=== PATIENT | male | born 1965 | race Caucasian/White ===

== ENCOUNTER → 2019-03-05 11:22 | Day surgery (SDC) | payer MEDICARE, MEDICAID, SELFPAY ==
--- NOTE | 2019-03-05 11:36 | US_ITS ---
WS: [id number] ULTRASOUND-GUIDED THERAPEUTIC PARACENTESIS Procedure, risks, and complications have been explained to the patient. Consent is obtained. Utilizing aseptic technique and 1% buffered lidocaine, a small dermatome was made through which a 5 F rench Yueh catheter was inserted. Approximately 4000 ml of clear peritoneal fluid was obtained witho ut difficulty. No complications encountered. US/US paracentesis abd w [id number] IMPRESSION: Uncomplicated paracentesis yielding 4000 ml of peritoneal fluid.
[2019-03-05 11:40] VITALS: BP 147/87; PULSE 79; RESP 20; TEMP 36.8; O2SAT 97; BMI 22.8
== END ==
PROVIDERS: Family Provider Internal Medicine; PCP Internal Medicine; Visit Provider Internal Medicine
DX: R18.8 Other ascites (principal)
CPT/HCPCS: 49083

== ENCOUNTER 2019-03-18 14:25 | Outpatient (CLI) | payer MEDICARE, MEDICAID, SELFPAY ==
--- NOTE | 2019-03-18 | US_ITS ---
WS: [id number] RIGHT UPPER QUADRANT ULTRASOUND HISTORY: CIRRHOSIS COMPARISON: 09/23/2018 Liver: 17.3 cm in length. Normal size liver. Markedly lobulated contours of the liver. No mass identi fied. Bile ducts are normal. Gallbladder: Mildly contracted gallbladder with thickened peña. No stones identified. CBD: 2.9 mm Pancreas: Not visualized. Right kidney: 10.1 cm in length. Normal echogenicity with no mass or hydronephrosis. Aorta and IVC: Unremarkable. Large amount of ascites scattered throughout all 4 quadrants. US/US liver [id number] IMPRESSION: 1. Severe cirrhosis with no mass identified. 2. Gallbladder wall thickening is probably on the basis of hepatocellular dise ase. No gallstones identified. 3. Large amount of ascites.
== END 2019-03-18 14:26 | disposition home or self-care (01) ==
LOC: RADOUTREAD 03-19 14:25
PROVIDERS: Family Provider Internal Medicine; Visit Provider Internal Medicine
DX: K74.60 Unspecified cirrhosis of liver (principal); R18.8 Other ascites
CPT/HCPCS: 76705

== ENCOUNTER → 2019-03-20 10:26 | Day surgery (SDC) | payer MEDICARE, MEDICAID, SELFPAY ==
--- NOTE | 2019-03-20 10:38 | US_ITS ---
WS: [id number] ULTRASOUND-GUIDED THERAPEUTIC PARACENTESIS Procedure, risks, and complications have been explained to the patient. Consent is obtained. Utilizing aseptic technique and 1% buffered lidocaine, a small dermatome was made through which a 5 F rench Yueh catheter was inserted. Approximately 3600 ml of clear peritoneal fluid was obtained witho ut difficulty. No complications encountered. US/US paracentesis abd w [id number] IMPRESSION: Uncomplicated paracentesis yielding 3600 ml of peritoneal fluid.
[2019-03-20 10:47] VITALS: BP 161/87; PULSE 76; RESP 20; TEMP 37.1; O2SAT 97
[2019-03-20 10:48] VITALS: BMI 21.2
== END ==
PROVIDERS: Family Provider Internal Medicine; PCP Internal Medicine; Visit Provider Internal Medicine
DX: G89.29 Other chronic pain (principal); M54.5 Low back pain; M54.2 Cervicalgia; M99.09 Segmental and somatic dysfunction of abdomen and other regions; E11.40 Type 2 diabetes mellitus with diabetic neuropathy, unspecified; F17.210 Nicotine dependence, cigarettes, uncomplicated; Z79.891 Long term (current) use of opiate analgesic
CPT/HCPCS: 49083; 99214; J2001

== ENCOUNTER → 2019-04-04 09:59 | Day surgery (SDC) | payer MEDICARE, MEDICAID, SELFPAY ==
--- NOTE | 2019-04-04 10:26 | US_ITS ---
WS: [id number] ULTRASOUND-GUIDED PARACENTESIS CLINICAL INFORMATION: ascites COMPARISON: None. Procedure Informed consent: The risks, benefits, and alternatives of the procedure were discussed with the juanita ent. Verbal and written consent was obtained. Timeout: A timeout was performed to confirm the correct patient, procedure, and site. Preparation: A suitable skin site was identified. The patient was prepped and draped in usual sterile fashion. Lidocaine 1% was used for local anesthesia. Catheter: 4 Nigerien One-step Yueh catheter. Side: Right Lower quadrant. Fluid Volume: 4300 ml Color: Clear yellow DISPOSITION: Discarded safely. Complications: None. Patient disposition: Discharged from the department in stable condition. US/US paracentesis abd w [id number] IMPRESSION: Uncomplicated ultrasound-guided paracentesis. Removal of 4300 cc clear yellow fluid
[2019-04-04 10:39] VITALS: BP 147/71; PULSE 57; RESP 18; TEMP 36.6
[2019-04-04 10:40] VITALS: BMI 24.5
== END ==
PROVIDERS: Family Provider Internal Medicine; PCP Internal Medicine; Visit Provider Internal Medicine
DX: R18.8 Other ascites (principal)
CPT/HCPCS: 49083

== ENCOUNTER → 2019-04-21 10:36 | Day surgery (SDC) | payer MEDICARE, MEDICAID, SELFPAY ==
[2019-04-21 10:47] VITALS: BP 143/82; PULSE 66; RESP 16; TEMP 36.8; O2SAT 98
--- NOTE | 2019-04-21 11:30 | US_ITS ---
WS: [id number] ULTRASOUND-GUIDED THERAPEUTIC PARACENTESIS Procedure, risks, and complications have been explained to the patient. Consent is obtained. Utilizing aseptic technique and 1% buffered lidocaine, a small dermatome was made through which a 5 F rench Yueh catheter was inserted. Approximately 2600 ml of clear peritoneal fluid was obtained witho ut difficulty. No complications encountered. US/US paracentesis abd w [id number] IMPRESSION: Uncomplicated paracentesis yielding 2600 ml of peritoneal fluid.
[2019-04-21 12:45] VITALS: BMI 24.1
== END ==
PROVIDERS: Family Provider Internal Medicine; PCP Internal Medicine; Visit Provider Internal Medicine
DX: R18.8 Other ascites (principal)
CPT/HCPCS: 49083; J2001

== ENCOUNTER 2019-05-07 10:54 | Outpatient (CLI) | payer MEDICARE, MEDICAID, SELFPAY ==
--- NOTE | 2019-05-07 11:29 | US_ITS ---
WS: [id number] Ultrasound-guided paracentesis, 05/07/2019 Clinical Data: ascites Comparison: Ultrasound-guided paracentesis, 04/21/2019. Findings: The patient was prepared in the usual manner with cleansing the skin of the right lower quadrant. The n approximately 5 mL 1% lidocaine were injected into the skin and subcutaneous tissue. A small wound was made and a 5 Tongan Yueh catheter was inserted. 4500 mL of clear yellow peritoneal fluid were rem brett without complication. US/US paracentesis abd w [id number] Impression: Paracentesis with removal of 4500 mL of peritoneal fluid.
[2019-05-07 11:30] VITALS: BMI 26.1
[2019-05-07 11:34] VITALS: BP 166/82; PULSE 67; RESP 18; TEMP 37.7; O2SAT 98
== END 2019-05-07 10:55 | disposition home or self-care (01) ==
PROVIDERS: Family Provider Internal Medicine; PCP Internal Medicine; Visit Provider Internal Medicine
DX: R18.8 Other ascites (principal)
CPT/HCPCS: 49083

== ENCOUNTER 2019-05-23 07:40 | Outpatient (CLI) | payer MEDICARE, MEDICAID, SELFPAY ==
[2019-05-23 07:59] VITALS: BMI 25.8
--- NOTE | 2019-05-23 08:09 | US_ITS ---
WS: [id number] ULTRASOUND-GUIDED PARACENTESIS CLINICAL INFORMATION: ASCITES COMPARISON: None. Procedure Informed consent: The risks, benefits, and alternatives of the procedure were discussed with the juanita ent. Verbal and written consent was obtained. Timeout: A timeout was performed to confirm the correct patient, procedure, and site. Preparation: A suitable skin site was identified. The patient was prepped and draped in usual sterile fashion. Lidocaine 1% was used for local anesthesia. Catheter: 4 Somali One-step Yueh catheter. Side: Right Lower quadrant. Fluid Volume: 4500 cc Color: Clear yellow DISPOSITION: Discarded safely. Complications: None. US/US paracentesis abd w [id number] IMPRESSION: Uncomplicated ultrasound-guided paracentesis. Removal of 4500 cc
[2019-05-23 08:11] VITALS: BP 165/95; PULSE 71; RESP 18; TEMP 37.3; O2SAT 99
== END 2019-05-23 07:41 | disposition home or self-care (01) ==
LOC: RAD 07:45
PROVIDERS: Family Provider Internal Medicine; PCP Internal Medicine; Visit Provider Internal Medicine
DX: R18.8 Other ascites (principal)
CPT/HCPCS: 49083

== ENCOUNTER 2019-06-06 08:00 | Outpatient (CLI) | payer MEDICARE, MEDICAID, SELFPAY | END 2019-06-06 09:00 | disposition home or self-care (01) | LOC: GILAB 09-30 15:24 | PROVIDERS: PCP Internal Medicine; Visit Provider Internal Medicine | DX: K72.90 Hepatic failure, unspecified without coma (principal); R18.8 Other ascites | CPT/HCPCS: 49083 ==

== ENCOUNTER 2019-06-06 10:54 | Outpatient (CLI) | payer MEDICARE, MEDICAID, SELFPAY ==
--- NOTE | 2019-06-06 | US_ITS ---
WS: [id number] ULTRASOUND-GUIDED PARACENTESIS CLINICAL INFORMATION: PARA COMPARISON: None. Procedure Informed consent: The risks, benefits, and alternatives of the procedure were discussed with the juanita ent. Verbal and written consent was obtained. Timeout: A timeout was performed to confirm the correct patient, procedure, and site. Preparation: A suitable skin site was identified. The patient was prepped and draped in usual sterile fashion. Lidocaine 1% was used for local anesthesia. Catheter: 4 Albanian One-step Yueh catheter. Side: Right Lower quadrant. Fluid Volume: 4200 ml Color: Clear matti DISPOSITION: Discarded safely. Complications: None. Patient disposition: Discharged from the department in stable condition. US/US paracentesis abd w [id number] IMPRESSION: Uncomplicated ultrasound-guided paracentesis. Removal of 4200 cc
[2019-06-06 11:16] VITALS: BP 163/78; PULSE 64; RESP 18; TEMP 37.1; O2SAT 99
[2019-06-06 11:28] VITALS: BMI 26.6
[2019-06-06 13:09] VITALS: BP 168/87; PULSE 60; RESP 18; TEMP 36.8; O2SAT 100
== END 2019-06-06 10:55 | disposition home or self-care (01) ==
LOC: RAD 10:59
PROVIDERS: Family Provider Internal Medicine; PCP Internal Medicine; Visit Provider Internal Medicine
DX: R18.8 Other ascites (principal)
CPT/HCPCS: 49083

== ENCOUNTER 2019-06-19 10:42 | Outpatient (CLI) | payer MEDICARE, MEDICAID, SELFPAY ==
[2019-06-19 10:55] VITALS: BP 170/113; PULSE 79; RESP 18; TEMP 37.1; O2SAT 97; BMI 25.8
--- NOTE | 2019-06-19 11:52 | US_ITS ---
WS: [id number] US abdomen lmt fluid [id number] REASON FOR EXAM: ascites FINDINGS: Prominent ascites again seen involving the 4 quadrants of the abdomen. As compared to the p revious exam exposed June 06, 2019. IMPRESSION: Prominent ascites again noted.
[2019-06-19 13:20] VITALS: BP 163/94; PULSE 74; RESP 20; O2SAT 99
[2019-06-19 14:05] VITALS: BP 158/70; PULSE 66; RESP 18; O2SAT 100
== END 2019-06-19 10:43 | disposition home or self-care (01) ==
LOC: OPS 10:47
PROVIDERS: Family Provider Internal Medicine; PCP Internal Medicine; Visit Provider Internal Medicine
DX: R18.8 Other ascites (principal)
CPT/HCPCS: 49082; 76705

== ENCOUNTER 2019-06-30 09:12 | Day surgery (SDC) | payer MEDICARE, MEDICAID, SELFPAY ==
[2019-06-27 14:59] VITALS: BMI 23.1
--- NOTE | 2019-06-30 09:32 | W.PM.OPSUD ---
Surgery/Procedure H&P Update DATE OF PROCEDURE: June 30, 2019 DATE H&P PERFORMED: 06/27/19 H&P UPDATE INFORMATION: I have reviewed H&P completed within last 30 days, I have examined patient prior to procedure and No changes to prior documentation PREOP DIAGNOSIS: Ascites PLANNED PROCEDURE: Operation Date: 06/30/19 11:00 Proposed Procedures p Peritoneal Catheter Insertion [id number] K76.9(Not Applicable) - Tyrone Dill MD
[2019-06-30 09:37] VITALS: BP 177/101; PULSE 84; RESP 18; TEMP 36.9; O2SAT 98; BMI 24.9
[2019-06-30] MEDS: sodium chloride 0.9% 1,000 ML 30 ML IV (09:48)
[2019-06-30 09:53] LABS: Glucose Point of Care 176 mg/dL (70-110)
--- NOTE | 2019-06-30 10:16 | P.ANESASSM_ITS ---
Pre-Anesthetic Assessment Pre-Anesthetic Assessment: Height/Weight: Height 1.73 m Weight 74.389 kg Temp Pulse Resp BP Pulse Ox 98.5 F 84 18 177/101 98 06/30/19 09:37 06/30/19 09:37 06/30/19 09:37 06/30/19 09:37 06/30/19 09:37 Preop Diagnosis: Ascites Proposed Procedure: Operation Date: 06/30/19 11:00 Proposed Procedures p Peritoneal Catheter Insertion [id number] K76.9(Not Applicable) - Tyrone Dill MD Familial anesthetic complications: None Was Beta Elmer taken within 24 hours: N/A Last intake: Intake Last Liquid Date 06/30/19 Last Liquid Time 02:00 Last Solid Date 06/29/19 Last Solid Time 23:59 Social: Social History: Tobacco and No alcohol Exam: Pre-Anes Outpt Exam: alert, oriented x 3, clear to auscultation bilaterally and regular rate & rhythm Airway: Cervical ROM: WNL MP: 1 Additional comments: edentulous Pulmonary: Pulmonary: COPD CV/HEM: CV/HEM: HTN and AL : : None reported Hepatic: Comments: Liver failure - alcohol and IVDA (REMOTE HX) GI: GI: GERD Metabolic: Metabolic: DM Musc/skel: Musc/skel: None reported Neuropsych: Neuropsych: CVA (NO REsidual sxs - last one 6 yrs ago) Anesthetic Plan: ASA status: 4 Anesthesia: General Other: RSI for a scites Risk of > 500 ml blood loss (7ml/kg in children): No Meds/Allergies Current Medications: Current Medications Generic Name Dose Route Start Last Admin Trade Name Freq PRN Reason Stop Dose Admin Sodium Chloride 1,000 mls @ 30 ml s/hr 06/30/19 09:30 06/30/19 09:48 Sodium Chloride 0.9% IV 07/01/19 09:29 30 mls/hr .Q24H GIGI Administration PFSH Anesthesia PFSH: Medical History (Updated 06/27/19 @ 15:06 by Tyrone Dill MD) Ascites Chronic cervical pain Chronic low back pain Diabetes Diabetic neuropathy, painful Liver failure Somatic dysfunction of back THORACIC AND LUMBAR Surgical History History of colonoscopy History of esophagogastroduodenoscopy (EGD) Hx of circumcision Hx of inguinal hernia repair (~05/22/18) LAP REPAIR OF RIGHT INGUINAL HERNIA WITH ULTRAPRO 15X10 CM MESH. Hx of oral surgery Family History Father Cancer LUNG CANCER Other Diabetes Heart disease Lung disease Myocardial infarct Stroke Denies family history of Anesthesia complication Bleeding disorder Social History Smoking and tobacco status: current every day smoker cigarettes Packs smoked per day: 0.5 Alcohol intake: former Year of sobriety/quit date alcohol: 2009 Caregiver/support person: Yes Lives independently: Yes Household members: friend(s) Current occupational status: disabled History of recent travel: No Data Anesthesia Other Labs: Laboratory Results - last 48 hr 06/30/19 09:49 POC Glucose 176 Cardiac Studies: No Data to Display
[2019-06-30] MEDS: vancomycin 1,000 MG in sodium chloride 0.9% 250 ML 250 MG IV (10:19)
[2019-06-30 10:39] VITALS: RESP 16; O2SAT 98
[2019-06-30] MEDS: fentaNYL 50 mcg/mL INJ 2mL 25 MCG IVP (10:39)
[2019-06-30 11:39] VITALS: BP 154/76; PULSE 79; RESP 16; TEMP 36.2; O2SAT 97
--- NOTE | 2019-06-30 11:39 | PM.OP ---
Operative Report Date of procedure: June 30, 2019 Pre-op Diagnosis: Ascites secondary to liver failure Post-op diagnosis: same Procedure Done: Placement of peritoneal catheter Ultrasound guidance and interpretation for placement of catheter Pathology: none sent Surgeon: Tyrone Dill Anesthesia: MAC Estimated blood loss (mL): 5 Condition: stable Disposition: same day Procedure: The patient was taken to the operating room and placed under MAC after IV antibiotic had been administered. Ultrasound of the right lower quadrant revealed ascites with small bowel loops. Under ultrasound guidance introducer needle was introduced into the peritoneal cavity with drainage of ascites. A guidewire was passed through the introducer needle and the needle was removed. A dilator sheath was then passed over the guidewire after the skin incision had been extended using 11 blade. The guidewire and the inner dilator was removed and a peritoneal cath was introduced into the peritoneal cavity and the first cuff on the catheter was placed in the subcutaneous space. The external end of the catheter was attached to the tunneler and passed through subcutaneous tunnel laterally and exited through was stab incision made using 11 blade. The second cuff was placed within the subcutaneous tunnel. The skin incision was closed using 4-0 Monocryl and surgical glue. The ascites was drained. Patient was transferred to same-day surgery in stable condition.
[2019-06-30 12:13] VITALS: RESP 18; O2SAT 96
[2019-06-30] MEDS: oxyCODONE 5 mg IR Tab/Cap 20 MG PO (12:13)
[2019-06-30 12:16] VITALS: BP 163/89; PULSE 74; RESP 16; O2SAT 96
== END 2019-06-30 12:43 | disposition home or self-care (01) ==
PROVIDERS: PCP Internal Medicine; Visit Provider Surgery
PROC: (CPT 49324; principal; 2019-06-30 11:00)
DX: R18.8 Other ascites (principal); K72.90 Hepatic failure, unspecified without coma; E11.40 Type 2 diabetes mellitus with diabetic neuropathy, unspecified; Z79.4 Long term (current) use of insulin; F17.210 Nicotine dependence, cigarettes, uncomplicated; J44.9 Chronic obstructive pulmonary disease, unspecified; I10 Essential (primary) hypertension; I25.2 Old myocardial infarction; K21.9 Gastro-esophageal reflux disease without esophagitis; Z86.73 Personal history of transient ischemic attack (TIA), and cerebral infarction without residual deficits
CPT/HCPCS: 49324; 12345; 36416; 82962; 96374; C1750; J2001; J2250; J2270; J2704; J3010; J3370; J3490; J7030; J7050

== ENCOUNTER 2019-08-01 17:29 | Emergency (ER) | payer MEDICARE, MEDICAID, SELFPAY | END 2019-08-01 17:52 | disposition left against medical advice (07) | LOC: ER 08-24 05:38 | PROVIDERS: Emergency Provider Physician Assistant | DX: Z53.21 Procedure and treatment not carried out due to patient leaving prior to being seen by health care provider (principal) | CPT/HCPCS: 99281 ==

== ENCOUNTER 2019-08-01 17:33 | Emergency (ER) | payer MEDICARE, MEDICAID, SELFPAY ==
[2019-08-01] VITALS (9 sets, daily range): BP systolic 129–171; BP diastolic 78–99; PULSE 68–79; RESP 14–17; TEMP 36.9; O2SAT 97–99; BMI 22.8
--- NOTE | 2019-08-01 18:09 | CTR_ITS ---
PROCEDURE INFORMATION: Exam: CT Abdomen And Pelvis With Contrast Exam date and time: 08/01/2019 6:31 PM Age: 53 years old Clinical indication: Abdominal pain; Generalized; Prior surgery; Surgery date: <1 month; Surgery type: R sided drain, hernia; Patient HX: C/O abd pain w nausea; Additional info: Abdominal pain, ascites TECHNIQUE: Imaging protocol: Computed tomography of the abdomen and pelvis with intravenous contrast. Radiation optimization: All CT scans at this facility use at least one of these dose optimization techniques: automated exposure control; mA and/or kV adjustment per patient size (includes targeted exams where dose is matched to clinical indication); or iterative reconstruction. Contrast material: OMNI 300; Contrast volume: 95 ml; Contrast route: INTRAVENOUS (IV); COMPARISON: No relevant prior studies available. RADIATION DOSE METRICS: Total DLP (mGy-cm): 656.49 FINDINGS: Tubes, catheters and devices: There is catheter tubing coiled in the midline pelvis. Lungs: There is an unchanged 7 mm nodular density left lung base image 6. There is also an unchanged 3 mm ground-glass nodule right lung image 6. There is no new or enlarging pulmonary nodule. The lung bases are otherwise clear. Liver: The liver has a grossly nodular contour and there is relative hypertrophy of the caudate lobe, consistent with end-stage cirrhosis. Few tiny hepatic hypodensities are too small to characterize. Gallbladder and bile ducts: Normal. No calcified stones. No ductal dilation. Pancreas: Normal. No ductal dilation. Spleen: The spleen measures 14.8 x 14.5 by 7.0 cm. The spleen is homogeneous in density. Adrenals: Normal. No mass. Kidneys and ureters: There is no evidence of hydronephrosis. There are small bilateral renal calcifications. Stomach and bowel: There is diffuse small bowel wall thickening, consistent with infectious, ischemic, or inflammatory enteritis. Extensive diverticulosis is present in the distal colon. There is no evidence of colitis/diverticulitis. The gastric wall appears thickened but the stomach is also nearly completely collapsed in the appearance is compatible probable lack of distension. Appendix: The appendix is not definitively identified. However, there is no CT evidence of a right lower quadrant inflammatory process. Intraperitoneal space: There is a moderate to large quantity of ascites. Vasculature: Unremarkable.No abdominal aortic aneurysm. Lymph nodes: Unremarkable.No enlarged lymph nodes. Bladder: Unremarkable as visualized. Reproductive: Unremarkable as visualized. Bones/joints: Osteopenia and moderate degenerative changes in the spine are noted. Soft tissues: Unremarkable. Other findings: Varicosities are noted in the upper abdomen. CT/CT abdomen pelvis w con* [id number] IMPRESSION: 1. There is diffuse small bowel wall thickening, consistent with infectious, ischemic, or inflammatory enteritis. 2. There is abundant ascites. No abscess or free air. 3. Heterogeneous nodular liver compatible with cirrhosis. There is splenomegaly and varicosities. 4. Unchanged basilar pulmonary nodules. The lungs are otherwise clear. 5. Bilateral nephrolithiasis. No hydronephrosis. Radiation Dose CTDIVOL = (mGy): DLP = 656.49 (mGy-cm)
[2019-08-01 18:31] LABS: Basophils # 0.1 10^3/uL (0.0-0.1); Basophils % 1.1 %; Eosinophils # 0.1 10^3/uL (0.0-0.8); Eosinophils % 2.5 %; Hemoglobin 10.6 g/dL (11.7-16.6); Lymphocytes # 0.6 10^3/uL (0.8-4.8); Lymphocytes % 11.8 %; Mean Corpuscular HGB Conc 31.2 g/dL (30.0-36.0); Mean Corpuscular Hemoglobin 30.8 pg (28.0-34.0); Mean Corpuscular Volume 98.8 fL (80-94); Mean Platelet Volume 10.2 fL (7.4-10.4); Monocytes # 0.6 10^3/uL (0.2-0.9); Neutrophils # 3.4 10^3/uL (1.8-7.7); Neutrophils % 72.2 %; Nucleated Red Blood Cells % 0 %; Platelet Count 71 10^3/cmm (130-400); Red Blood Count 3.44 10^6/uL (4.1-5.3); Red Cell Distribution Width 13.2 % (12.1-15.1); White Blood Count 4.7 10^3/uL (4.0-10.0)
[2019-08-01] MEDS: iohexol 300 mg/mL 100 mL Btl 95 ML IV (18:34)
[2019-08-01 18:46] LABS: Lactate (Lactic Acid level) 1.7 mmol/L (0.5-2.2)
[2019-08-01 18:55] LABS: Alanine Aminotransferase 8 U/L (0-41); Albumin Level 2.6 g/dL (3.5-5.2); Alkaline Phosphatase 109 IU/L (40-130); Anion Gap 16.7 (5-19); Aspartate Amino Transferase 14 U/L (0-40); Blood Urea Nitrogen 16 mg/dL (6-20); C Reactive Protein 71.2 mg/L (0.0-4.9); Calcium 7.5 mg/dL (8.5-10.5); Carbon Dioxide 16 mmol/L (22-29); Chloride 101 mmol/L (98-107); Globulin 2.6 g/dL (1.3-4.6); Glomerular Filtration Rate 63.3 mL/min (90-130); Glucose 313 mg/dL (65-115); Osmolality Calculated 278 mOsm/kg (285-295); Potassium 3.7 mmol/L (3.5-5.1); Sodium 130 mmol/L (136-145); Total Bilirubin 0.6 mg/dL (0.15-1.2); Total Protein 5.2 g/dL (6.6-8.7)
[2019-08-01 19:29] LABS: INR 1.23 (0.8-1.2)
[2019-08-01 19:30] LABS: RBC, Body Fluid 2 10^3/uL (0-0)
[2019-08-01 19:32] LABS: Body Fluid Polynuclear #Cells 1.269 10^3/uL; Body Fluid WBC 1752 /uL; Monocytes # Body Fluid 0.483 10^3/uL
[2019-08-01] MEDS: morphine 4 mg/mL SDV 1 mL IVP ×2 (19:35→22:35)
[2019-08-01 19:36] LABS: Albumin Body Fluid 0.6 g/dL; Amylase Body Fluid 7 U/L; Apprearance, Body Fluid CLOUDY (CLEAR); Color, Body Fluid YELLOW (PALE YELLOW); LDH Body Fluid 124 U/L; Total Protein Body Fluid 1 g/dL
[2019-08-01 19:51] LABS: PATH Referral YES
[2019-08-01 21:46] LABS: Glucose Urine UA 4+ (Normal); Protein Urine Neg (Negative); Urine Appearance Hazy (CLEAR); Urine Color Yellow (Yellow); pH Urine 5 (5-7)
[2019-08-01 21:48] LABS: Add Urine Microscopic? YES; Bilirubin Urine Neg (NEGATIVE); Blood Urine 2+ (Negative); Ketones Urine Negative (Negative); Leukocyte Esterase Urine Negative (Negative); Nitrate Urine Negative (Negative); Urobilinogen Urine 1 mg/dL (Negative)
[2019-08-01 21:56] LABS: Add Urine Culture? No; Bacteria Urine TRACE; Squamous Epithelial Cell Urine 0-4 (0-5)
--- NOTE | 2019-08-01 22:08 | W.ED.ABDPA2 ---
HPI - Abdominal Pain General: Chief Complaint: Abdominal Pain Stated Complaint: ABD Pain Time Seen by Provider: 08/01/19 17:52 Source: patient Mode of arrival: ambulatory Limitations: no limitations History of Present Illness: HPI narrative: 53-year-old gentleman with a history of alcoholic liver cirrhosis and ascites. He has a peritoneal drain placed and he drains the ascitic fluid about every 2 to 3 days. About 2 days ago he noticed the ascitic fluid was bloody and he has associated abdominal pain. He also has some nausea and vomiting. He has a subjective fever. No sick contacts. He is here to be evaluated MD elicited complaint: abdominal pain Onset (ago): day(s) (3) Pain Consistency: constant Location: Diffuse Severity: moderate Quality: sharp Radiation: none Migration to: no migration Exacerbating factors: nothing Relieving factors: nothing Associated Symptoms: Reports fever(s); Denies chills, dysuria, nausea and vomiting Review of Systems General: Reports: 10 or more systems reviewed and unremarkable except in HPI and below Const: Reports: fever(s); Denies: chills or body aches Card: Denies: palpitations, irregular heart rhythm, edema or swelling of feet/ankles Resp: Denies: dyspnea, productive cough or non-productive cough GI: Denies: abdominal pain, nausea or vomiting : Denies: flank pain, dysuria, urinary frequency, urinary urgency or urinary hesitancy Musc: Denies: neck pain, back pain or extremity swelling Skin/Breast: Denies: rash, pruritus or erythema Neuro: Denies: headache(s), numbness in extremities or weakness in extremities Endo: Denies: polyuria, polydipsia or tired all the time PFS ED PFSH: Medical History (Updated 08/01/19 @ 22:13 by Amy Michael MD, [facility] [place] Ascites Chronic cervical pain Chronic low back pain Diabetes Diabetic neuropathy, painful Liver failure Somatic dysfunction of back THORACIC AND LUMBAR Surgical History History of colonoscopy History of esophagogastroduodenoscopy (EGD) Hx of circumcision Hx of inguinal hernia repair (~05/22/18) LAP REPAIR OF RIGHT INGUINAL HERNIA WITH ULTRAPRO 15X10 CM MESH. Hx of oral surgery Family History Father Cancer LUNG CANCER Other Diabetes Heart disease Lung disease Myocardial infarct Stroke Denies family history of Anesthesia complication Bleeding disorder Social History Smoking and tobacco status: current every day smoker cigarettes Packs smoked per day: 0.5 Alcohol intake: former Year of sobriety/quit date alcohol: 2009 Caregiver/support person: Yes Lives independently: Yes Household members: friend(s) Current occupational status: disabled History of recent travel: No Physical Exam Const: COMMON NORMALS: no acute distress, average body habitus, patient oriented x3, no limitations, healthy appearing, alert and well nourished HENMT: COMMON NORMALS: normocephalic, atraumatic and moist oral mucous membranes HEAD & SCALP: normocephalic and atraumatic Eye: COMMON NORMALS: Equal, round and reactive pupils present, EOMs intact bilaterally, conjunctivae normal and no scleral icterus CONJUNCTIVA: Yes conjunctivae normal PUPIL: Yes Equal, round and reactive pupils present Neck/C-Spine: COMMON NORMALS: no meningeal signs and no JVD Resp: COMMON NORMALS: normal respiratory effort, No retractions, No use of accessory muscles, clear to auscultation bilaterally and percussion normal AUSCULTATION: clear to auscultation bilaterally PERCUSSION: percussion normal Cardio: COMMON NORMALS: no JVD, regular rate, regular rhythm, S1 normal heart sound present, S2 normal heart sound present, No gallops present (Cardio), No clicks present (Cardio), No murmurs present (Cardio), No rub (Cardio) and Peripheral pulses 2+ throughout RATE: regular rate RHYTHM: regular rhythm HEART SOUNDS: S1 normal heart sound present and S2 normal heart sound present PERIPHERAL PULSES: Peripheral pulses 2+ throughout GI: COMMON NORMALS: Soft to palpation, non-tender, No hepatosplenomegaly present, no masses and no bruits INSPECTION: Yes abdominal distension and Yes Fluid wave present AUSCULTATION: Yes normoactive bowel sounds PALPATION: Yes Soft to palpation, Yes Tenderness to palpation present (GI) (Generalized), No Guarding due to palpation present (GI), Yes No hepatosplenomegaly present and No Rebound tenderness present PERCUSSION: Fluid wave present : COMMON NORMALS: Yes no CVA tenderness BLADDER/KIDNEY EXAM: Yes no CVA tenderness Back/Pelvis: COMMON NORMALS: no CVA tenderness Extremity: COMMON NORMALS: normal to inspection, full ROM, capillary refill normal, no calf tenderness and no pedal edema Neuro: COMMON NORMALS: patient oriented x3 SENSORIUM/ORIENTATION: Yes alert MENINGEAL SIGNS: Yes no meningeal signs Skin: COMMON NORMALS: no rashes or lesions noted, no wounds, turgor normal, no jaundice, no petechiae and no mottling GENERAL SKIN EXAM: no rashes or lesions noted and turgor normal Course Reevaluation(s): Reevaluation #1: Discussed his lab and imaging findings with him. Negative for acute findings. Explained that he is ascitic fluid analysis is not suggestive of SBP. We will discharge him home with no new medications or orders. He will follow-up with his primary care provider. He voiced understanding and he is in agreement with the plan. Time: 22:08 Vital Signs: Vital signs: Vital Signs Temperature 98.4 F 08/01/19 17:42 Pulse Rate 78 08/01/19 22:36 Respiratory Rate 14 08/01/19 22:36 Blood Pressure 158/99 08/01/19 22:36 Pulse Oximetry 97 08/01/19 22:36 MDM - Abdominal Pain MDM Narrative: Medical decision making narrative: 53-year-old gentleman with alcoholic cirrhosis and ascites. He presents with abdominal pain and an episode of bloody ascitic fluid 2 days ago. Today and drainage of his ascitic fluid yielded yellowish fluid. Nonbloody. Evaluation of the ascitic fluid was not consistent with spontaneous bacterial peritonitis as he had very few polymorphonuclear cells, high glucose, low protein. CT scan of his abdomen and pelvis were negative for acute findings. Other evaluation was unremarkable. He is therefore discharged home with no new orders Medical Records: Attestation: I reviewed the patient's medical records. Lab Data: Attestation: I reviewed the patient's lab results. Labs: Lab Results 08/01/19 08/01/19 08/01/19 Range/Units 17:12 18:11 18:15 WBC 4.7 (4.0-10.0) 10^3/ uL RBC 3.44 L (4.1-5.3) 10^6/u L Hgb 10.6 L (11.7-16.6) g/dL Hct 34.0 L (42.0-52.0) % MCV 98.8 H (80-94) fL MCH 30.8 (28.0-34.0) pg MCHC 31.2 (30.0-36.0) g/dL RDW 13.2 (12.1-15.1) % Plt Count 71 L (130-400) 10^3/c mm MPV 10.2 (7.4-10.4) fL Neut % (Auto) 72.2 % Lymph % (Auto) 11.8 % [place] % (Auto) 12.0 % Eos % (Auto) 2.5 % Baso % (Auto) 1.1 % Neut # (Auto) 3.4 (1.8-7.7) 10^3/u L Lymph # (Auto) 0.6 L (0.8-4.8) 10^3/u L [place] # (Auto) 0.6 (0.2-0.9) 10^3/u L Eos # (Auto) 0.1 (0.0-0.8) 10^3/u L Baso # (Auto) 0.1 (0.0-0.1) 10^3/u L Nucleated RBC % (a uto) 0 % Nucleated RBCs # 0.0 /100WBC Differential Comme nt Yes PT 15.90 H (10.5-13.3) SECO NDS INR 1.23 H (0.8-1.2) Sodium (136-145) mmol/L Potassium (3.5-5.1) mmol/L Chloride (98-107) mmol/L Carbon Dioxide (22-29) mmol/L Anion Gap (5-19) BUN (6-20) mg/dL Creatinine (0.7-1.2) mg/dL GFR Calculation (90-130) mL/min Glucose (65-115) mg/dL Calculated Osmolal ity (285-295) mOsm/k g Lactate (0.5-2.2) mmol/L Calcium (8.5-10.5) mg/dL Total Bilirubin (0.15-1.2) mg/dL AST (0-40) U/L ALT (0-41) U/L Alkaline Phosphata se (40-130) IU/L C-Reactive Protein (0.0-4.9) mg/L Total Protein (6.6-8.7) g/dL Albumin (3.5-5.2) g/dL Globulin (1.3-4.6) g/dL Urine Color (Yellow) Urine Appearance (CLEAR) Urine pH (5-7) Ur Specific Gravit y (1.005-1.030) Urine Protein (Negative) Urine Glucose (UA) (Normal) Urine Ketones (Negative) Urine Blood (Negative) Urine Nitrate (Negative) Urine Bilirubin (NEGATIVE) Urine Urobilinogen (Negative) mg/dL Ur Leukocyte Amanda ase (Negative) Urine RBC (0-2) /hpf Urine WBC (0-5) /hpf Ur Squamous Epith Cells (0-5) Urine Bacteria (NONE) Fluid Color Yellow (PALE YELLOW) Fluid Appearance Cloudy (CLEAR) Fluid Specific Gra v 1.010 Fluid WBC 1752 /uL Fluid RBC 2 H (0-0) 10^3/uL Fld Polynuclear WB Cs # 1.269 10^3/uL Fld Polynuclear WB Cs % 72.500 % Fl Mononucl WBCs # (Auto) 0.483 10^3/uL Fl Mononuclear % A uto 27.500 % Fluid Glucose 272.0 mg/dL Fluid Total Protei n 1 g/dL Fluid Albumin 0.6 g/dL Fluid LDH 124 U/L Fluid Amylase 7 U/L 08/01/19 08/01/19 08/01/19 Range/Units 18:15 18:15 19:30 WBC (4.0-10.0) 10^3/ uL RBC (4.1-5.3) 10^6/u L Hgb (11.7-16.6) g/dL Hct (42.0-52.0) % MCV (80-94) fL MCH (28.0-34.0) pg MCHC (30.0-36.0) g/dL RDW (12.1-15.1) % Plt Count (130-400) 10^3/c mm MPV (7.4-10.4) fL Neut % (Auto) % Lymph % (Auto) % [place] % (Auto) % Eos % (Auto) % Baso % (Auto) % Neut # (Auto) (1.8-7.7) 10^3/u L Lymph # (Auto) (0.8-4.8) 10^3/u L [place] # (Auto) (0.2-0.9) 10^3/u L Eos # (Auto) (0.0-0.8) 10^3/u L Baso # (Auto) (0.0-0.1) 10^3/u L Nucleated RBC % (a uto) % Nucleated RBCs # /100WBC Differential Comme nt PT (10.5-13.3) SECO NDS INR (0.8-1.2) Sodium 130 L (136-145) mmol/L Potassium 3.7 (3.5-5.1) mmol/L Chloride 101 (98-107) mmol/L Carbon Dioxide 16 L (22-29) mmol/L Anion Gap 16.7 (5-19) BUN 16 (6-20) mg/dL Creatinine 1.2 (0.7-1.2) mg/dL GFR Calculation 63.3 L (90-130) mL/min Glucose 313 H (65-115) mg/dL Calculated Osmolal ity 278 L (285-295) mOsm/k g Lactate 1.7 (0.5-2.2) mmol/L Calcium 7.5 L (8.5-10.5) mg/dL Total Bilirubin 0.6 (0.15-1.2) mg/dL AST 14 (0-40) U/L ALT 8 (0-41) U/L Alkaline Phosphata se 109 (40-130) IU/L C-Reactive Protein 71.2 H (0.0-4.9) mg/L Total Protein 5.2 L (6.6-8.7) g/dL Albumin 2.6 L (3.5-5.2) g/dL Globulin 2.6 (1.3-4.6) g/dL Urine Color Yellow (Yellow) Urine Appearance Hazy A (CLEAR) Urine pH 5 (5-7) Ur Specific Gravit y 1.010 (1.005-1.030) Urine Protein Neg (Negative) Urine Glucose (UA) 4+ H (Normal) Urine Ketones Negative (Negative) Urine Blood 2+ H (Negative) Urine Nitrate Negative (Negative) Urine Bilirubin Neg (NEGATIVE) Urine Urobilinogen 1 H (Negative) mg/dL Ur Leukocyte Amanda ase Negative (Negative) Urine RBC 5-10 H (0-2) /hpf Urine WBC None (0-5) /hpf Ur Squamous Epith Cells 0-4 H (0-5) Urine Bacteria Trace (NONE) Fluid Color (PALE YELLOW) Fluid Appearance (CLEAR) Fluid Specific Gra v Fluid WBC /uL Fluid RBC (0-0) 10^3/uL Fld Polynuclear WB Cs # 10^3/uL Fld Polynuclear WB Cs % % Fl Mononucl WBCs # (Auto) 10^3/uL Fl Mononuclear % A uto % Fluid Glucose mg/dL Fluid Total Protei n g/dL Fluid Albumin g/dL Fluid LDH U/L Fluid Amylase U/L Imaging Data ^: CT Abd/Pel: Radiologist's impression: [address] [address] [address] Scan Report Signed Patient: Hugo Oquendo #: [id number] : 1965Acct#:[id number] Age/Sex: 53 / MADM Date: 08/01/19 Loc: ERRoom/Bed: Attending Dr: Ordering Provider/Ordering MD: Amy Michael MD, [facility] [place] Date of Service: 08/01/19 Procedure(s): CT abdomen pelvis w con* [id number] Accession Number(s): [id number] Report Number: [id number] PROCEDURE INFORMATION: Exam: CT Abdomen And Pelvis With Contrast Exam date and time: 08/01/2019 6:31 PM Age: 53 years old Clinical indication: Abdominal pain; Generalized; Prior surgery; Surgery date: <1 month; Surgery type: R sided drain, hernia; Patient HX: C/O abd pain w nausea; Additional info: Abdominal pain, ascites TECHNIQUE: Imaging protocol: Computed tomography of the abdomen and pelvis with intravenous contrast. Radiation optimization: All CT scans at this facility use at least one of these dose optimization techniques: automated exposure control; mA and/or kV adjustment per patient size (includes targeted exams where dose is matched to clinical indication); or iterative reconstruction. Contrast material: OMNI 300; Contrast volume: 95 ml; Contrast route: INTRAVENOUS (IV); COMPARISON: No relevant prior studies available. RADIATION DOSE METRICS: Total DLP (mGy-cm): 656.49 FINDINGS: Tubes, catheters and devices: There is catheter tubing coiled in the midline pelvis. Lungs: There is an unchanged 7 mm nodular density left lung base image 6. There is also an unchanged 3 mm ground-glass nodule right lung image 6. There is no new or enlarging pulmonary nodule. The lung bases are otherwise clear. Liver: The liver has a grossly nodular contour and there is relative hypertrophy of the caudate lobe, consistent with end-stage cirrhosis. Few tiny hepatic hypodensities are too small to characterize. Gallbladder and bile ducts: Normal. No calcified stones. No ductal dilation. Pancreas: Normal. No ductal dilation. Spleen: The spleen measures 14.8 x 14.5 by 7.0 cm. The spleen is homogeneous in density. Adrenals: Normal. No mass. Kidneys and ureters: There is no evidence of hydronephrosis. There are small bilateral renal calcifications. Stomach and bowel: There is diffuse small bowel wall thickening, consistent with infectious, ischemic, or inflammatory enteritis. Extensive diverticulosis is present in the distal colon. There is no evidence of colitis/diverticulitis. The gastric wall appears thickened but the stomach is also nearly completely collapsed in the appearance is compatible probable lack of distension. Appendix: The appendix is not definitively identified. However, there is no CT evidence of a right lower quadrant inflammatory process. Intraperitoneal space: There is a moderate to large quantity of ascites. Vasculature: Unremarkable.No abdominal aortic aneurysm. Lymph nodes: Unremarkable.No enlarged lymph nodes. Bladder: Unremarkable as visualized. Reproductive: Unremarkable as visualized. Bones/joints: Osteopenia and moderate degenerative changes in the spine are noted. Soft tissues: Unremarkable. Other findings: Varicosities are noted in the upper abdomen. CT/CT abdomen pelvis w con* [id number] IMPRESSION: 1. There is diffuse small bowel wall thickening, consistent with infectious, ischemic, or inflammatory enteritis. 2. There is abundant ascites. No abscess or free air. 3. Heterogeneous nodular liver compatible with cirrhosis. There is splenomegaly and varicosities. 4. Unchanged basilar pulmonary nodules. The lungs are otherwise clear. 5. Bilateral nephrolithiasis. No hydronephrosis. Radiation Dose CTDIVOL = (mGy): DLP = 656.49 (mGy-cm) Dictated By:Elizabeth Bruner Signed By:Sapna Brunerigned Date/Time:08/01/191855 DD/ 53 Discharge Plan Discharge Patient Disposition: Home, Self-Care Clinical Impression: Abdominal pain Qualifiers: Abdominal location: generalized Qualified Code(s): R10.84 - Generalized abdominal pain Ascites Qualifiers: Ascites type: due to alcoholic cirrhosis Qualified Code(s): K70.31 - Alcoholic cirrhosis of liver with ascites Condition: Stable Prescriptions: Continued nitroglycerin [Nitrostat] 0.4 mg tablet, sublingual 0.4 mg SUBLINGUAL Q5M PRN (Reason: Chest Pain) RF: 0 spironolactone 100 mg tablet 100 mg PO QAM RF: 0 oxycodone 30 mg tablet 30 mg PO .FIVE TIMES DAILY PRN (Reason: Pain) 30 Days Qty: 140 RF: 0 oxycodone 30 mg tablet 30 mg PO .FIVE TIMES DAILY PRN (Reason: Pain) 30 Days Qty: 140 RF: 0 trazodone 150 mg tablet 150 mg PO DAILY 90 Days Qty: 90 RF: 3 Farxiga 10 mg Tablet 10 mg PO QAM RF: 0 fluticasone propion-salmeterol [Advair Diskus] 250-50 mcg/dose Blister With Device 1 inh INHALATION BID RF: 0 Tresiba FlexTouch U-100 100 unit/mL (3 mL) Insulin Pen 10 - 25 unit SUBCUT DAILY PRN (Reason: Hyperglycemia) RF: 0 albuterol sulfate 90 mcg/actuation Aero Powdr Breath Act W/Sensor 90 mcg INHALATION QID PRN (Reason: Shortness Of Breath) RF: 0 furosemide 20 mg tablet 40 mg PO BID RF: 0 Discharge Orders: Discharge Order (Routine); Ordered 08/01/19 Ordered By: Amy Michael Referrals: Gary Duke DO [Primary Care Provider] - 1-3 days Patient Instructions: Ascites (ED), Abdominal Pain (ED) Activity Restrictions/Additional Instructions: Return for any new or worsening symptoms. Follow-up with your primary care provider within 3 days. You may want to drain some fluid off of your abdomen either tonight or tomorrow to relieve some pressure. Discharge Date/Time: 08/01/19 22:45 Coding Level of Care Code ED Director Of Software Engineering for Eduin Savage
== END 2019-08-01 22:45 | disposition home or self-care (01) ==
PROVIDERS: Emergency Provider Family Medicine; PCP Internal Medicine
DX: R10.84 Generalized abdominal pain (principal); K70.31 Alcoholic cirrhosis of liver with ascites; E11.9 Type 2 diabetes mellitus without complications; Z79.4 Long term (current) use of insulin; F17.210 Nicotine dependence, cigarettes, uncomplicated
CPT/HCPCS: 12345; 74177; 80053; 80500; 81001; 82042; 82150; 82945; 83605; 83615; 84157; 84315; 85025; 85610; 86140; 87070; 87075; 87077; 87186; 87205; 89050; 96374; 96376; 99284; J2270; Q9967

== ENCOUNTER 2019-08-02 18:19 | Inpatient (IN) | payer MEDICARE, MEDICAID, SELFPAY ==
[2019-08-02] VITALS (7 sets, daily range): BP systolic 125–164; BP diastolic 78–97; PULSE 82–89; RESP 18–20; TEMP 36.8–37.2; O2SAT 97–99; BMI 21.2
--- NOTE | 2019-08-02 19:48 | W.ED.RECABL ---
HPI - Recheck/Abnormal Lab/Rx General: Chief Complaint: Recheck/Abnormal Lab/Rx Stated Complaint: sent by doc Time Seen by Provider: 08/02/19 19:23 History of Present Illness: HPI narrative: 53-year-old with a history of cirrhosis, and chronic ascites with a port. He came in yesterday to the ER for bloody output from his port, following an episode of vomiting. His output had cleared here, but was sent for culture. Today, he was called back as his Gram stain was positive for many gram-negative rods. He reports fevers and chills at night. Initial visit (ago): day(s) (1) Initial visit for: other Returns today for: called because of abnormal lab/test Symptoms since prior visit: fever Context: called for abnormal lab result Associated symptoms: fever Review of Systems Const: Reports: fever(s) and chills Eyes: Denies: change in vision ENMT: Denies: bleeding gums, change in hearing, post nasal drip or sinus pain Card: Reports: edema; Denies: chest pain, palpitations or irregular heart rhythm Resp: Reports: dyspnea; Denies: productive cough, non-productive cough or wheezing GI: Reports: abdominal pain and nausea; Denies: vomiting or rectal pain : Denies: difficulty urinating or hematuria Musc: Reports: back pain; Denies: neck pain, joint redness or joint warmth Skin/Breast: Denies: rash, pruritus or erythema Neuro: Denies: headache(s), dizziness or vertigo Psych: Reports: anxiety PFS ED PFSH: Medical History (Updated 08/03/19 @ 01:20 by Paul Machado DO) Ascites Chronic cervical pain Chronic low back pain Diabetes Diabetic neuropathy, painful Liver cirrhosis Liver failure Smoking addiction Somatic dysfunction of back THORACIC AND LUMBAR Surgical History History of colonoscopy History of esophagogastroduodenoscopy (EGD) Hx of circumcision Hx of inguinal hernia repair (~05/22/18) LAP REPAIR OF RIGHT INGUINAL HERNIA WITH ULTRAPRO 15X10 CM MESH. Hx of oral surgery Family History Father Cancer LUNG CANCER Other Diabetes Heart disease Lung disease Myocardial infarct Stroke Denies family history of Anesthesia complication Bleeding disorder Social History Smoking and tobacco status: current every day smoker cigarettes Packs smoked per day: 1 Alcohol intake: former Year of sobriety/quit date alcohol: 2009 Caregiver/support person: Yes Lives independently: Yes Household members: friend(s) Current occupational status: disabled History of recent travel: No Physical Exam Const: GENERAL APPEARANCE: well developed ORIENTATION/CONSCIOUSNESS: Yes oriented to person, Yes oriented to place and Yes oriented to time HENMT: COMMON NORMALS: normocephalic and external ears normal HEAD & SCALP: normocephalic FACE & SINUS: normal facial exam NOSE: No nasal discharge present EXTERNAL EAR: Yes external ears normal Eye: COMMON NORMALS: Equal, round and reactive pupils present, EOMs intact bilaterally and conjunctivae normal EYELID: eyelids normal CONJUNCTIVA: Yes conjunctivae normal and Yes other PUPIL: Yes Equal, round and reactive pupils present Neck/C-Spine: GENERAL: No tracheal deviation Chest: COMMONS NORMALS: normal inspection of the chest CHEST: No tenderness Resp: COMMON NORMALS: clear to auscultation bilaterally EFFORT & INSPECTION: No tachypneic, No respiratory distress, No retractions, No uses accessory muscles and No tracheal deviation AUSCULTATION: clear to auscultation bilaterally, no rhonchi, no wheezes and lung sounds not diminished Cardio: COMMON NORMALS: regular rate and regular rhythm RATE: regular rate RHYTHM: regular rhythm HEART SOUNDS: no murmurs PERIPHERAL PULSES: radial pulses present GI: INSPECTION: Yes abdominal distension AUSCULTATION: No Hyperactive bowel sounds present and No Hypoactive bowel sounds present PALPATION: Yes Tenderness to palpation present (GI) (diffuse), No Guarding due to palpation present (GI) and No Rigid due to palpation PERCUSSION: dullness to percussion and no tympanic to percussion Neuro: SENSORIUM/ORIENTATION: Yes oriented to person, Yes oriented to place and Yes oriented to time Psych: COMMON NORMALS: mental status grossly normal Skin: GENERAL SKIN EXAM: jaundice Course Vital Signs: Vital signs: Vital Signs Temperature 99.6 F 08/03/19 00:00 Pulse Rate 89 08/03/19 00:00 Respiratory Rate 18 08/03/19 00:00 Blood Pressure 148/70 08/03/19 00:00 Pulse Oximetry 99 08/03/19 00:00 MDM - Recheck/Abnormal Lab/Rx MDM Narrative: Medical decision making narrative: 53-year-old male with a history of cirrhosis he was called back today, because his Gram stain from ascites aspirate showed many gram-negative rods with whites. He is covered with aztreonam, as he is allergic to both penicillin and fluoroquinolones. He will be admitted for peritonitis. Lab Data: Labs: Lab Results 08/02/19 08/02/19 08/02/19 Range/Units 19:48 19:48 19:48 WBC 4.8 (4.0-10.0) 10^3/ uL RBC 3.36 L (4.1-5.3) 10^6/u L Hgb 10.2 L (11.7-16.6) g/dL Hct 32.6 L (42.0-52.0) % MCV 97.0 H (80-94) fL MCH 30.4 (28.0-34.0) pg MCHC 31.3 (30.0-36.0) g/dL RDW 13.3 (12.1-15.1) % Plt Count 70 L (130-400) 10^3/c mm MPV 10.5 H (7.4-10.4) fL Neut % (Auto) 79.7 % Lymph % (Auto) 7.9 % Terrell % (Auto) 10.6 % Eos % (Auto) 0.8 % Baso % (Auto) 0.6 % Neut # (Auto) 3.8 (1.8-7.7) 10^3/u L Lymph # (Auto) 0.4 L (0.8-4.8) 10^3/u L Terrell # (Auto) 0.5 (0.2-0.9) 10^3/u L Eos # (Auto) 0.0 (0.0-0.8) 10^3/u L Baso # (Auto) 0.0 (0.0-0.1) 10^3/u L Nucleated RBC % (a uto) 0 % Nucleated RBCs # 0.0 /100WBC Sodium 130 L (136-145) mmol/L Potassium 4.0 (3.5-5.1) mmol/L Chloride 100 (98-107) mmol/L Carbon Dioxide 18 L (22-29) mmol/L Anion Gap 16.0 (5-19) BUN 16 (6-20) mg/dL Creatinine 1.3 H (0.7-1.2) mg/dL GFR Calculation 57.7 L (90-130) mL/min Glucose 368 H (65-115) mg/dL Calculated Osmolal ity 281 L (285-295) mOsm/k g Lactate 2.6 H (0.5-2.2) mmol/L Calcium 7.8 L (8.5-10.5) mg/dL Phosphorus 4.0 (2.5-4.5) mg/dL Total Bilirubin 0.7 (0.15-1.2) mg/dL AST 15 (0-40) U/L ALT 9 (0-41) U/L Alkaline Phosphata se 114 (40-130) IU/L C-Reactive Protein 63.5 H (0.0-4.9) mg/L Total Protein 5.6 L (6.6-8.7) g/dL Albumin 2.4 L (3.5-5.2) g/dL Globulin 3.2 (1.3-4.6) g/dL Lipase 35 (13-60) U/L Urine Color (Yellow) Urine Appearance (CLEAR) Urine pH (5-7) Ur Specific Gravit y (1.005-1.030) Urine Protein (Negative) Urine Glucose (UA) (Normal) Urine Ketones (Negative) Urine Blood (Negative) Urine Nitrate (Negative) Urine Bilirubin (NEGATIVE) Urine Urobilinogen (Negative) mg/dL Ur Leukocyte Amanda ase (Negative) Urine RBC (0-2) /hpf Urine WBC (0-5) /hpf Ur Squamous Epith Cells (0-5) Urine Bacteria (NONE) 08/02/19 Range/Units 20:24 WBC (4.0-10.0) 10^3/ uL RBC (4.1-5.3) 10^6/u L Hgb (11.7-16.6) g/dL Hct (42.0-52.0) % MCV (80-94) fL MCH (28.0-34.0) pg MCHC (30.0-36.0) g/dL RDW (12.1-15.1) % Plt Count (130-400) 10^3/c mm MPV (7.4-10.4) fL Neut % (Auto) % Lymph % (Auto) % Terrell % (Auto) % Eos % (Auto) % Baso % (Auto) % Neut # (Auto) (1.8-7.7) 10^3/u L Lymph # (Auto) (0.8-4.8) 10^3/u L Terrell # (Auto) (0.2-0.9) 10^3/u L Eos # (Auto) (0.0-0.8) 10^3/u L Baso # (Auto) (0.0-0.1) 10^3/u L Nucleated RBC % (a uto) % Nucleated RBCs # /100WBC Sodium (136-145) mmol/L Potassium (3.5-5.1) mmol/L Chloride (98-107) mmol/L Carbon Dioxide (22-29) mmol/L Anion Gap (5-19) BUN (6-20) mg/dL Creatinine (0.7-1.2) mg/dL GFR Calculation (90-130) mL/min Glucose (65-115) mg/dL Calculated Osmolal ity (285-295) mOsm/k g Lactate (0.5-2.2) mmol/L Calcium (8.5-10.5) mg/dL Phosphorus (2.5-4.5) mg/dL Total Bilirubin (0.15-1.2) mg/dL AST (0-40) U/L ALT (0-41) U/L Alkaline Phosphata se (40-130) IU/L C-Reactive Protein (0.0-4.9) mg/L Total Protein (6.6-8.7) g/dL Albumin (3.5-5.2) g/dL Globulin (1.3-4.6) g/dL Lipase (13-60) U/L Urine Color Yellow (Yellow) Urine Appearance Clear (CLEAR) Urine pH 5 (5-7) Ur Specific Gravit y 1.005 (1.005-1.030) Urine Protein Neg (Negative) Urine Glucose (UA) 4+ H (Normal) Urine Ketones Negative (Negative) Urine Blood 2+ H (Negative) Urine Nitrate Negative (Negative) Urine Bilirubin Neg (NEGATIVE) Urine Urobilinogen Norm (Negative) mg/dL Ur Leukocyte Amanda ase Negative (Negative) Urine RBC 5-10 H (0-2) /hpf Urine WBC Rare (0-5) /hpf Ur Squamous Epith Cells Rare (0-5) Urine Bacteria 1+ H (NONE) Discharge Plan Discharge Patient Disposition: Admitted As Inpatient Admit Provider: Jim Llanes Clinical Impression: Peritonitis (acute) generalized Condition: Stable Referrals: Gary Duke DO [Primary Care Provider] - Discharge Date/Time: 08/02/19 23:01 Coding Level of Care Code ED Parts Department Manager for Chg Fwd Exam Comprehensive
[2019-08-02 19:58] LABS: Basophils % 0.6 %; Eosinophils % 0.8 %; Hematocrit 32.6 % (42.0-52.0); Hemoglobin 10.2 g/dL (11.7-16.6); Lymphocytes # 0.4 10^3/uL (0.8-4.8); Lymphocytes % 7.9 %; Mean Corpuscular HGB Conc 31.3 g/dL (30.0-36.0); Mean Corpuscular Hemoglobin 30.4 pg (28.0-34.0); Mean Platelet Volume 10.5 fL (7.4-10.4); Monocytes # 0.5 10^3/uL (0.2-0.9); Monocytes % 10.6 %; Neutrophils # 3.8 10^3/uL (1.8-7.7); Neutrophils % 79.7 %; Nucleated Red Blood Cells % 0 %; Platelet Count 70 10^3/cmm (130-400); Red Blood Count 3.36 10^6/uL (4.1-5.3); Red Cell Distribution Width 13.3 % (12.1-15.1); White Blood Count 4.8 10^3/uL (4.0-10.0)
[2019-08-02] MEDS: vancomycin 1,000 MG in sodium chloride 0.9% 250 ML 250 MG IV (20:07)
[2019-08-02 20:13] LABS: Alanine Aminotransferase 9 U/L (0-41); Albumin Level 2.4 g/dL (3.5-5.2); Alkaline Phosphatase 114 IU/L (40-130); Aspartate Amino Transferase 15 U/L (0-40); Blood Urea Nitrogen 16 mg/dL (6-20); C Reactive Protein 63.5 mg/L (0.0-4.9); Calcium 7.8 mg/dL (8.5-10.5); Carbon Dioxide 18 mmol/L (22-29); Chloride 100 mmol/L (98-107); Globulin 3.2 g/dL (1.3-4.6); Glomerular Filtration Rate 57.7 mL/min (90-130); Glucose 368 mg/dL (65-115); Lactate (Lactic Acid level) 2.6 mmol/L (0.5-2.2); Lipase 35 U/L (13-60); Osmolality Calculated 281 mOsm/kg (285-295); Sodium 130 mmol/L (136-145); Total Bilirubin 0.7 mg/dL (0.15-1.2); Total Protein 5.6 g/dL (6.6-8.7)
[2019-08-02] MEDS: ondansetron 2 mg/ML SDV 2 mL 4 MG IVP (20:21)
[2019-08-02] MEDS: morphine 4 mg/mL SDV 1 mL IVP (20:21)
[2019-08-02 20:35] LABS: Urine Appearance Clear (CLEAR); Urine Color Yellow (Yellow); pH Urine 5 (5-7)
[2019-08-02 20:36] LABS: Add Urine Microscopic? YES; Bilirubin Urine Neg (NEGATIVE); Blood Urine 2+ (Negative); Glucose Urine UA 4+ (Normal); Ketones Urine Negative (Negative); Leukocyte Esterase Urine Negative (Negative); Nitrate Urine Negative (Negative); Protein Urine Neg (Negative); Specific Gravity, Urine 1.005 (1.005-1.030); Urobilinogen Urine Norm (Negative)
[2019-08-02 20:37] LABS: Bacteria Urine 1+; Squamous Epithelial Cell Urine RARE (0-5); WBC Urine RARE /hpf (0-5)
[2019-08-02 20:38] LABS: Add Urine Culture? No
[2019-08-02] MEDS: HYDROmorphone 1 mg/mL INJ 1 mL IVP ×2 (21:03→22:58)
[2019-08-02] MEDS: aztreonam 2,000 MG in sodium chloride 0.9% (plus) 100 ML 200 MG IV (22:16)
--- NOTE | 2019-08-02 22:49 | PC.NURSE ---
MD at bedside to update Pt. on plan of care
--- NOTE | 2019-08-02 22:59 | PC.NURSE ---
Pt. medicated for pain prior to transfer to the floor
[2019-08-03] VITALS (11 sets, daily range): BP systolic 108–148; BP diastolic 57–76; PULSE 89–101; RESP 16–22; TEMP 37.2–37.7; O2SAT 90–99
--- NOTE | 2019-08-03 00:12 | PM.HP ---
Providers/Chief Complaint Admitting Physician: Jim Llanes Primary Care Provider: Gary Duke DO Chief Complaint: sent by doc History of Present Illness Hugo Oquendo is a 53 year old male with liver cirrhosis,, recurrent ascites, due to which has a port which he drains himself daily, came in for evaluation to ER yesterday. He reported that about 4 days prior he had an episode of nausea, vomiting, subsequently also abdominal discomfort, and then when draining ascitic fluid noticed it was bloody. He was afraid to come to the hospital for several days due to the pandemic, as he is worried about being immunocompromised. Subsequently, however, has had some recurrent fevers, and so decided to come in. In ER yesterday a fluid sample was procured, and initially the bleeding appeared to be clearing up, and at first no organisms were seen. CT abdomen pelvis was obtained at the same time, showing diffuse small bowel thickening consistent with infectious, ischemic or inflammatory enteritis. Unremarkable vasculature was noted on CT with IV contrast. Abundant ascites. No free air. Liver cirrhosis. Splenomegaly and varicosities. Incidentally noted basilar pulmonary nodules unchanged. Bilateral nephrolithiasis without hydronephrosis. He returned home after his evaluation, however, was called back into the hospital as a Gram stain today has shown gram-negative rods. He reports temperature highest was 101.8 at home. He is still having abdominal tenderness. Review of Systems Const: Denies: fever(s), chills, body aches or malaise Eyes: Denies: change in vision or eye redness ENMT: Denies: throat pain, oral sores or ear or mastoid pain Card: Reports: edema (minimal); Denies: chest pain, pre-syncope or dyspnea on exertion Resp: Denies: dyspnea, productive cough, change in phlegm color or hemoptysis GI: Reports: abdominal pain, nausea and constipation; Denies: vomiting, diarrhea, hematochezia or melena : Denies: flank pain, difficulty urinating, urinary frequency or hematuria Musc: Denies: back pain, joint swelling or joint redness Skin/Breast: Denies: rash, sores or new lesions Neuro: Denies: headache(s), numbness in extremities, weakness in extremities, dizziness, confusion or seizure-like activity Endo: Denies: polyuria or polydipsia Jose Martin/Lymph: Denies: easy bleeding or purpura All/Imm: Denies: urticaria, throat swelling or tongue swelling Medications/Allergies Home Medications Medication Instructions Recorded Confirmed Last Taken Type Farxiga 10 mg PO QAM 03/05/19 07/04/19 06/29/19 History Tresiba FlexTouch U-100 10 - 25 unit SUBCUT DAILY PRN 03/05/19 07/04/19 06/23/19 History albuterol sulfate 90 mcg INHALATION QID PRN 03/05/19 07/04/19 06/30/19 History fluticasone propion-salmeterol 1 inh INHALATION BID 03/05/19 07/04/19 06/28/19 History [Advair Diskus] nitroglycerin 0.4 mg sublingual 0.4 mg SUBLINGUAL Q5M PRN 03/10/19 07/04/19 04/20/19 History tablet spironolactone 100 mg tablet 100 mg PO QAM 03/10/19 07/04/19 06/29/19 History trazodone 150 mg tablet 150 mg PO DAILY 90 Days #90 tab 05/20/19 07/04/19 06/29/19 Rx furosemide 40 mg PO BID 06/06/19 07/04/19 06/29/19 History oxycodone 30 mg tablet 30 mg PO .FIVE TIMES DAILY PRN 30 07/01/19 07/04/19 Unknown Rx Days #140 tab oxycodone 30 mg tablet 30 mg PO .FIVE TIMES DAILY PRN 30 07/01/19 07/04/19 Unknown Rx Days #140 tab Allergies Allergy/AdvReac Type Severity Reaction Status Date / Time citalopram [From Celexa] Allergy ADR-Agitate Verified 07/04/19 12:04 d insulin glargine Allergy ALGY-Anaphy Verified 07/04/19 12:04 [From Lantus U-100 Insulin] laxis levofloxacin [From Levaquin] Allergy ALGY-Anaphy Verified 07/04/19 12:04 laxis Penicillins Allergy ALGY-Anaphy Verified 07/04/19 12:04 laxis potassium chloride Allergy ADR-Vomitin Verified 07/04/19 12:04 g duloxetine [From Cymbalta] AdvReac NAUSEA Verified 07/04/19 12:04 VOMITTING pregabalin [From Lyrica] AdvReac NAUSEA Verified 07/04/19 12:04 PFSH Acute PFSH: Medical History (Updated 08/03/19 @ 00:28 by Jim Llanes MD) Ascites Chronic cervical pain Chronic low back pain Diabetes Diabetic neuropathy, painful Liver cirrhosis Liver failure Smoking addiction Somatic dysfunction of back THORACIC AND LUMBAR Surgical History History of colonoscopy History of esophagogastroduodenoscopy (EGD) Hx of circumcision Hx of inguinal hernia repair (~05/22/18) LAP REPAIR OF RIGHT INGUINAL HERNIA WITH ULTRAPRO 15X10 CM MESH. Hx of oral surgery Family History Father Cancer LUNG CANCER Other Diabetes Heart disease Lung disease Myocardial infarct Stroke Denies family history of Anesthesia complication Bleeding disorder Social History Smoking and tobacco status: current every day smoker cigarettes Packs smoked per day: 1 Alcohol intake: former Year of sobriety/quit date alcohol: 2009 Caregiver/support person: Yes Lives independently: Yes Household members: friend(s) Current occupational status: disabled History of recent travel: No Vitals/I&O/Wt Last Vital Signs Temp 99.0 F 08/02/19 22:45 Pulse 89 08/02/19 22:45 Resp 18 08/02/19 22:58 BP 156/97 08/02/19 22:45 Pulse Ox 97 08/02/19 22:45 08/02/19 08/02/19 08/03/19 14:59 22:59 06:59 Intake Total 100 / 100 250 / 350 Balance 100 / 100 250 / 350 Weight last 48 hrs Weight 63.503 kg Physical Exam Const: COMMON NORMALS: no acute distress and patient oriented x3 HENMT: COMMON NORMALS: oropharynx normal Neck/C-Spine: COMMON NORMALS: no JVD Resp: COMMON NORMALS: normal respiratory effort and clear to auscultation bilaterally AUSCULTATION: clear to auscultation bilaterally Cardio: COMMON NORMALS: no JVD, regular rhythm, S1 normal heart sound present, S2 normal heart sound present and No murmurs present (Cardio) RHYTHM: regular rhythm HEART SOUNDS: S1 normal heart sound present and S2 normal heart sound present GI: COMMON NORMALS: Normal to inspection, nondistended, normoactive bowel sounds present and Soft to palpation PALPATION: Yes Firmness to palpation present (GI) (distended, not rigid, some guarding) and Yes Tenderness to palpation present (GI) (diffusely) Extremity: COMMON NORMALS: no joint enlargement GENERAL: Yes edema (1+) Neuro: COMMON NORMALS: patient oriented x3 and moves all extremities Skin: COMMON NORMALS: no rashes or lesions noted GENERAL SKIN EXAM: no rashes or lesions noted Data : 08/02/19 19:48 08/02/19 19:48 A&P Assessment and plan (1) Spontaneous bacterial peritonitis: With bloody output sometime last week, was afraid, to spinal due to pandemic yesterday in ER fluid appeared to be clearing up, only small amount of bloody sediment, but was called to come back to the hospital today due to noted gram-negative rods, multiple WBC. He reports allergy to penicillin, quinolones. At this time will cover with aztreonam, vancomycin. Follow-up final cultures. Dilaudid for pain. Diffuse bowel thickening noted on CT, possibly secondary to peritonitis. He denies diarrhea. Episode of nausea, vomiting several days ago had not recurred. Status: Acute (2) Ascites: He drained out 1000 mL on Sunday. Will attempt additional drainage this morning. He usually stops draining when he starts feeling abdominal discomfort, which is usually after about 2500 mL. Status: Acute Qualifiers: Ascites type: due to alcoholic cirrhosis Qualified Code(s): K70.31 - Alcoholic cirrhosis of liver with ascites (3) Liver cirrhosis: Reports he has been planning to meet with [facility] for additional follow-up, succussion regarding possibilities for plantation. Status: Acute (4) Diabetes: At home he varies between Tresiba and Farxiga depending on how elevated his sugar is. If sugars not very high does not take Tresiba. Reports allergies to Lantus. Here will instead start on detemir. Moderate dose sliding scale. He declines to follow diabetic diet. Status: Acute (5) Smoking addiction: Discussed smoking cessation for 5 minutes. He understands that he would benefit from quitting, especially if he is considering liver transfer sedation. It is definitely for him, although it has been difficult. He is trying. He is okay with adding some neck replacement therapy while he is in the hospital. Status: Acute Additional A&P Information Thrombocytopenia due to cirrhosis: Monitor platelet levels. Coagulopathy due to cirrhosis: INR 1.23 yesterday. Mild hyponatremia: Suspect secondary to cirrhosis. Monitor. Mild hypocalcemia: With hypoalbuminemia. Corrected calcium is normal. Other chronic medical problems. Attestations Medical Necessity Statement*: Admission of over 2 midnights is continued for assessment of management of spontaneous bacterial peritonitis. Coding Level of Care Code Acute Dynamometer Repairer for [facility] Fwd Diagnoses Spontaneous bacterial peritonitis K65.2 Ascites K70.31 Ascites type: due to alcoholic cirrhosis Liver cirrhosis K74.60 Diabetes E11.9 Smoking addiction F17.200
[2019-08-03 00:54] LABS: Glucose Point of Care 257 mg/dL (70-110)
[2019-08-03] MEDS: sodium chloride 0.9% 1,000 ML 100 ML IV ×2 (01:06→14:08)
[2019-08-03] MEDS: nicotine 21 mg Patch 1 PATCH TRANSDERMA (01:18)
--- NOTE | 2019-08-03 01:20 | PC.PHAR ---
Pharmacokinetic dosing service Date: 08/03/19 Time: 99 Objective: Patient: Hugo Oquendo Floor: 277-2 Age: 53 yo Serum creatinine: 1.3 mg/dL Height: 68.0 Inches Weight (kg): 63.503 Diagnosis: Relevant medical/social history: Cultures and sensitivities: Other labs: Assessment: IBW (kg): 68.40 Dosing wt(kg): 63.503 Estimated Creatinine clearance (ml/min): 59.0 CRCL method: Cockcroft and Gault using ibw(default). Drug selected: Vancomycin Loading dose (mg): 0 Vd (liters): 57.2 (factor used: 0.9 L/kg) Zoran (hr-1): 0.053 Half life (hrs): 13.08 Recommended dose: 1000 mg Interval: 18 hrs Infusion time (hrs): 1.5 Predicted peak (mcg/mL): 27.3 Predicted trough (mcg/mL): 11.39 Total body weight is being used for vancomycin dosing. Renal function is stable [ ] /unstable [ ] Recommendations: Give Vancomycin 1000 mg q 18 hrs with an expected Cpeak of 27.3 mcg/ml and an expected Ctrough of 11.39 mcg/ml Renal dosing of other antibiotics (review renal dosing of other medications and list guidelines here): Thank you for the consult, will continue to follow. Signature: Dorota Yan [facility]
[2019-08-03] MEDS: aztreonam 2,000 MG in sodium chloride 0.9% (plus) 100 ML 200 MG IV ×4 (04:48→21:06)
[2019-08-03] MEDS: HYDROmorphone 1 mg/mL INJ 1 mL IVP (04:49)
[2019-08-03 05:25] LABS: Basophils # 0.1 10^3/uL (0.0-0.1); Basophils % 0.7 %; Eosinophils # 0.1 10^3/uL (0.0-0.8); Eosinophils % 0.9 %; Hematocrit 31.7 % (42.0-52.0); Hemoglobin 10.3 g/dL (11.7-16.6); Lymphocytes # 0.6 10^3/uL (0.8-4.8); Mean Corpuscular HGB Conc 32.5 g/dL (30.0-36.0); Mean Corpuscular Hemoglobin 30.4 pg (28.0-34.0); Mean Corpuscular Volume 93.5 fL (80-94); Mean Platelet Volume 10.6 fL (7.4-10.4); Monocytes # 0.8 10^3/uL (0.2-0.9); Monocytes % 10.1 %; Neutrophils % 79.8 %; Nucleated Red Blood Cells % 0 %; Platelet Count 64 10^3/cmm (130-400); Red Blood Count 3.39 10^6/uL (4.1-5.3); Red Cell Distribution Width 13.1 % (12.1-15.1); White Blood Count 7.5 10^3/uL (4.0-10.0)
[2019-08-03 05:38] LABS: Alanine Aminotransferase 8 U/L (0-41); Albumin Level 2.3 g/dL (3.5-5.2); Alkaline Phosphatase 109 IU/L (40-130); Anion Gap 14.1 (5-19); Aspartate Amino Transferase 15 U/L (0-40); Blood Urea Nitrogen 15 mg/dL (6-20); Calcium 7.6 mg/dL (8.5-10.5); Carbon Dioxide 19 mmol/L (22-29); Chloride 102 mmol/L (98-107); Globulin 3.1 g/dL (1.3-4.6); Glomerular Filtration Rate 63.3 mL/min (90-130); Glucose 198 mg/dL (65-115); Osmolality Calculated 274 mOsm/kg (285-295); Potassium 4.1 mmol/L (3.5-5.1); Sodium 131 mmol/L (136-145); Total Bilirubin 0.9 mg/dL (0.15-1.2); Total Protein 5.4 g/dL (6.6-8.7)
[2019-08-03 06:07] LABS: Glucose Point of Care 206 mg/dL (70-110)
[2019-08-03] MEDS: LORazepam 2 mg/mL INJ 1 mL 0.5 MG IVP ×3 (06:10→19:59)
[2019-08-03 11:02] LABS: Glucose Point of Care 170 mg/dL (70-110)
--- NOTE | 2019-08-03 11:11 | PC.CHAP ---
Pastoral Care Encounter/Spiritual Assessment Type of Contact [] Declined swim instructor visit [] Patient/Family/Request visit [] Outpatient visit [] Follow-up visit [] Physician referral [] Code/Alert [X] Routine visit [] Staff referral [] Actively dying [] Patient sleeping [] Family support [] [] Out of room [] Palliative care [] [X] Receiving care in room [] Pre-surgical visit [] Trauma [] Long length of stay [] ICU visit [] Other: Relational/Emotional Strength [] Patient feels connected with others/family/visitors/staff [] Distress [] Loneliness/isolation [] Abandonment Spirituality of Patient [] Person of Gaby [] Attends Congregational of their Gaby [] Believes in Prayer [] Reads Bible or Mosque materials [] There are Spiritual issues to be addressed Financial Wellness Coach Interventions [] Prayer [] Active listening [] Non-anxious presence [] Spiritual/emotional support [] Crisis/trauma care [] Spiritual counseling [] Bereavement support [] Provided bereavement packet [] Provided Bible/devotional materials [] Provided toy/stuffed animal, coloring book to patient or family member [] Provided Communion [] Anointing/[place] [] Salvation [] Completed spiritual assessment [] Other: Impact on Illness or Injury [] Angry [] Fearful [] Anxious [] Often cries [] Exhaustion [] Unable to work [] Unable to attend yazidi [] Unable to walk/stand [] Unable to read [] Unable to drive [] Unable to eat/drink [] Unable to sleep [] Unable to be with family [] Patient intubated [] Other: Summary: two attempts made to visit patient; provider in room both times. Time spent with patient
[2019-08-03 13:01] LABS: Procalcitonin 2.52 ng/mL (0-0.5)
[2019-08-03 13:12] LABS: Iron 19 ug/dL (59-158); Percent Saturation 12.7 % (20-50); Total Iron Binding Capacity 149 mcg/dl; Unsaturated Iron Binding 130 ug/dL (112-347)
[2019-08-03 14:04] LABS: Thyroid Stimulating Hormone 0.57 uIU/mL (0.27-4.20)
--- NOTE | 2019-08-03 14:07 | PM.PN ---
Subjective Subjective: Interval history: Noted overnight. H&P and labs noted. On examination patient is lying in bed complaining of abdominal pain. He denies of having any nausea, vomiting. States his last bowel movement was 2 days ago and it is normal for him to have constipation. He states he is able to tolerate diet. He is complaining of pain and states at home he takes oxycodone 30 mg 5 times a day and pain medication is prescribed to him through pain clinic. Vitals/I&O/Wt Last Vital Signs Temp 99.9 F H 08/03/19 12:00 Pulse 96 08/03/19 12:00 Resp 16 08/03/19 12:00 BP 108/67 08/03/19 12:00 Pulse Ox 92 08/03/19 12:00 08/02/19 08/03/19 08/03/19 22:59 06:59 14:59 Intake Total 100 / 100 570 / 670 236 / 236 Output Total 1550 / 1550 Balance 100 / 100 570 / 670 -1314 / -1314 Weight last 48 hrs Weight 66.224 kg Weight 63.503 kg Physical Exam Narrative: EXAM NARRATIVE: General: No acute distress, AO x3 HEENT: PERRLA, pupils bilaterally equal and reactive Chest: Normal vesicular breath sounds, no added sounds, equal good air entry bilaterally CVS: S1-S2 regular, no murmurs, no tachycardia, no gallops, no rubs Abdomen: Tender all over, no rebound or guarding, bowel sounds sluggish, no organomegaly, insertion site for port healthy without any granulation or discharge. Neuro: No focal deficits, no facial deformity, AO x3, power 5/5 in all limbs Data : 08/03/19 04:53 08/03/19 04:53 Micro: Microbiology 08/03/19 13:00 Blood Culture - Preliminary Blood SPECIMEN COLLECTED 08/03/19 12:52 Blood Culture - Preliminary Blood SPECIMEN COLLECTED A&P Assessment and plan (1) Sepsis: Present on admission because of SBP. Patient was mildly hypotensive, lactate elevated, febrile up to 100 Fahrenheit. Repeat lactate, pro calcitonin. Continue IV hydration with normal saline 100 cc/h. Keep mean arterial pressure over 65 mmHg. Keep saturation over 90%. Status: Acute (2) Spontaneous bacterial peritonitis: Elastic patient has been having abdominal pain along with bloody output on and off. Fluid result from couple of days ago from ER shows a white count of 1750. Gram stain positive for gram-negative rods. Overnight patient was started on vancomycin and aztreonam. For now we will continue the same and wean off as per the culture results. No blood cultures were sent so we will do stat blood cultures. Tylenol for fever. No more than 2 g of Tylenol a day. Status: Acute (3) Ascites: He states he drains out around 1400 cc with 2000 cc every 3 days whenever he is feels abdomen is distended and contains a green tail he has mild discomfort. Last treatment on August 01 1400 cc. Status: Acute Qualifiers: Ascites type: due to alcoholic cirrhosis Qualified Code(s): K70.31 - Alcoholic cirrhosis of liver with ascites (4) Liver cirrhosis: Reports he has been planning to meet with [facility] for additional follow-up, succussion regarding possibilities for plantation. Status: Acute (5) Diabetes: At home he varies between Tresiba and Farxiga depending on how elevated his sugar is. If sugars not very high does not take Tresiba. Reports allergies to Lantus. With detemir 10 units at bedtime, insulin sliding scale at moderate dose. Blood sugars have been acceptable. Overall has received 10 units of NovoLog 10. He declines to follow diabetic diet. Status: Acute (6) Chronic prescription opiate use: He states at home he takes oxycodone 30 mg 5 tablets a day. He states he is been prescribed this medication through pain clinic. Right now patient is on Dilaudid 3 mg every 4 hours as needed. Start patient on oxycodone 10 mg every 6 hours as needed to avoid withdrawal. Status: Acute (7) Smoking addiction: Discussed smoking cessation for 5 minutes. He understands that he would benefit from quitting, especially if he is considering liver transfer sedation. It is definitely for him, although it has been difficult. He is trying. He is okay with adding some neck replacement therapy while he is in the hospital. Status: Acute Additional A&P Information Thrombocytopenia due to cirrhosis: Monitor platelet levels. Coagulopathy due to cirrhosis: INR 1.23 yesterday. Mild hyponatremia: Suspect secondary to cirrhosis. Monitor. Mild hypocalcemia: With hypoalbuminemia. Corrected calcium is normal. Other chronic medical problems. Full code. Regular diet. Heparin 5000 every 12 hourly for DVT prophylaxis. Attestations Medical Necessity Statement*: Sepsis due to SBP. Coding Level of Care Code Acute Control Systems Specialist for [facility] Fwd Diagnoses Sepsis A41.9 Spontaneous bacterial peritonitis K65.2 Ascites K70.31 Ascites type: due to alcoholic cirrhosis Liver cirrhosis K74.60 Diabetes E11.9 Chronic prescription opiate use Z79.891 Smoking addiction F17.200
[2019-08-03] MEDS: vancomycin 1,000 MG in sodium chloride 0.9% 250 ML 250 MG IV (14:25)
[2019-08-03] MEDS: oxyCODONE 5 mg IR Tab/Cap 10 MG PO ×2 (16:27→22:36)
[2019-08-03 17:11] LABS: Glucose Point of Care 122 mg/dL (70-110)
[2019-08-03 20:39] LABS: Glucose Point of Care 203 mg/dL (70-110)
[2019-08-03] MEDS: acetaminophen 325 mg Tablet PO (21:16)
[2019-08-04] VITALS (11 sets, daily range): BP systolic 108–131; BP diastolic 65–77; PULSE 68–91; RESP 14–20; TEMP 36.6–37.7; O2SAT 88–94
[2019-08-04] MEDS: aztreonam 2,000 MG in sodium chloride 0.9% (plus) 100 ML 200 MG IV ×4 (03:58→22:31)
[2019-08-04] MEDS: sodium chloride 0.9% 1,000 ML 100 ML IV ×2 (03:58→16:35)
[2019-08-04] MEDS: oxyCODONE 5 mg IR Tab/Cap 10 MG PO ×2 (04:04→10:40)
[2019-08-04 04:05] LABS: Basophils % 0.5 %; Eosinophils # 0.1 10^3/uL (0.0-0.8); Eosinophils % 1.6 %; Hematocrit 25.4 % (42.0-52.0); Hemoglobin 8.3 g/dL (11.7-16.6); Lymphocytes # 0.6 10^3/uL (0.8-4.8); Mean Corpuscular HGB Conc 32.7 g/dL (30.0-36.0); Mean Corpuscular Hemoglobin 30.3 pg (28.0-34.0); Mean Corpuscular Volume 92.7 fL (80-94); Mean Platelet Volume 9.9 fL (7.4-10.4); Monocytes # 0.8 10^3/uL (0.2-0.9); Monocytes % 14.7 %; Neutrophils % 71.5 %; Nucleated Red Blood Cells % 0 %; Platelet Count 44 10^3/cmm (130-400); Red Blood Count 2.74 10^6/uL (4.1-5.3); Red Cell Distribution Width 13.3 % (12.1-15.1); White Blood Count 5.6 10^3/uL (4.0-10.0)
[2019-08-04 04:24] LABS: Alanine Aminotransferase < 5 U/L (0-41); Alkaline Phosphatase 78 IU/L (40-130); Aspartate Amino Transferase 11 U/L (0-40); Blood Urea Nitrogen 28 mg/dL (6-20); Calcium 7.9 mg/dL (8.5-10.5); Carbon Dioxide 18 mmol/L (22-29); Chloride 105 mmol/L (98-107); Globulin 1.7 g/dL (1.3-4.6); Glucose 182 mg/dL (65-115); Osmolality Calculated 278 mOsm/kg (285-295); Sodium 133 mmol/L (136-145); Total Protein 4.7 g/dL (6.6-8.7)
--- NOTE | 2019-08-04 04:46 | PM.EVENT ---
Event Note Event Note: Reported only 200mL urine this shift. Cr up to 1.5. Will repeat 25g of 25% albumin. Consider addition of octreotide and midodrine. Consider albumin 1mg/kg on day 3 from admission. Appears there are 2 organisms growing on ascites culture 07/31. Will broaden with Flagyl for now. Polymicrobial infection may trigger concern for bowel perforation somewhere, although only 2 organisms, and he drains ascites by port without paracentesis. This is probably less likely with original infection probably entering through the drain, possibly with poor hygiene. He has been taping the port to his t-shirts through a hole cut in the fabric due to adhesive allergy. Will request repeat fluid culture at this time. If more organisms identified, or persistent peritonitis please consider additional imaging to look for bowel perforation.
[2019-08-04] MEDS: LORazepam 2 mg/mL INJ 1 mL 0.5 MG IVP ×2 (06:37→22:31)
[2019-08-04 06:56] LABS: Glucose Point of Care 221 mg/dL (70-110)
[2019-08-04 07:09] LABS: Vancomycin Trough 13.7 ug/mL (10-15)
[2019-08-04] MEDS: metroNIDAZOLE IV 500 MG/100 ML PREMIX 100 MG IV ×3 (07:31→23:39)
[2019-08-04] MEDS: vancomycin 1,000 MG in sodium chloride 0.9% 250 ML 250 MG IV (08:39)
--- NOTE | 2019-08-04 11:16 | PC.RESP ---
Smoking Cessation information and a schedule of classes to patient.
[2019-08-04 11:40] LABS: Glucose Point of Care 160 mg/dL (70-110)
--- NOTE | 2019-08-04 14:14 | PM.PN ---
Subjective Subjective: Interval history: Hugo reports he is feeling a little bit better. Less abdominal discomfort. History and physical reviewed. Medications: Reviewed: Yes Vitals/I&O/Wt Last Vital Signs Temp 99.1 F 08/04/19 11:36 Pulse 83 08/04/19 11:36 Resp 18 08/04/19 11:36 BP 119/74 08/04/19 11:36 Pulse Ox 93 08/04/19 11:36 08/03/19 08/04/19 08/04/19 22:59 06:59 14:59 Intake Total 890 / 2466 1230 / 3696 240 / 240 Output Total 160 / 1710 150 / 1860 Balance 730 / 756 1080 / 1836 240 / 240 Weight last 48 hrs Weight 74.435 kg Weight 66.224 kg Weight 63.503 kg Physical Exam Narrative: EXAM NARRATIVE: General exam is no apparent distress Cardiovascular regular in rhythm without murmur Lungs clear no wheezing or crackles Abdomen is soft, positive bowel sounds. Slight global tenderness. Insertion site of peritoneal catheter without erythema. Extremities no cyanosis clubbing or edema Data : 08/04/19 03:45 08/04/19 03:45 Micro: Microbiology 08/03/19 13:00 Blood Culture - Preliminary Blood NEGATIVE TO DATE 08/03/19 12:52 Blood Culture - Preliminary Blood NEGATIVE TO DATE 08/04/19 10:00 Gram Stain - Final Ascites Fluid A&P Assessment and plan (1) Sepsis: Improving Continue hydration but reduce IV fluids. Continue aztreonam, vancomycin and Flagyl. Status: Acute (2) Spontaneous bacterial peritonitis: Has ascites drain in place, likely source site of infection from peritonitis Awaiting culture and sensitivity from the emergency department regarding his gram-negative rods and peritoneal fluid Blood cultures negative to date Status: Acute (3) Ascites: He drains approximately every 3 days. Gets approximately 1500 cc Status: Acute Qualifiers: Ascites type: due to alcoholic cirrhosis Qualified Code(s): K70.31 - Alcoholic cirrhosis of liver with ascites (4) Liver cirrhosis: Is ultimately planning on consultation with [facility] Status: Acute (5) Diabetes: Continue detemir 10 units at bedtime, insulin sliding scale at moderate dose. He declines to follow diabetic diet. Status: Acute (6) Chronic prescription opiate use: Continue oxycodone as needed. Continue Dilaudid as needed. On home chronic narcotics. Status: Acute (7) Smoking addiction: Discussed smoking cessation 3 to 5 minutes Status: Acute Additional A&P Information Thrombocytopenia, coagulopathy secondary to cirrhosis. Continue to monitor. Hyponatremia, slightly improved Elevation in creatinine, monitor closely. Repeat laboratory this afternoon Anemia, no evidence of GI bleeding. Likely secondary to cirrhosis Full code. Mechanical prophylaxis. No pharmacologic secondary to anemia and thrombocytopenia Attestations Medical Necessity Statement*: Needs continued hospitalization for IV antibiotics secondary to peritonitis Coding Level of Care Code Acute Merchandising Specialist for [facility] Fwd Diagnoses Sepsis A41.9 Spontaneous bacterial peritonitis K65.2 Ascites K70.31 Ascites type: due to alcoholic cirrhosis Liver cirrhosis K74.60 Diabetes E11.9 Chronic prescription opiate use Z79.891 Smoking addiction F17.200
--- NOTE | 2019-08-04 15:31 | US_ITS ---
WS: [id number] RENAL ULTRASOUND Ultrasound urinary bladder HISTORY: decreased urine output COMPARISON: 07/22/2019 TECHNIQUE: 2-D and color Doppler imaging of the kidney submitted. Right kidney: 10.4 cm x 6.8 cm x 5.1 cm. Normal echogenicity with no hydronephrosis or mass. Left kidney: 11.5 cm x 5.1 cm x 4.8 cm. Normal echogenicity with no hydronephrosis or mass. Aorta: Normal. Urinary Bladder: Nondistended urinary bladder. Small amount of ascites throughout all 4 quadrants. US/US renal BI with bladder IMPRESSION: 1. Normal size kidneys with no hydronephrosis. 2. Small amount of ascites. 3. Urinary bladder is not distended.
[2019-08-04] MEDS: midodrine 5 mg TABLET 7.5 MG PO ×2 (16:06→21:25)
[2019-08-04] MEDS: oxyCODONE 5 mg IR Tab/Cap PO ×2 (16:06→21:25)
[2019-08-04 16:12] LABS: Anion Gap 16.9 (5-19); Blood Urea Nitrogen 26 mg/dL (6-20); Calcium 7.6 mg/dL (8.5-10.5); Carbon Dioxide 16 mmol/L (22-29); Chloride 104 mmol/L (98-107); Glucose 214 mg/dL (65-115); Osmolality Calculated 279 mOsm/kg (285-295); Potassium 3.9 mmol/L (3.5-5.1); Sodium 133 mmol/L (136-145)
[2019-08-04] MEDS: octreotide 100 mcg/mL SDV SUBCUT ×2 (16:28→23:37)
[2019-08-04 17:27] LABS: Glucose Point of Care 219 mg/dL (70-110)
[2019-08-04 20:46] LABS: Glucose Point of Care 224 mg/dL (70-110)
[2019-08-05] VITALS (11 sets, daily range): BP systolic 102–162; BP diastolic 67–84; PULSE 65–83; RESP 16–20; TEMP 36.7–37.5; O2SAT 90–93
[2019-08-05] MEDS: vancomycin 1,000 MG in sodium chloride 0.9% 250 ML 250 MG IV ×3 (01:52→20:28)
[2019-08-05] MEDS: metroNIDAZOLE IV 500 MG/100 ML PREMIX 100 MG IV ×4 (01:55→23:08)
[2019-08-05] MEDS: ondansetron 2 mg/ML SDV 2 mL 4 MG IVP (04:07)
[2019-08-05] MEDS: oxyCODONE 5 mg IR Tab/Cap PO ×2 (04:07→09:45)
[2019-08-05] MEDS: aztreonam 2,000 MG in sodium chloride 0.9% (plus) 100 ML 200 MG IV ×4 (04:27→21:50)
[2019-08-05] MEDS: sodium chloride 0.9% 1,000 ML 100 ML IV ×2 (04:27→18:25)
[2019-08-05 05:30] LABS: Basophils % 0.7 %; Eosinophils # 0.1 10^3/uL (0.0-0.8); Eosinophils % 2.1 %; Hematocrit 26.1 % (42.0-52.0); Hemoglobin 8.6 g/dL (11.7-16.6); Lymphocytes # 0.5 10^3/uL (0.8-4.8); Lymphocytes % 8.5 %; Mean Corpuscular Hemoglobin 30.7 pg (28.0-34.0); Mean Corpuscular Volume 93.2 fL (80-94); Mean Platelet Volume 10.7 fL (7.4-10.4); Monocytes # 0.9 10^3/uL (0.2-0.9); Monocytes % 15.6 %; Neutrophils # 4.2 10^3/uL (1.8-7.7); Neutrophils % 72.4 %; Nucleated Red Blood Cells % 0 %; Platelet Count 56 10^3/cmm (130-400); Red Cell Distribution Width 13.3 % (12.1-15.1); White Blood Count 5.8 10^3/uL (4.0-10.0)
[2019-08-05 05:49] LABS: Alanine Aminotransferase < 5 U/L (0-41); Alkaline Phosphatase 73 IU/L (40-130); Anion Gap 14.9 (5-19); Aspartate Amino Transferase 12 U/L (0-40); Blood Urea Nitrogen 32 mg/dL (6-20); Calcium 7.9 mg/dL (8.5-10.5); Carbon Dioxide 16 mmol/L (22-29); Chloride 107 mmol/L (98-107); Globulin 1.8 g/dL (1.3-4.6); Glomerular Filtration Rate 57.7 mL/min (90-130); Glucose 90 mg/dL (65-115); Osmolality Calculated 275 mOsm/kg (285-295); Potassium 3.9 mmol/L (3.5-5.1); Sodium 134 mmol/L (136-145); Total Bilirubin 0.8 mg/dL (0.15-1.2); Total Protein 4.8 g/dL (6.6-8.7)
[2019-08-05 06:16] LABS: Glucose Point of Care 91 mg/dL (70-110)
[2019-08-05] MEDS: midodrine 5 mg TABLET 7.5 MG PO ×3 (08:17→20:28)
[2019-08-05] MEDS: octreotide 100 mcg/mL SDV SUBCUT ×2 (09:41→18:20)
[2019-08-05 10:39] LABS: Glucose Point of Care 180 mg/dL (70-110)
--- NOTE | 2019-08-05 10:46 | PC.SOCIAL ---
Pg 2 IMM Explained to pt Pg 2 IMM. Pt verbally understands, no questions voiced. Provided pt a copy. Signed, dated, & timed a copy & placed in pt's chart.
--- NOTE | 2019-08-05 12:35 | PC.CHAP ---
Pastoral Care Encounter/Spiritual Assessment Type of Contact [] Declined regulator pin inserter visit [] Patient/Family/Request visit [] Outpatient visit [] Follow-up visit [] Physician referral [] Code/Alert [x] Routine visit [] Staff referral [x] Actively dying [] Patient sleeping [] Family support [] [] Out of room [] Palliative care [] [x] Receiving care in room [] Pre-surgical visit [] Trauma [] Long length of stay [] ICU visit [] Other: Relational/Emotional Strength [] Patient feels connected with others/family/visitors/staff [x] Distress [] Loneliness/isolation [] Abandonment Spirituality of Patient [x] Person of Gaby [] Attends Yarsanism of their Gaby [x] Believes in Prayer [] Reads Bible or Sikh materials [] There are Spiritual issues to be addressed Cleat Maker Interventions [x] Prayer [x] Active listening [x] Non-anxious presence [x] Spiritual/emotional support [] Crisis/trauma care [x] Spiritual counseling [] Bereavement support [] Provided bereavement packet [] Provided Bible/devotional materials [] Provided toy/stuffed animal, coloring book to patient or family member [] Provided Communion [] Anointing/[place] [] Salvation [x] Completed spiritual assessment [] Other: Impact on Illness or Injury [] Angry [x] Fearful [x] Anxious [] Often cries [] Exhaustion [x] Unable to work [] Unable to attend anglican [] Unable to walk/stand [] Unable to read [x] Unable to drive [] Unable to eat/drink [] Unable to sleep [] Unable to be with family [] Patient intubated [] Other: Summary Not sure about his life? Time spent with patient 10 mins
[2019-08-05] MEDS: oxyCODONE 5 mg IR Tab/Cap 15 MG PO ×2 (15:01→20:27)
[2019-08-05 16:45] LABS: Glucose Point of Care 216 mg/dL (70-110)
--- NOTE | 2019-08-05 17:03 | PM.PN ---
Subjective Subjective: Interval history: Hugo reports he feels little bit better today. However, he wants his pain medicine increased secondary to his chronic pain. Medications: Reviewed: Yes Vitals/I&O/Wt Last Vital Signs Temp 98.1 F 08/05/19 15:26 Pulse 68 08/05/19 15:26 Resp 20 H 08/05/19 15:26 BP 102/68 08/05/19 15:26 Pulse Ox 90 08/05/19 15:26 08/05/19 08/05/19 08/05/19 06:59 14:59 22:59 Intake Total 1940 / 4070 680 / 680 Output Total 225 / 775 100 / 100 1750 / 1850 Balance 1715 / 3295 580 / 580 -1750 / -1170 Weight last 48 hrs Weight 75.551 kg Weight 74.435 kg Physical Exam Narrative: EXAM NARRATIVE: General exam is no apparent distress Cardiovascular regular in rhythm without murmur Lungs clear no wheezing or crackles Abdomen is soft, positive bowel sounds. Slight global tenderness. Insertion site of peritoneal catheter without erythema. Extremities no cyanosis clubbing or edema Data : 08/05/19 05:05 08/05/19 05:05 Micro: Microbiology 08/04/19 10:00 Gram Stain - Final Ascites Fluid Body Fluid Culture - Preliminary Gram Negative Rods 08/03/19 13:00 Blood Culture - Preliminary Blood NEGATIVE TO DATE 08/03/19 12:52 Blood Culture - Preliminary Blood NEGATIVE TO DATE A&P Assessment and plan (1) Sepsis: Improving Continue hydration but reduce IV fluids. Continue aztreonam, vancomycin and Flagyl. Status: Acute (2) Spontaneous bacterial peritonitis: Has ascites drain in place, likely source site of infection from peritonitis Awaiting culture and sensitivity from the emergency department regarding his gram-negative rods and peritoneal fluid Currently on vancomycin and aztreonam. Culture growing Enterobacter but other gram-negative rods have been identified and results are pending. Blood cultures negative to date Status: Acute (3) Ascites: He drains approximately every 3 days. Gets approximately 1500 cc Will drain for peritoneal fluid today. Status: Acute Qualifiers: Ascites type: due to alcoholic cirrhosis Qualified Code(s): K70.31 - Alcoholic cirrhosis of liver with ascites (4) Liver cirrhosis: Is ultimately planning on consultation with [facility] Status: Acute (5) Diabetes: Continue detemir 10 units at bedtime, insulin sliding scale at moderate dose. He declines to follow diabetic diet. Status: Acute (6) Chronic prescription opiate use: Continue oxycodone as needed. Increase dose. Continue Dilaudid as needed. On home chronic narcotics. Status: Acute (7) Smoking addiction: Discussed smoking cessation 3 to 5 minutes Status: Acute Additional A&P Information Thrombocytopenia, coagulopathy secondary to cirrhosis. Continue to monitor. Hyponatremia, improved Elevation in creatinine, monitor closely. Secondary to concerns of worsening renal function he was given albumin, and octreotide and midodrine were started. Consider discontinuation of this tomorrow if renal function is improving. Anemia, no evidence of GI bleeding. Likely secondary to cirrhosis Full code. Mechanical prophylaxis. No pharmacologic secondary to anemia and thrombocytopenia Attestations Medical Necessity Statement*: Needs continued hospitalization, for IV antibiotics secondary to SBP Coding Level of Care Code Acute Dope Worker for [facility] Fwd Diagnoses Sepsis A41.9 Spontaneous bacterial peritonitis K65.2 Ascites K70.31 Ascites type: due to alcoholic cirrhosis Liver cirrhosis K74.60 Diabetes E11.9 Chronic prescription opiate use Z79.891 Smoking addiction F17.200
[2019-08-05 21:43] LABS: Glucose Point of Care 179 mg/dL (70-110)
[2019-08-05] MEDS: LORazepam 2 mg/mL INJ 1 mL 0.5 MG IVP (22:19)
[2019-08-05] MEDS: sodium chloride 0.9% 1,000 ML 75 ML IV (23:06)
[2019-08-06] VITALS (12 sets, daily range): BP systolic 112–155; BP diastolic 68–84; PULSE 58–76; RESP 16–20; TEMP 36.8–37.4; O2SAT 93–96
[2019-08-06] MEDS: octreotide 100 mcg/mL SDV SUBCUT ×2 (02:48→10:59)
[2019-08-06] MEDS: oxyCODONE 5 mg IR Tab/Cap 15 MG PO ×5 (02:49→21:13)
[2019-08-06] MEDS: aztreonam 2,000 MG in sodium chloride 0.9% (plus) 100 ML 200 MG IV ×2 (03:20→10:05)
[2019-08-06 06:11] LABS: Basophils # 0.1 10^3/uL (0.0-0.1); Basophils % 0.8 %; Eosinophils # 0.3 10^3/uL (0.0-0.8); Eosinophils % 4.6 %; Hematocrit 25.8 % (42.0-52.0); Hemoglobin 8.5 g/dL (11.7-16.6); Lymphocytes # 0.8 10^3/uL (0.8-4.8); Lymphocytes % 13.8 %; Mean Corpuscular HGB Conc 32.9 g/dL (30.0-36.0); Mean Corpuscular Hemoglobin 30.6 pg (28.0-34.0); Mean Corpuscular Volume 92.8 fL (80-94); Mean Platelet Volume 11.1 fL (7.4-10.4); Monocytes # 0.9 10^3/uL (0.2-0.9); Monocytes % 15.3 %; Neutrophils # 3.9 10^3/uL (1.8-7.7); Neutrophils % 64.7 %; Nucleated Red Blood Cells % 0 %; Platelet Count 73 10^3/cmm (130-400); Red Blood Count 2.78 10^6/uL (4.1-5.3); Red Cell Distribution Width 13.7 % (12.1-15.1); White Blood Count 6.1 10^3/uL (4.0-10.0)
[2019-08-06 06:23] LABS: Glucose Point of Care 91 mg/dL (70-110)
[2019-08-06 06:28] LABS: Anion Gap 12.9 (5-19); Blood Urea Nitrogen 35 mg/dL (6-20); Calcium 7.6 mg/dL (8.5-10.5); Carbon Dioxide 16 mmol/L (22-29); Chloride 109 mmol/L (98-107); Glomerular Filtration Rate 57.7 mL/min (90-130); Glucose 72 mg/dL (65-115); Osmolality Calculated 274 mOsm/kg (285-295); Potassium 3.9 mmol/L (3.5-5.1); Sodium 134 mmol/L (136-145)
[2019-08-06] MEDS: midodrine 5 mg TABLET 7.5 MG PO (07:42)
[2019-08-06] MEDS: metroNIDAZOLE IV 500 MG/100 ML PREMIX 100 MG IV (07:44)
[2019-08-06 10:50] LABS: Glucose Point of Care 160 mg/dL (70-110)
[2019-08-06] MEDS: sulfamethoxazole-trimeth DS 160-800 mg Tablet 1 TAB PO ×2 (11:58→16:43)
--- NOTE | 2019-08-06 14:30 | P.PN_ITS ---
Subjective Subjective: Interval history: Hugo reports he is feeling better. Less abdominal pain. Some slight distention today which she reports is normal for him. Medications: Reviewed: Yes Vitals/I&O/Wt Last Vital Signs Temp 98.8 F 08/06/19 11:02 Pulse 66 08/06/19 11:02 Resp 18 08/06/19 11:58 BP 141/72 08/06/19 11:02 Pulse Ox 96 08/06/19 11:58 08/05/19 08/06/19 08/06/19 22:59 06:59 14:59 Intake Total 1190 / 2870 918.333 / 3788.333 480 / 480 Output Total 1750 / 1850 450 / 2300 200 / 200 Balance -560 / 1020 468.333 / 1488.333 280 / 280 Weight last 48 hrs Weight 82.962 kg Weight 75.551 kg Physical Exam Narrative: EXAM NARRATIVE: General exam is no apparent distress Cardiovascular regular in rhythm without murmur Lungs clear no wheezing or crackles Abdomen is soft, positive bowel sounds. Slight global tenderness. Insertion site of peritoneal catheter without erythema. Certainly less distended than yesterday. Extremities no cyanosis clubbing or edema Data : 08/06/19 05:30 08/06/19 05:30 Micro: Microbiology 08/04/19 10:00 Gram Stain - Final Ascites Fluid Body Fluid Culture - Preliminary Serratia marcescens Gram Negative Rods A&P Assessment and plan (1) Sepsis: Resolved. Blood culture negative. Currently on aztreonam, vancomycin and Flagyl. Status: Acute (2) Spontaneous bacterial peritonitis: Has ascites drain in place, likely source site of infection from per itonitis Current culture grew Serratia, resistant to aztreonam. Previous culture had multiple organisms of which Enterobacter and Serratia have grown out. In evaluating current positive culture results, Bactrim is the only oral medication which the patient is not allergic to which could be effective. I discussed this with the patient, its risks and benefits, chance of renal dysfunction, and will initiate this. We will monitor him overnight on Bactrim to make sure he does well during this period of antibiotic de-escalation as well as to observe him for any allergy secondary to his extensive allergy history to fluoroquinolones and penicillins causing throat swelling Discontinue vancomycin and aztreonam as well as Flagyl. Status: Acute (3) Ascites: He drains approximately every 3 days. Drained yesterday, 1500 cc Status: Acute Qualifiers: Ascites type: due to alcoholic cirrhosis Qualified Code(s): K70.31 - Alcoholic cirrhosis of liver with ascites (4) Liver cirrhosis: Is ultimately planning on consultation with [facility] Status: Acute (5) Diabetes: Continue detemir 10 units at bedtime, insulin sliding scale at moderate dose. He declines to follow diabetic diet. Status: Acute (6) Chronic prescription opiate use: Continue oxycodone as needed. Increase dose. Continue Dilaudid as needed. On home chronic narcotics. Status: Acute (7) Smoking addiction: Discussed smoking cessation 3 to 5 minutes Status: Acute Additional A&P Information Thrombocytopenia, coagulopathy secondary to cirrhosis. Continue to monitor. Hyponatremia, improved Elevation in creatinine, mild and unchanging. Discontinue octreotide, midodrine at this time Anemia, no evidence of GI bleeding. Likely secondary to cirrhosis Full code. Mechanical prophylaxis. No pharmacologic secondary to anemia and thrombocytopenia Attestations Medical Necessity Statement*: Needs continued close monitoring following de- escalation of antibiotics for SBP in this patient who presented with sepsis. Coding Level of Care Code Acute Handle Bar Assembler for [facility] Fwd Diagnoses Sepsis A41.9 Spontaneous bacterial peritonitis K65.2 Ascites K70.31 Ascites type: due to alcoholic cirrhosis Liver cirrhosis K74.60 Diabetes E11.9 Chronic prescription opiate use Z79.891 Smoking addiction F17.200
[2019-08-06] MEDS: sodium chloride 0.9% 1,000 ML 50 ML IV (16:19)
[2019-08-06 16:44] LABS: Glucose Point of Care 146 mg/dL (70-110)
[2019-08-06 20:32] LABS: Glucose Point of Care 240 mg/dL (70-110)
[2019-08-06] MEDS: LORazepam 2 mg/mL INJ 1 mL 0.5 MG IVP (21:58)
[2019-08-07] VITALS (13 sets, daily range): BP systolic 108–146; BP diastolic 63–80; PULSE 68–86; RESP 13–22; TEMP 36.9–37.4; O2SAT 94–98
[2019-08-07] MEDS: oxyCODONE 5 mg IR Tab/Cap 15 MG PO ×6 (02:07→23:10)
[2019-08-07 05:33] LABS: Basophils # 0.1 10^3/uL (0.0-0.1); Basophils % 0.9 %; Eosinophils # 0.2 10^3/uL (0.0-0.8); Eosinophils % 2.9 %; Hematocrit 29.7 % (42.0-52.0); Hemoglobin 9.3 g/dL (11.7-16.6); Lymphocytes # 0.9 10^3/uL (0.8-4.8); Lymphocytes % 11.6 %; Mean Corpuscular HGB Conc 31.3 g/dL (30.0-36.0); Mean Corpuscular Hemoglobin 30.7 pg (28.0-34.0); Monocytes # 1.2 10^3/uL (0.2-0.9); Monocytes % 15.2 %; Neutrophils # 5.3 10^3/uL (1.8-7.7); Neutrophils % 68.7 %; Nucleated Red Blood Cells % 0 %; Platelet Count 81 10^3/cmm (130-400); Red Blood Count 3.03 10^6/uL (4.1-5.3); Red Cell Distribution Width 14.1 % (12.1-15.1); White Blood Count 7.7 10^3/uL (4.0-10.0)
[2019-08-07 05:46] LABS: Alanine Aminotransferase 6 U/L (0-41); Albumin Level 2.6 g/dL (3.5-5.2); Alkaline Phosphatase 70 IU/L (40-130); Anion Gap 15.7 (5-19); Aspartate Amino Transferase 15 U/L (0-40); Blood Urea Nitrogen 36 mg/dL (6-20); Calcium 7.4 mg/dL (8.5-10.5); Carbon Dioxide 15 mmol/L (22-29); Chloride 106 mmol/L (98-107); Globulin 2.5 g/dL (1.3-4.6); Glucose 94 mg/dL (65-115); Osmolality Calculated 273 mOsm/kg (285-295); Potassium 3.7 mmol/L (3.5-5.1); Sodium 133 mmol/L (136-145); Total Bilirubin 0.7 mg/dL (0.15-1.2); Total Protein 5.1 g/dL (6.6-8.7)
[2019-08-07 06:15] LABS: Glucose Point of Care 96 mg/dL (70-110)
[2019-08-07] MEDS: sulfamethoxazole-trimeth DS 160-800 mg Tablet 1 TAB PO ×2 (07:52→17:11)
--- NOTE | 2019-08-07 09:20 | PC.SOCIAL ---
IMM Updated Page 2 of IMM updated and given to patient. Initialed, dated, and timed and placed back in chart.
--- NOTE | 2019-08-07 11:08 | P.PN_ITS ---
Subjective Subjective: Interval history: Hugo reports his belly feels full today. Otherwise he is about the same. No shortness of breath. No chest pain. States he may be urinating a little bit less than previously. Medications: Reviewed: Yes Vitals/I&O/Wt Last Vital Signs Temp 98.8 F 08/07/19 11:00 Pulse 83 08/07/19 11:00 Resp 18 08/07/19 11:00 BP 146/80 08/07/19 11:00 Pulse Ox 96 08/07/19 11:00 08/06/19 08/07/19 08/07/19 22:59 06:59 14:59 Intake Total 1499 / 1979 200 / 200 Output Total 1974 200 / 2375 200 / 200 Balance -475 / -195 -200 / -395 0 / 0 Weight last 48 hrs Weight 83.659 kg Weight 82.962 kg Physical Exam Narrative: EXAM NARRATIVE: General exam is no apparent distress Cardiovascular regular in rhythm without murmur Lungs clear no wheezing or crackles Abdomen is soft, positive bowel sounds. Slight global tenderness. Insertion site of peritoneal catheter without erythema. Distention is noted consistent with ascites. Extremities no cyanosis clubbing or edema Data : 08/07/19 04:48 08/07/19 04:48 Micro: Microbiology 08/04/19 10:00 Gram Stain - Final Ascites Fluid Body Fluid Culture - Preliminary Serratia marcescens Gram Negative Rods A&P Assessment and plan (1) Sepsis: Resolved. Blood culture negative. Was previously on aztreonam, vancomycin and Flagyl. Based on culture results from 07/31, and 08/03 which shows Serratia, Enterobacter Bactrim was started. I discussed with the patient the risks of this, and possibility of worsening renal function with the medicine but we are somewhat limited on other oral medication secondary to allergies, anaphylaxis to fluoroquinolones and penicillin products. Status: Acute (2) Spontaneous bacterial peritonitis: Has ascites drain in place, likely source site of infection from peritonitis Current culture grew Serratia, gram-negative kaylin Previous culture had multiple organisms of which Enterobacter and Serratia have grown out. In evaluating current positive culture results, Bactrim is the only oral medication which the patient is not allergic to which could be effective. I discussed this with the patient, its risks and benefits, chance of renal dysfunction, and will initiate this. With initiation of Bactrim creatinine is slightly worse. However, this is likely multifactorial considering he drained his ascites fluid yesterday totaling 1600 cc, Status: Acute (3) Ascites: He drains approximately every 3 days. Drained yesterday, 1600 cc August 05 and day previously 1500 August 04 We will give 1 dose of albumin today secondary to paracentesis yesterday and slight worsening of creatinine noted today. Status: Acute Qualifiers: Ascites type: due to alcoholic cirrhosis Qualified Code(s): K70.31 - Alcoholic cirrhosis of liver with ascites (4) Liver cirrhosis: Is ultimately planning on consultation with [facility] Status: Acute (5) Diabetes: Continue detemir 10 units at bedtime, insulin sliding scale at moderate dose. He declines to follow diabetic diet. Status: Acute (6) Chronic prescription opiate use: Continue oxycodone as needed. Increase dose. Continue Dilaudid as needed. On home chronic narcotics. Status: Acute (7) Smoking addiction: Discussed smoking cessation 3 to 5 minutes Status: Acute Additional A&P Information Mild metabolic acidosis thrombocytopenia, coagulopathy secondary to cirrhosis. Continue to monitor. Hyponatremia, improved Elevation in creatinine. Octreotide, midodrine were discontinued August 05 as creatinine was stable. Secondary to slight increase in creatinine, peritonitis, the initiation of Bactrim as an antibiotic, will have nephrology consult and review his current treatment for avenues to try to preserve renal function Anemia, no evidence of GI bleeding. Likely secondary to cirrhosis Full code. Mechanical prophylaxis. No pharmacologic secondary to anemia and thrombocytopenia Attestations Medical Necessity Statement*: Needs continued hospital stay for close monitoring of renal function during his initiation of treatment for peritonitis. Coding Level of Care Code Acute Director Clinical Pharmacology for [facility] Fwd Diagnoses Sepsis A41.9 Spontaneous bacterial peritonitis K65.2 Ascites K70.31 Ascites type: due to alcoholic cirrhosis Liver cirrhosis K74.60 Diabetes E11.9 Chronic prescription opiate use Z79.891 Smoking addiction F17.200
[2019-08-07 11:56] LABS: Glucose Point of Care 123 mg/dL (70-110)
[2019-08-07] MEDS: sodium chloride 0.9% 1,000 ML 50 ML IV (14:19)
--- NOTE | 2019-08-07 14:41 | P.CONIM_ITS ---
Providers/Reason For Consult Consulting Physican/Specialty*: Chantell Baker DO, telenephrology Reason for Consult*: GENESIS, CKD Requesting Physcian: Navjot Mendes MD Attending Physician: Navjot Mendes MD Primary Care Provider: Gary Duke DO History of Present Illness History of Present Illness Hugo Oquendo is a 53 year old male who was admitted with peritonitis. + Cirrhosis, refractory ascites, had peritoneal catheter placed 06/2019. Was draining every 2-3 days about 2 liters. Baseline serum Cr 1.0 mg/dL. Requires bactrim to treat peritonitis. As outpatient, was taking spironolactone 100 mg daily and furosemide 40 mg BID. last evening PD fluid drain 1675 ml Review of Systems Card: Reports: edema; Denies: chest pain Resp: Denies: dyspnea GI: Reports: abdominal pain and other (+ abdominal distention) : Denies: difficulty urinating Musc: Reports: neck pain and back pain Meds/Allergies Home Medications and Allergies Home Medications Medication Instructions Recorded Confirmed Last Taken Type Farxiga 5 mg PO QAM 03/05/19 08/03/19 08/02/19 History Tresiba FlexTouch U-100 10 - 25 unit SUBCUT DAILY PRN 03/05/19 08/03/19 08/02/19 08:00 History albuterol sulfate 90 mcg INHALATION QID PRN 03/05/19 08/03/19 07/31/19 History fluticasone propion-salmeterol 1 inh INHALATION BID 03/05/19 08/03/19 07/23/19 History [Advair Diskus] nitroglycerin 0.4 mg sublingual 0.4 mg SUBLINGUAL Q5M PRN 03/10/19 08/03/19 04/20/19 History tablet spironolactone 100 mg tablet 100 mg PO QAM 03/10/19 07/04/19 06/29/19 History furosemide 20 mg PO BID 06/06/19 08/03/19 08/02/19 History oxycodone 30 mg tablet 30 mg PO .FIVE TIMES DAILY PRN 30 07/01/19 08/03/19 08/02/19 Rx Days #140 tab oxycodone 30 mg PO .FOUR TIMES DAILY PRN 08/03/19 08/03/19 08/02/19 History trazodone 150 mg PO BEDTIME 08/03/19 08/03/19 08/02/19 History Allergies Allergy/AdvReac Type Severity Reaction Status Date / Time adhesive tape Allergy ADR-Itching Verified 08/03/19 00:51 citalopram [From Celexa] Allergy ADR-Agitate Verified 07/04/19 12:04 d insulin glargine Allergy ALGY-Anaphy Verified 07/04/19 12:04 [From Lantus U-100 Insulin] laxis levofloxacin [From Levaquin] Allergy ALGY-Anaphy Verified 07/04/19 12:04 laxis Penicillins Allergy ALGY-Anaphy Verified 07/04/19 12:04 laxis potassium chloride Allergy ADR-Vomitin Verified 07/04/19 12:04 g duloxetine [From Cymbalta] AdvReac NAUSEA Verified 07/04/19 12:04 VOMITTING pregabalin [From Lyrica] AdvReac NAUSEA Verified 07/04/19 12:04 Current Medications Current Medications Generic Name Dose Route Start Last Admin Trade Name Freq PRN Reason Stop Dose Admin Acetaminophen 325 mg 08/03/19 14:15 08/03/19 21:16 Tylenol PO 325 mg Q6H PRN Administration MILD PAIN Sodium Chloride 1,000 mls @ 50 mls/hr 08/02/19 23:35 08/07/19 14:19 Sodium Chloride 0.9% IV 50 mls/hr .Q20H GIGI Administration Insulin Aspart 0 unit 08/03/19 08:00 08/07/19 12:14 Novolog SUBCUT Not Given WM&BEDTIME [facility] Protocol Insulin Detemir 10 unit 08/03/19 00:25 08/06/19 21:58 Levemir SUBCUT 10 unit BEDTIME GIGI Administration Lorazepam 0.5 mg 08/04/19 14:19 08/06/19 21:58 Ativan IVP 0.5 mg Q6H PRN Administration ANXIETY Nicotine 1 patch 08/03/19 00:45 08/07/19 04:54 Nicoderm 21 Mg Patch TRANSDERMA Not Given Q24H GIGI Ondansetron HCl 4 mg 08/02/19 23:35 08/05/19 04:07 Zofran IVP 4 mg Q6H PRN Administration NAUSEA AND VOMITING Oxycodone HCl 15 mg 08/05/19 19:02 08/07/19 14:20 Oxycodone Ir PO 15 mg Q4H PRN Administration MODERATE PAIN Trimethoprim/Sulfamethoxazole 1 tab 08/06/19 11:10 08/07/19 07:52 Bactrim Ds PO 1 tab BID GIGI Administration Protocol PFSH Acute PFSH: Medical History Ascites Chronic cervical pain Chronic low back pain Diabetes Diabetic neuropathy, painful Liver cirrhosis Liver failure Smoking addiction Somatic dysfunction of back THORACIC AND LUMBAR Surgical History History of colonoscopy History of esophagogastroduodenoscopy (EGD) Hx of circumcision Hx of inguinal hernia repair (~05/22/18) LAP REPAIR OF RIGHT INGUINAL HERNIA WITH ULTRAPRO 15X10 CM MESH. Hx of oral surgery Family History Father Cancer LUNG CANCER Other Diabetes Heart disease Lung disease Myocardial infarct Stroke Denies family history of Anesthesia complication Bleeding disorder Social History Smoking and tobacco status: current every day smoker cigarettes Packs smoked per day: 1 Alcohol intake: former Year of sobriety/quit date alcohol: 2009 Caregiver/support person: Yes Lives independently: Yes Household members: friend(s) Current occupational status: disabled History of recent travel: No Vitals/I&O/Wt Last Vital Signs Temp 98.8 F 08/07/19 11:00 Pulse 83 08/07/19 11:00 Resp 18 08/07/19 14:20 BP 146/80 08/07/19 11:00 Pulse Ox 96 08/07/19 14:20 08/06/19 08/07/19 08/07/19 22:59 06:59 14:59 Intake Total 1500 / 1979 1200 / 1200 Output Total 1974 / 5 200 / 2375 200 / 200 Balance -475 / -195 -200 / -395 1000 / 1000 Weight last 48 hrs Weight 83.659 kg Weight 82.962 kg Physical Exam Const: COMMON NORMALS: no acute distress GENERAL APPEARANCE: cooperative HENMT: COMMON NORMALS: normocephalic HEAD & SCALP: normocephalic Resp: COMMON NORMALS: normal respiratory effort and clear to auscultation bilaterally AUSCULTATION: clear to auscultation bilaterally Cardio: COMMON NORMALS: regular rate and regular rhythm RATE: regular rate RHYTHM: regular rhythm GI: INSPECTION: Yes abdominal distension and Yes other (right lower quadrant peritoneal catheter - exit site not red, no drainage) Extremity: GENERAL: Yes edema (1+ lower extremity) Data Labs: Other Labs: serum albumin 2.6, corrected calcium 8.6, TSAT 12.7%, urinalysis no proteinuria Micro: Micro: Microbiology 08/04/19 10:00 Gram Stain - Final Ascites Fluid Body Fluid Culture - Preliminary Serratia marces cens Gram Negative R ods Other Data: Other data: Renal US: Normal echogenicity with no hydronephrosis or mass. Right kidney: 10.4 cm x 6.8 cm x 5.1 cm. Left kidney: 11.5 cm x 5.1 cm x 4.[address] with contrast 08/01/2019: 1. There is diffuse small bowel wall thickening, consistent with infectious,ischemic, or inflammatory enteritis. 2. There is abundant ascites. No abscess or free air. 3. Heterogeneous nodular liver compatible with cirrhosis. There is splenomegaly and varicosities. 4. Unchanged basilar pulmonary nodules. The lungs are otherwise clear. 5. Bilateral nephrolithiasis. No hydronephrosis. A&P Additional A&P Information Impression: 1. peritonitis 2. GENESIS (decompensated cirrhosis, peritoneitis, IV contrast, possible early hepatorenal syndrome), CKD, eGFR 49 ml/min likely overestimating renal function 3. metabolic acidosis, probably also has primary respiratory alkalosis 4. diabetes 5. anemia, appears iron deficieny Recommendation: limited options in terms of antibiotic. Discussed with Hugo risk for hyperkalemia and worsening renal function on bactrim. He should not resume spironolactone while on bactrim, and he was able to list foods that are high in potassium to avoid. He is requesting resumption of furosemide. We can resume 40 mg po daily. Would not use Farxiga. Can begin sodium bicarbonate 325 mg BID, difficult to determine correct dose without pH. Daily weights. Discussed with Dr Mendes. Consult Attestations Medical Necessity Statement: per primary service Time Spent in Patient Care: Greater than 35 minutes Coding Level of Care Code Acute Lining Machine Tender for g Janette
[2019-08-07 17:07] LABS: Glucose Point of Care 195 mg/dL (70-110)
[2019-08-07] MEDS: sodium bicarbonate 650 mg Tablet 325 MG PO (17:10)
[2019-08-07 18:25] LABS: Potassium, Radom Urine 40 mmol/L; Urine Creatinine 146 mg/dL (39-259)
[2019-08-07 18:27] LABS: Urine Random Chloride 12 mmol/L; Urine Random Sodium 11 mmol/L
[2019-08-07] MEDS: LORazepam 2 mg/mL INJ 1 mL 0.5 MG IVP (20:54)
[2019-08-07 21:38] LABS: Glucose Point of Care 204 mg/dL (70-110)
--- NOTE | 2019-08-07 22:45 | PC.NURSE ---
ambulation pt ambulated in lee 1 lap with this nurse. pt used walker and tolerated well.
[2019-08-08] VITALS (7 sets, daily range): BP systolic 100–149; BP diastolic 69–81; PULSE 78–101; RESP 12–18; TEMP 36.9–37.2; O2SAT 95–96
[2019-08-08] MEDS: oxyCODONE 5 mg IR Tab/Cap 15 MG PO ×3 (03:10→11:48)
[2019-08-08 06:33] LABS: Anion Gap 15.5 (5-19); Blood Urea Nitrogen 37 mg/dL (6-20); Calcium 7.7 mg/dL (8.5-10.5); Carbon Dioxide 14 mmol/L (22-29); Chloride 106 mmol/L (98-107); Glucose 114 mg/dL (65-115); Osmolality Calculated 272 mOsm/kg (285-295); Potassium 3.5 mmol/L (3.5-5.1); Sodium 132 mmol/L (136-145)
[2019-08-08 06:52] LABS: Glucose Point of Care 124 mg/dL (70-110)
[2019-08-08] MEDS: FUROsemide 40 mg Tablet PO (07:29)
[2019-08-08] MEDS: sulfamethoxazole-trimeth DS 160-800 mg Tablet 1 TAB PO (07:30)
[2019-08-08 09:28] LABS: Ferritin 343 ng/mL (30-400)
[2019-08-08 11:13] LABS: Glucose Point of Care 176 mg/dL (70-110)
--- NOTE | 2019-08-08 12:24 | P.PN_ITS ---
Subjective Subjective: Interval history: chronic stable abdomainal pain; RN using peritoneal catheter at this time to drain fluid Medications: Reviewed: Yes Vitals/I&O/Wt Last Vital Signs Temp 98.7 F 08/08/19 08:00 Pulse 101 H 08/08/19 08:00 Resp 16 08/08/19 11:48 BP 149/81 08/08/19 08:00 Pulse Ox 95 08/08/19 08:00 08/07/19 08/08/19 08/08/19 22:59 06:59 14:59 Intake Total 400 / 1840 222 / 2062 222 / 222 Output Total 2009 200 / 2410 1350 / 1350 Balance -1610 / -370 22 / -348 -1128 / -1128 Weight last 48 hrs Weight 81.737 kg Weight 83.659 kg Data : 08/07/19 04:48 08/08/19 05:20 A&P Additional A&P Information Impression: 1. peritonitis - on oral bactrim 2. GENESIS (decompensated cirrhosis, peritonitis, IV contrast, possible early hepatorenal syndrome), CKD, eGFR 49 ml/min likely overestimating renal function - stable 3. metabolic acidosis, probably also has primary respiratory alkalosis 4. diabetes 5. anemia, appears iron deficient, TSAT 12.7%, SF 343 - can begin oral iron as outpatient Recommendation: Stable for discharge from renal standpoint. Plan is for him to see primary and get labs on Sunday or Sunday next week. Daily weights. Outpatient nephrology follow-up. Discussed with Dr Mendes. Attestations Medical Necessity Statement*: per primary service Coding Level of Care Code Acute Protective Signal Installer Helper for Eduin Savage
--- NOTE | 2019-08-08 13:01 | PM.DCS ---
Discharge Providers Date of Admission: 08/02/19 21:45 Date of Discharge: August 08, 2019 Attending Provider at Admission: Jim Llanes Attending Provider at Discharge: Nvajot Mendes MD Primary Care Provider: Gary Duke DO Diagnoses at Discharge Discharge Diagnosis (1) Sepsis: Status: Acute Problem details: Resolved (2) Spontaneous bacterial peritonitis: Status: Acute Problem details: Secondary to Enterobacter, Serratia. Discharged on Bactrim for 7 days. Risks discussed. (3) Ascites: Status: Acute Qualifiers: Ascites type: due to alcoholic cirrhosis Qualified Code(s): K70.31 - Alcoholic cirrhosis of liver with ascites (4) Liver cirrhosis: Status: Acute (5) Diabetes: Status: Acute (6) Chronic prescription opiate use: Status: Acute (7) Smoking addiction: Status: Acute Problem details: Counseled 3 to 5 minutes on cessation Reason for Visit Reason for Visit: sent by doc Hospital Course Hospital Course: Hugo is a 53-year-old with cirrhosis and significant ascites that presented to the hospital with abdominal pain and evidence of sepsis. Peritoneal fluid was infected, and ultimately grew Serratia, Enterobacter from a previous culture and was growing the same organisms from culture obtained here. He was initially placed on aztreonam, and vancomycin. After culture results came back this was eventually changed to Bactrim because significant resistance was noted for other medications and he had significant allergies to fluoroquinolones and penicillin. By the end of the hospital stay he was stable. Renal function was followed closely on Bactrim for 2-1/2 days and had not worsened. He was counseled on low potassium diet. His Aldactone was discontinued. He will be followed up in 3 days with his primary care provider and a BMP and CBC at that time. I also discussed the risks and benefits of discharge with his , as well as the risks of Bactrim. Nephrology did see him while in the hospital and they recommended nephrology follow-up as an outpatient. Discharge creatinine 1.5, potassium 3.5. Home health was offered but he refused. Physical Exam Narrative: EXAM NARRATIVE: General exam no apparent distress Cardiovascular regular in rhythm without murmur Lungs clear Abdomen is soft Extremities no cyanosis clubbing. 1+ edema bilaterally Discharge Data Data Completed and Pending: Completed Studies During Hospitalization Category Date Time Status US renal BI with bladder Routine Ultrasound 08/04/19 15:31 Completed Pending at discharge Category Date Time Status Blood Culture Sta t Lab 08/03/19 13:00 Results Body Fluid Cultur e & GS Routine Lab 08/04/19 10:00 Results Labs from last 24 hours 08/08/19 08/08/19 08/08/19 10:51 06:39 05:20 Sodium Potassium Chloride Carbon Dioxide Anion Gap BUN Creatinine GFR Calculation Glucose POC Glucose 176 124 Calculated Osmolal ity Calcium Ferritin 343 Ur Random Sodium Ur Random Potassiu m Ur Random Chloride Urine Creatinine 08/08/19 08/07/19 08/07/19 05:20 21:22 17:20 Sodium 132 L Potassium 3.5 Chloride 106 Carbon Dioxide 14 L Anion Gap 15.5 BUN 37 H Creatinine 1.4 H GFR Calculation 53.0 L Glucose 114 POC Glucose 204 Calculated Osmolal ity 272 L Calcium 7.7 L Ferritin Ur Random Sodium 11 Ur Random Potassiu m 40 Ur Random Chloride 12 Urine Creatinine 146 08/07/19 17:03 Sodium Potassium Chloride Carbon Dioxide Anion Gap BUN Creatinine GFR Calculation Glucose POC Glucose 195 Calculated Osmolal ity Calcium Ferritin Ur Random Sodium Ur Random Potassiu m Ur Random Chloride Urine Creatinine Vitals: Last Vital Signs Temp 98.7 F 08/08/19 08:00 Pulse 101 H 08/08/19 08:00 Resp 16 08/08/19 11:48 BP 149/81 08/08/19 08:00 Pulse Ox 95 08/08/19 08:00 Discharge Plan Discharge Patient Disposition: Home, Self-Care Condition: Stable Prescriptions: New sulfamethoxazole-trimethoprim 800-160 mg Tablet 1 tab PO BID Qty: 9 RF: 0 furosemide 40 mg Tablet 40 mg PO DAILY@0800 Qty: 30 RF: 0 sodium bicarbonate 650 mg Tablet 325 mg PO BID Qty: 60 RF: 0 Continued nitroglycerin [Nitrostat] 0.4 mg tablet, sublingual 0.4 mg SUBLINGUAL Q5M PRN (Reason: Chest Pain) RF: 0 oxycodone 30 mg tablet 30 mg PO .FIVE TIMES DAILY PRN (Reason: Pain) 30 Days Qty: 140 RF: 0 fluticasone propion-salmeterol [Advair Diskus] 250-50 mcg/dose Blister With Device 1 inh INHALATION BID RF: 0 Tresiba FlexTouch U-100 100 unit/mL (3 mL) Insulin Pen 10 - 25 unit SUBCUT DAILY PRN (Reason: Hyperglycemia) RF: 0 albuterol sulfate 90 mcg/actuation Aero Powdr Breath Act W/Sensor 90 mcg INHALATION QID PRN (Reason: Shortness Of Breath) RF: 0 trazodone 150 mg tablet 150 mg PO BEDTIME RF: 0 oxycodone 30 mg tablet 30 mg PO .FOUR TIMES DAILY PRN (Reason: Pain) RF: 0 Discontinued spironolactone 100 mg tablet 100 mg PO QAM RF: 0 Farxiga 10 mg Tablet 5 mg PO QAM RF: 0 furosemide 20 mg tablet 20 mg PO BID RF: 0 Discharge Orders: Discharge Order (Routine); Ordered 08/08/19 Ordered By: Navjot Mendes Referrals: Gary Duke DO [Primary Care Provider] - 1-3 days (Follow-up Sunday or Sunday of next week with visit, CBC and BMP) Discharge Diet: Cardiac Discharge Activity: Increase activity as tolerated Activity Restrictions/Additional Instructions: Arrange for nephrology follow-up per your primary care provider Low potassium diet Discharge Attestations Time Spent in Discharge Care*: greater than 30 min Quality Metrics Clinical Quality Measures During this hospital stay, did patient experience: None Coding Level of Care Code Acute Grooving Machine Operator for Chg Fwd Diagnoses Sepsis A41.9 Spontaneous bacterial peritonitis K65.2 Ascites K70.31 Ascites type: due to alcoholic cirrhosis Liver cirrhosis K74.60 Diabetes E11.9 Chronic prescription opiate use Z79.891 Smoking addiction F17.200
== END 2019-08-08 15:10 | disposition home or self-care (01) | DRG 871 ==
LOC: ER 19:23 → MEDSURG 22:51
PROVIDERS: Emergency Medicine; Internal Medicine; Student in an Organized Health Care Education/Training Program; Admitting Provider Internal Medicine; PCP Internal Medicine; Visit Provider Internal Medicine
DX: A41.9 Sepsis, unspecified organism (principal); K65.2 Spontaneous bacterial peritonitis; D68.4 Acquired coagulation factor deficiency; E87.1 Hypo-osmolality and hyponatremia; N17.9 Acute kidney failure, unspecified; E87.4 Mixed disorder of acid-base balance; B96.89 Other specified bacterial agents as the cause of diseases classified elsewhere; I48.91 Unspecified atrial fibrillation; K70.31 Alcoholic cirrhosis of liver with ascites; F10.21 Alcohol dependence, in remission; R16.1 Splenomegaly, not elsewhere classified; N20.0 Calculus of kidney; G89.29 Other chronic pain; M54.2 Cervicalgia; M54.5 Low back pain; E11.42 Type 2 diabetes mellitus with diabetic polyneuropathy; F17.210 Nicotine dependence, cigarettes, uncomplicated; Z88.0 Allergy status to penicillin; D69.59 Other secondary thrombocytopenia; E83.51 Hypocalcemia; K59.00 Constipation, unspecified; Z79.891 Long term (current) use of opiate analgesic; D50.9 Iron deficiency anemia, unspecified; I95.9 Hypotension, unspecified
CPT/HCPCS: 12345; 36415; 36416; 74177; 76770; 76857; 80048; 80053; 80202; 80500; 81001; 82042; 82150; 82436; 82570; 82728; 82945; 82962; 83540; 83550; 83605; 83615; 83690; 84100; 84133; 84145; 84157; 84300; 84315; 84443; 85025; 85610; 86140; 87040; 87070; 87075; 87077; 87186; 87205; 89050; 94762; 96372; 96374; 96375; 96376; 99281; 99283; 99284; J1170; J1815; J2060; J2270; J2354; J2405; J3370; J3490; J7030; J7050; P9047; Q3014; Q9967; S0030

== ENCOUNTER → 2019-09-16 09:12 | Outpatient (BNVA) | payer MEDICARE, MEDICAID, SELFPAY | PROVIDERS: PCP Internal Medicine; Visit Provider Anesthesiology | DX: G89.29 Other chronic pain (principal); M54.42 Lumbago with sciatica, left side; M54.41 Lumbago with sciatica, right side; M54.2 Cervicalgia; M99.09 Segmental and somatic dysfunction of abdomen and other regions; F17.210 Nicotine dependence, cigarettes, uncomplicated; Z79.891 Long term (current) use of opiate analgesic; Z71.6 Tobacco abuse counseling | CPT/HCPCS: 99214 ==

== ENCOUNTER 2019-09-30 12:51 | Inpatient (IN) | payer MEDICARE, MEDICAID, SELFPAY ==
[2019-09-30 12:58] VITALS: BP 105/61; PULSE 82; RESP 18; TEMP 36.7; O2SAT 98; BMI 21.2
--- NOTE | 2019-09-30 13:38 | ECG_ITS ---
[facility] Test Date: 2019-09-30 Pat Name: Hugo Oquendo Department: Room: Gender: Male College President: : 1965 Requested By: Neville Solano Order Number: [id number] Skylar MD: Carlos Lagne M.D. Measurements Intervals [place] Rate: 74 P: 62 [place]: 137 QRS: -1 QRSD: 95 T: 46 QT: 387 QTc: 430 Interpretive Statements SINUS RHYTHM LOW QRS VOLTAGE IN EXTREMITY LEADS [QRS DEFLECTION < 0.5 mV IN LIMB LEADS] Compared to ECG 05/27/2018 20:20:03 Low QRS voltage now present Electronically Signed On 09-30-2019 17:21:15 CDT by Carlos Lange M.D. [email or web address] CUPS and [id number] f
--- NOTE | 2019-09-30 13:38 | XR_ITS ---
WS: [id number] EXAM: AP CHEST: PORTABLE UPRIGHT DATE OF EXAM: 09/30/2019, 1342 hours COMPARISON: Prior chest x-ray from 11/29/2018. HISTORY: Patient is 53 years old with cough and dyspnea. Dehydrated. Patient is a smoker.. FINDINGS: The cardiac silhouette is normal in size. The mediastinal contours are normal. The pulmonary vas cularity is normal. The lungs are clear of infiltrate. There is no effusion or pneumothorax. No ac campo bony abnormality is seen. XR/XR chest 1V portable [id number] IMPRESSION: No acute pulmonary disease.
--- NOTE | 2019-09-30 13:52 | W.ED.WEAKNES ---
HPI - Weakness General: Chief complaint: Weakness Stated complaint: dehydrated Time Seen by Provider: 09/30/19 13:07 History of Present Illness: HPI Narrative: 53-year-old male comes in complaining of weakness for the last week he denies any fever sweats or chills any respiratory symptoms or any chest pain. He has a history of alcoholic cirrhosis he is peritoneal drain states his last time he drained it he got 1000 milliliters out. He states he got overheated couple of days ago got nauseated vomited times once he has been taking p.o. fluids and well since then but he feels like they are all going into his stomach and he is not getting hydrated. He states after he had the episode of vomiting, the fluid draining from the abdominal drain was slightly bloody but is began to clear up already. Complaint: generalized weakness Onset (ago): week(s) (1) Duration: constant Location: generalized Severity: moderate Context: other (History of alcoholic cirrhosis) Associated symptoms: Reports vomiting; Denies chest pain, confusion, melena, decreased appetite, diaphoresis, dysuria, easy bruising, fever(s), headache(s), myalgias, nausea, rash, short of breath or syncope Review of Systems Const: Denies: fever(s) or diaphoresis ENMT: Denies: throat pain, ear or mastoid pain, nasal discharge or nasal congestion Card: Denies: chest pain or syncope Resp: Denies: dyspnea, productive cough or non-productive cough GI: Reports: vomiting; Denies: nausea or melena : Denies: dysuria Skin/Breast: Denies: rash or pruritus Neuro: Denies: headache(s) or confusion Jose Martin/Lymph: Denies: easy bruising PFSH ED PFSH: Medical History Ascites Chronic cervical pain Chronic low back pain Diabetes Diabetic neuropathy, painful Liver cirrhosis Liver failure Smoking addiction Counseled 3 to 5 minutes on cessation Somatic dysfunction of back THORACIC AND LUMBAR Surgical History History of colonoscopy History of esophagogastroduodenoscopy (EGD) Hx of circumcision Hx of inguinal hernia repair (~05/22/18) LAP REPAIR OF RIGHT INGUINAL HERNIA WITH ULTRAPRO 15X10 CM MESH. Hx of oral surgery Family History Father Cancer LUNG CANCER Other Diabetes Heart disease Lung disease Myocardial infarct Stroke Denies family history of Anesthesia complication Bleeding disorder Social History Smoking and tobacco status: current every day smoker cigarettes [ Other cigarette details: 5-6 ] Alcohol intake: former Year of sobriety/quit date alcohol: 2009 Caregiver/support person: Yes Lives independently: Yes Household members: friend(s) Current occupational status: disabled History of recent travel: No Physical Exam Const: COMMON NORMALS: no acute distress GENERAL APPEARANCE: cooperative and comfortable ORIENTATION/CONSCIOUSNESS: Yes awake, Yes oriented to person, Yes oriented to place and Yes oriented to time HENMT: COMMON NORMALS: normocephalic, atraumatic, hearing grossly normal bilaterally, external ears normal, EAC's normal, TM's normal bilaterally, Normal nasal mucous membranes and turbinates present, moist oral mucous membranes and oropharynx normal HEAD & SCALP: normocephalic and atraumatic NOSE: Normal nasal mucous membranes and turbinates present EXTERNAL EAR: Yes external ears normal EXTERNAL AUDITORY CANAL: EAC's normal TYMPANIC MEMBRANE: TM's normal bilaterally Eye: COMMON NORMALS: Equal, round and reactive pupils present, EOMs intact bilaterally, conjunctivae normal and no scleral icterus CONJUNCTIVA: Yes conjunctivae normal PUPIL: Yes Equal, round and reactive pupils present Neck/C-Spine: COMMON NORMALS: full ROM, no lymphadenopathy, supple and no JVD Lymph: LYMPHATIC: no lymphadenopathy noted and no lymphedema noted Resp: COMMON NORMALS: normal respiratory effort, No retractions, No use of accessory muscles and clear to auscultation bilaterally AUSCULTATION: clear to auscultation bilaterally Cardio: COMMON NORMALS: no JVD, regular rate, regular rhythm and No murmurs present (Cardio) RATE: regular rate RHYTHM: regular rhythm GI: AUSCULTATION: Yes normoactive bowel sounds PALPATION: Yes Tenderness to palpation present (GI) (diffuse) and No Guarding due to palpation present (GI) Extremity: COMMON NORMALS: normal to inspection, capillary refill normal, no clubbing, cyanosis or edema, no calf tenderness and no pedal edema Neuro: SENSORIUM/ORIENTATION: Yes oriented to person, Yes oriented to place and Yes oriented to time Skin: COMMON NORMALS: no rashes or lesions noted GENERAL SKIN EXAM: no rashes or lesions noted Course Vital Signs: Vital signs: Vital Signs Temperature 98.8 F 10/04/19 07:31 Pulse Rate 86 10/04/19 07:31 Respiratory Rate 18 10/04/19 07:31 Blood Pressure 126/70 10/04/19 07:31 Pulse Oximetry 96 10/04/19 07:31 MDM - Weakness MDM Narrative: Medical decision making narrative: Moderate hyponatremia discussed with the patient recommend observe placed on observation to correct. He also needs to be evaluated further for possible bacterial peritonitis. Patient is little hesitant had a discussion I am concerned that he will worsen and require longer hospitalization patient ultimately agrees to stay discussed Dr. Mitali ibarra written Lab Data: Attestation: I reviewed the patient's lab results. Labs: Lab Results 09/30/19 09/30/19 09/30/19 Range/Units 13:59 14:20 14:20 WBC 8.4 (4.0-10.0) 10^3/ uL RBC 3.08 L (4.1-5.3) 10^6/u L Hgb 9.4 L (11.7-16.6) g/dL Hct 29.8 L (42.0-52.0) % MCV 96.8 H (80-94) fL MCH 30.5 (28.0-34.0) pg MCHC 31.5 (30.0-36.0) g/dL RDW 13.7 (12.1-15.1) % Plt Count 74 L (130-400) 10^3/c mm MPV 11.2 H (7.4-10.4) fL Neut % (Auto) 81.1 % Lymph % (Auto) 5.0 % Centre % (Auto) 12.1 % Eos % (Auto) 0.7 % Baso % (Auto) 0.4 % Neut # (Auto) 6.79 (1.8-7.7) 10^3/u L Lymph # (Auto) 0.4 L (0.8-4.8) 10^3/u L Centre # (Auto) 1.0 H (0.2-0.9) 10^3/u L Eos # (Auto) 0.1 (0.0-0.8) 10^3/u L Baso # (Auto) 0.0 (0.0-0.1) 10^3/u L Nucleated RBC % (a uto) 0 % Nucleated RBCs # 0.0 /100WBC Sodium 124 L (136-145) mmol/L Potassium 4.5 (3.5-5.1) mmol/L Chloride 95 L (98-107) mmol/L Carbon Dioxide 19 L (22-29) mmol/L Anion Gap 14.5 (5-19) BUN 37 H (6-20) mg/dL Creatinine 1.5 H (0.7-1.2) mg/dL GFR Calculation 49.0 L (90-130) mL/min Glucose 372 H (65-115) mg/dL Calculated Osmolal ity 271 L (285-295) mOsm/k g Calcium 7.6 L (8.5-10.5) mg/dL Magnesium 1.9 (1.7-2.3) mg/dL Total Bilirubin 0.8 (0.15-1.2) mg/dL AST 16 (0-40) U/L ALT 9 (0-41) U/L Alkaline Phosphata se 123 (40-130) IU/L Ammonia (16-60) umol/L Creatine Kinase 40 (39-308) U/L Total Protein 5.5 L (6.6-8.7) g/dL Albumin 2.0 L (3.5-5.2) g/dL Globulin 3.5 (1.3-4.6) g/dL Urine Color Yellow (Yellow) Urine Appearance Clear (CLEAR) Urine pH 5 (5-7) Ur Specific Gravit y 1.010 (1.005-1.030) Urine Protein Neg (Negative) Urine Glucose (UA) 4+ H (Normal) Urine Ketones Negative (Negative) Urine Blood Neg (Negative) Urine Nitrate Negative (Negative) Urine Bilirubin Neg (NEGATIVE) Urine Urobilinogen 1 H (Negative) mg/dL Ur Leukocyte Amanda ase Negative (Negative) 09/30/19 Range/Units 14:20 WBC (4.0-10.0) 10^3/ uL RBC (4.1-5.3) 10^6/u L Hgb (11.7-16.6) g/dL Hct (42.0-52.0) % MCV (80-94) fL MCH (28.0-34.0) pg MCHC (30.0-36.0) g/dL RDW (12.1-15.1) % Plt Count (130-400) 10^3/c mm MPV (7.4-10.4) fL Neut % (Auto) % Lymph % (Auto) % Centre % (Auto) % Eos % (Auto) % Baso % (Auto) % Neut # (Auto) (1.8-7.7) 10^3/u L Lymph # (Auto) (0.8-4.8) 10^3/u L Centre # (Auto) (0.2-0.9) 10^3/u L Eos # (Auto) (0.0-0.8) 10^3/u L Baso # (Auto) (0.0-0.1) 10^3/u L Nucleated RBC % (a uto) % Nucleated RBCs # /100WBC Sodium (136-145) mmol/L Potassium (3.5-5.1) mmol/L Chloride (98-107) mmol/L Carbon Dioxide (22-29) mmol/L Anion Gap (5-19) BUN (6-20) mg/dL Creatinine (0.7-1.2) mg/dL GFR Calculation (90-130) mL/min Glucose (65-115) mg/dL Calculated Osmolal ity (285-295) mOsm/k g Calcium (8.5-10.5) mg/dL Magnesium (1.7-2.3) mg/dL Total Bilirubin (0.15-1.2) mg/dL AST (0-40) U/L ALT (0-41) U/L Alkaline Phosphata se (40-130) IU/L Ammonia 41 (16-60) umol/L Creatine Kinase (39-308) U/L Total Protein (6.6-8.7) g/dL Albumin (3.5-5.2) g/dL Globulin (1.3-4.6) g/dL Urine Color (Yellow) Urine Appearance (CLEAR) Urine pH (5-7) Ur Specific Gravit y (1.005-1.030) Urine Protein (Negative) Urine Glucose (UA) (Normal) Urine Ketones (Negative) Urine Blood (Negative) Urine Nitrate (Negative) Urine Bilirubin (NEGATIVE) Urine Urobilinogen (Negative) mg/dL Ur Leukocyte Amanda ase (Negative) Discharge Plan Discharge Patient Disposition: Home Clinical Impression: Acute hyponatremia, Anemia, Bacterial peritonitis Liver cirrhosis Qualifiers: Hepatic cirrhosis type: other cirrhosis Qualified Code(s): K74.69 - Other cirrhosis of liver Condition: Stable Interventions: ED Discharge Assessment Last Done: 09/30/19 17:06 ED Charges Last Done: 09/30/19 17:06 Discharge Date/Time: 09/30/19 17:07 Coding Level of Care Code ED Routing Machine Operator for Chg Fwd Exam Comprehensive
[2019-09-30] MEDS: ondansetron 2 mg/ML SDV 2 mL 4 MG IVP (14:00)
--- NOTE | 2019-09-30 14:06 | US_ITS ---
WS: [id number] Abdominal ultrasound, limited. History: Evaluate for ascites. Comparison: None. All 4 quadrants are imaged by ultrasound to evaluate for ascites. Minimal ascites within the abdomen. US/US abdomen limited [id number] IMPRESSION: No significant amount of ascites.
[2019-09-30 14:18] LABS: Add Urine Microscopic? NO
[2019-09-30 14:27] LABS: Bilirubin Urine Neg (NEGATIVE); Blood Urine Neg (Negative); Glucose Urine UA 4+ (Normal); Ketones Urine Negative (Negative); Leukocyte Esterase Urine Negative (Negative); Nitrate Urine Negative (Negative); Protein Urine Neg (Negative); Urine Appearance Clear (CLEAR); Urine Color Yellow (Yellow); Urobilinogen Urine 1 mg/dL (Negative); pH Urine 5 (5-7)
[2019-09-30 14:28] LABS: Basophils % 0.4 %; Eosinophils # 0.1 10^3/uL (0.0-0.8); Eosinophils % 0.7 %; Hematocrit 29.8 % (42.0-52.0); Hemoglobin 9.4 g/dL (11.7-16.6); Lymphocytes # 0.4 10^3/uL (0.8-4.8); Mean Corpuscular HGB Conc 31.5 g/dL (30.0-36.0); Mean Corpuscular Hemoglobin 30.5 pg (28.0-34.0); Mean Corpuscular Volume 96.8 fL (80-94); Mean Platelet Volume 11.2 fL (7.4-10.4); Monocytes % 12.1 %; Neutrophils # 6.79 10^3/uL (1.8-7.7); Neutrophils % 81.1 %; Nucleated Red Blood Cells % 0 %; Platelet Count 74 10^3/cmm (130-400); Red Blood Count 3.08 10^6/uL (4.1-5.3); Red Cell Distribution Width 13.7 % (12.1-15.1); White Blood Count 8.4 10^3/uL (4.0-10.0)
[2019-09-30 14:45] LABS: Alanine Aminotransferase 9 U/L (0-41); Alkaline Phosphatase 123 IU/L (40-130); Anion Gap 14.5 (5-19); Aspartate Amino Transferase 16 U/L (0-40); Blood Urea Nitrogen 37 mg/dL (6-20); Calcium 7.6 mg/dL (8.5-10.5); Carbon Dioxide 19 mmol/L (22-29); Chloride 95 mmol/L (98-107); Creatine Phosphokinase 40 U/L (39-308); Creatinine Clr Calc Pharmacy 53.5221; Globulin 3.5 g/dL (1.3-4.6); Glucose 372 mg/dL (65-115); Magnesium 1.9 mg/dL (1.7-2.3); Osmolality Calculated 271 mOsm/kg (285-295); Potassium 4.5 mmol/L (3.5-5.1); Sodium 124 mmol/L (136-145); Total Bilirubin 0.8 mg/dL (0.15-1.2); Total Protein 5.5 g/dL (6.6-8.7)
[2019-09-30 14:46] LABS: Ammonia 41 umol/L (16-60)
[2019-09-30] MEDS: sodium chloride 0.9% 1,000 ML 999 ML IV (14:56)
[2019-09-30 16:19] LABS: Glucose Point of Care 385 mg/dL (70-110)
[2019-09-30 17:06] VITALS: BP 98/61; PULSE 80; RESP 16; O2SAT 98
--- NOTE | 2019-09-30 17:31 | P.HP_ITS ---
Providers/Chief Complaint Admitting Physician: Nat Jasmine MD Primary Care Provider: Gary Duke DO Chief Complaint: dehydrated History of Present Illness Hugo Oquendo is a 53 year old male with PMH hep C associated cirrhosis, treated in 2013 with likely portal HTN , with peritoneal drain in place since June 2019 due to frequency of drainage. Presents with low grade fever since 1-2 months, admitted in July for secondary bacterial peritonitis, treated. States he was planned for outpatient removal of catheter but this did not happen as he could not keep up with appointments. No abdominal pain, states output has reduced and thicker than baseline. Fluid appears cloudy, stringy with occassional blood tinging. Some crusting around catheter insertion site. Review of Systems General: Reports: 10 or more systems reviewed and unremarkable except in HPI and below Const: Reports: fever(s); Denies: chills or body aches Eyes: Denies: change in vision, blurry vision or photophobia ENMT: Reports: hoarseness; Denies: throat pain, enlarged tonsils, odynophagia or nasal congestion Card: Denies: chest pain, palpitations, irregular heart rhythm, edema, swelling of feet/ankles, lightheadedness, pre-syncope, dyspnea on exertion or orthopnea Resp: Denies: dyspnea, productive cough, non-productive cough, wheezing, stridor, pain on inspiration, change in phlegm color, hemoptysis or chest congestion GI: Denies: abdominal pain, nausea, vomiting, hematemesis, coffee ground emesis, dysphagia, heartburn, diarrhea, constipation, GI cramping, change in stool character, hematochezia or melena : Denies: flank pain, dysuria, urinary frequency, urinary urgency, urinary hesitancy or hematuria Musc: Denies: neck pain, back pain, extremity pain, joint swelling, joint warmth or deformity Neuro: Denies: headache(s), numbness in extremities, weakness in extremities, sensory changes, difficulty walking, frequent falls, dizziness, vertigo, behavioral changes, Slurred speech present or seizure-like activity Psych: Denies: anxiety, depression, suicidal ideation or homicidal ideation Endo: Denies: polyuria, polydipsia, tired all the time, cold intolerance or hot flashes Jose Martin/Lymph: Denies: easy bruising or easy bleeding Medications/Allergies Home Medications Medication Instructions Recorded Confirmed Last Taken Type Tresiba FlexTouch U-100 10 - 25 unit SUBCUT DAILY PRN 03/05/19 09/30/19 09/30/19 History albuterol sulfate 90 mcg INHALATION QID PRN 03/05/19 09/30/19 07/31/19 History fluticasone propion-salmeterol 1 inh INHALATION BID 03/05/19 09/30/19 07/23/19 History [Advair Diskus] nitroglycerin 0.4 mg sublingual 0.4 mg SUBLINGUAL Q5M PRN 03/10/19 09/30/19 04/20/19 History tablet trazodone 150 mg PO BEDTIME 08/03/19 09/30/19 08/02/19 History furosemide 40 mg PO DAILY@0800 #30 tab 08/08/19 09/30/19 09/30/19 Rx clonidine HCl 0.1 mg tablet 0.1 mg PO DAILY #14 tab 08/27/19 09/30/19 Unknown Rx oxycodone 30 mg tablet 30 mg PO .FIVE TIMES DAILY PRN 30 09/16/19 09/30/19 09/30/19 Rx Days #150 tab dapagliflozin [Farxiga] 5 mg PO DAILY 09/30/19 09/30/19 09/30/19 History dexlansoprazole [Dexilant] 30 mg PO DAILY 09/30/19 09/30/19 09/30/19 History insulin aspart U-100 [Novolog See Rx Instructions .ROUTE .COMPLEX 09/30/19 09/30/19 09/29/19 History Flexpen U-100 Insulin] lactulose See Rx Instructions .ROUTE .COMPLEX 09/30/19 09/30/19 Unknown History lorazepam 0.5 mg PO BEDTIME 09/30/19 09/30/19 Unknown History Allergies Allergy/AdvReac Type Severity Reaction Status Date / Time adhesive tape Allergy ADR-Itching Verified 09/16/19 09:29 citalopram [From Celexa] Allergy ADR-Agitate Verified 09/16/19 09:29 d insulin glargine Allergy ALGY-Anaphy Verified 09/16/19 09:29 [From Lantus U-100 Insulin] laxis levofloxacin [From Levaquin] Allergy ALGY-Anaphy Verified 09/16/19 09:29 laxis Penicillins Allergy ALGY-Anaphy Verified 09/16/19 09:29 laxis potassium chloride Allergy ADR-Vomitin Verified 09/16/19 09:29 g duloxetine [From Cymbalta] AdvReac NAUSEA Verified 09/16/19 09:29 VOMITTING pregabalin [From Lyrica] AdvReac NAUSEA Verified 09/16/19 09:29 PFSH Acute PFSH: Medical History Ascites Chronic cervical pain Chronic low back pain Diabetes Diabetic neuropathy, painful Liver cirrhosis Liver failure Smoking addiction Counseled 3 to 5 minutes on cessation Somatic dysfunction of back THORACIC AND LUMBAR Surgical History History of colonoscopy History of esophagogastroduodenoscopy (EGD) Hx of circumcision Hx of inguinal hernia repair (~05/22/18) LAP REPAIR OF RIGHT INGUINAL HERNIA WITH ULTRAPRO 15X10 CM MESH. Hx of oral surgery Family History Father Cancer LUNG CANCER Other Diabetes Heart disease Lung disease Myocardial infarct Stroke Denies family history of Anesthesia complication Bleeding disorder Social History Smoking and tobacco status: current every day smoker cigarettes [ Other cigarette details: 5-6 ] Alcohol intake: former Year of sobriety/quit date alcohol: 2009 Caregiver/support person: Yes Lives independently: Yes Household members: friend(s) Current occupational status: disabled History of recent travel: No Vitals/I&O/Wt Last Vital Signs Temp 98.1 F 09/30/19 12:58 Pulse 80 09/30/19 17:06 Resp 16 09/30/19 17:06 BP 98/61 09/30/19 17:06 Pulse Ox 98 09/30/19 17:06 09/30/19 09/30/19 09/30/19 06:59 14:59 22:59 Intake Total 1000 / 1000 Balance 1000 / 1000 Weight last 48 hrs Weight 63.503 kg Physical Exam Narrative: EXAM NARRATIVE: GEN: Awake, alert and oriented, no acute distress CVS: S1S2 N RS: CTA B/L Abd: Soft, nt/nd , bs+ 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 deficits Data : 09/30/19 14:20 09/30/19 14:20 A&P Assessment and plan (1) Acute hyponatremia: Status: Acute (2) Liver cirrhosis: Status: Acute (3) Diabetes: Status: Acute (4) Ascites: Status: Acute Qualifiers: Ascites type: due to alcoholic cirrhosis Qualified Code(s): K70.31 - Alcoholic cirrhosis of liver with ascites (5) Bacterial peritonitis: Status: Acute Additional A&P Information Admit to med/surg as inpatient Given recent history, presence of catheter and recent peritonitis with ongoing fevers, suspect that he may have recurrent peritonitis check peritoneal fluid cell count, gram stain and cx await above results prior to starting abx States multiple allergies, has not been tried on cephalosporins per inpatient records dating back to 2010 Hyponatremia, likely to be related to some dehydration and third spacing. 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
[2019-09-30 17:35] VITALS: BP 131/79; PULSE 77; RESP 18; TEMP 36.8; O2SAT 99
[2019-09-30 17:48] LABS: Glucose Point of Care 389 mg/dL (70-110)
[2019-09-30 17:54] LABS: Body Fluid WBC 1283 /uL; RBC, Body Fluid 2 10^3/uL (0-0)
[2019-09-30 18:00] VITALS: RESP 18; O2SAT 94
[2019-09-30] MEDS: oxyCODONE IR 30 mg Tablet PO ×2 (18:00→21:28)
[2019-09-30] MEDS: heparin 5,000 unit/mL INJ 1 mL 5000 UNIT SUBCUT (18:01)
[2019-09-30] MEDS: sodium chloride 0.9% 1,000 ML 50 ML IV (18:02)
[2019-09-30 18:19] LABS: PATH Referral YES; Total Protein Peritoneal Fluid 1.3 g/dL
[2019-09-30 18:20] LABS: Apprearance, Body Fluid CLOUDY (CLEAR); Color, Body Fluid PALE YELLOW (PALE YELLOW)
[2019-09-30 19:22] LABS: Potassium, Radom Urine 21 mmol/L
[2019-09-30 19:37] VITALS: BP 117/67; PULSE 82; RESP 20; TEMP 36.9; O2SAT 98
[2019-09-30 21:25] LABS: Glucose Point of Care 281 mg/dL (70-110)
[2019-09-30 21:28] VITALS: RESP 20; O2SAT 96
[2019-09-30] MEDS: LORazepam 0.5 mg Tablet PO (21:28)
[2019-10-01] VITALS (12 sets, daily range): BP systolic 98–115; BP diastolic 56–78; PULSE 87–114; RESP 16–18; TEMP 36.3–37.6; O2SAT 93–96
[2019-10-01] MEDS: oxyCODONE IR 30 mg Tablet PO ×5 (02:10→21:08)
[2019-10-01 03:53] LABS: Glucose Point of Care 229 mg/dL (70-110)
[2019-10-01 04:37] LABS: Basophils % 0.3 %; Eosinophils % 0.1 %; Hematocrit 29.3 % (42.0-52.0); Hemoglobin 9.9 g/dL (11.7-16.6); Lymphocytes # 0.6 10^3/uL (0.8-4.8); Lymphocytes % 4.9 %; Mean Corpuscular HGB Conc 33.8 g/dL (30.0-36.0); Mean Corpuscular Hemoglobin 31.4 pg (28.0-34.0); Mean Platelet Volume 11.1 fL (7.4-10.4); Monocytes # 1.4 10^3/uL (0.2-0.9); Monocytes % 11.7 %; Neutrophils # 9.64 10^3/uL (1.8-7.7); Neutrophils % 82.1 %; Nucleated Red Blood Cells % 0 %; Platelet Count 105 10^3/cmm (130-400); Red Blood Count 3.15 10^6/uL (4.1-5.3); Red Cell Distribution Width 13.7 % (12.1-15.1); White Blood Count 11.7 10^3/uL (4.0-10.0)
[2019-10-01 05:07] LABS: Alanine Aminotransferase 10 U/L (0-41); Albumin Level 2.2 g/dL (3.5-5.2); Alkaline Phosphatase 135 IU/L (40-130); Anion Gap 15.7 (5-19); Aspartate Amino Transferase 14 U/L (0-40); Blood Urea Nitrogen 35 mg/dL (6-20); Calcium 7.5 mg/dL (8.5-10.5); Carbon Dioxide 19 mmol/L (22-29); Chloride 100 mmol/L (98-107); Globulin 3.7 g/dL (1.3-4.6); Glucose 218 mg/dL (65-115); Osmolality Calculated 274 mOsm/kg (285-295); Potassium 4.7 mmol/L (3.5-5.1); Sodium 130 mmol/L (136-145); Total Bilirubin 1.1 mg/dL (0.15-1.2); Total Protein 5.9 g/dL (6.6-8.7)
[2019-10-01 05:29] LABS: Hepatitis A Antibody IgM Non-Reactive (Nonreactive); Hepatitis B Core AB, Total Non-Reactive (Nonreactive); Hepatitis B Surface AB 3.5 (0-8.5); Hepatitis B Surface Antigen Non-Reactive (Nonreactive); Hepatitis C Virus Antibody Reactive (Nonreactive)
[2019-10-01 05:48] LABS: HIV 1 & 2 Antibody Non-Reactive (Non-Reactiv); HIV 1 & 2 Antigen Non-Reactive (Non-Reactiv)
[2019-10-01] MEDS: heparin 5,000 unit/mL INJ 1 mL 5000 UNIT SUBCUT (06:11)
[2019-10-01 06:37] LABS: Glucose Point of Care 224 mg/dL (70-110)
[2019-10-01] MEDS: pantoprazole DR 40 mg Tablet PO (09:11)
[2019-10-01] MEDS: sodium chloride 0.9% 1,000 ML 50 ML IV (09:11)
[2019-10-01] MEDS: aztreonam 1,000 MG in sodium chloride 0.9% (plus) 50 ML 100 MG IV (10:00)
[2019-10-01] MEDS: vancomycin 1,000 MG in sodium chloride 0.9% 250 ML 250 MG IV (10:37)
--- NOTE | 2019-10-01 11:12 | PC.NURSE ---
Salvador Rounding Per Dr. Jasmine, patient to remain in house, he will need to have drain removed.
[2019-10-01 11:31] LABS: Glucose Point of Care 267 mg/dL (70-110)
[2019-10-01 11:45] LABS: Urine Random Chloride < 20 mmol/L; Urine Random Sodium < 20 mmol/L
--- NOTE | 2019-10-01 12:04 | PM.PN ---
Subjective Subjective: Interval history: Patient appears better hydrated today. Sodium is improving at 130. WBC count from yesterday fluid returned at greater than 1200. Gram stain shows abundant gram-negative rods. Overall picture consistent with secondary bacterial peritonitis. Medications: Reviewed: Yes Vitals/I&O/Wt Last Vital Signs Temp 98.6 F 10/01/19 11:53 Pulse 97 10/01/19 11:53 Resp 16 10/01/19 11:53 BP 109/71 10/01/19 11:53 Pulse Ox 96 10/01/19 11:53 09/30/19 10/01/19 10/01/19 22:59 06:59 14:59 Intake Total 1600 / 1600 1357.5 / 1357.5 Output Total 200 / 200 550 / 550 Balance 1600 / 1600 -200 / 1400 807.5 / 807.5 Weight last 48 hrs Weight 66.996 kg Weight 63.503 kg Physical Exam Narrative: EXAM NARRATIVE: GEN: Awake, alert and oriented, no acute distress CVS: S1S2 N RS: CTA B/L Abd: Soft, distended, overall unchanged. Peritoneal drain noted to be in place. Slight excoriation around the entry site. Overall tunnel appears without any signs of gross cellulitis or underlying abscesses. INSPECTOR CLIP ON SUNGLASSES: no focal neuro deficits Data : 10/01/19 04:05 10/01/19 04:05 Micro: Microbiology 09/30/19 17:41 Gram Stain - Final Ascites Fluid 10/01/19 04:05 Blood Culture - Preliminary Blood SPECIMEN COLLECTED 10/01/19 04:08 Blood Culture - Preliminary Blood SPECIMEN COLLECTED A&P Assessment and plan (1) Bacterial peritonitis: Status: Acute (2) Acute hyponatremia: Status: Acute (3) Liver cirrhosis: Status: Acute Qualifiers: Hepatic cirrhosis type: other cirrhosis Qualified Code(s): K74.69 - Other cirrhosis of liver (4) Diabetes: Status: Acute Qualifiers: Diabetes mellitus type: type 2 Diabetes mellitus senior living insulin use: with senior living use Diabetes mellitus complication status: with other specified complication Qualified Code(s): E11.69 - Type 2 diabetes mellitus with other specified complication; Z79.4 - lobsterman (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 Patient was admitted last in July 2019 with Bacterial peritonitis. Cultures at that time had shown growth of gram-negative rods including Serratia and Enterobacter. He was supposed to follow-up as an outpatient with surgery to assess for need for removal of drain, however he was unable to do so. He has been experiencing some low-grade fever generalized weakness more subacute presentation this time with hospital. Currently ascites fluid cell count is again at 1200. Gram stain is showing abundant gram-negative rods, culture remains pending at this time. Overall picture is that of secondary bacterial peritonitis. Patient was empirically started on on aztreonam and vancomycin this morning. I had an extensive discussion with him regarding his antibiotic allergies. He reports anaphylaxis with penicillin in the 1980s which he received for pneumonia. He has tolerated amoxicillin in the past. He has also tolerated Keflex in the past, however states he may have had some GI upset with nausea and vomiting. No anaphylaxis was noted with cephalosporins. At this time he is willing to try cephalosporins and in accordance we will switch his empiric therapy from aztreonam to cefepime. Discontinue vancomycin at this time. This is a second episode of bacterial peritonitis. Presence of multiple gram-negatives suggest likely colonization of his indwelling catheter and suspect that this may be an indication for removal of his catheter at this time. We will contact his outpatient surgeon Dr. Dill for removal and exchange of his peritoneal drain. CAT scan on the last admission had some evidence of enteritis. No gross cellulitic changes were noted in the abdominal wall. Currently there is some chaffing around the site of catheter insertion. We will obtain an ultrasound to rule out any abdominal wall abscesses. Hyponatremia, likely to be related to some dehydration and third spacing. Improving now. Cirrhosis from hep C, reports being treated in the past, waiting to see tool programmer in [facility] Past h/o IVDU and alochol abuse, states being clean at least 8-9 years Dvt ppx: heparin Full code Attestations Medical Necessity Statement*: Secondary bacterial peritonitis, awaiting further microbiology results, need of IV antibiotics. Coding Level of Care Code Acute Supervisor Seaming for [facility] Diagnoses Bacterial peritonitis K65.9 Acute hyponatremia E87.1 Liver cirrhosis K74.69 Hepatic cirrhosis type: other cirrhosis Diabetes E11.69; Z79.4 Diabetes mellitus type: type 2 Diabetes mellitus senior living insulin use: with senior living use Diabetes mellitus complication status: with other specified complication Ascites K70.31 Ascites type: due to alcoholic cirrhosis
[2019-10-01] MEDS: cefepime 2,000 MG in sodium chloride 0.9% (plus) 50 ML 100 MG IV (13:29)
--- NOTE | 2019-10-01 13:53 | PC.CHAP ---
Pastoral Care Encounter/Spiritual Assessment Type of Contact [] Declined director of pediatric rehabilitation visit [] Patient/Family/Request visit [] Outpatient visit [] Follow-up visit [] Physician referral [] Code/Alert [X] Routine visit [] Staff referral [] Actively dying [] Patient sleeping [] Family support [] [] Out of room [] Palliative care [] [] Receiving care in room [] Pre-surgical visit [] Trauma [] Long length of stay [] ICU visit [] Other: Relational/Emotional Strength [] Patient feels connected with others/family/visitors/staff [] Distress [] Loneliness/isolation [] Abandonment Spirituality of Patient [] Person of Gaby [] Attends Faith of their Gaby [] Believes in Prayer [] Reads Bible or Denominational materials [] There are Spiritual issues to be addressed Canvas Cutter Hand Interventions [] Prayer [] Active listening [] Non-anxious presence [] Spiritual/emotional support [] Crisis/trauma care [] Spiritual counseling [] Bereavement support [] Provided bereavement packet [] Provided Bible/devotional materials [] Provided toy/stuffed animal, coloring book to patient or family member [] Provided Communion [] Anointing/Murray [] Salvation [] Completed spiritual assessment [] Other: Impact on Illness or Injury [] Angry [] Fearful [] Anxious [] Often cries [] Exhaustion [] Unable to work [] Unable to attend yazidi [] Unable to walk/stand [] Unable to read [] Unable to drive [] Unable to eat/drink [] Unable to sleep [] Unable to be with family [] Patient intubated [] Other: Summary Time spent with patient
--- NOTE | 2019-10-01 16:10 | PC.RESP ---
SMOKING CESSATION INFORMATION SENT TO PATIENT.
[2019-10-01 16:26] LABS: Glucose Point of Care 269 mg/dL (70-110)
[2019-10-01] MEDS: sennosides 8.6 mg Tablet PO (16:55)
[2019-10-01 20:14] LABS: Glucose Point of Care 254 mg/dL (70-110)
[2019-10-01] MEDS: LORazepam 0.5 mg Tablet PO (21:04)
[2019-10-02] VITALS (11 sets, daily range): BP systolic 98–119; BP diastolic 61–67; PULSE 75–82; RESP 13–20; TEMP 36.4–36.8; O2SAT 95–98
[2019-10-02] MEDS: cefepime 2,000 MG in sodium chloride 0.9% (plus) 50 ML 100 MG IV ×2 (00:02→12:08)
[2019-10-02] MEDS: oxyCODONE IR 30 mg Tablet PO ×4 (04:17→21:56)
[2019-10-02] MEDS: sodium chloride 0.9% 1,000 ML 50 ML IV (04:17)
[2019-10-02 07:54] LABS: Glucose Point of Care 381 mg/dL (70-110)
[2019-10-02] MEDS: sennosides 8.6 mg Tablet PO ×2 (09:03→20:23)
[2019-10-02] MEDS: pantoprazole DR 40 mg Tablet PO (09:03)
[2019-10-02 11:52] LABS: Glucose Point of Care 383 mg/dL (70-110)
--- NOTE | 2019-10-02 12:23 | US_ITS ---
WS: [id number] ULTRASOUND SOFT TISSUES abdominal wall. HISTORY: abdominal wall, evaluate for abscess in tunnel site COMPARISON: None available. TECHNIQUE: 2-D and color Doppler imaging is submitted. There is a drainage tube catheter over the RIGHT abdominal wall. No associated abscess around the ins ertion site. Images are submitted and demonstrates the drainage catheter extending beneath the abdomi nal wall musculature. US/US soft tissue/extremity [id number] IMPRESSION: No abscess or fluid collection around the subcutaneous portion of the abdominal wall catheter.
--- NOTE | 2019-10-02 14:51 | P.PN_ITS ---
Subjective Subjective: Interval history: Started cefepime yesterday empirically, currently tolerating well. Acetic fluid culture with gram-negative rods, awaiting speciation and identification. Medications: Reviewed: Yes Vitals/I&O/Wt Last Vital Signs Temp 97.8 F 10/02/19 11:27 Pulse 77 10/02/19 11:27 Resp 18 10/02/19 11:27 BP 100/63 10/02/19 11:27 Pulse Ox 97 10/02/19 11:27 10/01/19 10/02/19 10/02/19 22:59 06:59 14:59 Intake Total 600 / 2607.5 1005 / 3612.5 1040 / 1040 Output Total 780 / 1730 275 / 2005 700 / 700 Balance -180 / 877.5 730 / 1607.5 340 / 340 Weight last 48 hrs Weight 70.488 kg Weight 66.996 kg Physical Exam Narrative: EXAM NARRATIVE: GEN: Awake, alert and oriented, no acute distress CVS: S1S2 N RS: CTA B/L Abd: Soft, nt/nd , bs+ PRINCIPAL QUALITY ENGINEER: no focal neuro deficits Data : 10/01/19 04:05 10/01/19 04:05 Micro: Microbiology 09/30/19 17:41 Gram Stain - Final Ascites Fluid Body Fluid Culture - Preliminary Gram Negative Rods 10/01/19 04:05 Blood Culture - Preliminary Blood NEGATIVE TO DATE 10/01/19 04:08 Blood Culture - Preliminary Blood NEGATIVE TO DATE A&P Assessment and plan (1) Bacterial peritonitis: Status: Acute (2) Acute hyponatremia: Status: Acute (3) Liver cirrhosis: Status: Acute Qualifiers: Hepatic cirrhosis type: other cirrhosis Qualified Code(s): K74.69 - Other cirrhosis of liver (4) Diabetes: Status: Acute Qualifiers: Diabetes mellitus type: type 2 Diabetes mellitus intermodal truck driver insulin use: with fci use Diabetes mellitus complication status: with other specified complication Qualified Code(s): E11.69 - Type 2 diabetes mellitus with other specified complication; Z79.4 - intermodal owner operator truck driver (current) use of insulin (5) Ascites: Status: Acute Qualifiers: Ascites type: due to alcoholic cirrhosis Qualified Code(s): K70.31 - Alcoholic cirrhosis of liver with ascites Additional A&P Information # Bacterial peritonitis in the setting of indwelling peritoneal drain Patient was admitted last in July 2019 with Bacterial peritonitis. Cultures at that time had shown growth of gram-negative rods including Serratia and Enterobacter. He was supposed to follow-up as an outpatient with surgery to assess for need for removal of drain, however he was unable to do so. He has been experiencing some low-grade fever generalized weakness more subacute presentation this time with hospital. Currently ascites fluid cell count is again at 1200. Gram stain is showing abundant gram-negative rods, culture awaiting identification. Overall picture is that of bacterial peritonitis. Patient was empirically started on cefepime, tolerating well. Giving Officer allergy to cephalosporins. This is a second episode of bacterial peritonitis. Presence of multiple gram- negatives suggest likely colonization of his indwelling catheter and this may be an indication for removal of his catheter. Since there is no current evidence of abdominal wall abscess, he will follow up closely with Dr. Dill as outpatient next week. CAT scan on the last admission had some evidence of enteritis. No gross cellulitic changes were noted in the abdominal wall. Currently there is some chaffing around the site of catheter insertion. While Fluroquinolones may have been a good empric oral choice based on prelim cx results and susceptibilities from last time, we cannot use this agent due to anaphylaxis history, therefore patient to be remain admitted to complete at least 5 days of iv abx (day 3 today). # Hyponatremia, likely to be related to some dehydration and third spacing. Improving. #Cirrhosis from hep C, reports being treated in the past, waiting to see motion graphics artist in [facility] Resume home dose of lasix # chronic pain: continuing home dose of oxycodeon e # DM: resume long acting insulin at 15 u daily, ISS Past h/o IVDU and alochol abuse, states being clean at least 8-9 years Dvt ppx: heparin Full code Attestations Medical Necessity Statement*: iv abx for peritonitis, awaiting cx results, no good oral empiric choice available as allergic to FQ Coding Level of Care Code Acute Utility Bill Collection Clerk for [facility] Fwd Diagnoses Bacterial peritonitis K65.9 Acute hyponatremia E87.1 Liver cirrhosis K74.69 Hepatic cirrhosis type: other cirrhosis Diabetes E11.69; Z79.4 Diabetes mellitus type: type 2 Diabetes mellitus fci insulin use: with fci use Diabetes mellitus complication status: with other specified complication Ascites K70.31 Ascites type: due to alcoholic cirrhosis
[2019-10-02] MEDS: FUROsemide 40 mg Tablet 20 MG PO (16:34)
[2019-10-02 16:41] LABS: Glucose Point of Care 271 mg/dL (70-110)
[2019-10-02 17:07] LABS: Body Fluid WBC 5783 /uL; RBC, Body Fluid 12 10^3/uL (0-0)
[2019-10-02 17:13] LABS: Apprearance, Body Fluid TURBID (CLEAR); Color, Body Fluid SLIGHT PINK (PALE YELLOW); PATH Referral YES
--- NOTE | 2019-10-02 20:00 | PC.NURSE ---
ASSESSMENT Upon doing shift assessment patient stated that his nipples are tender to touch. When assessing, the left nipple is slightly larger than the right. Patient states that he had discharge from nipple when squeezing it. Patient then squeezed his nipple and thick white discharge expelled. Patient states this has been an ongoing issue for a couple of years. This nurse explained to patient that he needs to discuss this with the doctor. Patient stated the he would not be able to get any more discharge for about another week after squeezing it out tonight.
[2019-10-02] MEDS: LORazepam 0.5 mg Tablet PO (20:23)
[2019-10-02 21:51] LABS: Glucose Point of Care 183 mg/dL (70-110)
[2019-10-03] VITALS (10 sets, daily range): BP systolic 113–134; BP diastolic 69–76; PULSE 71–115; RESP 16–20; TEMP 36.4–37; O2SAT 94–97
[2019-10-03] MEDS: cefepime 2,000 MG in sodium chloride 0.9% (plus) 50 ML 100 MG IV ×2 (00:24→12:51)
[2019-10-03] MEDS: oxyCODONE IR 30 mg Tablet PO ×4 (02:59→20:30)
[2019-10-03 05:47] LABS: Basophils % 0.4 %; Eosinophils # 0.1 10^3/uL (0.0-0.8); Eosinophils % 1.6 %; Hematocrit 25.5 % (42.0-52.0); Hemoglobin 8.1 g/dL (11.7-16.6); Lymphocytes # 0.7 10^3/uL (0.8-4.8); Lymphocytes % 12.4 %; Mean Corpuscular HGB Conc 31.8 g/dL (30.0-36.0); Mean Corpuscular Hemoglobin 29.7 pg (28.0-34.0); Mean Corpuscular Volume 93.4 fL (80-94); Mean Platelet Volume 10.3 fL (7.4-10.4); Monocytes % 17.3 %; Neutrophils # 3.72 10^3/uL (1.8-7.7); Neutrophils % 67.8 %; Nucleated Red Blood Cells % 0 %; Platelet Count 83 10^3/cmm (130-400); Red Blood Count 2.73 10^6/uL (4.1-5.3); Red Cell Distribution Width 13.7 % (12.1-15.1); White Blood Count 5.5 10^3/uL (4.0-10.0)
[2019-10-03 06:16] LABS: Alanine Aminotransferase 11 U/L (0-41); Albumin Level 2.1 g/dL (3.5-5.2); Alkaline Phosphatase 117 IU/L (40-130); Anion Gap 12.4 (5-19); Aspartate Amino Transferase 20 U/L (0-40); Blood Urea Nitrogen 40 mg/dL (6-20); Calcium 7.3 mg/dL (8.5-10.5); Carbon Dioxide 18 mmol/L (22-29); Chloride 103 mmol/L (98-107); Glucose 134 mg/dL (65-115); Osmolality Calculated 268 mOsm/kg (285-295); Potassium 4.4 mmol/L (3.5-5.1); Sodium 129 mmol/L (136-145); Total Bilirubin 0.6 mg/dL (0.15-1.2); Total Protein 5.1 g/dL (6.6-8.7)
[2019-10-03 07:08] LABS: Glucose Point of Care 138 mg/dL (70-110)
--- NOTE | 2019-10-03 08:45 | PC.SOCIAL ---
IMM Page 2 of IMM explained to patient. Initialed, dated, and timed and placed in chart. Copy provided to patient.
[2019-10-03] MEDS: sennosides 8.6 mg Tablet PO ×2 (08:58→18:27)
[2019-10-03] MEDS: pantoprazole DR 40 mg Tablet PO (08:59)
[2019-10-03] MEDS: FUROsemide 40 mg Tablet 20 MG PO (08:59)
[2019-10-03 11:08] LABS: Glucose Point of Care 185 mg/dL (70-110)
--- NOTE | 2019-10-03 15:49 | PM.PN ---
Subjective Subjective: Interval history: no acute events overnight, afebrile, cx returned with Serratia growth Medications: Reviewed: Yes Vitals/I&O/Wt Last Vital Signs Temp 97.6 F 10/03/19 11:59 Pulse 87 10/03/19 11:59 Resp 18 10/03/19 13:41 BP 132/75 10/03/19 11:59 Pulse Ox 94 10/03/19 11:59 10/03/19 10/03/19 10/03/19 06:59 14:59 22:59 Intake Total 300 / 2390 960 / 960 Balance 300 / 1450 960 / 960 Weight last 48 hrs Weight 70.335 kg Weight 70.488 kg Physical Exam Narrative: EXAM NARRATIVE: GEN: Awake, alert and oriented, no acute distress CVS: S1S2 N RS: CTA B/L Abd: Soft, nt/nd , bs+ DIMENSION WAREHOUSE 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: no focal neuro deficits Data : 10/03/19 05:20 10/03/19 05:20 Micro: Microbiology 09/30/19 17:41 Gram Stain - Final Ascites Fluid Body Fluid Culture - Preliminary Serratia marcescens A&P Assessment and plan (1) Bacterial peritonitis: Status: Acute (2) Acute hyponatremia: Status: Acute (3) Liver cirrhosis: Status: Acute Qualifiers: Hepatic cirrhosis type: other cirrhosis Qualified Code(s): K74.69 - Other cirrhosis of liver (4) Diabetes: Status: Acute Qualifiers: Diabetes mellitus type: type 2 Diabetes mellitus intermediate manager insulin use: with intermediate manager use Diabetes mellitus complication status: with other specified complication Qualified Code(s): E11.69 - Type 2 diabetes mellitus with other specified complication; Z79.4 - ferry terminal 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 Cultures at that time had shown growth of gram-negative rods including Serratia and Enterobacter. Now again with growth of Seeratia from 09/29 He was supposed to follow-up as an outpatient with surgery to assess for need for removal of drain, however he was unable to do so. He has been experiencing some low-grade fever generalized weakness more subacute presentation this time with hospital. continue with Cefepime, plan 5 day course. Serratia belongs to SPICE group, however lower risk of amp-c induction with cefepime, tolerating well. No allergy to cephalosporin Isolate susceptible to levaquin. however reports anaphylaxis with the drug, therfore acnnot use. Bactrim not a good choice given CKD and risk of worsening of renal function. Penetration into peritoneal fluid uncertain moreover. This is a second episode of bacterial peritonitis, will likely need removal of his drainage catheter and replacement. Since there is no current evidence of abdominal wall abscess, he will follow up closely with Dr. Dill as outpatient next week. CAT scan on the last admission had some evidence of enteritis. No gross cellulitic changes were noted in the abdominal wall. Currently there is some chaffing around the site of catheter insertion. # Hyponatremia, likely to be related to some dehydration and third spacing. Improving. #Cirrhosis from hep C, reports being treated in the past, waiting to see talent sourcing specialist in [facility] Resume home dose of lasix # chronic pain: continuing home dose of oxycodeon e # DM: resume long acting insulin at 15 u daily, ISS Past h/o IVDU and alochol abuse, states being clean at least 8-9 years Dvt ppx: heparin Full code Attestations Medical Necessity Statement*: need for iv abx, no good po option to treat his current Serratia peritonitis Coding Level of Care Code Acute Cloth Cutting Inspector for [facility] Fwd Diagnoses Bacterial peritonitis K65.9 Acute hyponatremia E87.1 Liver cirrhosis K74.69 Hepatic cirrhosis type: other cirrhosis Diabetes E11.69; Z79.4 Diabetes mellitus type: type 2 Diabetes mellitus [facility] use: with [facility] use Diabetes mellitus complication status: with other specified complication Ascites K70.31 Ascites type: due to alcoholic cirrhosis
[2019-10-03 18:02] LABS: Glucose Point of Care 217 mg/dL (70-110)
[2019-10-03] MEDS: LORazepam 0.5 mg Tablet PO (20:31)
--- NOTE | 2019-10-03 20:57 | PC.NURSE ---
While rounding with the patient, this nurse went to empty out the urinal in the room. Patient stated that his drained his peritoneal dialysis port earlier today. The urinal contained 250 ml of fluids. Fluid was clear and yellow.
[2019-10-03 21:27] LABS: Glucose Point of Care 190 mg/dL (70-110)
[2019-10-04] VITALS (11 sets, daily range): BP systolic 98–126; BP diastolic 59–79; PULSE 80–88; RESP 12–18; TEMP 36.8–37.2; O2SAT 94–98
[2019-10-04] MEDS: cefepime 2,000 MG in sodium chloride 0.9% (plus) 50 ML 100 MG IV ×3 (01:47→21:01)
[2019-10-04] MEDS: oxyCODONE IR 30 mg Tablet PO ×5 (03:26→23:23)
[2019-10-04 04:01] LABS: Alanine Aminotransferase 12 U/L (0-41); Albumin Level 1.8 g/dL (3.5-5.2); Alkaline Phosphatase 114 IU/L (40-130); Anion Gap 10.6 (5-19); Aspartate Amino Transferase 25 U/L (0-40); Blood Urea Nitrogen 34 mg/dL (6-20); Calcium 7.6 mg/dL (8.5-10.5); Carbon Dioxide 18 mmol/L (22-29); Chloride 104 mmol/L (98-107); Glomerular Filtration Rate 57.7 mL/min (90-130); Glucose 111 mg/dL (65-115); Osmolality Calculated 264 mOsm/kg (285-295); Potassium 4.6 mmol/L (3.5-5.1); Sodium 128 mmol/L (136-145); Total Bilirubin 0.6 mg/dL (0.15-1.2); Total Protein 4.8 g/dL (6.6-8.7)
[2019-10-04 06:57] LABS: Glucose Point of Care 105 mg/dL (70-110)
[2019-10-04] MEDS: sennosides 8.6 mg Tablet PO ×2 (08:30→17:21)
[2019-10-04] MEDS: FUROsemide 40 mg Tablet 20 MG PO (08:30)
[2019-10-04] MEDS: pantoprazole DR 40 mg Tablet PO (08:30)
[2019-10-04 11:44] LABS: Glucose Point of Care 157 mg/dL (70-110)
--- NOTE | 2019-10-04 16:43 | P.PN_ITS ---
Subjective Subjective: Interval history: no acute overnight events Medications: Reviewed: Yes Vitals/I&O/Wt Last Vital Signs Temp 98.6 F 10/04/19 15:57 Pulse 88 10/04/19 15:57 Resp 18 10/04/19 15:57 BP 98/59 10/04/19 15:57 Pulse Ox 94 10/04/19 15:57 10/04/19 10/04/19 10/04/19 06:59 14:59 22:59 Intake Total 290 / 1900 480 / 480 Balance 290 / 1900 480 / 480 Weight last 48 hrs Weight 70.335 kg Weight 70.335 kg Physical Exam Narrative: EXAM NARRATIVE: GEN: Awake, alert and oriented, no acute distress CVS: S1S2 N RS: CTA B/L Abd: Soft, nt/nd , bs+ CONTRACT ADMINISTRATION SPECIALIST: no focal neuro deficits Data : 10/03/19 05:20 10/04/19 03:30 Micro: Microbiology 09/30/19 17:41 Gram Stain - Final Ascites Fluid Body Fluid Culture - Final Serratia marcescens A&P Assessment and plan (1) Bacterial peritonitis: Status: Acute (2) Acute hyponatremia: Status: Acute (3) Liver cirrhosis: Status: Acute Qualifiers: Hepatic cirrhosis type: other cirrhosis Qualified Code(s): K74.69 - Other cirrhosis of liver (4) Diabetes: Status: Acute Qualifiers: Diabetes mellitus type: type 2 Diabetes mellitus rn long term care insulin use: with rn long term care use Diabetes mellitus complication status: with other specified complication Qualified Code(s): E11.69 - Type 2 diabetes mellitus with other specified complication; Z79.4 - correction (current) use of insulin (5) Ascites: Status: Acute Qualifiers: Ascites type: due to alcoholic cirrhosis Qualified Code(s): K70.31 - Alcoholic cirrhosis of liver with ascites Additional A&P Information # Bacterial peritonitis in the setting of indwelling peritoneal drain Patient was admitted last in July 2019 with Bacterial peritonitis. Cultures at that time had shown growth of gram-negative rods including Serratia and Enterobacter. Now again with growth of Seeratia from 09/29 He was supposed to follow-up as an outpatient with surgery to assess for need for removal of drain, however he was unable to do so. He has been experiencing some low-grade fever generalized weakness more subacute presentation this time with hospital. continue with Cefepime, plan 5 day course. Serratia belongs to SPICE group, however lower risk of amp-c induction with cefepime, tolerating well. No allergy to cephalosporin Isolate susceptible to levaquin. however reports anaphylaxis with the drug, therfore acnnot use. Bactrim not a good choice given CKD and risk of worsening of renal function. Penetration into peritoneal fluid uncertain moreover. This is a second episode of bacterial peritonitis, will likely need removal of his drainage catheter and replacement. Since there is no current evidence of abdominal wall abscess, he will follow up closely with Dr. Dill as outpatient next week. CAT scan on the last admission had some evidence of enteritis. No gross cellulitic changes were noted in the abdominal wall. # Hyponatremia, likely to be related to some dehydration and third spacing. Improving. #Cirrhosis from hep C, reports being treated in the past, waiting to see audio visual manager in [facility] Resume home dose of lasix # chronic pain: continuing home dose of oxycodeon e # DM: resume long acting insulin at 15 u daily, ISS Past h/o IVDU and alochol abuse, states being clean at least 8-9 years Dvt ppx: heparin Full code Attestations Medical Necessity Statement*: needs to complete iv abx course for peritonitis given no good po options, last dose in am Coding Level of Care Code Acute Cement Conveyor Operator for [facility] Fwd Diagnoses Bacterial peritonitis K65.9 Acute hyponatremia E87.1 Liver cirrhosis K74.69 Hepatic cirrhosis type: other cirrhosis Diabetes E11.69; Z79.4 Diabetes mellitus type: type 2 Diabetes mellitus rn long term care insulin use: with senior living use Diabetes mellitus complication status: with other specified complication Ascites K70.31 Ascites type: due to alcoholic cirrhosis
[2019-10-04 16:46] LABS: Glucose Point of Care 178 mg/dL (70-110)
--- NOTE | 2019-10-04 18:45 | PC.NURSE ---
Filler Shredding Machine Loader went to administer Maxipime @ 0900 pt refused the med and stated that he was to receive the medication at 1300.
[2019-10-04 20:45] LABS: Glucose Point of Care 231 mg/dL (70-110)
[2019-10-05] VITALS (7 sets, daily range): BP systolic 117–133; BP diastolic 72–82; PULSE 72–86; RESP 14–18; TEMP 36.9–37.3; O2SAT 94–98
[2019-10-05] MEDS: oxyCODONE IR 30 mg Tablet PO ×2 (06:05→12:21)
[2019-10-05 06:39] LABS: Glucose Point of Care 94 mg/dL (70-110)
[2019-10-05] MEDS: cefepime 2,000 MG in sodium chloride 0.9% (plus) 50 ML 100 MG IV (08:04)
[2019-10-05] MEDS: pantoprazole DR 40 mg Tablet PO (08:05)
[2019-10-05] MEDS: FUROsemide 40 mg Tablet 20 MG PO (08:06)
[2019-10-05] MEDS: sennosides 8.6 mg Tablet PO (08:06)
[2019-10-05 10:40] LABS: Glucose Point of Care 124 mg/dL (70-110)
--- NOTE | 2019-10-05 12:24 | PC.SOCIAL ---
IMM completed 10/05/2019 @ 1020. Explanation of rights and copy of rights given to pt.
--- NOTE | 2019-10-05 12:27 | PC.CHAP ---
Pastoral Care Encounter/Spiritual Assessment Type of Contact [] Declined processing technologist visit [] Patient/Family/Request visit [] Outpatient visit [] Follow-up visit [] Physician referral [] Code/Alert [] Routine visit [] Staff referral [] Actively dying [] Patient sleeping [] Family support [] [] Out of room [] Palliative care [] [] Receiving care in room [] Pre-surgical visit [] Trauma [] Long length of stay [] ICU visit [X] Other: I had stepped into the room to visit with a new patient and this pt called for me to come over. He needed advocacy regarding his discharge. Relational/Emotional Strength [] Patient feels connected with others/family/visitors/staff [] Distress [] Loneliness/isolation [] Abandonment Spirituality of Patient [] Person of Gaby [] Attends Adventism of their Gaby [] Believes in Prayer [] Reads Bible or Confucianism materials [] There are Spiritual issues to be addressed Stripper Soft Plastic Interventions [] Prayer [] Active listening [] Non-anxious presence [] Spiritual/emotional support [] Crisis/trauma care [] Spiritual counseling [] Bereavement support [] Provided bereavement packet [] Provided Bible/devotional materials [] Provided toy/stuffed animal, coloring book to patient or family member [] Provided Communion [] Anointing/Fountain [] Salvation [] Completed spiritual assessment [] Other: Impact on Illness or Injury [] Angry [] Fearful [] Anxious [] Often cries [] Exhaustion [] Unable to work [] Unable to attend gnosticism [] Unable to walk/stand [] Unable to read [] Unable to drive [] Unable to eat/drink [] Unable to sleep [] Unable to be with family [] Patient intubated [] Other: Summary Time spent with patient
--- NOTE | 2019-10-05 17:20 | P.DS_ITS ---
Discharge Providers Date of Admission: 09/30/19 15:47 Date of Discharge: October 05, 2019 Attending Provider at Admission: Nat Jasmine MD Attending Provider at Discharge: Nat Jasmine MD Primary Care Provider: Gary Duke DO Diagnoses at Discharge Discharge Diagnosis (1) Bacterial peritonitis: Status: Acute (2) Acute hyponatremia: Status: Acute (3) Liver cirrhosis: Status: Acute Qualifiers: Hepatic cirrhosis type: other cirrhosis Qualified Code(s): K74.69 - Other cirrhosis of liver (4) Diabetes: Status: Acute Qualifiers: Diabetes mellitus type: type 2 Diabetes mellitus [facility] insulin use: with superintendent terminal use Diabetes mellitus complication status: with other specified complication Qualified Code(s): E11.69 - Type 2 diabetes mellitus with other specified complication; 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 Presents with low grade fever since 1-2 months, last admitted in July for secondary bacterial peritonitis. Upon evaluation, found to have elevated peritoneal cell count, and cx with Serratia, overall concerning for bacterial peritonitis. # Bacterial peritonitis in the setting of indwelling peritoneal drain Patient was admitted last in July 2019 with Bacterial peritonitis. Cultures at that time had shown growth of gram-negative rods including Serratia and Enterobacter. Now again with growth of Seeratia from 09/29 He has been experiencing some low-grade fever generalized weakness more subacute presentation this timel. He has been treated with a 5 day course of Cefepime at this time. Tolerated cephalosporins without adverse effects. Isolate susceptible to levaquin. however reports anaphylaxis with the drug, therfore acnnot use. This is a second episode of bacterial peritonitis, will likely need removal of his drainage catheter and replacement. Since there is no current evidence of abdominal wall abscess, he will follow up closely with Dr. Dill as outpatient tomorrow. Also scheduled to see plasma processing technician On oct 09 (dr. Clayton in [place]) # Hyponatremia, likely to be related to some dehydration and third spacing. Improving. #Cirrhosis from hep C, reports being treated in the past, waiting to see plasma processing technician on Oct 09 # chronic pain: continuing home dose of oxycodeone # DM: resume long acting insulin at 15 u daily, ISS Physical Exam Narrative: EXAM NARRATIVE: GEN: Awake, alert and oriented, no acute distress CVS: S1S2 N RS: CTA B/L Abd: Soft,distended, no tenderness DENIER CONTROL OPERATOR: no focal neuro deficits Discharge Data Data Completed and Pending: Completed Studies During Hospitalization Category Date Time Status XR chest 1V terry ble [id number] Stat Exams 09/30/19 13:38 Completed US abdomen limite d [id number] Urgent Ultrasound 09/30/19 14:06 Completed US soft tissue/ex tremity 24755 Rout ine Ultrasound 10/02/19 12:23 Completed Pending at discharge Category Date Time Status Blood Culture AM LABS Lab 10/01/19 04:05 Results Labs from last 24 hours 10/05/19 10/05/19 10/04/19 10:36 06:33 20:21 POC Glucose 124 94 231 Vitals: Last Vital Signs Temp 98.7 F 10/05/19 13:09 Pulse 72 10/05/19 13:09 Resp 18 10/05/19 13:09 BP 124/80 10/05/19 13:09 Pulse Ox 95 10/05/19 13:09 Discharge Plan Discharge Patient Disposition: Home Condition: Stable Prescriptions: Continued nitroglycerin [Nitrostat] 0.4 mg tablet, sublingual 0.4 mg SUBLINGUAL Q5M PRN (Reason: Chest Pain) RF: 0 oxycodone 30 mg tablet 30 mg PO .FIVE TIMES DAILY PRN (Reason: Pain) 30 Days Qty: 150 RF: 0 fluticasone propion-salmeterol [Advair Diskus] 250-50 mcg/dose Blister With Device 1 inh INHALATION BID RF: 0 Tresiba FlexTouch U-100 100 unit/mL (3 mL) Insulin Pen 10 - 25 unit SUBCUT DAILY PRN (Reason: Hyperglycemia) RF: 0 albuterol sulfate 90 mcg/actuation Aero Powdr Breath Act W/Sensor 90 mcg INHALATION QID PRN (Reason: Shortness Of Breath) RF: 0 trazodone 150 mg tablet 150 mg PO BEDTIME RF: 0 lorazepam 0.5 mg tablet 0.5 mg PO BEDTIME RF: 0 Novolog Flexpen U-100 Insulin 100 unit/mL (3 mL) insulin pen See Rx Instructions .ROUTE .COMPLEX RF: 0 lactulose 10 gram/15 mL solution See Rx Instructions .ROUTE .COMPLEX RF: 0 Dexilant 30 mg capsule,biphase delayed releas 30 mg PO DAILY RF: 0 Farxiga 5 mg tablet 5 mg PO DAILY RF: 0 Changed furosemide 40 mg Tablet 20 mg PO DAILY@0800 Qty: 30 RF: 0 Discontinued clonidine HCl 0.1 mg tablet 0.1 mg PO DAILY Qty: 14 RF: 0 Discharge Orders: Discharge Order (Routine); Ordered 10/05/19 Ordered By: Nat Jasmine Referrals: Tyrone Dill MD [Physician] - 10/06/19 3:00 pm (You have an appointment on October 05 at 3:00pm) Gary Duke DO [Primary Care Provider] - 10/15/19 9:45 am (You have an appointment on October 14 at 9:45am) Discharge Diet: Usual diet Discharge Activity: Resume usual activity Patient Instructions: Hyponatremia (DC), Anemia (DC) Discharge Date/Time: 10/05/19 14:00 Discharge Attestations Time Spent in Discharge Care*: less than 30 min Quality Metrics Clinical Quality Measures During this hospital stay, did patient experience: None Coding Level of Care Code Acute Saxophone Teacher for g Fwd Diagnoses Bacterial peritonitis K65.9 Acute hyponatremia E87.1 Liver cirrhosis K74.69 Hepatic cirrhosis type: other cirrhosis Diabetes E11.69; Z79.4 Diabetes mellitus type: type 2 Diabetes mellitus superintendent terminal insulin use: with [facility] use Diabetes mellitus complication status: with other specified complication Ascites K70.31 Ascites type: due to alcoholic cirrhosis
== END 2019-10-05 14:00 | disposition home or self-care (01) | DRG 919 ==
LOC: ER 15:04 → MEDSURG 21:23
PROVIDERS: Family Medicine; Admitting Provider Student in an Organized Health Care Education/Training Program; PCP Internal Medicine; Visit Provider Student in an Organized Health Care Education/Training Program
DX: T85.9XXA Unspecified complication of internal prosthetic device, implant and graft, initial encounter (principal); K65.9 Peritonitis, unspecified; E87.1 Hypo-osmolality and hyponatremia; Y82.8 Other medical devices associated with adverse incidents; B96.89 Other specified bacterial agents as the cause of diseases classified elsewhere; Z86.19 Personal history of other infectious and parasitic diseases; K70.31 Alcoholic cirrhosis of liver with ascites; F10.21 Alcohol dependence, in remission; G89.29 Other chronic pain; M54.2 Cervicalgia; M54.5 Low back pain; E11.42 Type 2 diabetes mellitus with diabetic polyneuropathy; F17.210 Nicotine dependence, cigarettes, uncomplicated; Z87.01 Personal history of pneumonia (recurrent); Z79.4 Long term (current) use of insulin; Z79.891 Long term (current) use of opiate analgesic
CPT/HCPCS: 12345; 36415; 36416; 71045; 76705; 76882; 80053; 80500; 81003; 82140; 82436; 82550; 82945; 82962; 83735; 84133; 84157; 84300; 85025; 86705; 86706; 86709; 86803; 87040; 87070; 87075; 87077; 87186; 87205; 87340; 87806; 89050; 93005; 96372; 96375; 99283; J0692; J1644; J1815; J2405; J3370; J3490; J7030; J7050

== ENCOUNTER 2019-10-08 08:30 | Day surgery (SDC) | payer MEDICARE, MEDICAID, SELFPAY ==
[2019-10-07 10:54] VITALS: BMI 21.2
[2019-10-08 08:47] VITALS: BP 150/78; PULSE 86; RESP 18; TEMP 36.4; O2SAT 100
--- NOTE | 2019-10-08 09:12 | W.PM.OPSUD ---
Surgery/Procedure H&P Update DATE OF PROCEDURE: October 08, 2019 DATE H&P PERFORMED: 10/06/19 H&P UPDATE INFORMATION: I have reviewed H&P completed within last 30 days, I have examined patient prior to procedure and No changes to prior documentation PREOP DIAGNOSIS: Bacterial peritonitis PLANNED PROCEDURE: Operation Date: 10/08/19 09:50 Proposed Procedures p Dialysis Catheter Removal [id number] K56.9 K70.31(Not Applicable) - Tyrone Dill MD s Abdominal Paracentesis(Not Applicable) - Tyrone Dill MD
[2019-10-08] MEDS: sodium chloride 0.9% 1,000 ML 30 ML IV (09:17)
[2019-10-08] MEDS: ondansetron 2 mg/ML SDV 2 mL 4 MG IVP (09:20)
[2019-10-08 09:23] LABS: Glucose Point of Care 158 mg/dL (70-110)
[2019-10-08] MEDS: vancomycin 1,000 MG in sodium chloride 0.9% 250 ML 250 MG IV (09:25)
--- NOTE | 2019-10-08 09:39 | ANES.PREANE2 ---
Pre-Anesthetic Assessment Pre-Anesthetic Assessment: Height/Weight: Height 1.73 m Weight 63.503 kg Temp Pulse Resp BP Pulse Ox 97.5 F L 86 18 150/78 100 10/08/19 08:47 10/08/19 08:47 10/08/19 08:47 10/08/19 08:47 10/08/19 08:47 Preop Diagnosis: Bacterial peritonitis Proposed Procedure: Operation Date: 10/08/19 09:50 Proposed Procedures p Dialysis Catheter Removal 29583 [id number] K56.9 K70.31(Not Applicable) - Tyrone Dill MD s Abdominal Paracentesis(Not Applicable) - Tyrone Dill MD Was Beta Elmer taken within 24 hours: N/A Last intake: Intake Last Liquid Date 10/07/19 Last Liquid Time 23:45 Last Solid Date 10/07/19 Last Solid Time 23:45 Social: Social History: Tobacco and No alcohol Exam: Pre-Anes Outpt Exam: alert, oriented x 3, clear to auscultation bilaterally and regular rate & rhythm Additional Exam Findings (including area of procedure): Distended and tender abdomen Airway: Submandibular: WNL Cervical ROM: WNL MP: 1 Dentition: Full Pulmonary: Pulmonary: COPD CV/HEM: CV/HEM: CAD and HTN : : Chronic renal failuer Hepatic: Hepatic: Cirrohsis GI: GI: None reported Metabolic: Metabolic: DM Musc/skel: Musc/skel: None reported Neuropsych: Neuropsych: None reported Anesthetic Plan: ASA status: 3 Anesthesia: General Risk of > 500 ml blood loss (7ml/kg in children): Yes, adequate IV access and fluids planned Meds/Allergies Current Medications: Current Medications Generic Name Dose Route Start Last Admin Trade Name Freq PRN Reason Stop Dose Admin Sodium Chloride 1,000 mls @ 30 ml s/hr 10/08/19 08:30 10/08/19 09:17 Sodium Chloride 0.9% IV 10/09/19 08:29 30 mls/hr .Q24H GIGI Administration Ondansetron HCl 4 mg 10/08/19 08:26 10/08/19 09:20 Zofran IVP 4 mg Q5M PRN Administration NAUSEA AND VOMITI NG PFSH Anesthesia PFSH: Medical History Ascites Chronic cervical pain Chronic low back pain Diabetes Diabetic neuropathy, painful Liver cirrhosis Liver failure Smoking addiction Counseled 3 to 5 minutes on cessation Somatic dysfunction of back THORACIC AND LUMBAR Surgical History History of colonoscopy History of esophagogastroduodenoscopy (EGD) Hx of circumcision Hx of inguinal hernia repair (~05/22/18) LAP REPAIR OF RIGHT INGUINAL HERNIA WITH ULTRAPRO 15X10 CM MESH. Hx of oral surgery Family History Father Cancer LUNG CANCER Other Diabetes Heart disease Lung disease Myocardial infarct Stroke Denies family history of Anesthesia complication Bleeding disorder Social History Smoking and tobacco status: current every day smoker cigarettes [ Other cigarette details: 5-6 ] Alcohol intake: former Year of sobriety/quit date alcohol: 2009 Caregiver/support person: Yes Lives independently: Yes Household members: friend(s) Current occupational status: disabled History of recent travel: No Data Anesthesia Other Labs: Laboratory Results - last 48 hr 10/08/19 09:05 POC Glucose 158 Cardiac Studies: No Data to Display
[2019-10-08] MEDS: lidocaine 1% INJ 20 mL SUBCUT (10:13)
[2019-10-08 10:44] VITALS: BP 111/71; PULSE 83; RESP 18; TEMP 36.2; O2SAT 97
--- NOTE | 2019-10-08 11:52 | PM.OP ---
Operative Report Date of procedure: October 08, 2019 Pre-op Diagnosis: Bacterial peritonitis Post-op diagnosis: same Procedure Done: Removal of peritoneal catheter Specimens removed/disposition: Catheter tip for culture Pathology: catheter tip for culture Surgeon: Tyrone Dill Anesthesia: MAC Condition: stable Disposition: same day Procedure: The patient was taken to the operating room and placed under MAC after IV antibiotic had been administered. The abdomen was prepped and draped in a sterile manner around the catheter entry site. 1% lidocaine with .5% Marcaine was infiltrated at the catheter entry site into the peritoneal cavity. Using a 15 blade was 1 cm incision was made and the catheter was dissected free from the surrounding subcutaneous tissue, the cuff was freed from the abdominal wall musculature and catheter was removed intact and the tip was sent for cultures. The rest of the catheter was dissected free from the subcutaneous tunnel. There was drainage of ascites fluid noted. The fascia was approximated using [id number] 0 Vicryl suture and skin was closed with 4-0 Monocryl and surgical glue at that 2 entry sites. The patient was transferred to same-day surgery in stable condition.
== END 2019-10-08 11:15 | disposition home or self-care (01) ==
PROVIDERS: PCP Internal Medicine; Visit Provider Surgery
PROC: (CPT 49422; principal; 2019-10-08 09:50)
PROC: 0W9G3ZZ Drainage of Peritoneal Cavity, Percutaneous Approach (ICD-10-PCS; CPT 49422; 2019-10-08 09:50)
DX: Z49.02 Encounter for fitting and adjustment of peritoneal dialysis catheter (principal); K65.9 Peritonitis, unspecified; K70.31 Alcoholic cirrhosis of liver with ascites; E11.22 Type 2 diabetes mellitus with diabetic chronic kidney disease; J44.9 Chronic obstructive pulmonary disease, unspecified; I25.10 Atherosclerotic heart disease of native coronary artery without angina pectoris; I12.9 Hypertensive chronic kidney disease with stage 1 through stage 4 chronic kidney disease, or unspecified chronic kidney disease; N18.9 Chronic kidney disease, unspecified; E11.40 Type 2 diabetes mellitus with diabetic neuropathy, unspecified; F17.210 Nicotine dependence, cigarettes, uncomplicated
CPT/HCPCS: 49422; 12345; 36416; 82962; 87070; 87075; 87077; 87186; 87205; 96365; 96374; J2405; J2704; J3010; J3370; J3490; J7030; J7050

== ENCOUNTER 2019-10-13 13:32 | Emergency (ER) | payer MEDICARE, MEDICAID, SELFPAY ==
[2019-10-13 13:41] VITALS: BP 142/74; PULSE 72; RESP 18; TEMP 36.8; O2SAT 94; BMI 22.3
--- NOTE | 2019-10-13 14:03 | W.ED.GENADLT ---
HPI - General Adult General: Chief complaint: General Medical Stated complaint: SENT BY DOCTOR CARLOS NEEDS FLUID DRAINED Time Seen by Provider: 10/13/19 13:47 History of Present Illness: HPI narrative: Patient here with abdominal ascites. Sent by Dr. Duke to get procedure done. Patient scheduled get a TIPS procedure done next week. Had recent peritonitis. complaint: Ascites Onset (ago): day(s) Location: abdomen Associated symptoms: Reports no associated symptoms; Deny chest pain, dyspnea, headache(s), nausea, rash or vomiting Review of Systems Const: Denies: fever(s), chills or body aches Eyes: Denies: change in vision or blurry vision ENMT: Denies: throat pain or nasal congestion Card: Denies: chest pain or dyspnea on exertion Resp: Denies: dyspnea, productive cough or non-productive cough GI: Reports: abdominal pain; Denies: nausea or vomiting : Denies: difficulty urinating Musc: Denies: extremity pain Skin/Breast: Denies: rash Neuro: Denies: headache(s) Psych: Denies: anxiety or depression Jose Martin/Lymph: Denies: easy bruising PFSH ED PFSH: Medical History (Updated 10/13/19 @ 14:37 by LANDY Richmond) Ascites Chronic cervical pain Chronic low back pain Diabetes Diabetic neuropathy, painful Liver cirrhosis Liver failure Somatic dysfunction of back THORACIC AND LUMBAR Surgical History (Updated 10/08/19 @ 10:51 by Tyrone Dill MD) History of abdominal paracentesis History of colonoscopy History of esophagogastroduodenoscopy (EGD) Hx of circumcision Hx of inguinal hernia repair (~05/22/18) LAP REPAIR OF RIGHT INGUINAL HERNIA WITH ULTRAPRO 15X10 CM MESH. Hx of oral surgery Family History Father Cancer LUNG CANCER Other Diabetes Heart disease Lung disease Myocardial infarct Stroke Denies family history of Anesthesia complication Bleeding disorder Social History Smoking and tobacco status: current every day smoker cigarettes [ Other cigarette details: 5-6 ] Alcohol intake: former Year of sobriety/quit date alcohol: 2009 Caregiver/support person: Yes Lives independently: Yes Household members: friend(s) Current occupational status: disabled History of recent travel: No Course Vital Signs: Vital signs: Vital Signs Temperature 98.3 F 10/13/19 13:41 Pulse Rate 76 10/13/19 14:34 Respiratory Rate 14 10/13/19 14:34 Blood Pressure 144/82 10/13/19 14:34 Pulse Oximetry 97 10/13/19 14:34 MDM - General Adult MDM Narrative: Medical decision making narrative: I spoke with Dr. Gifford she said he has less than 500mils fluid appears that he is constipated and he might need to have a procedure done in week or so but not thing here near future Lab Data: Labs: Lab Results 10/13/19 Range/Units 14:20 WBC 4.5 (4.0-10.0) 10^3/ uL RBC 2.96 L (4.1-5.3) 10^6/u L Hgb 9.0 L (11.7-16.6) g/dL Hct 27.9 L (42.0-52.0) % MCV 94.3 H (80-94) fL MCH 30.4 (28.0-34.0) pg MCHC 32.3 (30.0-36.0) g/dL RDW 14.1 (12.1-15.1) % Plt Count 90 L (130-400) 10^3/c mm MPV 10.8 H (7.4-10.4) fL Neut % (Auto) 67.8 % Lymph % (Auto) 15.7 % Morton % (Auto) 11.9 % Eos % (Auto) 2.9 % Baso % (Auto) 1.3 % Neut # (Auto) 3.06 (1.8-7.7) 10^3/u L Lymph # (Auto) 0.7 L (0.8-4.8) 10^3/u L Morton # (Auto) 0.5 (0.2-0.9) 10^3/u L Eos # (Auto) 0.1 (0.0-0.8) 10^3/u L Baso # (Auto) 0.1 (0.0-0.1) 10^3/u L Nucleated RBC % (a uto) 0 % Nucleated RBCs # 0.0 /100WBC Discharge Plan Discharge Patient Disposition: Home Clinical Impression: Ascites Qualifiers: Ascites type: due to alcoholic cirrhosis Qualified Code(s): K70.31 - Alcoholic cirrhosis of liver with ascites Constipation Qualifiers: Constipation type: slow transit constipation Qualified Code(s): K59.01 - Slow transit constipation Condition: Stable Prescriptions: No Action nitroglycerin [Nitrostat] 0.4 mg tablet, sublingual 0.4 mg SUBLINGUAL Q5M PRN (Reason: Chest Pain) RF: 0 oxycodone 30 mg tablet 30 mg PO .FIVE TIMES DAILY PRN (Reason: Pain) 30 Days Qty: 150 RF: 0 fluticasone propion-salmeterol [Advair Diskus] 250-50 mcg/dose Blister With Device 1 inh INHALATION BID RF: 0 Tresiba FlexTouch U-100 100 unit/mL (3 mL) Insulin Pen 10 - 25 unit SUBCUT DAILY PRN (Reason: Hyperglycemia) RF: 0 albuterol sulfate 90 mcg/actuation Aero Powdr Breath Act W/Sensor 90 mcg INHALATION QID PRN (Reason: Shortness Of Breath) RF: 0 trazodone 150 mg tablet 150 mg PO BEDTIME RF: 0 lorazepam 0.5 mg tablet 0.5 mg PO BEDTIME RF: 0 insulin aspart U-100 [Novolog Flexpen U-100 Insulin] 100 unit/mL (3 mL) insulin pen 15 unit SUBCUT DAILY RF: 0 lactulose 10 gram/15 mL solution 10 ml PO DAILY RF: 0 Dexilant 30 mg capsule,biphase delayed releas 30 mg PO DAILY RF: 0 furosemide 40 mg Tablet 20 mg PO DAILY@0800 Qty: 30 RF: 0 Discharge Orders: Discharge Order (Routine); Ordered 10/13/19 Ordered By: Brijesh Frazier Referrals: Gary Duke DO [Primary Care Provider] - Discharge Diet: Usual diet Discharge Activity: Increase activity as tolerated Patient Instructions: Constipation (ED) Activity Restrictions/Additional Instructions: Follow-up with medical provider as directed. Return to the ER or your medical provider if condition worsens. Please read and understand discharge instructions. If any questions ask please. If more swelling worsening symptoms develop he can return the ER follow-up as scheduled for your procedure next week take extra medicine help get the bowels moving increase fiber in diet Coding Level of Care Code ED English Professor for Chg Janette
--- NOTE | 2019-10-13 14:05 | US_ITS ---
WS: [id number] Abdominal ultrasound, limited. History: Evaluate for ascites. Comparison: 09/30/2019 All 4 quadrants are imaged by ultrasound to evaluate for ascites. There is a very small amount of asc ites in all 4 quadrants. Probably not enough to perform a paracentesis for therapeutic measure. The a mount of fluid has increased since 09/30/2019. US/US abdomen lmt fluid [id number] IMPRESSION: Very small amount of ascites. Insufficient for paracentesis.
[2019-10-13 14:30] LABS: Basophils # 0.1 10^3/uL (0.0-0.1); Basophils % 1.3 %; Eosinophils # 0.1 10^3/uL (0.0-0.8); Eosinophils % 2.9 %; Hematocrit 27.9 % (42.0-52.0); Lymphocytes # 0.7 10^3/uL (0.8-4.8); Lymphocytes % 15.7 %; Mean Corpuscular HGB Conc 32.3 g/dL (30.0-36.0); Mean Corpuscular Hemoglobin 30.4 pg (28.0-34.0); Mean Corpuscular Volume 94.3 fL (80-94); Mean Platelet Volume 10.8 fL (7.4-10.4); Monocytes # 0.5 10^3/uL (0.2-0.9); Monocytes % 11.9 %; Neutrophils # 3.06 10^3/uL (1.8-7.7); Neutrophils % 67.8 %; Nucleated Red Blood Cells % 0 %; Platelet Count 90 10^3/cmm (130-400); Red Blood Count 2.96 10^6/uL (4.1-5.3); Red Cell Distribution Width 14.1 % (12.1-15.1); White Blood Count 4.5 10^3/uL (4.0-10.0)
[2019-10-13] MEDS: ondansetron 4 MG Tablet PO (14:32)
[2019-10-13] MEDS: morphine 4 mg/mL SDV 1 mL IM (14:33)
[2019-10-13 14:34] VITALS: BP 144/82; PULSE 76; RESP 14; O2SAT 97
[2019-10-13 14:49] LABS: Alanine Aminotransferase 11 U/L (0-41); Alkaline Phosphatase 145 IU/L (40-130); Anion Gap 13.6 (5-19); Aspartate Amino Transferase 18 U/L (0-40); Blood Urea Nitrogen 37 mg/dL (6-20); Calcium 7.4 mg/dL (8.5-10.5); Carbon Dioxide 16 mmol/L (22-29); Chloride 105 mmol/L (98-107); Globulin 4.2 g/dL (1.3-4.6); Glomerular Filtration Rate 101.1 mL/min (90-130); Glucose 297 mg/dL (65-115); Osmolality Calculated 279 mOsm/kg (285-295); Potassium 4.6 mmol/L (3.5-5.1); Sodium 130 mmol/L (136-145); Total Bilirubin 0.6 mg/dL (0.15-1.2); Total Protein 6.2 g/dL (6.6-8.7)
[2019-10-13 14:53] VITALS: RESP 14
== END 2019-10-13 14:53 | disposition home or self-care (01) ==
PROVIDERS: Emergency Provider Nurse Practitioner Family; PCP Internal Medicine
DX: K70.31 Alcoholic cirrhosis of liver with ascites (principal); K59.01 Slow transit constipation; Z79.4 Long term (current) use of insulin; E11.40 Type 2 diabetes mellitus with diabetic neuropathy, unspecified; F17.210 Nicotine dependence, cigarettes, uncomplicated
CPT/HCPCS: 12345; 36415; 76705; 80053; 85025; 96372; 99281; 99283; J2270; Q0162

== ENCOUNTER 2019-10-17 08:03 | Outpatient (CLI) | payer MEDICARE, MEDICAID, SELFPAY ==
--- NOTE | 2019-10-17 | US_ITS ---
WS: [id number] ULTRASOUND-GUIDED THERAPEUTIC PARACENTESIS Procedure, risks, and complications have been explained to the patient. Consent is obtained. Utilizing aseptic technique and 1% buffered lidocaine, a small dermatome was made through which a 5 F rench Yueh catheter was inserted. Approximately 600 ml of yellow but clear peritoneal fluid was obtai bruna without difficulty. No complications encountered. US/US paracentesis abd w [id number] IMPRESSION: Uncomplicated paracentesis yielding 600 ml of peritoneal fluid.
[2019-10-17 08:30] VITALS: BP 155/85; PULSE 77; RESP 17; TEMP 36.3; O2SAT 98; BMI 25.4
[2019-10-17 09:07] VITALS: BP 150/80; PULSE 74; RESP 17; TEMP 36.3; O2SAT 98
== END 2019-10-17 08:04 | disposition home or self-care (01) ==
LOC: CCL 08:07
PROVIDERS: Radiology Diagnostic Radiology; PCP Internal Medicine; Visit Provider Internal Medicine
PROC: (CPT 49082; principal; 2019-10-17 08:00)
DX: K74.60 Unspecified cirrhosis of liver (principal)
CPT/HCPCS: 49083

== ENCOUNTER 2019-10-28 10:23 | Emergency (ER) | payer MEDICARE, MEDICAID, SELFPAY ==
[2019-10-28 10:27] VITALS: BP 155/79; PULSE 75; RESP 16; TEMP 36.7; O2SAT 98; BMI 23.8
--- NOTE | 2019-10-28 11:08 | XR_ITS ---
WS: [id number] EXAM: AP CHEST: PORTABLE UPRIGHT DATE OF EXAM: 10/28/2019, 1121 hours COMPARISON: Chest x-ray from 09/30/2019. HISTORY: Patient is 53 years old with dyspnea and cough. FINDINGS: The cardiac silhouette is normal in size. The mediastinal contours are normal. The pulmonary vas cularity is normal. Coarse interstitial markings are demonstrated bilaterally. There has been interv al development of infiltrate within the right lung base with a small right effusion. Minimal hazy int erstitial infiltrate also present in the left lung base. Some type of metallic foreign body is overly ing the midline upper abdomen. No pneumothorax. No acute bony abnormality is seen. XR/XR chest 1V portable [id number] IMPRESSION: Interval development of a right pleural effusion with interstitial infiltrate i n both lung bases, right greater than left.
[2019-10-28 11:14] VITALS: BP 154/71; PULSE 78; RESP 16; O2SAT 97
[2019-10-28 11:22] LABS: Basophils % 0.6 %; Eosinophils # 0.2 10^3/uL (0.0-0.8); Eosinophils % 3.5 %; Hematocrit 27.4 % (42.0-52.0); Hemoglobin 8.5 g/dL (11.7-16.6); Lymphocytes # 0.7 10^3/uL (0.8-4.8); Lymphocytes % 14.1 %; Mean Corpuscular Hemoglobin 30.4 pg (28.0-34.0); Mean Corpuscular Volume 97.9 fL (80-94); Mean Platelet Volume 10.7 fL (7.4-10.4); Monocytes # 0.6 10^3/uL (0.2-0.9); Monocytes % 12.5 %; Neutrophils # 3.53 10^3/uL (1.8-7.7); Neutrophils % 69.1 %; Nucleated Red Blood Cells % 0 %; Platelet Count 86 10^3/cmm (130-400); Red Cell Distribution Width 14.6 % (12.1-15.1); White Blood Count 5.1 10^3/uL (4.0-10.0)
[2019-10-28 11:38] LABS: Alanine Aminotransferase 8 U/L (0-41); Albumin Level 2.1 g/dL (3.5-5.2); Alkaline Phosphatase 154 IU/L (40-130); Anion Gap 13.2 (5-19); Aspartate Amino Transferase 24 U/L (0-40); Blood Urea Nitrogen 21 mg/dL (6-20); Calcium 7.4 mg/dL (8.5-10.5); Carbon Dioxide 19 mmol/L (22-29); Chloride 105 mmol/L (98-107); Globulin 4.2 g/dL (1.3-4.6); Glomerular Filtration Rate 63.3 mL/min (90-130); Glucose 165 mg/dL (65-115); Osmolality Calculated 276 mOsm/kg (285-295); Potassium 4.2 mmol/L (3.5-5.1); Sodium 133 mmol/L (136-145); Total Bilirubin 0.5 mg/dL (0.15-1.2); Total Protein 6.3 g/dL (6.6-8.7)
[2019-10-28 12:33] VITALS: BP 124/67; PULSE 78; RESP 16; O2SAT 95
--- NOTE | 2019-10-28 13:00 | PC.NURSE ---
Swabbed for Covid
[2019-10-28 13:21] LABS: SARS Covid-2 Antigen Negative (Negative)
--- NOTE | 2019-10-28 13:23 | W.ED.GENADLT ---
HPI - General Adult General: Chief complaint: General Medical Stated complaint: SOB, bleeding from both ears, wheezing Time Seen by Provider: 10/28/19 10:35 History of Present Illness: HPI narrative: 53-year-old male with a history of alcoholic cirrhosis comes in with shortness of breath that is worse at night he feels like he is wheezing at times he has pretty severe ascites had been getting drained regularly but they took the peritoneal port out because it had become infected he was on cefepime for 5 days and discharged home secondary complaint is getting blood from his ears seen he has a little bit of otology manipulates his ears with cotton swabs on a relatively regular basis after bathing. He denies any fever. Has not been in contact anyone he knows of that has COVID. Onset (ago): day(s) Location: chest (Shortness of breath) Severity: moderate Relieving factors: rest Exacerbating factors: other (Exertion) Associated symptoms: Reports dyspnea, malaise, nausea, short of breath and weakness; Deny chest pain, confusion, cough, diaphoresis, decreased appetite, fevers/chills, headache(s), rash, palpitations, seizures, syncope or vomiting Treatments prior to arrival: none Review of Systems Const: Reports: malaise; Denies: diaphoresis ENMT: Denies: throat pain, ear or mastoid pain, nasal discharge or nasal congestion Card: Denies: chest pain, palpitations or syncope Resp: Reports: dyspnea GI: Reports: nausea; Denies: vomiting : Denies: flank pain, dysuria, urinary frequency or urinary urgency Skin/Breast: Denies: rash Neuro: Denies: headache(s) or confusion [facility] ED PFSH: Medical History Ascites Chronic cervical pain Chronic low back pain Diabetes Diabetic neuropathy, painful Liver cirrhosis Liver failure Somatic dysfunction of back THORACIC AND LUMBAR Surgical History History of abdominal paracentesis History of colonoscopy History of esophagogastroduodenoscopy (EGD) Hx of circumcision Hx of inguinal hernia repair (~05/22/18) LAP REPAIR OF RIGHT INGUINAL HERNIA WITH ULTRAPRO 15X10 CM MESH. Hx of oral surgery Family History Father Cancer LUNG CANCER Other Diabetes Heart disease Lung disease Myocardial infarct Stroke Denies family history of Anesthesia complication Bleeding disorder Social History Smoking and tobacco status: current every day smoker cigarettes [ Other cigarette details: 5-6 ] Alcohol intake: former Year of sobriety/quit date alcohol: 2009 Caregiver/support person: Yes Lives independently: Yes Household members: friend(s) Current occupational status: disabled History of recent travel: No Physical Exam Const: COMMON NORMALS: no acute distress GENERAL APPEARANCE: cooperative and comfortable ORIENTATION/CONSCIOUSNESS: Yes awake, Yes oriented to person, Yes oriented to place and Yes oriented to time HENMT: COMMON NORMALS: normocephalic, atraumatic and hearing grossly normal bilaterally HEAD & SCALP: normocephalic and atraumatic Eye: COMMON NORMALS: Equal, round and reactive pupils present, EOMs intact bilaterally, conjunctivae normal and no scleral icterus CONJUNCTIVA: Yes conjunctivae normal PUPIL: Yes Equal, round and reactive pupils present Neck/C-Spine: COMMON NORMALS: no JVD Resp: COMMON NORMALS: normal respiratory effort, No retractions, No use of accessory muscles and clear to auscultation bilaterally AUSCULTATION: clear to auscultation bilaterally Cardio: COMMON NORMALS: no JVD, regular rate, regular rhythm and No murmurs present (Cardio) RATE: regular rate RHYTHM: regular rhythm GI: COMMON NORMALS: Soft to palpation and No hepatosplenomegaly present INSPECTION: Yes Fluid wave present AUSCULTATION: Yes normoactive bowel sounds PALPATION: Yes Soft to palpation, Yes Tenderness to palpation present (GI) (Diffuse), No Guarding due to palpation present (GI), Yes No hepatosplenomegaly present and Yes Hepatomegaly present PERCUSSION: dullness to percussion and Fluid wave present Extremity: COMMON NORMALS: normal to inspection, capillary refill normal, no clubbing, cyanosis or edema, no calf tenderness and no pedal edema Neuro: SENSORIUM/ORIENTATION: Yes oriented to person, Yes oriented to place and Yes oriented to time Skin: COMMON NORMALS: no rashes or lesions noted GENERAL SKIN EXAM: no rashes or lesions noted Course Vital Signs: Vital signs: Vital Signs Temperature 98.1 F 10/28/19 10:27 Pulse Rate 78 10/28/19 12:33 Respiratory Rate 16 10/28/19 12:33 Blood Pressure 124/67 10/28/19 12:33 Pulse Oximetry 95 10/28/19 12:33 MDM - General Adult MDM Narrative: Medical decision making narrative: Checks x-ray shows right lower lobe infiltrate and effusion discussed with Dr. Mccallum she thinks it is from fluid overload from his ascites. He also has some anemia but that is chronic. Thrombocytopenia is chronic as well. We are going to go ahead and put him in the hospital will do a paracentesis and possible thoracentesis depending on how he reacts to the paracentesis. Discussed antibiotics with Dr. Jasmine she will initiate antibiotics for underlying potential pneumonia. We are also getting a rapid antigen test. Lab Data: Labs: Lab Results 10/28/19 10/28/19 10/28/19 Range/Units 11:14 11:14 12:56 WBC 5.1 (4.0-10.0) 10^3/ uL RBC 2.80 L (4.1-5.3) 10^6/u L Hgb 8.5 L (11.7-16.6) g/dL Hct 27.4 L (42.0-52.0) % MCV 97.9 H (80-94) fL MCH 30.4 (28.0-34.0) pg MCHC 31.0 (30.0-36.0) g/dL RDW 14.6 (12.1-15.1) % Plt Count 86 L (130-400) 10^3/c mm MPV 10.7 H (7.4-10.4) fL Neut % (Auto) 69.1 % Lymph % (Auto) 14.1 % Wayne % (Auto) 12.5 % Eos % (Auto) 3.5 % Baso % (Auto) 0.6 % Neut # (Auto) 3.53 (1.8-7.7) 10^3/u L Lymph # (Auto) 0.7 L (0.8-4.8) 10^3/u L Wayne # (Auto) 0.6 (0.2-0.9) 10^3/u L Eos # (Auto) 0.2 (0.0-0.8) 10^3/u L Baso # (Auto) 0.0 (0.0-0.1) 10^3/u L Nucleated RBC % (a uto) 0 % Nucleated RBCs # 0.0 /100WBC Sodium 133 L (136-145) mmol/L Potassium 4.2 (3.5-5.1) mmol/L Chloride 105 (98-107) mmol/L Carbon Dioxide 19 L (22-29) mmol/L Anion Gap 13.2 (5-19) BUN 21 H (6-20) mg/dL Creatinine 1.2 (0.7-1.2) mg/dL GFR Calculation 63.3 L (90-130) mL/min Glucose 165 H (65-115) mg/dL Calculated Osmolal ity 276 L (285-295) mOsm/k g Calcium 7.4 L (8.5-10.5) mg/dL Total Bilirubin 0.5 (0.15-1.2) mg/dL AST 24 (0-40) U/L ALT 8 (0-41) U/L Alkaline Phosphata se 154 H (40-130) IU/L Total Protein 6.3 L (6.6-8.7) g/dL Albumin 2.1 L (3.5-5.2) g/dL Globulin 4.2 (1.3-4.6) g/dL SARS-CoV-2 Ag (Rap id) Negative (Negative) Discharge Plan Discharge Prescriptions: No Action nitroglycerin [Nitrostat] 0.4 mg tablet, sublingual 0.4 mg SUBLINGUAL Q5M PRN (Reason: Chest Pain) RF: 0 fluticasone propion-salmeterol [Advair Diskus] 250-50 mcg/dose Blister With Device 1 inh INHALATION BID RF: 0 Tresiba FlexTouch U-100 100 unit/mL (3 mL) Insulin Pen 20 unit SUBCUT BEDTIME PRN (Reason: Hyperglycemia) RF: 0 albuterol sulfate 90 mcg/actuation Aero Powdr Breath Act W/Sensor 1 - 2 inh INHALATION QID PRN (Reason: Shortness Of Breath) RF: 0 trazodone 150 mg tablet 150 mg PO BEDTIME PRN (Reason: Sleep) RF: 0 lorazepam 0.5 mg tablet 0.5 mg PO BEDTIME PRN (Reason: unknown) RF: 0 insulin aspart U-100 [Novolog Flexpen U-100 Insulin] 100 unit/mL (3 mL) insulin pen 5 unit SUBCUT TID RF: 0 lactulose 10 gram/15 mL solution 5 - 10 ml PO DAILY PRN (Reason: Constipation) RF: 0 Dexilant 30 mg capsule,biphase delayed releas 30 mg PO DAILY RF: 0 furosemide 40 mg Tablet 20 mg PO DAILY@0800 Qty: 30 RF: 0 aspirin 325 mg Tablet See Rx Instructions .ROUTE .COMPLEX RF: 0 oxycodone 30 mg tablet 30 mg PO 5XD PRN (Reason: Pain) RF: 0 Coding Level of Care Code ED Wireless Engineer for Eduin Savage
--- NOTE | 2019-10-28 13:55 | PC.NURSE ---
RN entered room to help patient apply gown as he is getting admitted. Patient explained that he would not be changing into a gown and did not want nurse to start an IV. He explained if he needed it on the floor they could do it but he would rather not have one. Provider notified.
--- NOTE | 2019-10-28 14:35 | US_ITS ---
WS: [id number] Abdominal ultrasound, limited. History: Evaluate for ascites. Comparison: None. All 4 quadrants are imaged by ultrasound to evaluate for ascites. There is a small amount of ascites in all 4 quadrants. Insufficient to attempt paracentesis at this time. US/US abdomen limited [id number] IMPRESSION: Small amount of ascites. Insufficient for paracentesis.
[2019-10-28 14:49] VITALS: BP 170/78; PULSE 78; RESP 16; O2SAT 92
--- NOTE | 2019-10-28 15:00 | PM.CONSULT ---
Providers/Reason For Consult Consulting Physican/Specialty*: Nat Jasmine MD/Internal Medicine Reason for Consult*: new pleural effusion, concern for consolidation vs SBP Attending Physician: Nat Jasmine MD Primary Care Provider: Andreia De León DO History of Present Illness History of Present Illness Hugo Oquendo is a 53 year old male with PMH hep C associated cirrhosis, treated in 2013 with portal HTN , previously with peritoneal drain placed in June 2019 due to frequency of drainage, subsequently needing to be removed on 10/07 due to recurrent bacterial peritonitis. Since removal he has been getting weekly paracentesis, last 2 weeks ago with removal of approx 500ml fluid. He presented to er today with c/o ear bleed, evaluted by ERP and some subjective SOB. He was found to have a new R sided mild pleural effusion and also increased abdominal distension. He has been titrating his lasix at home depenedent on his edema and urine output, this morning he took 40mg po daily. There is no c/o fever. No c/o weakness, Has a chronic smoker's cough, but not worse than at baseline. He is being evaluted also by his PCP Dr. De León and has been prescribed night tim2 02. he continues to smoke 10 cigarettes a day. Overall he does not feel too bad . Hehas been on RA since presentation with 02 sat 92-95%. He has recently followed with network intern Dr. Clayton in [place] and reports that he is planned for a TIPSS in about one month. Review of Systems General: Reports: 10 or more systems reviewed and unremarkable except in HPI and below Const: Denies: fever(s), chills or body aches Eyes: Denies: change in vision, blurry vision or photophobia ENMT: Reports: hoarseness; Denies: throat pain, enlarged tonsils, odynophagia or nasal congestion Card: Denies: chest pain, palpitations, irregular heart rhythm, edema, swelling of feet/ankles, lightheadedness, pre-syncope, dyspnea on exertion or orthopnea Resp: Denies: dyspnea, productive cough, non-productive cough, wheezing, stridor, pain on inspiration, change in phlegm color, hemoptysis or chest congestion GI: Denies: abdominal pain, nausea, vomiting, hematemesis, coffee ground emesis, dysphagia, heartburn, diarrhea, constipation, GI cramping, change in stool character, hematochezia or melena : Denies: flank pain, dysuria, urinary frequency, urinary urgency, urinary hesitancy or hematuria Musc: Denies: neck pain, back pain, extremity pain, joint swelling, joint warmth or deformity Neuro: Denies: headache(s), numbness in extremities, weakness in extremities, sensory changes, difficulty walking, frequent falls, dizziness, vertigo, behavioral changes, Slurred speech present or seizure-like activity Psych: Denies: anxiety, depression, suicidal ideation or homicidal ideation Endo: Denies: polyuria, polydipsia, tired all the time, cold intolerance or hot flashes Jose Martin/Lymph: Denies: easy bruising or easy bleeding Meds/Allergies Home Medications and Allergies Home Medications Medication Instructions Recorded Confirmed Last Taken Type Tresiba FlexTouch U-100 20 unit SUBCUT BEDTIME PRN 03/05/19 10/28/19 10/27/19 History albuterol sulfate 1 - 2 inh INHALATION QID PRN 03/05/19 10/28/19 10/06/19 History fluticasone propion-salmeterol 1 inh INHALATION BID 03/05/19 10/28/19 10/28/19 History [Advair Diskus] nitroglycerin 0.4 mg sublingual 0.4 mg SUBLINGUAL Q5M PRN 03/10/19 10/28/19 04/20/19 History tablet trazodone 150 mg PO BEDTIME PRN 08/03/19 10/28/19 08/02/19 History Dexilant 30 mg PO DAILY 09/30/19 10/28/19 10/27/19 History insulin aspart U-100 [Novolog 5 unit SUBCUT TID 09/30/19 10/28/19 10/05/19 20:00 History Flexpen U-100 Insulin] lactulose 5 - 10 ml PO DAILY PRN 09/30/19 10/28/19 10/27/19 History lorazepam 0.5 mg PO BEDTIME PRN 09/30/19 10/28/19 10/04/19 22:00 History furosemide 20 mg PO DAILY@0800 #30 tab 08/23/20 09/15/20 09/15/20 Rx aspirin See Rx Instructions .ROUTE .COMPLEX 10/28/19 10/28/19 Unknown History oxycodone 30 mg PO 5XD PRN 10/28/19 10/28/19 10/28/19 09:30 History Allergies Allergy/AdvReac Type Severity Reaction Status Date / Time adhesive tape Allergy ADR-Itching Verified 10/28/19 11:46 citalopram [From Celexa] Allergy ADR-Agitate Verified 10/28/19 11:46 d insulin glargine Allergy ALGY-Anaphy Verified 10/28/19 11:46 [From Lantus U-100 Insulin] laxis levofloxacin [From Levaquin] Allergy ALGY-Anaphy Verified 10/28/19 11:46 laxis Penicillins Allergy ALGY-Anaphy Verified 10/28/19 11:46 laxis potassium chloride Allergy ADR-Vomitin Verified 10/28/19 11:46 g duloxetine [From Cymbalta] AdvReac NAUSEA Verified 10/28/19 11:46 VOMITTING pregabalin [From Lyrica] AdvReac NAUSEA Verified 10/28/19 11:46 PFSH Acute PFSH: Medical History Ascites Chronic cervical pain Chronic low back pain Diabetes Diabetic neuropathy, painful Liver cirrhosis Liver failure Somatic dysfunction of back THORACIC AND LUMBAR Surgical History History of abdominal paracentesis History of colonoscopy History of esophagogastroduodenoscopy (EGD) Hx of circumcision Hx of inguinal hernia repair (~05/22/18) LAP REPAIR OF RIGHT INGUINAL HERNIA WITH ULTRAPRO 15X10 CM MESH. Hx of oral surgery Family History Father Cancer LUNG CANCER Other Diabetes Heart disease Lung disease Myocardial infarct Stroke Denies family history of Anesthesia complication Bleeding disorder Social History Smoking and tobacco status: current every day smoker cigarettes [ Other cigarette details: 5-6 ] Alcohol intake: former Year of sobriety/quit date alcohol: 2009 Caregiver/support person: Yes Lives independently: Yes Household members: friend(s) Current occupational status: disabled History of recent travel: No Vitals/I&O/Wt Last Vital Signs Temp 98.1 F 10/28/19 10:27 Pulse 78 10/28/19 14:49 Resp 16 10/28/19 14:49 BP 170/78 10/28/19 14:49 Pulse Ox 92 10/28/19 14:49 Weight last 48 hrs Weight 71.214 kg Physical Exam Narrative: EXAM NARRATIVE: GEN: Awake, alert and oriented, no acute distress HEENT: NC/AT CVS: S1S2 N, no murmurs, rubs or gallops RS: CTA B/L Abd: Soft, distension+ wiyj fluid thrill+, BS heard, no tenderness CONTACT LENS FITTER: no focal neuro deficits A&P Assessment and plan (1) Pleural effusion associated with hepatic disorder: Status: Acute (2) Anemia: Status: Acute Qualifiers: Anemia type: unspecified type Qualified Code(s): D64.9 - Anemia, unspecified (3) Diabetes: Status: Acute Qualifiers: Diabetes mellitus type: type 2 Diabetes mellitus long term care social worker insulin use: with long term care social worker use Diabetes mellitus complication status: with other specified complication Qualified Code(s): E11.69 - Type 2 diabetes mellitus with other specified complication; Z79.4 - watermelon inspector (current) use of insulin (4) Liver cirrhosis: Status: Acute Qualifiers: Hepatic cirrhosis type: other cirrhosis Qualified Code(s): K74.69 - Other cirrhosis of liver (5) Ascites: Status: Acute Qualifiers: Ascites type: other type Qualified Code(s): R18.8 - Other ascites (6) Portal hypertension: Status: Acute Additional A&P Information # New right pleural effusion Patient is previously known to have anasarca and large volume ascites for which he was on a peritoneal drain until Auwhen it needed to be removed due to recurrent bacterial peritonitis. When he had the drain he was able to remove fluid on a daily basis in addition to diuresis with lasix. Since removal of drain he has been getting weekly paracentesis, however last was approx 2 weeks ago as on the last visit there did not appear to be enough fluid to remove. I suspect that patient is having diaphragmatic translocation of ascitic fluid resulting in pleural effusion. He also has some increased vascular congestion in his lung vidal and suspect that R pleural effusion is part of generalized anasarca. Paracentesis was planned today, however on radiological assessment, there is no safe window to proceed today, he does not appear to have enough fluid although clinically appears significantly more distended than the last time i had seen him. No Ileus. He is planned for next paracentesis assesment on Sunday. Eventually the hope is that he can get TIPSS in a bout a month's time in [place], until when we can optimize him with intermittent paracentesis. The fluid in lungs at this time is mild and would prefer to hold off on thoracentesis as may be associated with a higher risk of pneumothorax. Very low suspicion for effusion being parapneumonic in nature as patient otherwise denies any fever, worsened cough, sputum production or other clinical signs of pneumonia. He does have a chronic smoker's cough which is at baseline. I do not see any consolidation on CXR per my read. I have recommended that he increase his daily dose of lasix to 40mg po daily and repeat a CXR next week with PCP to follow up on evolution. In the interim he would also have been assessed for repeat paracentesis and if perfromed this may help improve the effusion Patient is [facility] plan and quite eager to return home. Asked to return to ER in case of fever >100.4F, worsening cough, sputum production or dyspnea. Covid rapid antigen test negative # Hep C cirrhosis with portal hypertension and long standing ascites Lasix as above TIPSS planned in [place] Low suspicion for SBP currently given absence of fever or any abdominal tenderness or leukocytosis. He is clincally well appearing compared to previous admission. No indication for abx at this time recommend to follow up with PCP in a week and rasiology for paracentesis on Sunday Coding Level of Care Code Acute Proposal Writer for Chg Fwd Diagnoses Pleural effusion associated with hepatic disorder K76.9; J91.8 Anemia D64.9 Anemia type: unspecified type Diabetes E11.69; Z79.4 Diabetes mellitus type: type 2 Diabetes mellitus usp insulin use: with usp use Diabetes mellitus complication status: with other specified complication Liver cirrhosis K74.69 Hepatic cirrhosis type: other cirrhosis Ascites R18.8 Ascites type: other type Portal hypertension K76.6
[2019-10-29 10:40] LABS: Glucose Point of Care 188 mg/dL (70-110)
== END 2019-10-28 15:47 | disposition home or self-care (01) ==
LOC: ER 14:59 → MEDSURG 15:31
PROVIDERS: Emergency Provider Family Medicine; PCP Family Medicine; Visit Provider Student in an Organized Health Care Education/Training Program
DX: R06.02 Shortness of breath (principal); Z79.4 Long term (current) use of insulin; Z79.82 Long term (current) use of aspirin; F17.210 Nicotine dependence, cigarettes, uncomplicated; E11.40 Type 2 diabetes mellitus with diabetic neuropathy, unspecified
CPT/HCPCS: 12345; 36415; 36416; 49083; 71045; 76705; 80053; 82962; 85025; 87426; 99282; 99283; 99284

== ENCOUNTER 2019-10-31 11:26 | Outpatient (CLI) | payer MEDICARE, MEDICAID, SELFPAY ==
--- NOTE | 2019-10-31 11:36 | US_ITS ---
WS: [id number] Abdominal ultrasound, limited. History: Evaluate for ascites. Comparison: None. All 4 quadrants are imaged by ultrasound to evaluate for ascites. There is a small amount of ascites throughout the peritoneal cavity. Not sufficient in order to perform paracentesis. Patient has agreed to wait until there is more fluid present. Probably less than 500 cc. Small RIGHT pleural effusion is also noted. US/US abdomen limited [id number] IMPRESSION: No paracentesis performed today due to a very small amount of ascites. Small RIGHT pleural effusion.
[2019-10-31 11:44] VITALS: BP 159/86; PULSE 82; RESP 20; TEMP 36.3; O2SAT 94
--- NOTE | 2019-10-31 12:04 | SUR.PREOP ---
1204 After ultrasound of abdomen, it was determined by Dr. Gifford that the patient did not need paracentesis at this time. Procedure cancelled.
== END 2019-10-31 11:27 | disposition home or self-care (01) ==
LOC: RAD 11:32
PROVIDERS: PCP Family Medicine; Visit Provider Internal Medicine
DX: K74.60 Unspecified cirrhosis of liver (principal); R18.8 Other ascites; J90 Pleural effusion, not elsewhere classified
CPT/HCPCS: 76705

== ENCOUNTER 2019-11-06 07:23 | Outpatient (CLI) | payer MEDICARE, MEDICAID, SELFPAY ==
--- NOTE | 2019-11-06 07:34 | US_ITS ---
WS: [id number] Liver and right upper quadrant ultrasound, 11/06/2019 Clinical Data: Cirrhosis, nonalcoholic Comparison: Right upper quadrant ultrasound, 10/31/2019. Findings: The gallbladder shows no sludge or stone. The wall measures 0.5 cm with surrounding ascites. The common bile duct is 0.4 cm and there are no intrahepatic ductal abnormalities. Liver shows no cysts, masses or dilated intrahepatic ducts. The liver is not enlarged but the surface is irregular and there is surrounding ascites. The flow in the hepatic artery and hepatic veins is n ormal as is the flow in the portal vein. The pancreas is not obscured by overlying bowel gas and no cyst, pseudocyst, or evidence of pancreati tis is noted. Right kidney measures 10.7 cm and no cyst, masses or hydronephrosis can be seen. The aorta and inferior vena cava show no vascular abnormalities. US/US liver [id number] Impression: 1. Cirrhosis of liver with moderate ascites. 2. Thickened gallbladder wall which is probably secondary to the ascites.
--- NOTE | 2019-11-06 07:34 | USCV_ITS ---
Hugo Oquendo Age: 53 Gender: M : 1965 Exam Date: 11/06/2019 07:55 Ordering Phys: Blayne Gaviria MD Technologist: Andreas Bermeo [place] [facility] [place]: PRE OP BP: 126 / 73 HR: 68 Rhythm: Sinus Technical Quality: Good MEASUREMENTS (Male / Female) Normal Values 2D ECHO LV Diastolic Diameter PLAX 4.1 cm 4.2 - 5.9 / 3.9 - 5.3 cm LV Systolic Diameter PLAX 2.5 cm IVS Diastolic Thickness 1.1 cm 0.6 - 1.0 / 0.6 - 0.9 cm IVS Systolic Thickness 1.6 cm LVPW Diastolic Thickness 1.4 cm 0.6 - 1.0 / 0.6 - 0.9 cm LVPW Systolic Thickness 1.3 cm LVOT Diameter 2.1 cm LV Ejection Fraction 2D Teich 69.2 % LV Ejection Fraction MOD 2C 70.8 % LV Ejection Fraction 2C AL 69.7 % LA Diameter 4.0 cm LA Width 3.7 cm LA Height 4.7 cm RA Width 3.6 cm RA Height 3.7 cm Aorta at Sinotubular Diameter 1.3 cm M-MODE LV Diastolic Diameter MM 5.3 cm 4.2 - 5.9 / 3.9 - 5.3 cm LV Systolic Diameter MM 3.6 cm LV Ejection Fraction MM Teich 61.4 % IVS Diastolic Thickness MM 1.0 cm 0.6 - 1.0 / 0.6 - 0.9 cm IVS Systolic Thickness MM 1.4 cm LVPW Diastolic Thickness MM 1.2 cm 0.6 - 1.0 / 0.6 - 0.9 cm LVPW Systolic Thickness MM 1.7 cm RV Diastolic Diameter MM 1.7 cm Aortic Annulus Diameter 3.3 cm LA Ao Ratio MM 1.2 MV E Point Septal Separation 1.2 cm DOPPLER AV Peak Velocity 141.0 cm/s LVOT Peak Velocity 123.0 cm/s AV Area Cont Eq vti 2.6 cm squared AV Area Cont Eq pk 2.9 cm squared MV Area PHT 5.0 cm squared Mitral E to A Ratio 0.8 MV E' Velocity 10.0 cm/s Mitral E to MV E' Ratio 8.8 Mitral E to LV E' Lateral Ratio 8.8 Mitral E to LV E' Septal Ratio 8.9 TR Peak Velocity 240.0 cm/s TR Peak Gradient 23.1 mmHg TV Peak E Velocity 68.0 cm/s Right Atrial Pressure 3.0 mmHg Pulmonary Artery Systolic Pressu 26.0 mmHg PV Peak Velocity 120.0 cm/s FINDINGS Left Ventricle Normal left ventricular size, systolic function and wall thickness, with no regional wall motion abnormalities. LVEF is 55 LVEF is 55 to 60%. Normal left ventricular wall thickness. Normal diastolic filling pattern. Right Ventricle The right ventricle is normal in size and function. Right Atrium The right atrium is normal in size. Left Atrium The left atrium is normal in size. Mitral Valve Structurally normal mitral valve without significant stenosis or prolapse. There is trace mitral regurgitation. Aortic Valve Structurally normal aortic valve without significant sclerosis or stenosis. There is no aortic regurgitation. Tricuspid Valve Structurally normal tricuspid valve without significant stenosis or regurgitation. Insufficient TR jet to calculate RVSP. Pulmonic Valve Structurally normal pulmonic valve without significant stenosis. There is no pulmonic regurgitation. Pericardium Normal pericardium without effusion. Aorta Normal ascending aorta dimension. CONCLUSIONS LV systolic function is normal with EF of 55 to 60%. Diastolic function is normal. Carlos Lange MD (Electronically Signed) Final Date: 15 November 2019 18:09 S
[2019-11-06 08:54] LABS: INR 1.19 (0.8-1.2)
[2019-11-06 08:57] LABS: Alanine Aminotransferase 8 U/L (0-41); Albumin Level 2.1 g/dL (3.5-5.2); Alkaline Phosphatase 127 IU/L (40-130); Anion Gap 13.9 (5-19); Aspartate Amino Transferase 19 U/L (0-40); Blood Urea Nitrogen 21 mg/dL (6-20); Calcium 7.4 mg/dL (8.5-10.5); Carbon Dioxide 19 mmol/L (22-29); Chloride 104 mmol/L (98-107); Globulin 4.1 g/dL (1.3-4.6); Glucose 211 mg/dL (65-115); Osmolality Calculated 285 mOsm/kg (285-295); Potassium 3.9 mmol/L (3.5-5.1); Sodium 133 mmol/L (136-145); Total Bilirubin 0.6 mg/dL (0.15-1.2); Total Protein 6.2 g/dL (6.6-8.7)
[2019-11-06 09:02] LABS: Basophils % 0.8 %; Eosinophils # 0.2 10^3/uL (0.0-0.8); Eosinophils % 3.7 %; Hematocrit 25.7 % (42.0-52.0); Hemoglobin 8.4 g/dL (11.7-16.6); Lymphocytes # 0.7 10^3/uL (0.8-4.8); Lymphocytes % 13.7 %; Mean Corpuscular HGB Conc 32.7 g/dL (30.0-36.0); Mean Corpuscular Hemoglobin 30.7 pg (28.0-34.0); Mean Corpuscular Volume 93.8 fL (80-94); Mean Platelet Volume 10.7 fL (7.4-10.4); Monocytes # 0.7 10^3/uL (0.2-0.9); Monocytes % 14.5 %; Neutrophils # 3.23 10^3/uL (1.8-7.7); Neutrophils % 66.9 %; Nucleated Red Blood Cells % 0 %; Platelet Count 67 10^3/cmm (130-400); Red Blood Count 2.74 10^6/uL (4.1-5.3); Red Cell Distribution Width 14.9 % (12.1-15.1); White Blood Count 4.8 10^3/uL (4.0-10.0)
[2019-11-06 09:33] LABS: Slide Review Slide Review Perform
== END 2019-11-06 07:24 | disposition home or self-care (01) ==
LOC: US 07:24
PROVIDERS: PCP Family Medicine; Visit Provider Internal Medicine Gastroenterology
DX: K74.60 Unspecified cirrhosis of liver (principal); R18.8 Other ascites
CPT/HCPCS: 36415; 76705; 80053; 85025; 85610; 93306

== ENCOUNTER 2019-11-07 07:04 | Outpatient (CLI) | payer MEDICARE, MEDICAID, SELFPAY ==
--- NOTE | 2019-11-07 07:10 | US_ITS ---
WS: [id number] ULTRASOUND PARACENTESIS PLANNING CLINICAL INFORMATION: ASCITES COMPARISON: None. Small volume ascites similar in appearance to November 06, 2019. Inadequate fluid for paracentesis US/US abdomen lmt fluid [id number] IMPRESSION: Small volume ascites.
[2019-11-07 07:36] VITALS: BP 165/93; PULSE 75; RESP 18; TEMP 36.8; O2SAT 99; BMI 22.8
--- NOTE | 2019-11-07 08:29 | PC.NURSE ---
Cor[facility] CAME TO TELL PATIENT THAT HE DID NOT HAVE A FLUID POCKET LARGE ENOUGH TO DRAIN PER DR CHAPARRO THAT THE RISK OF PERFORATING A BOWEL OUTWEIGHED THE BENEFIT OF THE PARACENTESIS. PT BEGAN RAISING HIS VOICE AND CURSING AT [employer]. HE STATED THAT THE FLUID IN HIS ABDOMEN IS FORCING FLUID INTO HIS LUNGS MAKING HIM FEEL LIKE HE IS DROWNING. THIS NURSE INSTRUCTED THE PATIENT THAT IF HE FEELS LIKE THAT HE SHOULD GO TO THE ER. PATIENT REFUSED. HE THEN GOT OUT OF BED, GOT DRESSED AND LEFT.
== END 2019-11-07 07:05 | disposition home or self-care (01) ==
LOC: RAD 07:07
PROVIDERS: PCP Family Medicine; Visit Provider Internal Medicine
DX: R18.8 Other ascites (principal)
CPT/HCPCS: 49083; 76705

== ENCOUNTER 2019-11-07 09:51 | Emergency (ER) | payer MEDICARE, MEDICAID, SELFPAY ==
[2019-11-07 09:52] VITALS: BP 177/75; PULSE 75; RESP 18; TEMP 36.3; O2SAT 98; BMI 22.3
[2019-11-07 10:49] VITALS: BP 117/75; RESP 18; O2SAT 97
--- NOTE | 2019-11-07 11:25 | XR_ITS ---
WS: [id number] Portable AP upright chest, 11/07/2019 Clinical Data: shortness of breath, ?pleural effusion Comparison: Portable chest, 10/28/2019. Findings: Small bilateral pleural effusions are seen. There are bibasilar atelectatic changes or poss ible pneumonia. The heart is normal. The pulmonary vascularity is not increased. No pneumothorax is seen. Monitor leads on the chest wall. XR/XR chest 1V portable [id number] Impression: 1. Bibasilar atelectatic changes and/or pneumonia. 2. Small bilateral pleural effusions.
--- NOTE | 2019-11-07 11:29 | W.ED.SOB ---
HPI - SOB/Dyspnea General: Chief Complaint: Shortness of Breath/Dyspnea Stated Complaint: SOB Time Seen by Provider: 11/07/19 09:54 Source: patient Mode of arrival: ambulatory Limitations: no limitations History of Present Illness: HPI Narrative: The patient is a 53-year-old gentleman with liver cirrhosis secondary to hep C, ascites that needs frequent weekly paracentesis as he got frequent spontaneous bacterial peritonitis when he had a drain put in. He was at the GI lab today to get the paracentesis but an ultrasound done showed minimal ascites and is not large enough for it to be drained. The patient claims that he had an echocardiogram yesterday that showed bilateral pleural effusion and so he is here in the emergency department to have a thoracocentesis. He has been short of breath for weeks with orthopnea and paroxysmal nocturnal dyspnea. He has abdominal swelling, leg swelling, and sleeps sitting up because his shortness of breath gets worse with laying down. MD elicited complaint: shortness of breath Associated symptoms: Deny abdominal pain, fever(s), nausea, palpitations, polydipsia, polyuria or vomiting Review of Systems General: Reports: 10 or more systems reviewed and unremarkable except in HPI and below Const: Denies: fever(s), chills or body aches Eyes: Denies: change in vision or blurry vision ENMT: Denies: throat pain, enlarged tonsils, odynophagia, hoarseness, mouth pain or swelling of lips/tongue Card: Denies: palpitations, irregular heart rhythm, edema or swelling of feet/ankles Resp: Reports: dyspnea; Denies: productive cough or non-productive cough GI: Reports: early satiety; Denies: abdominal pain, nausea or vomiting : Denies: flank pain, dysuria, urinary frequency, urinary urgency or urinary hesitancy Musc: Reports: extremity swelling; Denies: neck pain or back pain Skin/Breast: Denies: rash, pruritus or erythema Neuro: Denies: headache(s), numbness in extremities or weakness in extremities Endo: Denies: polyuria, polydipsia or tired all the time PFS ED PFSH: Medical History Ascites Chronic cervical pain Chronic low back pain Diabetes Diabetic neuropathy, painful Liver cirrhosis Liver failure Somatic dysfunction of back THORACIC AND LUMBAR Surgical History History of abdominal paracentesis History of colonoscopy History of esophagogastroduodenoscopy (EGD) Hx of circumcision Hx of inguinal hernia repair (~05/22/18) LAP REPAIR OF RIGHT INGUINAL HERNIA WITH ULTRAPRO 15X10 CM MESH. Hx of oral surgery Family History Father Cancer LUNG CANCER Other Diabetes Heart disease Lung disease Myocardial infarct Stroke Denies family history of Anesthesia complication Bleeding disorder Social History Smoking and tobacco status: current every day smoker cigarettes [ Other cigarette details: 5-6 ] Alcohol intake: former Year of sobriety/quit date alcohol: 2009 Caregiver/support person: Yes Lives independently: Yes Household members: friend(s) Current occupational status: disabled History of recent travel: No Physical Exam Const: COMMON NORMALS: no acute distress, average body habitus, patient oriented x3, no limitations, healthy appearing, alert and well nourished OTHER: he is tearful HENMT: COMMON NORMALS: normocephalic, atraumatic and moist oral mucous membranes HEAD & SCALP: normocephalic and atraumatic Neck/C-Spine: COMMON NORMALS: no meningeal signs and no JVD Resp: COMMON NORMALS: normal respiratory effort, No retractions, No use of accessory muscles, clear to auscultation bilaterally and percussion normal AUSCULTATION: clear to auscultation bilaterally PERCUSSION: percussion normal Cardio: COMMON NORMALS: no JVD, regular rate, regular rhythm, S1 normal heart sound present, S2 normal heart sound present, No gallops present (Cardio), No clicks present (Cardio), No murmurs present (Cardio), No rub (Cardio) and Peripheral pulses 2+ throughout RATE: regular rate RHYTHM: regular rhythm HEART SOUNDS: S1 normal heart sound present and S2 normal heart sound present PERIPHERAL PULSES: Peripheral pulses 2+ throughout GI: COMMON NORMALS: Soft to palpation, non-tender, No hepatosplenomegaly present, no masses and no bruits INSPECTION: Yes abdominal distension PALPATION: Yes Soft to palpation and Yes No hepatosplenomegaly present Extremity: COMMON NORMALS: normal to inspection, full ROM, capillary refill normal and no calf tenderness GENERAL: Yes edema Neuro: COMMON NORMALS: patient oriented x3 SENSORIUM/ORIENTATION: Yes alert MENINGEAL SIGNS: Yes no meningeal signs Skin: COMMON NORMALS: no rashes or lesions noted, no wounds, turgor normal, no jaundice, no petechiae and no mottling GENERAL SKIN EXAM: no rashes or lesions noted and turgor normal Course Reevaluation(s): Reevaluation #1: Discussed his imaging findings with him. Chest x-ray shows only small bilateral pleural effusions, not amenable to thoracocentesis. Since once again patient possible pneumonia we will go ahead and treat him for pneumonia at this time. We will give him a dose of ceftriaxone in the emergency department. He has a penicillin allergy but he says he is able to take amoxicillin without any difficulty. He is also advised that he should follow-up with his primary care provider and with his reptile keeper for further management. He voiced understanding and is in agreement with the plan. Time: 12:30 Vital Signs: Vital signs: Vital Signs Temperature 97.3 F L 11/07/19 09:52 Pulse Rate 85 11/07/19 12:53 Respiratory Rate 18 11/07/19 12:53 Blood Pressure 178/90 11/07/19 12:53 Pulse Oximetry 95 11/07/19 12:53 MDM - SOB/Dyspnea MDM Narrative: Medical decision making narrative: 53-year-old unfortunate gentleman with liver cirrhosis from hep C and ascites. He also has significant anxiety. He has been having some shortness of breath for couple of weeks now which he attributed to ascites, he came in for paracentesis today but on ultrasound does too little fluid for drainage. He therefore thought that the fluid had moved to his lungs and so wanted a thoracocentesis. Chest x-ray done shows only small bilateral pleural effusions which are not amenable to thoracocentesis at this time. Because there is a question of pneumonia on his chest x-ray and he has been complaining of shortness of breath that is progressively worsening I will go ahead and treat him for pneumonia. He has been worked up for a TIPS in [place]. He will follow-up with his primary care provider and his specialist. Medical Records: Attestation: I reviewed the patient's medical records. Lab Data: Attestation: I reviewed the patient's lab results. Imaging Data^: CXR: Radiologist's impression: [facility] [address] [place] [address] XRay Report Signed Patient: Hugo Oquendo #: [id number] : 1965Acct#:[id number] Age/Sex: 53 / MADM Date: 11/07/19 Loc: ERRoom/Bed: Attending Dr: Ordering Provider/Ordering MD: Amy Michael MD, [facility] [place] Date of Service: 11/07/19 Procedure(s): XR chest 1V portable [id number] Accession Number(s): [id number] Report Number: [id number] WS: [id number] Portable AP upright chest, 11/07/2019 Clinical Data: shortness of breath, ?pleural effusion Comparison: Portable chest, 10/28/2019. Findings: Small bilateral pleural effusions are seen. There are bibasilar atelectatic changes or possible pneumonia. The heart is normal. The pulmonary vascularity is not increased. No pneumothorax is seen. Monitor leads on the chest wall. XR/XR chest 1V portable [id number] Impression: 1. Bibasilar atelectatic changes and/or pneumonia. 2. Small bilateral pleural effusions. Dictated By:Kerri Kramer MD Signed By:Kerri Kramer MDSigned Date/Time:11/07/19 1144 Discharge Plan Discharge Patient Disposition: Home Clinical Impression: Community acquired pneumonia Qualifiers: Laterality: unspecified laterality Qualified Code(s): J18.9 - Pneumonia, unspecified organism Condition: Stable Prescriptions: New doxycycline hyclate 100 mg capsule 100 mg PO BID 7 Days Qty: 14 RF: 0 Continued nitroglycerin [Nitrostat] 0.4 mg tablet, sublingual 0.4 mg SUBLINGUAL Q5M PRN (Reason: Chest Pain) RF: 0 fluticasone propion-salmeterol [Advair Diskus] 250-50 mcg/dose Blister With Device 1 inh INHALATION BID RF: 0 Tresiba FlexTouch U-100 100 unit/mL (3 mL) Insulin Pen 20 unit SUBCUT BEDTIME PRN (Reason: Hyperglycemia) RF: 0 albuterol sulfate 90 mcg/actuation Aero Powdr Breath Act W/Sensor 1 - 2 inh INHALATION QID PRN (Reason: Shortness Of Breath) RF: 0 trazodone 150 mg tablet 150 mg PO BEDTIME PRN (Reason: Sleep) RF: 0 ibuprofen 200 mg Tablet 200 - 400 mg PO DAILY RF: 0 furosemide 40 mg tablet 40 mg PO DAILY@0800 RF: 0 lorazepam 0.5 mg tablet 0.5 mg PO BEDTIME PRN (Reason: unknown) RF: 0 insulin aspart U-100 [Novolog Flexpen U-100 Insulin] 100 unit/mL (3 mL) insulin pen 5 unit SUBCUT TID RF: 0 lactulose 10 gram/15 mL solution 5 - 10 ml PO DAILY PRN (Reason: Constipation) RF: 0 Dexilant 30 mg capsule,biphase delayed releas 30 mg PO DAILY RF: 0 aspirin 325 mg Tablet See Rx Instructions .ROUTE .COMPLEX RF: 0 oxycodone 30 mg tablet 30 mg PO 5XD PRN (Reason: Pain) RF: 0 Discharge Orders: Discharge Order (Routine); Ordered 11/07/19 Ordered By: Amy Michael Referrals: Andreia De León DO [Primary Care Provider] - 1-3 days Discharge Diet: Advance as tolerated Discharge Activity: Increase activity as tolerated Patient Instructions: Pneumonia (ED) Activity Restrictions/Additional Instructions: Return for any new or worsening symptoms. Take the antibiotic as prescribed. Follow-up with your primary care provider within 3 days. Coding Level of Care Code ED Ambulance Officer for Chg Fwd Exam Comprehensive
[2019-11-07 12:48] VITALS: RESP 18
[2019-11-07] MEDS: HYDROmorphone 1 mg/mL INJ 1 mL 0.5 MG SUBCUT (12:48)
[2019-11-07] MEDS: cefTRIAXone 1,000 mg SDV 1000 MG IM (12:49)
[2019-11-07] MEDS: lidocaine 1% INJ 20 mL IM (12:50)
[2019-11-07 12:53] VITALS: BP 178/90; PULSE 85; RESP 18; O2SAT 95
== END 2019-11-07 13:06 | disposition home or self-care (01) ==
PROVIDERS: Emergency Provider Family Medicine; PCP Family Medicine
DX: J18.9 Pneumonia, unspecified organism (principal); Z79.82 Long term (current) use of aspirin; Z79.4 Long term (current) use of insulin; E11.40 Type 2 diabetes mellitus with diabetic neuropathy, unspecified; F17.210 Nicotine dependence, cigarettes, uncomplicated; Z86.19 Personal history of other infectious and parasitic diseases
CPT/HCPCS: 12345; 71045; 96372; 99281; 99283; J0696; J1170

== ENCOUNTER 2019-11-12 06:59 | Outpatient (CLI) | payer MEDICARE, MEDICAID, SELFPAY ==
--- NOTE | 2019-11-12 | US_ITS ---
WS: [id number] RIGHT UPPER QUADRANT ULTRASOUND HISTORY: CIRRHOSIS COMPARISON: 07/22/2019 Liver: 16.4 cm in length. Coarsened lobulated appearance of the liver. No mass identified. Gallbladder: Normally distended gallbladder with no stones or wall thickening. CBD: Not visualized. Pancreas: Not visualized. Right kidney: 11.7 cm in length. Normal size and echogenicity. No hydronephrosis or mass. Aorta and IVC: Aorta is not visualized. IVC normal caliber. Small amount of ascites throughout the RIGHT upper quadrant. There is also small RIGHT pleural effusi on. US/US liver [id number] IMPRESSION: 1. Cirrhotic liver with no mass or bile duct dilatation. 2. Small amount of ascites and small RIGHT pleural effusion. 3. Negative gallbladder.
== END 2019-11-12 07:00 | disposition home or self-care (01) ==
LOC: US 07:00
PROVIDERS: PCP Family Medicine; Visit Provider Internal Medicine Gastroenterology
DX: K74.60 Unspecified cirrhosis of liver (principal); R18.8 Other ascites; J90 Pleural effusion, not elsewhere classified; G89.29 Other chronic pain; M54.42 Lumbago with sciatica, left side; M54.41 Lumbago with sciatica, right side; M54.2 Cervicalgia; M99.09 Segmental and somatic dysfunction of abdomen and other regions; F17.210 Nicotine dependence, cigarettes, uncomplicated; Z79.891 Long term (current) use of opiate analgesic
CPT/HCPCS: 76705; 99214

== ENCOUNTER 2019-11-14 07:07 | Outpatient (CLI) | payer MEDICARE, MEDICAID, SELFPAY ==
[2019-11-14 07:20] VITALS: BP 161/87; PULSE 76; RESP 16; TEMP 36.9; O2SAT 98
--- NOTE | 2019-11-14 08:16 | US_ITS ---
WS: [id number] ULTRASOUND-GUIDED PARACENTESIS CLINICAL INFORMATION: cirrhiosis COMPARISON: None. Procedure Informed consent: The risks, benefits, and alternatives of the procedure were discussed with the juanita ent. Verbal and written consent was obtained. Timeout: A timeout was performed to confirm the correct patient, procedure, and site. Preparation: A suitable skin site was identified. The patient was prepped and draped in usual sterile fashion. Lidocaine 1% was used for local anesthesia. Catheter: 4 Armenian One-step Yueh catheter. Side: Left Lower quadrant. Fluid Volume: 1200 ml Color: Clear yellow DISPOSITION: Discarded safely. Complications: None. Patient disposition: Discharged from the department in stable condition. US/US paracentesis abd w [id number] IMPRESSION: Uncomplicated ultrasound-guided paracentesis. Removal of 1200 cc clear yellow fluid
== END 2019-11-14 07:08 | disposition home or self-care (01) ==
LOC: RAD 07:11 → OPS 10:23
PROVIDERS: PCP Family Medicine; Visit Provider Internal Medicine
DX: K74.60 Unspecified cirrhosis of liver (principal)
CPT/HCPCS: 49083

== ENCOUNTER 2019-11-24 04:35 | Emergency (ER) | payer MEDICARE, MEDICAID, SELFPAY ==
[2019-11-24] VITALS (71 sets, daily range): BP systolic 108–180; BP diastolic 53–106; PULSE 0–96; RESP 0–71; TEMP 36.6–36.9; O2SAT 90–98; BMI 23.1
--- NOTE | 2019-11-24 04:41 | CTR_ITS ---
PROCEDURE INFORMATION: Exam: CT Abdomen And Pelvis With Contrast Exam date and time: 11/24/2019 5:07 AM Age: 53 years old Clinical indication: Abdominal pain; Generalized; Prior surgery; Surgery type: Hernia repair. Prior drain placement. ; Patient HX: General abd pain with n/v. History of liver failure. TECHNIQUE: Imaging protocol: Computed tomography of the abdomen and pelvis with intravenous contrast. Radiation optimization: All CT scans at this facility use at least one of these dose optimization techniques: automated exposure control; mA and/or kV adjustment per patient size (includes targeted exams where dose is matched to clinical indication); or iterative reconstruction. Contrast material: OMNI 300; Contrast volume: 95 ml; Contrast route: INTRAVENOUS (IV); COMPARISON: CT abdomen pelvis w con* [id number] 08/01/2019 6:25 PM RADIATION DOSE METRICS: Total DLP (mGy-cm): 703.26 FINDINGS: Lungs: There is compressive atelectasis in both lower lobes. There is mild patchy nonspecific ground-glass opacity in the anterior lower lungs bilaterally. Pleural space: Moderate size bilateral pleural effusions. Liver: The liver has a nodular surface and there is relative hypertrophy of the left and caudate lobe consistent with cirrhosis. No liver mass. Gallbladder and bile ducts: The gallbladder is normal. There is no biliary dilation. Pancreas: The pancreas is unremarkable. Spleen: The spleen is moderately enlarged. Adrenals: The adrenal glands are unremarkable. Kidneys and ureters: Nonobstructive stones are seen in both kidneys. There is no hydronephrosis or ureteral dilation. There is normal renal parenchymal enhancement. Stomach and bowel: There is diffuse mural thickening of the colon, greatest at the cecum and decreasing distally to a normal sigmoid colon. The stomach is decompressed, preventing meaningful evaluation of wall thickness. The small bowel is nondilated. Appendix: The appendix is not definitively identified, although there are no secondary signs of appendicitis. Intraperitoneal space: Moderate ascites similar to the findings on 08/01/2019. There is no intraperitoneal free air. Vasculature: The superior mesenteric and celiac arteries are widely patent. The portal vein is patent. The splenic vein is patent. There is nonocclusive thrombus in the superior mesenteric vein just inferior to the portal confluence (axial series 2, image 30). There is moderate aortic atherosclerotic disease. There are small gastric, retroperitoneal and omental varices. Lymph nodes: There is no lymphadenopathy in the retroperitoneum, mesentery, pelvis or inguinal regions. Urinary bladder: Unremarkable as visualized. Reproductive: Unremarkable as visualized. Bones/joints: Bones are unremarkable. Soft tissues: The abdominal wall is intact. CT/CT abdomen pelvis w con* [id number] IMPRESSION: 1. Pancolitis. Probable infection or inflammatory bowel disease. The distribution of the abnormality makes ischemia less likely. 2. 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 There is approximately 50% luminal narrowing due to the clot. 3. Nonspecific bilateral lower lung opacities. Possible infection, atelectasis or edema. 4. Cirrhosis with splenomegaly, ascites and bilateral pleural effusions. The pleural effusions are new since 08/01/2019. 5. Additional incidental findings above. Radiation Dose CTDIVOL = (mGy): DLP = 703.26 (mGy-cm)
--- NOTE | 2019-11-24 04:41 | XR_ITS ---
WS: [id number] PORTABLE CHEST HISTORY: Cough/dyspnea COMPARISON: 11/07/2019 Bilateral areas of interstitial thickening and haziness over the mid to lower lungs. Small LEFT pleur al effusion. Cardiac size: Normal. Mediastinum/Aorta: Normal mediastinum. No osseous abnormality seen. XR/XR chest 1V portable [id number] IMPRESSION: 1. Interstitial thickening is probably due to edema noted bilaterally. 2. Very small LEFT pleural effusion.
--- NOTE | 2019-11-24 04:42 | ECG_ITS ---
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 Measurements Intervals [place] Rate: 85 P: 32 AL: 113 QRS: -9 QRSD: 101 T: 58 QT: 381 QTc: 456 Interpretive Statements SINUS RHYTHM WITH SHORT AL INTERVAL LOW QRS VOLTAGE IN EXTREMITY LEADS [QRS DEFLECTION < 0.5 mV IN LIMB LEADS] Compared to ECG 09/30/2019 14:08:39 Short AL interval now present Electronically Signed On 11-24-2019 19:54:59 CDT by Myrna Puckett M.D. [email or web address]
--- NOTE | 2019-11-24 04:44 | ED_ITS ---
Documented by User: Malathi Portillo 11/25/19 19:58 HPI - Abdominal Pain General: Chief Complaint: Abdominal Pain Stated Complaint: ABD PAIN Time Seen by Provider: 11/24/19 04:36 Source: patient and EMS Mode of arrival: EMS Limitations: no limitations History of Present Illness: HPI narrative: Mr. Oquendo is a nice 53-year-old male who comes in with 1 week of nausea vomiting and diarrhea. He states he has diffuse cramping abdominal pain. He denies any blood in his stools or blood in his vomit. He states the pain is been constant for 1 week. He has had a cough but denies any shortness of breath, sore throat, loss sense of taste or loss of sense of smell. He does not describe any chest pain or shortness of breath. Patient is unaware of any ill contacts that he may have come in contact with. He says there is nothing that makes his symptoms better or worse. He has had a temperature up to 100.0 but no higher. Associated Symptoms: Reports diarrhea, nausea and vomiting; Denies chills, coffee ground emesis, constipation, GI cramping, dysuria, fever(s), heartburn, hematochezia, hematuria, hematemesis, melena and syncope Review of Systems Const: Denies: fever(s), chills, body aches, fatigue, malaise or diaphoresis Eyes: Denies: change in vision, blurry vision, photophobia, eye discomfort, eye discharge, eye redness or yellow eyes ENMT: Denies: throat pain, odynophagia, hoarseness, swelling of lips/tongue, ear or mastoid pain, ear discharge, change in hearing or nasal discharge Card: Denies: chest pain, palpitations, irregular heart rhythm, edema, lightheadedness, syncope, pre-syncope, dyspnea on exertion or orthopnea Resp: Denies: dyspnea, productive cough, non-productive cough, wheezing, hemoptysis or chest congestion GI: Reports: abdominal pain, nausea, vomiting and diarrhea; Denies: hematemesis, coffee ground emesis, heartburn, constipation, GI cramping, hematochezia or melena : Denies: flank pain, dysuria, urinary frequency, urinary urgency or hematuria Musc: Denies: neck pain, back pain, extremity pain, extremity swelling, joint pain, joint swelling, joint redness, joint warmth or joint stiffness Skin/Breast: Denies: rash, pruritus, erythema, skin pain or skin tenderness Neuro: Denies: headache(s), numbness in extremities, weakness in extremities, sensory changes, lack of coordination, difficulty walking, dizziness, vertigo, confusion, Slurred speech present or seizure-like activity Jose Martin/Lymph: Denies: easy bruising, easy bleeding, petechiae, purpura or enlarged lymph nodes All/Imm: Denies: urticaria, throat swelling, tongue swelling, facial swelling or acute wheezing PFSH ED PFSH: Medical History Ascites Chronic cervical pain Chronic low back pain Diabetes Diabetic neuropathy, painful Encounter for long-term opiate analgesic use Liver cirrhosis Liver failure Somatic dysfunction of back THORACIC AND LUMBAR Surgical History History of abdominal paracentesis History of colonoscopy History of esophagogastroduodenoscopy (EGD) Hx of circumcision Hx of inguinal hernia repair (~05/22/18) LAP REPAIR OF RIGHT INGUINAL HERNIA WITH ULTRAPRO 15X10 CM MESH. Hx of oral surgery Family History Father Cancer LUNG CANCER Other Diabetes Heart disease Lung disease Myocardial infarct Stroke Denies family history of Anesthesia complication Bleeding disorder Social History Smoking and tobacco status: current every day smoker cigarettes Alcohol intake: former Year of sobriety/quit date alcohol: 2009 Caregiver/support person: Yes Lives independently: Yes Household members: friend(s) Current occupational status: disabled History of recent travel: No Physical Exam Const: COMMON NORMALS: no acute distress, patient oriented x3, no limitations and alert GENERAL APPEARANCE: cooperative HENMT: COMMON NORMALS: normocephalic, atraumatic, external ears normal, EAC's normal and Normal external nose present HEAD & SCALP: normal to inspection, normocephalic and atraumatic FACE & SINUS: normal facial exam and face symmetric NOSE: Normal external nose present and Normal nares present EXTERNAL EAR: Yes external ears normal EXTERNAL AUDITORY CANAL: EAC's normal MOUTH: Normal oral and palatal mucosa present, lip normal and tongue normal Eye: COMMON NORMALS: Equal, round and reactive pupils present and conjunctivae normal GENERAL EYE: appearance normal, both eyes and all related structures ALIGNMENT: Yes alignment normal PERIORBITAL: periorbital findings normal EYELID: eyelids normal CONJUNCTIVA: Yes conjunctivae normal SCLERA: sclerae normal PUPIL: Yes Equal, round and reactive pupils present Neck/C-Spine: COMMON NORMALS: full ROM, no lymphadenopathy, supple, no meningeal signs and no JVD GENERAL: Yes normal visual inspection and Yes trachea midline Chest: COMMONS NORMALS: normal inspection of the chest and normal palpation of entire chest wall Resp: COMMON NORMALS: normal respiratory effort, No retractions, No use of accessory muscles and clear to auscultation bilaterally EFFORT & INSPECTION: Yes able to speak in complete sentences and Yes symmetric chest movement AUSCULTATION: clear to auscultation bilaterally, no crackles, no rales, no rhonchi and no wheezes Cardio: COMMON NORMALS: no JVD, regular rate, regular rhythm, S1 normal heart sound present and S2 normal heart sound present RATE: regular rate RHYTHM: regular rhythm HEART SOUNDS: S1 normal heart sound present, S2 normal heart sound present, no click, no gallops, no murmurs and no rubs GI: COMMON NORMALS: Soft to palpation and No hepatosplenomegaly present PALPATION: Yes Soft to palpation, No Tenderness to palpation present (GI), No Guarding due to palpation present (GI), No Rigid due to palpation, Yes No hepatosplenomegaly present, No Hernia present, No Palpable mass present and No Pulsatile mass present : COMMON NORMALS: Yes no CVA tenderness BLADDER/KIDNEY EXAM: Yes no CVA tenderness Back/Pelvis: COMMON NORMALS: no CVA tenderness, thoracic and lumbar spine normal to inspection, no thoracic nor lumbar tenderness and thoraco-lumbar ROM normal Extremity: COMMON NORMALS: normal to inspection, full ROM, capillary refill normal, no joint enlargement, no clubbing, cyanosis or edema and no calf tenderness Neuro: COMMON NORMALS: patient oriented x3, CN's II-XII intact bilaterally, moves all extremities, no focal motor deficits and no sensory deficits noted SENSORIUM/ORIENTATION: Yes alert MENINGEAL SIGNS: Yes no meningeal signs SPEECH: speech normal Psych: COMMON NORMALS: mental status grossly normal, Normal thought process present, cooperative, normal affect, speech normal and activity/motor behavior normal SPEECH: Yes normal speech THOUGHT PROCESS: Normal thought process present Skin: COMMON NORMALS: no rashes or lesions noted, turgor normal, no jaundice, no petechiae and no mottling GENERAL SKIN EXAM: no rashes or lesions noted and turgor normal Course Vital Signs: Vital signs: Vital Signs Temperature 98.4 F 11/24/19 14:46 Pulse Rate 54 L 11/26/19 12:39 Respiratory Rate 18 11/26/19 12:39 Blood Pressure 182/83 11/26/19 12:39 Pulse Oximetry 91 11/26/19 12:39 MDM - Abdominal Pain Lab Data: Attestation: I reviewed the patient's lab results. Labs: Lab Results 11/24/19 11/24/19 11/24/19 Range/Units 02:30 04:50 05:00 WBC 5.3 (4.0-10.0) 10^3/ uL RBC 2.40 L (4.1-5.3) 10^6/u L Hgb 7.5 L (11.7-16.6) g/dL Hct 22.9 L (42.0-52.0) % MCV 95.4 H (80-94) fL MCH 31.3 (28.0-34.0) pg MCHC 32.8 (30.0-36.0) g/dL RDW 16.5 H (12.1-15.1) % Plt Count 77 L (130-400) 10^3/c mm MPV 10.5 H (7.4-10.4) fL Neut % (Auto) 71.3 % Lymph % (Auto) 10.9 % [place] % (Auto) 13.2 % Eos % (Auto) 3.0 % Baso % (Auto) 0.8 % Neut # (Auto) 3.79 (1.8-7.7) 10^3/u L Lymph # (Auto) 0.6 L (0.8-4.8) 10^3/u L [place] # (Auto) 0.7 (0.2-0.9) 10^3/u L Eos # (Auto) 0.2 (0.0-0.8) 10^3/u L Baso # (Auto) 0.0 (0.0-0.1) 10^3/u L Nucleated RBC % (a uto) 0 % Nucleated RBCs # 0.0 /100WBC PT 18.40 H (12.1-14.9) SECO NDS INR 1.47 H (0.8-1.2) APTT 42.1 H (23.9-36.7) SECO NDS Fibrinogen (174-498) mg/dL D-Dimer (0-0.59) ug/mIFE U Specimen Type Arterial Sample Site Radial, right ABG pH 7.51 H (7.35-7.45) ABG pCO2 25.8 L (35-45) mmHg ABG pO2 56.9 L (80.0-100.0) mmH g ABG HCO3 20.5 L (22-26) mmol/L ABG Base Excess -2.1 L (-2.0-2.0) mmol/ L Josafat Test Pos Hematocrit 22.6 L (42-52) % O2 Delivery Device Not Reportable Load Out Worker ID ellpe Sodium (136-145) mmol/L Potassium (3.5-5.1) mmol/L Chloride (98-107) mmol/L Carbon Dioxide (22-29) mmol/L Anion Gap (5-19) BUN (6-20) mg/dL Creatinine (0.7-1.2) mg/dL GFR Calculation (90-130) mL/min Glucose (65-115) mg/dL POC Glucose (70-110) mg/dL Calculated Osmolal ity (285-295) mOsm/k g Lactic Acid (0.5-2.2) mmol/L Lactate (0.5-2.2) mmol/L Calcium (8.5-10.5) mg/dL Phosphorus (2.5-4.5) mg/dL Magnesium (1.7-2.3) mg/dL Ferritin (30-400) ng/mL Total Bilirubin (0.15-1.2) mg/dL AST (0-40) U/L ALT (0-41) U/L Alkaline Phosphata se (40-130) IU/L Lactate Dehydrogen ase (135-225) U/L Creatine Kinase (39-308) U/L Troponin T Gen 5 n g/L (0-15) ng/L Troponin T Baselin e (0-15) ng/L Troponin T 120 Min [place] (0-15) ng/L Delta Troponin T (0-10) ABS# Troponin T Hi Sens 6Hr (0-15) ng/L Troponin T Hi Sens 6Hr Delta (0-12) ng/L C-Reactive Protein (0.0-4.9) mg/L Total Protein (6.6-8.7) g/dL Albumin (3.5-5.2) g/dL Globulin (1.3-4.6) g/dL Lipase (13-60) U/L Procalcitonin (0-0.5) ng/mL Urine Color (Yellow) Urine Appearance (CLEAR) Urine pH (5-7) Ur Specific Gravit y (1.005-1.030) Urine Protein (Negative) Urine Glucose (UA) (Normal) Urine Ketones (Negative) Urine Blood (Negative) Urine Nitrate (Negative) Urine Bilirubin (Negative) Urine Urobilinogen (Negative) mg/dL Ur Leukocyte Amanda ase (Negative) Urine RBC (0-2) /hpf Urine WBC (0-5) /hpf Ur Squamous Epith Cells (0-5) /hpf Amorphous Sediment Urine Bacteria (NONE) /hpf Serum Ketones (Negative) Nasal/Oral COVID-1 9 PCR SARS-CoV-2 Ag (Rap id) (Negative) Blood Type Rho(D) Type Antibody Screen Crossmatch 11/24/19 11/24/19 11/24/19 Range/Units 05:00 05:00 05:00 WBC (4.0-10.0) 10^3/ uL RBC (4.1-5.3) 10^6/u L Hgb (11.7-16.6) g/dL Hct (42.0-52.0) % MCV (80-94) fL MCH (28.0-34.0) pg MCHC (30.0-36.0) g/dL RDW (12.1-15.1) % Plt Count (130-400) 10^3/c mm MPV (7.4-10.4) fL Neut % (Auto) % Lymph % (Auto) % [place] % (Auto) % Eos % (Auto) % Baso % (Auto) % Neut # (Auto) (1.8-7.7) 10^3/u L Lymph # (Auto) (0.8-4.8) 10^3/u L [place] # (Auto) (0.2-0.9) 10^3/u L Eos # (Auto) (0.0-0.8) 10^3/u L Baso # (Auto) (0.0-0.1) 10^3/u L Nucleated RBC % (a uto) % Nucleated RBCs # /100WBC PT (12.1-14.9) SECO NDS INR (0.8-1.2) APTT (23.9-36.7) SECO NDS Fibrinogen (174-498) mg/dL D-Dimer (0-0.59) ug/mIFE U Specimen Type Sample Site ABG pH (7.35-7.45) ABG pCO2 (35-45) mmHg ABG pO2 (80.0-100.0) mmH g ABG HCO3 (22-26) mmol/L ABG Base Excess (-2.0-2.0) mmol/ L Josafat Test Hematocrit (42-52) % O2 Delivery Device Load Out Worker ID Sodium 136 (136-145) mmol/L Potassium 3.7 (3.5-5.1) mmol/L Chloride 107 (98-107) mmol/L Carbon Dioxide 18 L (22-29) mmol/L Anion Gap 14.7 (5-19) BUN 20 (6-20) mg/dL Creatinine 1.0 (0.7-1.2) mg/dL GFR Calculation 78.2 L (90-130) mL/min Glucose 219 H (65-115) mg/dL POC Glucose (70-110) mg/dL Calculated Osmolal ity 291 (285-295) mOsm/k g Lactic Acid 2.0 (0.5-2.2) mmol/L Lactate (0.5-2.2) mmol/L Calcium 7.4 L (8.5-10.5) mg/dL Phosphorus (2.5-4.5) mg/dL Magnesium 1.4 L (1.7-2.3) mg/dL Ferritin (30-400) ng/mL Total Bilirubin 0.9 (0.15-1.2) mg/dL AST 17 (0-40) U/L ALT 8 (0-41) U/L Alkaline Phosphata se 115 (40-130) IU/L Lactate Dehydrogen ase (135-225) U/L Creatine Kinase (39-308) U/L Troponin T Gen 5 n g/L (0-15) ng/L Troponin T Baselin e 91 H (0-15) ng/L Troponin T 120 Min [place] (0-15) ng/L Delta Troponin T (0-10) ABS# Troponin T Hi Sens 6Hr (0-15) ng/L Troponin T Hi Sens 6Hr Delta (0-12) ng/L C-Reactive Protein (0.0-4.9) mg/L Total Protein 5.6 L (6.6-8.7) g/dL Albumin 2.0 L (3.5-5.2) g/dL Globulin 3.6 (1.3-4.6) g/dL Lipase 48 (13-60) U/L Procalcitonin (0-0.5) ng/mL Urine Color (Yellow) Urine Appearance (CLEAR) Urine pH (5-7) Ur Specific Gravit y (1.005-1.030) Urine Protein (Negative) Urine Glucose (UA) (Normal) Urine Ketones (Negative) Urine Blood (Negative) Urine Nitrate (Negative) Urine Bilirubin (Negative) Urine Urobilinogen (Negative) mg/dL Ur Leukocyte Amanda ase (Negative) Urine RBC (0-2) /hpf Urine WBC (0-5) /hpf Ur Squamous Epith Cells (0-5) /hpf Amorphous Sediment Urine Bacteria (NONE) /hpf Serum Ketones Negative (Negative) Nasal/Oral COVID-1 9 PCR SARS-CoV-2 Ag (Rap id) (Negative) Blood Type Rho(D) Type Antibody Screen Crossmatch 11/24/19 11/24/19 11/24/19 Range/Units 05:00 05:00 05:00 WBC (4.0-10.0) 10^3/ uL RBC (4.1-5.3) 10^6/u L Hgb (11.7-16.6) g/dL Hct (42.0-52.0) % MCV (80-94) fL MCH (28.0-34.0) pg MCHC (30.0-36.0) g/dL RDW (12.1-15.1) % Plt Count (130-400) 10^3/c mm MPV (7.4-10.4) fL Neut % (Auto) % Lymph % (Auto) % [place] % (Auto) % Eos % (Auto) % Baso % (Auto) % Neut # (Auto) (1.8-7.7) 10^3/u L Lymph # (Auto) (0.8-4.8) 10^3/u L [place] # (Auto) (0.2-0.9) 10^3/u L Eos # (Auto) (0.0-0.8) 10^3/u L Baso # (Auto) (0.0-0.1) 10^3/u L Nucleated RBC % (a uto) % Nucleated RBCs # /100WBC PT (12.1-14.9) SECO NDS INR (0.8-1.2) APTT (23.9-36.7) SECO NDS Fibrinogen 214 (174-498) mg/dL D-Dimer 11.59 H (0-0.59) ug/mIFE U Specimen Type Sample Site ABG pH (7.35-7.45) ABG pCO2 (35-45) mmHg ABG pO2 (80.0-100.0) mmH g ABG HCO3 (22-26) mmol/L ABG Base Excess (-2.0-2.0) mmol/ L Josafat Test Hematocrit (42-52) % O2 Delivery Device Load Out Worker ID Sodium (136-145) mmol/L Potassium (3.5-5.1) mmol/L Chloride (98-107) mmol/L Carbon Dioxide (22-29) mmol/L Anion Gap (5-19) BUN (6-20) mg/dL Creatinine (0.7-1.2) mg/dL GFR Calculation (90-130) mL/min Glucose (65-115) mg/dL POC Glucose (70-110) mg/dL Calculated Osmolal ity (285-295) mOsm/k g Lactic Acid (0.5-2.2) mmol/L Lactate (0.5-2.2) mmol/L Calcium (8.5-10.5) mg/dL Phosphorus (2.5-4.5) mg/dL Magnesium (1.7-2.3) mg/dL Ferritin 605 H (30-400) ng/mL Total Bilirubin (0.15-1.2) mg/dL AST (0-40) U/L ALT (0-41) U/L Alkaline Phosphata se (40-130) IU/L Lactate Dehydrogen ase 314 H (135-225) U/L Creatine Kinase 104 (39-308) U/L Troponin T Gen 5 n g/L (0-15) ng/L Troponin T Baselin e (0-15) ng/L Troponin T 120 Min [place] (0-15) ng/L Delta Troponin T (0-10) ABS# Troponin T Hi Sens 6Hr (0-15) ng/L Troponin T Hi Sens 6Hr Delta (0-12) ng/L C-Reactive Protein 57.1 H (0.0-4.9) mg/L Total Protein (6.6-8.7) g/dL Albumin (3.5-5.2) g/dL Globulin (1.3-4.6) g/dL Lipase (13-60) U/L Procalcitonin 0.23 (0-0.5) ng/mL Urine Color (Yellow) Urine Appearance (CLEAR) Urine pH (5-7) Ur Specific Gravit y (1.005-1.030) Urine Protein (Negative) Urine Glucose (UA) (Normal) Urine Ketones (Negative) Urine Blood (Negative) Urine Nitrate (Negative) Urine Bilirubin (Negative) Urine Urobilinogen (Negative) mg/dL Ur Leukocyte Amanda ase (Negative) Urine RBC (0-2) /hpf Urine WBC (0-5) /hpf Ur Squamous Epith Cells (0-5) /hpf Amorphous Sediment Urine Bacteria (NONE) /hpf Serum Ketones (Negative) Nasal/Oral COVID-1 9 PCR SARS-CoV-2 Ag (Rap id) Negative (Negative) Blood Type Rho(D) Type Antibody Screen Crossmatch 11/24/19 11/24/19 11/24/19 Range/Units 06:03 06:22 06:44 WBC (4.0-10.0) 10^3/ uL RBC (4.1-5.3) 10^6/u L Hgb (11.7-16.6) g/dL Hct (42.0-52.0) % MCV (80-94) fL MCH (28.0-34.0) pg MCHC (30.0-36.0) g/dL RDW (12.1-15.1) % Plt Count (130-400) 10^3/c mm MPV (7.4-10.4) fL Neut % (Auto) % Lymph % (Auto) % [place] % (Auto) % Eos % (Auto) % Baso % (Auto) % Neut # (Auto) (1.8-7.7) 10^3/u L Lymph # (Auto) (0.8-4.8) 10^3/u L [place] # (Auto) (0.2-0.9) 10^3/u L Eos # (Auto) (0.0-0.8) 10^3/u L Baso # (Auto) (0.0-0.1) 10^3/u L Nucleated RBC % (a uto) % Nucleated RBCs # /100WBC PT (12.1-14.9) SECO NDS INR (0.8-1.2) APTT (23.9-36.7) SECO NDS Fibrinogen (174-498) mg/dL D-Dimer (0-0.59) ug/mIFE U Specimen Type Sample Site ABG pH (7.35-7.45) ABG pCO2 (35-45) mmHg ABG pO2 (80.0-100.0) mmH g ABG HCO3 (22-26) mmol/L ABG Base Excess (-2.0-2.0) mmol/ L Josafat Test Hematocrit (42-52) % O2 Delivery Device Load Out Worker ID Sodium (136-145) mmol/L Potassium (3.5-5.1) mmol/L Chloride (98-107) mmol/L Carbon Dioxide (22-29) mmol/L Anion Gap (5-19) BUN (6-20) mg/dL Creatinine (0.7-1.2) mg/dL GFR Calculation (90-130) mL/min Glucose (65-115) mg/dL POC Glucose (70-110) mg/dL Calculated Osmolal ity (285-295) mOsm/k g Lactic Acid (0.5-2.2) mmol/L Lactate (0.5-2.2) mmol/L Calcium (8.5-10.5) mg/dL Phosphorus (2.5-4.5) mg/dL Magnesium (1.7-2.3) mg/dL Ferritin (30-400) ng/mL Total Bilirubin (0.15-1.2) mg/dL AST (0-40) U/L ALT (0-41) U/L Alkaline Phosphata se (40-130) IU/L Lactate Dehydrogen ase (135-225) U/L Creatine Kinase (39-308) U/L Troponin T Gen 5 n g/L (0-15) ng/L Troponin T Baselin e (0-15) ng/L Troponin T 120 Min [place] 99.31 H (0-15) ng/L Delta Troponin T 8.31 (0-10) ABS# Troponin T Hi Sens 6Hr (0-15) ng/L Troponin T Hi Sens 6Hr Delta (0-12) ng/L C-Reactive Protein (0.0-4.9) mg/L Total Protein (6.6-8.7) g/dL Albumin (3.5-5.2) g/dL Globulin (1.3-4.6) g/dL Lipase (13-60) U/L Procalcitonin (0-0.5) ng/mL Urine Color Yellow (Yellow) Urine Appearance Clear (CLEAR) Urine pH 5 (5-7) Ur Specific Gravit y 1.010 (1.005-1.030) Urine Protein 1+ H (Negative) Urine Glucose (UA) Norm (Normal) Urine Ketones Negative (Negative) Urine Blood 3+ H (Negative) Urine Nitrate Negative (Negative) Urine Bilirubin Neg (Negative) Urine Urobilinogen 1 H (Negative) mg/dL Ur Leukocyte Amanda ase Negative (Negative) Urine RBC 5-10 H (0-2) /hpf Urine WBC 0-4 H (0-5) /hpf Ur Squamous Epith Cells None (0-5) /hpf Amorphous Sediment Not Reportable Urine Bacteria Trace (NONE) /hpf Serum Ketones (Negative) Nasal/Oral COVID-1 9 PCR SARS-CoV-2 Ag (Rap id) (Negative) Blood Type O Positive Rho(D) Type Positive Antibody Screen Negative Crossmatch See Detail 11/24/19 11/24/19 11/24/19 Range/Units 07:48 18:40 18:40 WBC 4.3 (4.0-10.0) 10^3/ uL RBC 3.21 L (4.1-5.3) 10^6/u L Hgb 10.0 L D (11.7-16.6) g/dL Hct 30.2 L D (42.0-52.0) % MCV 94.1 H (80-94) fL MCH 31.2 (28.0-34.0) pg MCHC 33.1 (30.0-36.0) g/dL RDW 15.3 H (12.1-15.1) % Plt Count 65 L (130-400) 10^3/c mm MPV 10.8 H (7.4-10.4) fL Neut % (Auto) 84.5 % Lymph % (Auto) 9.0 % [place] % (Auto) 5.1 % Eos % (Auto) 0.0 % Baso % (Auto) 0.2 % Neut # (Auto) 3.66 (1.8-7.7) 10^3/u L Lymph # (Auto) 0.4 L (0.8-4.8) 10^3/u L [place] # (Auto) 0.2 (0.2-0.9) 10^3/u L Eos # (Auto) 0.0 (0.0-0.8) 10^3/u L Baso # (Auto) 0.0 (0.0-0.1) 10^3/u L Nucleated RBC % (a uto) 0 % Nucleated RBCs # 0.0 /100WBC PT (12.1-14.9) SECO NDS INR (0.8-1.2) APTT (23.9-36.7) SECO NDS Fibrinogen (174-498) mg/dL D-Dimer (0-0.59) ug/mIFE U Specimen Type Sample Site ABG pH (7.35-7.45) ABG pCO2 (35-45) mmHg ABG pO2 (80.0-100.0) mmH g ABG HCO3 (22-26) mmol/L ABG Base Excess (-2.0-2.0) mmol/ L Josafat Test Hematocrit (42-52) % O2 Delivery Device Load Out Worker ID Sodium 134 L (136-145) mmol/L Potassium 4.5 (3.5-5.1) mmol/L Chloride 106 (98-107) mmol/L Carbon Dioxide 18 L (22-29) mmol/L Anion Gap 14.5 (5-19) BUN 21 H (6-20) mg/dL Creatinine 1.0 (0.7-1.2) mg/dL GFR Calculation 78.2 L (90-130) mL/min Glucose 246 H (65-115) mg/dL POC Glucose (70-110) mg/dL Calculated Osmolal ity 289 (285-295) mOsm/k g Lactic Acid (0.5-2.2) mmol/L Lactate (0.5-2.2) mmol/L Calcium 7.4 L (8.5-10.5) mg/dL Phosphorus (2.5-4.5) mg/dL Magnesium (1.7-2.3) mg/dL Ferritin (30-400) ng/mL Total Bilirubin (0.15-1.2) mg/dL AST (0-40) U/L ALT (0-41) U/L Alkaline Phosphata se (40-130) IU/L Lactate Dehydrogen ase (135-225) U/L Creatine Kinase (39-308) U/L Troponin T Gen 5 n g/L (0-15) ng/L Troponin T Baselin e (0-15) ng/L Troponin T 120 Min [place] (0-15) ng/L Delta Troponin T (0-10) ABS# Troponin T Hi Sens 6Hr (0-15) ng/L Troponin T Hi Sens 6Hr Delta (0-12) ng/L C-Reactive Protein (0.0-4.9) mg/L Total Protein (6.6-8.7) g/dL Albumin (3.5-5.2) g/dL Globulin (1.3-4.6) g/dL Lipase (13-60) U/L Procalcitonin (0-0.5) ng/mL Urine Color (Yellow) Urine Appearance (CLEAR) Urine pH (5-7) Ur Specific Gravit y (1.005-1.030) Urine Protein (Negative) Urine Glucose (UA) (Normal) Urine Ketones (Negative) Urine Blood (Negative) Urine Nitrate (Negative) Urine Bilirubin (Negative) Urine Urobilinogen (Negative) mg/dL Ur Leukocyte Amanda ase (Negative) Urine RBC (0-2) /hpf Urine WBC (0-5) /hpf Ur Squamous Epith Cells (0-5) /hpf Amorphous Sediment Urine Bacteria (NONE) /hpf Serum Ketones (Negative) Nasal/Oral COVID-1 9 PCR Negative SARS-CoV-2 Ag (Rap id) (Negative) Blood Type Rho(D) Type Antibody Screen Crossmatch 11/24/19 11/24/19 11/24/19 Range/Units 18:40 20:18 21:44 WBC (4.0-10.0) 10^3/ uL RBC (4.1-5.3) 10^6/u L Hgb (11.7-16.6) g/dL Hct (42.0-52.0) % MCV (80-94) fL MCH (28.0-34.0) pg MCHC (30.0-36.0) g/dL RDW (12.1-15.1) % Plt Count (130-400) 10^3/c mm MPV (7.4-10.4) fL Neut % (Auto) % Lymph % (Auto) % [place] % (Auto) % Eos % (Auto) % Baso % (Auto) % Neut # (Auto) (1.8-7.7) 10^3/u L Lymph # (Auto) (0.8-4.8) 10^3/u L [place] # (Auto) (0.2-0.9) 10^3/u L Eos # (Auto) (0.0-0.8) 10^3/u L Baso # (Auto) (0.0-0.1) 10^3/u L Nucleated RBC % (a uto) % Nucleated RBCs # /100WBC PT (12.1-14.9) SECO NDS INR (0.8-1.2) APTT (23.9-36.7) SECO NDS Fibrinogen (174-498) mg/dL D-Dimer (0-0.59) ug/mIFE U Specimen Type Sample Site ABG pH (7.35-7.45) ABG pCO2 (35-45) mmHg ABG pO2 (80.0-100.0) mmH g ABG HCO3 (22-26) mmol/L ABG Base Excess (-2.0-2.0) mmol/ L Josafat Test Hematocrit (42-52) % O2 Delivery Device Load Out Worker ID Sodium (136-145) mmol/L Potassium (3.5-5.1) mmol/L Chloride (98-107) mmol/L Carbon Dioxide (22-29) mmol/L Anion Gap (5-19) BUN (6-20) mg/dL Creatinine (0.7-1.2) mg/dL GFR Calculation (90-130) mL/min Glucose (65-115) mg/dL POC Glucose (70-110) mg/dL Calculated Osmolal ity (285-295) mOsm/k g Lactic Acid 1.5 (0.5-2.2) mmol/L Lactate (0.5-2.2) mmol/L Calcium (8.5-10.5) mg/dL Phosphorus (2.5-4.5) mg/dL Magnesium (1.7-2.3) mg/dL Ferritin (30-400) ng/mL Total Bilirubin (0.15-1.2) mg/dL AST (0-40) U/L ALT (0-41) U/L Alkaline Phosphata se (40-130) IU/L Lactate Dehydrogen ase (135-225) U/L Creatine Kinase (39-308) U/L Troponin T Gen 5 n g/L 89 H (0-15) ng/L Troponin T Baselin e (0-15) ng/L Troponin T 120 Min [place] (0-15) ng/L Delta Troponin T (0-10) ABS# Troponin T Hi Sens 6Hr 93.84 H (0-15) ng/L Troponin T Hi Sens 6Hr Delta 2.84 (0-12) ng/L C-Reactive Protein (0.0-4.9) mg/L Total Protein (6.6-8.7) g/dL Albumin (3.5-5.2) g/dL Globulin (1.3-4.6) g/dL Lipase (13-60) U/L Procalcitonin (0-0.5) ng/mL Urine Color (Yellow) Urine Appearance (CLEAR) Urine pH (5-7) Ur Specific Gravit y (1.005-1.030) Urine Protein (Negative) Urine Glucose (UA) (Normal) Urine Ketones (Negative) Urine Blood (Negative) Urine Nitrate (Negative) Urine Bilirubin (Negative) Urine Urobilinogen (Negative) mg/dL Ur Leukocyte Amanda ase (Negative) Urine RBC (0-2) /hpf Urine WBC (0-5) /hpf Ur Squamous Epith Cells (0-5) /hpf Amorphous Sediment Urine Bacteria (NONE) /hpf Serum Ketones (Negative) Nasal/Oral COVID-1 9 PCR SARS-CoV-2 Ag (Rap id) (Negative) Blood Type Rho(D) Type Antibody Screen Crossmatch 11/25/19 11/25/19 11/25/19 Range/Units 13:31 13:31 13:31 WBC 7.2 (4.0-10.0) 10^3/ uL RBC 3.31 L (4.1-5.3) 10^6/u L Hgb 10.3 L (11.7-16.6) g/dL Hct 31.4 L (42.0-52.0) % MCV 94.9 H (80-94) fL MCH 31.1 (28.0-34.0) pg MCHC 32.8 (30.0-36.0) g/dL RDW 15.9 H (12.1-15.1) % Plt Count 77 L (130-400) 10^3/c mm MPV 11.7 H (7.4-10.4) fL Neut % (Auto) 78.4 % Lymph % (Auto) 11.5 % [place] % (Auto) 8.8 % Eos % (Auto) 0.3 % Baso % (Auto) 0.3 % Neut # (Auto) 5.61 (1.8-7.7) 10^3/u L Lymph # (Auto) 0.8 (0.8-4.8) 10^3/u L [place] # (Auto) 0.6 (0.2-0.9) 10^3/u L Eos # (Auto) 0.0 (0.0-0.8) 10^3/u L Baso # (Auto) 0.0 (0.0-0.1) 10^3/u L Nucleated RBC % (a uto) 0 % Nucleated RBCs # 0.0 /100WBC PT (12.1-14.9) SECO NDS INR (0.8-1.2) APTT (23.9-36.7) SECO NDS Fibrinogen (174-498) mg/dL D-Dimer (0-0.59) ug/mIFE U Specimen Type Sample Site ABG pH (7.35-7.45) ABG pCO2 (35-45) mmHg ABG pO2 (80.0-100.0) mmH g ABG HCO3 (22-26) mmol/L ABG Base Excess (-2.0-2.0) mmol/ L Josafat Test Hematocrit (42-52) % O2 Delivery Device Load Out Worker ID Sodium 137 (136-145) mmol/L Potassium 3.9 (3.5-5.1) mmol/L Chloride 107 (98-107) mmol/L Carbon Dioxide 18 L (22-29) mmol/L Anion Gap 16.9 (5-19) BUN 30 H (6-20) mg/dL Creatinine 1.1 (0.7-1.2) mg/dL GFR Calculation 70.0 L (90-130) mL/min Glucose 202 H (65-115) mg/dL POC Glucose (70-110) mg/dL Calculated Osmolal ity 295 (285-295) mOsm/k g Lactic Acid (0.5-2.2) mmol/L Lactate 2.6 H (0.5-2.2) mmol/L Calcium 7.7 L (8.5-10.5) mg/dL Phosphorus (2.5-4.5) mg/dL Magnesium (1.7-2.3) mg/dL Ferritin (30-400) ng/mL Total Bilirubin (0.15-1.2) mg/dL AST (0-40) U/L ALT (0-41) U/L Alkaline Phosphata se (40-130) IU/L Lactate Dehydrogen ase (135-225) U/L Creatine Kinase (39-308) U/L Troponin T Gen 5 n g/L (0-15) ng/L Troponin T Baselin e (0-15) ng/L Troponin T 120 Min [place] (0-15) ng/L Delta Troponin T (0-10) ABS# Troponin T Hi Sens 6Hr (0-15) ng/L Troponin T Hi Sens 6Hr Delta (0-12) ng/L C-Reactive Protein (0.0-4.9) mg/L Total Protein (6.6-8.7) g/dL Albumin (3.5-5.2) g/dL Globulin (1.3-4.6) g/dL Lipase (13-60) U/L Procalcitonin (0-0.5) ng/mL Urine Color (Yellow) Urine Appearance (CLEAR) Urine pH (5-7) Ur Specific Gravit y (1.005-1.030) Urine Protein (Negative) Urine Glucose (UA) (Normal) Urine Ketones (Negative) Urine Blood (Negative) Urine Nitrate (Negative) Urine Bilirubin (Negative) Urine Urobilinogen (Negative) mg/dL Ur Leukocyte Amanda ase (Negative) Urine RBC (0-2) /hpf Urine WBC (0-5) /hpf Ur Squamous Epith Cells (0-5) /hpf Amorphous Sediment Urine Bacteria (NONE) /hpf Serum Ketones (Negative) Nasal/Oral COVID-1 9 PCR SARS-CoV-2 Ag (Rap id) (Negative) Blood Type Rho(D) Type Antibody Screen Crossmatch 11/25/19 11/25/19 11/25/19 Range/Units 13:31 18:22 18:43 WBC (4.0-10.0) 10^3/ uL RBC (4.1-5.3) 10^6/u L Hgb (11.7-16.6) g/dL Hct (42.0-52.0) % MCV (80-94) fL MCH (28.0-34.0) pg MCHC (30.0-36.0) g/dL RDW (12.1-15.1) % Plt Count (130-400) 10^3/c mm MPV (7.4-10.4) fL Neut % (Auto) % Lymph % (Auto) % [place] % (Auto) % Eos % (Auto) % Baso % (Auto) % Neut # (Auto) (1.8-7.7) 10^3/u L Lymph # (Auto) (0.8-4.8) 10^3/u L [place] # (Auto) (0.2-0.9) 10^3/u L Eos # (Auto) (0.0-0.8) 10^3/u L Baso # (Auto) (0.0-0.1) 10^3/u L Nucleated RBC % (a uto) % Nucleated RBCs # /100WBC PT (12.1-14.9) SECO NDS INR (0.8-1.2) APTT 57.8 H (23.9-36.7) SECO NDS Fibrinogen (174-498) mg/dL D-Dimer (0-0.59) ug/mIFE U Specimen Type Sample Site ABG pH (7.35-7.45) ABG pCO2 (35-45) mmHg ABG pO2 (80.0-100.0) mmH g ABG HCO3 (22-26) mmol/L ABG Base Excess (-2.0-2.0) mmol/ L Josafat Test Hematocrit (42-52) % O2 Delivery Device Load Out Worker ID Sodium (136-145) mmol/L Potassium (3.5-5.1) mmol/L Chloride (98-107) mmol/L Carbon Dioxide (22-29) mmol/L Anion Gap (5-19) BUN (6-20) mg/dL Creatinine (0.7-1.2) mg/dL GFR Calculation (90-130) mL/min Glucose (65-115) mg/dL POC Glucose 183 (70-110) mg/dL Calculated Osmolal ity (285-295) mOsm/k g Lactic Acid 1.7 (0.5-2.2) mmol/L Lactate (0.5-2.2) mmol/L Calcium (8.5-10.5) mg/dL Phosphorus (2.5-4.5) mg/dL Magnesium (1.7-2.3) mg/dL Ferritin (30-400) ng/mL Total Bilirubin (0.15-1.2) mg/dL AST (0-40) U/L ALT (0-41) U/L Alkaline Phosphata se (40-130) IU/L Lactate Dehydrogen ase (135-225) U/L Creatine Kinase (39-308) U/L Troponin T Gen 5 n g/L (0-15) ng/L Troponin T Baselin e (0-15) ng/L Troponin T 120 Min [place] (0-15) ng/L Delta Troponin T (0-10) ABS# Troponin T Hi Sens 6Hr (0-15) ng/L Troponin T Hi Sens 6Hr Delta (0-12) ng/L C-Reactive Protein (0.0-4.9) mg/L Total Protein (6.6-8.7) g/dL Albumin (3.5-5.2) g/dL Globulin (1.3-4.6) g/dL Lipase (13-60) U/L Procalcitonin (0-0.5) ng/mL Urine Color (Yellow) Urine Appearance (CLEAR) Urine pH (5-7) Ur Specific Gravit y (1.005-1.030) Urine Protein (Negative) Urine Glucose (UA) (Normal) Urine Ketones (Negative) Urine Blood (Negative) Urine Nitrate (Negative) Urine Bilirubin (Negative) Urine Urobilinogen (Negative) mg/dL Ur Leukocyte Amanda ase (Negative) Urine RBC (0-2) /hpf Urine WBC (0-5) /hpf Ur Squamous Epith Cells (0-5) /hpf Amorphous Sediment Urine Bacteria (NONE) /hpf Serum Ketones (Negative) Nasal/Oral COVID-1 9 PCR SARS-CoV-2 Ag (Rap id) (Negative) Blood Type Rho(D) Type Antibody Screen Crossmatch 11/25/19 11/26/19 11/26/19 Range/Units 18:43 01:37 01:39 WBC 6.1 (4.0-10.0) 10^3/ uL RBC 3.03 L (4.1-5.3) 10^6/u L Hgb 9.5 L (11.7-16.6) g/dL Hct 28.3 L (42.0-52.0) % MCV 93.4 (80-94) fL MCH 31.4 (28.0-34.0) pg MCHC 33.6 (30.0-36.0) g/dL RDW 16.0 H (12.1-15.1) % Plt Count 76 L (130-400) 10^3/c mm MPV 11.0 H (7.4-10.4) fL Neut % (Auto) 73.8 % Lymph % (Auto) 13.6 % [place] % (Auto) 10.2 % Eos % (Auto) 1.3 % Baso % (Auto) 0.3 % Neut # (Auto) 4.49 (1.8-7.7) 10^3/u L Lymph # (Auto) 0.8 (0.8-4.8) 10^3/u L [place] # (Auto) 0.6 (0.2-0.9) 10^3/u L Eos # (Auto) 0.1 (0.0-0.8) 10^3/u L Baso # (Auto) 0.0 (0.0-0.1) 10^3/u L Nucleated RBC % (a uto) 0 % Nucleated RBCs # 0.0 /100WBC PT (12.1-14.9) SECO NDS INR (0.8-1.2) APTT (23.9-36.7) SECO NDS Fibrinogen (174-498) mg/dL D-Dimer (0-0.59) ug/mIFE U Specimen Type Sample Site ABG pH (7.35-7.45) ABG pCO2 (35-45) mmHg ABG pO2 (80.0-100.0) mmH g ABG HCO3 (22-26) mmol/L ABG Base Excess (-2.0-2.0) mmol/ L Josafat Test Hematocrit (42-52) % O2 Delivery Device Load Out Worker ID Sodium (136-145) mmol/L Potassium (3.5-5.1) mmol/L Chloride (98-107) mmol/L Carbon Dioxide (22-29) mmol/L Anion Gap (5-19) BUN (6-20) mg/dL Creatinine (0.7-1.2) mg/dL GFR Calculation (90-130) mL/min Glucose (65-115) mg/dL POC Glucose 136 (70-110) mg/dL Calculated Osmolal ity (285-295) mOsm/k g Lactic Acid (0.5-2.2) mmol/L Lactate (0.5-2.2) mmol/L Calcium (8.5-10.5) mg/dL Phosphorus 2.8 (2.5-4.5) mg/dL Magnesium 1.5 L (1.7-2.3) mg/dL Ferritin (30-400) ng/mL Total Bilirubin (0.15-1.2) mg/dL AST (0-40) U/L ALT (0-41) U/L Alkaline Phosphata se (40-130) IU/L Lactate Dehydrogen ase (135-225) U/L Creatine Kinase (39-308) U/L Troponin T Gen 5 n g/L (0-15) ng/L Troponin T Baselin e (0-15) ng/L Troponin T 120 Min [place] (0-15) ng/L Delta Troponin T (0-10) ABS# Troponin T Hi Sens 6Hr (0-15) ng/L Troponin T Hi Sens 6Hr Delta (0-12) ng/L C-Reactive Protein (0.0-4.9) mg/L Total Protein (6.6-8.7) g/dL Albumin (3.5-5.2) g/dL Globulin (1.3-4.6) g/dL Lipase (13-60) U/L Procalcitonin 0.21 (0-0.5) ng/mL Urine Color (Yellow) Urine Appearance (CLEAR) Urine pH (5-7) Ur Specific Gravit y (1.005-1.030) Urine Protein (Negative) Urine Glucose (UA) (Normal) Urine Ketones (Negative) Urine Blood (Negative) Urine Nitrate (Negative) Urine Bilirubin (Negative) Urine Urobilinogen (Negative) mg/dL Ur Leukocyte Amanda ase (Negative) Urine RBC (0-2) /hpf Urine WBC (0-5) /hpf Ur Squamous Epith Cells (0-5) /hpf Amorphous Sediment Urine Bacteria (NONE) /hpf Serum Ketones (Negative) Nasal/Oral COVID-1 9 PCR SARS-CoV-2 Ag (Rap id) (Negative) Blood Type Rho(D) Type Antibody Screen Crossmatch 11/26/19 11/26/19 11/26/19 Range/Units 01:39 01:39 08:35 WBC (4.0-10.0) 10^3/ uL RBC (4.1-5.3) 10^6/u L Hgb (11.7-16.6) g/dL Hct (42.0-52.0) % MCV (80-94) fL MCH (28.0-34.0) pg MCHC (30.0-36.0) g/dL RDW (12.1-15.1) % Plt Count (130-400) 10^3/c mm MPV (7.4-10.4) fL Neut % (Auto) % Lymph % (Auto) % [place] % (Auto) % Eos % (Auto) % Baso % (Auto) % Neut # (Auto) (1.8-7.7) 10^3/u L Lymph # (Auto) (0.8-4.8) 10^3/u L [place] # (Auto) (0.2-0.9) 10^3/u L Eos # (Auto) (0.0-0.8) 10^3/u L Baso # (Auto) (0.0-0.1) 10^3/u L Nucleated RBC % (a uto) % Nucleated RBCs # /100WBC PT (12.1-14.9) SECO NDS INR (0.8-1.2) APTT (23.9-36.7) SECO NDS Fibrinogen (174-498) mg/dL D-Dimer (0-0.59) ug/mIFE U Specimen Type Sample Site ABG pH (7.35-7.45) ABG pCO2 (35-45) mmHg ABG pO2 (80.0-100.0) mmH g ABG HCO3 (22-26) mmol/L ABG Base Excess (-2.0-2.0) mmol/ L Josafat Test Hematocrit (42-52) % O2 Delivery Device Load Out Worker ID Sodium 136 (136-145) mmol/L Potassium 3.7 (3.5-5.1) mmol/L Chloride 109 H (98-107) mmol/L Carbon Dioxide 17 L (22-29) mmol/L Anion Gap 13.7 (5-19) BUN 26 H (6-20) mg/dL Creatinine 1.0 (0.7-1.2) mg/dL GFR Calculation 78.2 L (90-130) mL/min Glucose 142 H (65-115) mg/dL POC Glucose 141 (70-110) mg/dL Calculated Osmolal ity 289 (285-295) mOsm/k g Lactic Acid (0.5-2.2) mmol/L Lactate (0.5-2.2) mmol/L Calcium 7.6 L (8.5-10.5) mg/dL Phosphorus 2.7 (2.5-4.5) mg/dL Magnesium 1.4 L (1.7-2.3) mg/dL Ferritin (30-400) ng/mL Total Bilirubin 0.7 (0.15-1.2) mg/dL AST 24 (0-40) U/L ALT 8 (0-41) U/L Alkaline Phosphata se 100 (40-130) IU/L Lactate Dehydrogen ase (135-225) U/L Creatine Kinase (39-308) U/L Troponin T Gen 5 n g/L (0-15) ng/L Troponin T Baselin e (0-15) ng/L Troponin T 120 Min [place] (0-15) ng/L Delta Troponin T (0-10) ABS# Troponin T Hi Sens 6Hr (0-15) ng/L Troponin T Hi Sens 6Hr Delta (0-12) ng/L C-Reactive Protein (0.0-4.9) mg/L Total Protein 5.7 L (6.6-8.7) g/dL Albumin 2.1 L (3.5-5.2) g/dL Globulin 3.6 (1.3-4.6) g/dL Lipase (13-60) U/L Procalcitonin 0.20 (0-0.5) ng/mL Urine Color (Yellow) Urine Appearance (CLEAR) Urine pH (5-7) Ur Specific Gravit y (1.005-1.030) Urine Protein (Negative) Urine Glucose (UA) (Normal) Urine Ketones (Negative) Urine Blood (Negative) Urine Nitrate (Negative) Urine Bilirubin (Negative) Urine Urobilinogen (Negative) mg/dL Ur Leukocyte Amanda ase (Negative) Urine RBC (0-2) /hpf Urine WBC (0-5) /hpf Ur Squamous Epith Cells (0-5) /hpf Amorphous Sediment Urine Bacteria (NONE) /hpf Serum Ketones (Negative) Nasal/Oral COVID-1 9 PCR SARS-CoV-2 Ag (Rap id) (Negative) Blood Type Rho(D) Type Antibody Screen Crossmatch 11/26/19 Range/Units 10:38 WBC (4.0-10.0) 10^3/ uL RBC (4.1-5.3) 10^6/u L Hgb (11.7-16.6) g/dL Hct (42.0-52.0) % MCV (80-94) fL MCH (28.0-34.0) pg MCHC (30.0-36.0) g/dL RDW (12.1-15.1) % Plt Count (130-400) 10^3/c mm MPV (7.4-10.4) fL Neut % (Auto) % Lymph % (Auto) % [place] % (Auto) % Eos % (Auto) % Baso % (Auto) % Neut # (Auto) (1.8-7.7) 10^3/u L Lymph # (Auto) (0.8-4.8) 10^3/u L [place] # (Auto) (0.2-0.9) 10^3/u L Eos # (Auto) (0.0-0.8) 10^3/u L Baso # (Auto) (0.0-0.1) 10^3/u L Nucleated RBC % (a uto) % Nucleated RBCs # /100WBC PT (12.1-14.9) SECO NDS INR (0.8-1.2) APTT > 250.0 H* D (23.9-36.7) SECO NDS Fibrinogen (174-498) mg/dL D-Dimer (0-0.59) ug/mIFE U Specimen Type Sample Site ABG pH (7.35-7.45) ABG pCO2 (35-45) mmHg ABG pO2 (80.0-100.0) mmH g ABG HCO3 (22-26) mmol/L ABG Base Excess (-2.0-2.0) mmol/ L Josafat Test Hematocrit (42-52) % O2 Delivery Device Load Out Worker ID Sodium (136-145) mmol/L Potassium (3.5-5.1) mmol/L Chloride (98-107) mmol/L Carbon Dioxide (22-29) mmol/L Anion Gap (5-19) BUN (6-20) mg/dL Creatinine (0.7-1.2) mg/dL GFR Calculation (90-130) mL/min Glucose (65-115) mg/dL POC Glucose (70-110) mg/dL Calculated Osmolal ity (285-295) mOsm/k g Lactic Acid (0.5-2.2) mmol/L Lactate (0.5-2.2) mmol/L Calcium (8.5-10.5) mg/dL Phosphorus (2.5-4.5) mg/dL Magnesium (1.7-2.3) mg/dL Ferritin (30-400) ng/mL Total Bilirubin (0.15-1.2) mg/dL AST (0-40) U/L ALT (0-41) U/L Alkaline Phosphata se (40-130) IU/L Lactate Dehydrogen ase (135-225) U/L Creatine Kinase (39-308) U/L Troponin T Gen 5 n g/L (0-15) ng/L Troponin T Baselin e (0-15) ng/L Troponin T 120 Min [place] (0-15) ng/L Delta Troponin T (0-10) ABS# Troponin T Hi Sens 6Hr (0-15) ng/L Troponin T Hi Sens 6Hr Delta (0-12) ng/L C-Reactive Protein (0.0-4.9) mg/L Total Protein (6.6-8.7) g/dL Albumin (3.5-5.2) g/dL Globulin (1.3-4.6) g/dL Lipase (13-60) U/L Procalcitonin (0-0.5) ng/mL Urine Color (Yellow) Urine Appearance (CLEAR) Urine pH (5-7) Ur Specific Gravit y (1.005-1.030) Urine Protein (Negative) Urine Glucose (UA) (Normal) Urine Ketones (Negative) Urine Blood (Negative) Urine Nitrate (Negative) Urine Bilirubin (Negative) Urine Urobilinogen (Negative) mg/dL Ur Leukocyte Amanda ase (Negative) Urine RBC (0-2) /hpf Urine WBC (0-5) /hpf Ur Squamous Epith Cells (0-5) /hpf Amorphous Sediment Urine Bacteria (NONE) /hpf Serum Ketones (Negative) Nasal/Oral COVID-1 9 PCR SARS-CoV-2 Ag (Rap id) (Negative) Blood Type Rho(D) Type Antibody Screen Crossmatch Imaging Data ^: CXR: Attestation: I personally reviewed and interpreted this imaging study as follows: My impression: Mild bibasilar infiltrates similar to previous EKG Data ^: EKG 1: Attestation: I personally reviewed and interpreted this EKG as follows: EKG interpretation date: 11/24/19 EKG interpretation time: 05:42 Interpretation: Normal sinus rhythm at 85 beats a minute, short [place], normal QRS and QT intervals. No acute ST-T wave changes. Discharge Plan Discharge Clinical Impression: Colitis, Anemia, Superior mesenteric artery thrombosis, Suspected 2019-nCoV infection, Non-ST elevation [place] (NSTEMI), Mesenteric artery thrombosis, Diabetes, Liver cirrhosis, Portal hypertension, Thrombocytopenia Condition: Stable Prescriptions: No Action nitroglycerin [Nitrostat] 0.4 mg tablet, sublingual 0.4 mg SUBLINGUAL Q5M PRN (Reason: Chest Pain) RF: 0 oxycodone 30 mg tablet 30 mg PO 5XD PRN (Reason: Pain) 30 Days Qty: 150 RF: 0 oxycodone [OxyContin] 10 mg tablet,oral only,ext.rel.12 hr 10 mg PO Q12H 7 Days Qty: 14 RF: 0 fluticasone propion-salmeterol [Advair Diskus] 250-50 mcg/dose Blister With Device 1 inh INHALATION BID RF: 0 Tresiba FlexTouch U-100 100 unit/mL (3 mL) Insulin Pen 20 unit SUBCUT BEDTIME PRN (Reason: Hyperglycemia) RF: 0 albuterol sulfate 90 mcg/actuation Aero Powdr Breath Act W/Sensor 1 - 2 inh INHALATION QID PRN (Reason: Shortness Of Breath) RF: 0 trazodone 150 mg tablet 150 mg PO BEDTIME PRN (Reason: Sleep) RF: 0 ibuprofen 200 mg Tablet 200 - 400 mg PO DAILY PRN (Reason: Pain) RF: 0 furosemide 40 mg tablet 40 mg PO DAILY@0800 RF: 0 lorazepam 0.5 mg tablet 0.5 mg PO BEDTIME PRN (Reason: unknown) RF: 0 insulin aspart U-100 [Novolog Flexpen U-100 Insulin] 100 unit/mL (3 mL) insul in pen 5 unit SUBCUT TID RF: 0 lactulose 10 gram/15 mL solution 5 - 10 ml PO DAILY PRN (Reason: Constipation) RF: 0 Dexilant 30 mg capsule,biphase delayed releas 30 mg PO DAILY RF: 0 aspirin 325 mg Tablet 325 mg PO DAILY RF: 0 albuterol sulfate 2.5 mg /3 mL (0.083 %) Solution For Nebulization 2.5 mg INHALATION Q4H PRN (Reason: Shortness Of Breath) RF: 0 Referrals: Andreia De León DO [Primary Care Provider] - Discharge Date/Time: 11/26/19 14:30 Sign Out Sign Out Data: Patient Sign Out occurred on 11/24/19 at 06:10. Patient's care was discussed, and care was transferred from Malathi Portillo to Neville Vasquez DO. Sign Out Comment: Case turned over to Dr. Vasquez at change of shift. Last updated by Malathi Portillo at 11/24/19 06:01 Patient Sign Out occurred on 11/26/19 at 06:31. Patient's care was discussed, and care was transferred from Malathi Portillo to Neville Vasquez DO. Sign Out Comment: Case again turned over to Dr. Vasquez at change of shift. Last updated by Malathi Portillo at 11/26/19 05:58 Coding Level of Care Code ED Salvage Supervisor for Chg Fwd Exam Comprehensive Documented by User: Neville Vasquez DO 11/26/19 16:08 HPI - Abdominal Pain General: Chief Complaint: Abdominal Pain Stated Complaint: ABD PAIN Time Seen by Provider: 11/24/19 04:36 PFS ED PFSH: Medical History Ascites Chronic cervical pain Chronic low back pain Diabetes Diabetic neuropathy, painful Encounter for long-term opiate analgesic use Liver cirrhosis Liver failure Somatic dysfunction of back THORACIC AND LUMBAR Surgical History History of abdominal paracentesis History of colonoscopy History of esophagogastroduodenoscopy (EGD) Hx of circumcision Hx of inguinal hernia repair (~05/22/18) LAP REPAIR OF RIGHT INGUINAL HERNIA WITH ULTRAPRO 15X10 CM MESH. Hx of oral surgery Family History Father Cancer LUNG CANCER Other Diabetes Heart disease Lung disease Myocardial infarct Stroke Denies family history of Anesthesia complication Bleeding disorder Social History Smoking and tobacco status: current every day smoker cigarettes Alcohol intake: former Year of sobriety/quit date alcohol: 2009 Caregiver/support person: Yes Lives independently: Yes Household members: friend(s) Current occupational status: disabled History of recent travel: No Course Vital Signs: Vital signs: Vital Signs Temperature 98.4 F 11/24/19 14:46 Pulse Rate 54 L 11/26/19 12:39 Respiratory Rate 18 11/26/19 12:39 Blood Pressure 182/83 11/26/19 12:39 Pulse Oximetry 91 11/26/19 12:39 MDM - Abdominal Pain MDM Narrative: Medical decision making narrative: Reviewed chart assumed care from Dr. Anthony at change of shift. I am still suspicious the patient may have Covid, he does have lymphocytopenia, we will put him back on precautions get a PTC swab he is already getting blood present anemia he also has thrombocytopenia CT shows a pancolitis and a partial obstruction of the superior mesenteric artery with no evidence of ischemia at this point additionally he has a delta troponin that is positive with no acute ST changes. I discussed with Dr. Townsend for the hospitalist service with both agree we really do not have the services he will need here including GI and possible interventional radiology. We will try to transfer him to [facility] he has been seen there before and evidently has been scheduled for evaluation for a TIPS procedure there. We are going to give him Lovenox based on his delta troponin and the thrombosis in the SMA. He claims allergies to Levaquin and penicillin will do ceftriaxone and Flagyl. [facility] affiliated with [facility] accepted on transfer however there is a significant delay in getting a bed Dr. Jasmine consulted to help with medical management in the ER while we are waiting bed assignment at [facility] in [place] which is affiliated with [facility]. 11/25/19 0900 -PCR is negative. Patient Covid precautions removed: inform [facility] about the results. Chart reviewed. [facility] [place] [facility] available. On exam patient chest is clear he is bradycardic but awake alert blood pressure stable. We went to move the patient he bradycardia down into the 30s it was decided instead to transport via air ambulance. Patient was stable and he was discharged from the emergency room. Lab Data: Labs: Lab Results 11/24/19 11/24/19 11/24/19 Range/Units 02:30 04:50 05:00 WBC 5.3 (4.0-10.0) 10^3/ uL RBC 2.40 L (4.1-5.3) 10^6/u L Hgb 7.5 L (11.7-16.6) g/dL Hct 22.9 L (42.0-52.0) % MCV 95.4 H (80-94) fL MCH 31.3 (28.0-34.0) pg MCHC 32.8 (30.0-36.0) g/dL RDW 16.5 H (12.1-15.1) % Plt Count 77 L (130-400) 10^3/c mm MPV 10.5 H (7.4-10.4) fL Neut % (Auto) 71.3 % Lymph % (Auto) 10.9 % [place] % (Auto) 13.2 % Eos % (Auto) 3.0 % Baso % (Auto) 0.8 % Neut # (Auto) 3.79 (1.8-7.7) 10^3/u L Lymph # (Auto) 0.6 L (0.8-4.8) 10^3/u L [place] # (Auto) 0.7 (0.2-0.9) 10^3/u L Eos # (Auto) 0.2 (0.0-0.8) 10^3/u L Baso # (Auto) 0.0 (0.0-0.1) 10^3/u L Nucleated RBC % (a uto) 0 % Nucleated RBCs # 0.0 /100WBC PT 18.40 H (12.1-14.9) SECO NDS INR 1.47 H (0.8-1.2) APTT 42.1 H (23.9-36.7) SECO NDS Fibrinogen (174-498) mg/dL D-Dimer (0-0.59) ug/mIFE U Specimen Type Arterial Sample Site Radial, right ABG pH 7.51 H (7.35-7.45) ABG pCO2 25.8 L (35-45) mmHg ABG pO2 56.9 L (80.0-100.0) mmH g ABG HCO3 20.5 L (22-26) mmol/L ABG Base Excess -2.1 L (-2.0-2.0) mmol/ L Josafat Test Pos Hematocrit 22.6 L (42-52) % O2 Delivery Device Not Reportable Load Out Worker ID [email or web address] Sodium (136-145) mmol/L Potassium (3.5-5.1) mmol/L Chloride (98-107) mmol/L Carbon Dioxide (22-29) mmol/L Anion Gap (5-19) BUN (6-20) mg/dL Creatinine (0.7-1.2) mg/dL GFR Calculation (90-130) mL/min Glucose (65-115) mg/dL POC Glucose (70-110) mg/dL Calculated Osmolal ity (285-295) mOsm/k g Lactic Acid (0.5-2.2) mmol/L Lactate (0.5-2.2) mmol/L Calcium (8.5-10.5) mg/dL Phosphorus (2.5-4.5) mg/dL Magnesium (1.7-2.3) mg/dL Ferritin (30-400) ng/mL Total Bilirubin (0.15-1.2) mg/dL AST (0-40) U/L ALT (0-41) U/L Alkaline Phosphata se (40-130) IU/L Lactate Dehydrogen ase (135-225) U/L Creatine Kinase (39-308) U/L Troponin T Gen 5 n g/L (0-15) ng/L Troponin T Baselin e (0-15) ng/L Troponin T 120 Min [place] (0-15) ng/L Delta Troponin T (0-10) ABS# Troponin T Hi Sens 6Hr (0-15) ng/L Troponin T Hi Sens 6Hr Delta (0-12) ng/L C-Reactive Protein (0.0-4.9) mg/L Total Protein (6.6-8.7) g/dL Albumin (3.5-5.2) g/dL Globulin (1.3-4.6) g/dL Lipase (13-60) U/L Procalcitonin (0-0.5) ng/mL Urine Color (Yellow) Urine Appearance (CLEAR) Urine pH (5-7) Ur Specific Gravit y (1.005-1.030) Urine Protein (Negative) Urine Glucose (UA) (Normal) Urine Ketones (Negative) Urine Blood (Negative) Urine Nitrate (Negative) Urine Bilirubin (Negative) Urine Urobilinogen (Negative) mg/dL Ur Leukocyte Amanda ase (Negative) Urine RBC (0-2) /hpf Urine WBC (0-5) /hpf Ur Squamous Epith Cells (0-5) /hpf Amorphous Sediment Urine Bacteria (NONE) /hpf Serum Ketones (Negative) Nasal/Oral COVID-1 9 PCR SARS-CoV-2 Ag (Rap id) (Negative) Blood Type Rho(D) Type Antibody Screen Crossmatch 11/24/19 11/24/19 11/24/19 Range/Units 05:00 05:00 05:00 WBC (4.0-10.0) 10^3/ uL RBC (4.1-5.3) 10^6/u L Hgb (11.7-16.6) g/dL Hct (42.0-52.0) % MCV (80-94) fL MCH (28.0-34.0) pg MCHC (30.0-36.0) g/dL RDW (12.1-15.1) % Plt Count (130-400) 10^3/c mm MPV (7.4-10.4) fL Neut % (Auto) % Lymph % (Auto) % [place] % (Auto) % Eos % (Auto) % Baso % (Auto) % Neut # (Auto) (1.8-7.7) 10^3/u L Lymph # (Auto) (0.8-4.8) 10^3/u L [place] # (Auto) (0.2-0.9) 10^3/u L Eos # (Auto) (0.0-0.8) 10^3/u L Baso # (Auto) (0.0-0.1) 10^3/u L Nucleated RBC % (a uto) % Nucleated RBCs # /100WBC PT (12.1-14.9) SECO NDS INR (0.8-1.2) APTT (23.9-36.7) SECO NDS Fibrinogen (174-498) mg/dL D-Dimer (0-0.59) ug/mIFE U Specimen Type Sample Site ABG pH (7.35-7.45) ABG pCO2 (35-45) mmHg ABG pO2 (80.0-100.0) mmH g ABG HCO3 (22-26) mmol/L ABG Base Excess (-2.0-2.0) mmol/ L Josafat Test Hematocrit (42-52) % O2 Delivery Device Load Out Worker ID Sodium 136 (136-145) mmol/L Potassium 3.7 (3.5-5.1) mmol/L Chloride 107 (98-107) mmol/L Carbon Dioxide 18 L (22-29) mmol/L Anion Gap 14.7 (5-19) BUN 20 (6-20) mg/dL Creatinine 1.0 (0.7-1.2) mg/dL GFR Calculation 78.2 L (90-130) mL/min Glucose 219 H (65-115) mg/dL POC Glucose (70-110) mg/dL Calculated Osmolal ity 291 (285-295) mOsm/k g Lactic Acid 2.0 (0.5-2.2) mmol/L Lactate (0.5-2.2) mmol/L Calcium 7.4 L (8.5-10.5) mg/dL Phosphorus (2.5-4.5) mg/dL Magnesium 1.4 L (1.7-2.3) mg/dL Ferritin (30-400) ng/mL Total Bilirubin 0.9 (0.15-1.2) mg/dL AST 17 (0-40) U/L ALT 8 (0-41) U/L Alkaline Phosphata se 115 (40-130) IU/L Lactate Dehydrogen ase (135-225) U/L Creatine Kinase (39-308) U/L Troponin T Gen 5 n g/L (0-15) ng/L Troponin T Baselin e 91 H (0-15) ng/L Troponin T 120 Min [place] (0-15) ng/L Delta Troponin T (0-10) ABS# Troponin T Hi Sens 6Hr (0-15) ng/L Troponin T Hi Sens 6Hr Delta (0-12) ng/L C-Reactive Protein (0.0-4.9) mg/L Total Protein 5.6 L (6.6-8.7) g/dL Albumin 2.0 L (3.5-5.2) g/dL Globulin 3.6 (1.3-4.6) g/dL Lipase 48 (13-60) U/L Procalcitonin (0-0.5) ng/mL Urine Color (Yellow) Urine Appearance (CLEAR) Urine pH (5-7) Ur Specific Gravit y (1.005-1.030) Urine Protein (Negative) Urine Glucose (UA) (Normal) Urine Ketones (Negative) Urine Blood (Negative) Urine Nitrate (Negative) Urine Bilirubin (Negative) Urine Urobilinogen (Negative) mg/dL Ur Leukocyte Amanda ase (Negative) Urine RBC (0-2) /hpf Urine WBC (0-5) /hpf Ur Squamous Epith Cells (0-5) /hpf Amorphous Sediment Urine Bacteria (NONE) /hpf Serum Ketones Negative (Negative) Nasal/Oral COVID-1 9 PCR SARS-CoV-2 Ag (Rap id) (Negative) Blood Type Rho(D) Type Antibody Screen Crossmatch 11/24/19 11/24/19 11/24/19 Range/Units 05:00 05:00 05:00 WBC (4.0-10.0) 10^3/ uL RBC (4.1-5.3) 10^6/u L Hgb (11.7-16.6) g/dL Hct (42.0-52.0) % MCV (80-94) fL MCH (28.0-34.0) pg MCHC (30.0-36.0) g/dL RDW (12.1-15.1) % Plt Count (130-400) 10^3/c mm MPV (7.4-10.4) fL Neut % (Auto) % Lymph % (Auto) % [place] % (Auto) % Eos % (Auto) % Baso % (Auto) % Neut # (Auto) (1.8-7.7) 10^3/u L Lymph # (Auto) (0.8-4.8) 10^3/u L [place] # (Auto) (0.2-0.9) 10^3/u L Eos # (Auto) (0.0-0.8) 10^3/u L Baso # (Auto) (0.0-0.1) 10^3/u L Nucleated RBC % (a uto) % Nucleated RBCs # /100WBC PT (12.1-14.9) SECO NDS INR (0.8-1.2) APTT (23.9-36.7) SECO NDS Fibrinogen 214 (174-498) mg/dL D-Dimer 11.59 H (0-0.59) ug/mIFE U Specimen Type Sample Site ABG pH (7.35-7.45) ABG pCO2 (35-45) mmHg ABG pO2 (80.0-100.0) mmH g ABG HCO3 (22-26) mmol/L ABG Base Excess (-2.0-2.0) mmol/ L Josafat Test Hematocrit (42-52) % O2 Delivery Device Load Out Worker ID Sodium (136-145) mmol/L Potassium (3.5-5.1) mmol/L Chloride (98-107) mmol/L Carbon Dioxide (22-29) mmol/L Anion Gap (5-19) BUN (6-20) mg/dL Creatinine (0.7-1.2) mg/dL GFR Calculation (90-130) mL/min Glucose (65-115) mg/dL POC Glucose (70-110) mg/dL Calculated Osmolal ity (285-295) mOsm/k g Lactic Acid (0.5-2.2) mmol/L Lactate (0.5-2.2) mmol/L Calcium (8.5-10.5) mg/dL Phosphorus (2.5-4.5) mg/dL Magnesium (1.7-2.3) mg/dL Ferritin 605 H (30-400) ng/mL Total Bilirubin (0.15-1.2) mg/dL AST (0-40) U/L ALT (0-41) U/L Alkaline Phosphata se (40-130) IU/L Lactate Dehydrogen ase 314 H (135-225) U/L Creatine Kinase 104 (39-308) U/L Troponin T Gen 5 n g/L (0-15) ng/L Troponin T Baselin e (0-15) ng/L Troponin T 120 Min [place] (0-15) ng/L Delta Troponin T (0-10) ABS# Troponin T Hi Sens 6Hr (0-15) ng/L Troponin T Hi Sens 6Hr Delta (0-12) ng/L C-Reactive Protein 57.1 H (0.0-4.9) mg/L Total Protein (6.6-8.7) g/dL Albumin (3.5-5.2) g/dL Globulin (1.3-4.6) g/dL Lipase (13-60) U/L Procalcitonin 0.23 (0-0.5) ng/mL Urine Color (Yellow) Urine Appearance (CLEAR) Urine pH (5-7) Ur Specific Gravit y (1.005-1.030) Urine Protein (Negative) Urine Glucose (UA) (Normal) Urine Ketones (Negative) Urine Blood (Negative) Urine Nitrate (Negative) Urine Bilirubin (Negative) Urine Urobilinogen (Negative) mg/dL Ur Leukocyte Amanda ase (Negative) Urine RBC (0-2) /hpf Urine WBC (0-5) /hpf Ur Squamous Epith Cells (0-5) /hpf Amorphous Sediment Urine Bacteria (NONE) /hpf Serum Ketones (Negative) Nasal/Oral COVID-1 9 PCR SARS-CoV-2 Ag (Rap id) Negative (Negative) Blood Type Rho(D) Type Antibody Screen Crossmatch 11/24/19 11/24/19 11/24/19 Range/Units 06:03 06:22 06:44 WBC (4.0-10.0) 10^3/ uL RBC (4.1-5.3) 10^6/u L Hgb (11.7-16.6) g/dL Hct (42.0-52.0) % MCV (80-94) fL MCH (28.0-34.0) pg MCHC (30.0-36.0) g/dL RDW (12.1-15.1) % Plt Count (130-400) 10^3/c mm MPV (7.4-10.4) fL Neut % (Auto) % Lymph % (Auto) % [place] % (Auto) % Eos % (Auto) % Baso % (Auto) % Neut # (Auto) (1.8-7.7) 10^3/u L Lymph # (Auto) (0.8-4.8) 10^3/u L [place] # (Auto) (0.2-0.9) 10^3/u L Eos # (Auto) (0.0-0.8) 10^3/u L Baso # (Auto) (0.0-0.1) 10^3/u L Nucleated RBC % (a uto) % Nucleated RBCs # /100WBC PT (12.1-14.9) SECO NDS INR (0.8-1.2) APTT (23.9-36.7) SECO NDS Fibrinogen (174-498) mg/dL D-Dimer (0-0.59) ug/mIFE U Specimen Type Sample Site ABG pH (7.35-7.45) ABG pCO2 (35-45) mmHg ABG pO2 (80.0-100.0) mmH g ABG HCO3 (22-26) mmol/L ABG Base Excess (-2.0-2.0) mmol/ L Jos[place]at Test Hematocrit (42-52) % O2 Delivery Device Load Out Worker ID Sodium (136-145) mmol/L Potassium (3.5-5.1) mmol/L Chloride (98-107) mmol/L Carbon Dioxide (22-29) mmol/L Anion Gap (5-19) BUN (6-20) mg/dL Creatinine (0.7-1.2) mg/dL GFR Calculation (90-130) mL/min Glucose (65-115) mg/dL POC Glucose (70-110) mg/dL Calculated Osmolal ity (285-295) mOsm/k g Lactic Acid (0.5-2.2) mmol/L Lactate (0.5-2.2) mmol/L Calcium (8.5-10.5) mg/dL Phosphorus (2.5-4.5) mg/dL Magnesium (1.7-2.3) mg/dL Ferritin (30-400) ng/mL Total Bilirubin (0.15-1.2) mg/dL AST (0-40) U/L ALT (0-41) U/L Alkaline Phosphata se (40-130) IU/L Lactate Dehydrogen ase (135-225) U/L Creatine Kinase (39-308) U/L Troponin T Gen 5 n g/L (0-15) ng/L Troponin T Baselin e (0-15) ng/L Troponin T 120 Min [place] 99.31 H (0-15) ng/L Delta Troponin T 8.31 (0-10) ABS# Troponin T Hi Sens 6Hr (0-15) ng/L Troponin T Hi Sens 6Hr Delta (0-12) ng/L C-Reactive Protein (0.0-4.9) mg/L Total Protein (6.6-8.7) g/dL Albumin (3.5-5.2) g/dL Globulin (1.3-4.6) g/dL Lipase (13-60) U/L Procalcitonin (0-0.5) ng/mL Urine Color Yellow (Yellow) Urine Appearance Clear (CLEAR) Urine pH 5 (5-7) Ur Specific Gravit y 1.010 (1.005-1.030) Urine Protein 1+ H (Negative) Urine Glucose (UA) Norm (Normal) Urine Ketones Negative (Negative) Urine Blood 3+ H (Negative) Urine Nitrate Negative (Negative) Urine Bilirubin Neg (Negative) Urine Urobilinogen 1 H (Negative) mg/dL Ur Leukocyte Amanda ase Negative (Negative) Urine RBC 5-10 H (0-2) /hpf Urine WBC 0-4 H (0-5) /hpf Ur Squamous Epith Cells None (0-5) /hpf Amorphous Sediment Not Reportable Urine Bacteria Trace (NONE) /hpf Serum Ketones (Negative) Nasal/Oral COVID-1 9 PCR SARS-CoV-2 Ag (Rap id) (Negative) Blood Type O Positive Rho(D) Type Positive Antibody Screen Negative Crossmatch See Detail 11/24/19 11/24/19 11/24/19 Range/Units 07:48 18:40 18:40 WBC 4.3 (4.0-10.0) 10^3/ uL RBC 3.21 L (4.1-5.3) 10^6/u L Hgb 10.0 L D (11.7-16.6) g/dL Hct 30.2 L D (42.0-52.0) % MCV 94.1 H (80-94) fL MCH 31.2 (28.0-34.0) pg MCHC 33.1 (30.0-36.0) g/dL RDW 15.3 H (12.1-15.1) % Plt Count 65 L (130-400) 10^3/c mm MPV 10.8 H (7.4-10.4) fL Neut % (Auto) 84.5 % Lymph % (Auto) 9.0 % [place] % (Auto) 5.1 % Eos % (Auto) 0.0 % Baso % (Auto) 0.2 % Neut # (Auto) 3.66 (1.8-7.7) 10^3/u L Lymph # (Auto) 0.4 L (0.8-4.8) 10^3/u L [place] # (Auto) 0.2 (0.2-0.9) 10^3/u L Eos # (Auto) 0.0 (0.0-0.8) 10^3/u L Baso # (Auto) 0.0 (0.0-0.1) 10^3/u L Nucleated RBC % (a uto) 0 % Nucleated RBCs # 0.0 /100WBC PT (12.1-14.9) SECO NDS INR (0.8-1.2) APTT (23.9-36.7) SECO NDS Fibrinogen (174-498) mg/dL D-Dimer (0-0.59) ug/mIFE U Specimen Type Sample Site ABG pH (7.35-7.45) ABG pCO2 (35-45) mmHg ABG pO2 (80.0-100.0) mmH g ABG HCO3 (22-26) mmol/L ABG Base Excess (-2.0-2.0) mmol/ L [place] Test Hematocrit (42-52) % O2 Delivery Device Load Out Worker ID Sodium 134 L (136-145) mmol/L Potassium 4.5 (3.5-5.1) mmol/L Chloride 106 (98-107) mmol/L Carbon Dioxide 18 L (22-29) mmol/L Anion Gap 14.5 (5-19) BUN 21 H (6-20) mg/dL Creatinine 1.0 (0.7-1.2) mg/dL GFR Calculation 78.2 L (90-130) mL/min Glucose 246 H (65-115) mg/dL POC Glucose (70-110) mg/dL Calculated Osmolal ity 289 (285-295) mOsm/k g Lactic Acid (0.5-2.2) mmol/L Lactate (0.5-2.2) mmol/L Calcium 7.4 L (8.5-10.5) mg/dL Phosphorus (2.5-4.5) mg/dL Magnesium (1.7-2.3) mg/dL Ferritin (30-400) ng/mL Total Bilirubin (0.15-1.2) mg/dL AST (0-40) U/L ALT (0-41) U/L Alkaline Phosphata se (40-130) IU/L Lactate Dehydrogen ase (135-225) U/L Creatine Kinase (39-308) U/L Troponin T Gen 5 n g/L (0-15) ng/L Troponin T Baselin e (0-15) ng/L Troponin T 120 Min [place] (0-15) ng/L Delta Troponin T (0-10) ABS# Troponin T Hi Sens 6Hr (0-15) ng/L Troponin T Hi Sens 6Hr Delta (0-12) ng/L C-Reactive Protein (0.0-4.9) mg/L Total Protein (6.6-8.7) g/dL Albumin (3.5-5.2) g/dL Globulin (1.3-4.6) g/dL Lipase (13-60) U/L Procalcitonin (0-0.5) ng/mL Urine Color (Yellow) Urine Appearance (CLEAR) Urine pH (5-7) Ur Specific Gravit y (1.005-1.030) Urine Protein (Negative) Urine Glucose (UA) (Normal) Urine Ketones (Negative) Urine Blood (Negative) Urine Nitrate (Negative) Urine Bilirubin (Negative) Urine Urobilinogen (Negative) mg/dL Ur Leukocyte Amanda ase (Negative) Urine RBC (0-2) /hpf Urine WBC (0-5) /hpf Ur Squamous Epith Cells (0-5) /hpf Amorphous Sediment Urine Bacteria (NONE) /hpf Serum Ketones (Negative) Nasal/Oral COVID-1 9 PCR Negative SARS-CoV-2 Ag (Rap id) (Negative) Blood Type Rho(D) Type Antibody Screen Crossmatch 11/24/19 11/24/19 11/24/19 Range/Units 18:40 20:18 21:44 WBC (4.0-10.0) 10^3/ uL RBC (4.1-5.3) 10^6/u L Hgb (11.7-16.6) g/dL Hct (42.0-52.0) % MCV (80-94) fL MCH (28.0-34.0) pg MCHC (30.0-36.0) g/dL RDW (12.1-15.1) % Plt Count (130-400) 10^3/c mm MPV (7.4-10.4) fL Neut % (Auto) % Lymph % (Auto) % [place] % (Auto) % Eos % (Auto) % Baso % (Auto) % Neut # (Auto) (1.8-7.7) 10^3/u L Lymph # (Auto) (0.8-4.8) 10^3/u L [place] # (Auto) (0.2-0.9) 10^3/u L Eos # (Auto) (0.0-0.8) 10^3/u L Baso # (Auto) (0.0-0.1) 10^3/u L Nucleated RBC % (a uto) % Nucleated RBCs # /100WBC PT (12.1-14.9) SECO NDS INR (0.8-1.2) APTT (23.9-36.7) SECO NDS Fibrinogen (174-498) mg/dL D-Dimer (0-0.59) ug/mIFE U Specimen Type Sample Site ABG pH (7.35-7.45) ABG pCO2 (35-45) mmHg ABG pO2 (80.0-100.0) mmH g ABG HCO3 (22-26) mmol/L ABG Base Excess (-2.0-2.0) mmol/ L [place] Test Hematocrit (42-52) % O2 Delivery Device Load Out Worker ID Sodium (136-145) mmol/L Potassium (3.5-5.1) mmol/L Chloride (98-107) mmol/L Carbon Dioxide (22-29) mmol/L Anion Gap (5-19) BUN (6-20) mg/dL Creatinine (0.7-1.2) mg/dL GFR Calculation (90-130) mL/min Glucose (65-115) mg/dL POC Glucose (70-110) mg/dL Calculated Osmolal ity (285-295) mOsm/k g Lactic Acid 1.5 (0.5-2.2) mmol/L Lactate (0.5-2.2) mmol/L Calcium (8.5-10.5) mg/dL Phosphorus (2.5-4.5) mg/dL Magnesium (1.7-2.3) mg/dL Ferritin (30-400) ng/mL Total Bilirubin (0.15-1.2) mg/dL AST (0-40) U/L ALT (0-41) U/L Alkaline Phosphata se (40-130) IU/L Lactate Dehydrogen ase (135-225) U/L Creatine Kinase (39-308) U/L Troponin T Gen 5 n g/L 89 H (0-15) ng/L Troponin T Baselin e (0-15) ng/L Troponin T 120 Min [place] (0-15) ng/L Delta Troponin T (0-10) ABS# Troponin T Hi Sens 6Hr 93.84 H (0-15) ng/L Troponin T Hi Sens 6Hr Delta 2.84 (0-12) ng/L C-Reactive Protein (0.0-4.9) mg/L Total Protein (6.6-8.7) g/dL Albumin (3.5-5.2) g/dL Globulin (1.3-4.6) g/dL Lipase (13-60) U/L Procalcitonin (0-0.5) ng/mL Urine Color (Yellow) Urine Appearance (CLEAR) Urine pH (5-7) Ur Specific Gravit y (1.005-1.030) Urine Protein (Negative) Urine Glucose (UA) (Normal) Urine Ketones (Negative) Urine Blood (Negative) Urine Nitrate (Negative) Urine Bilirubin (Negative) Urine Urobilinogen (Negative) mg/dL Ur Leukocyte Amanda ase (Negative) Urine RBC (0-2) /hpf Urine WBC (0-5) /hpf Ur Squamous Epith Cells (0-5) /hpf Amorphous Sediment Urine Bacteria (NONE) /hpf Serum Ketones (Negative) Nasal/Oral COVID-1 9 PCR SARS-CoV-2 Ag (Rap id) (Negative) Blood Type Rho(D) Type Antibody Screen Crossmatch 11/25/19 11/25/19 11/25/19 Range/Units 13:31 13:31 13:31 WBC 7.2 (4.0-10.0) 10^3/ uL RBC 3.31 L (4.1-5.3) 10^6/u L Hgb 10.3 L (11.7-16.6) g/dL Hct 31.4 L (42.0-52.0) % MCV 94.9 H (80-94) fL MCH 31.1 (28.0-34.0) pg MCHC 32.8 (30.0-36.0) g/dL RDW 15.9 H (12.1-15.1) % Plt Count 77 L (130-400) 10^3/c mm MPV 11.7 H (7.4-10.4) fL Neut % (Auto) 78.4 % Lymph % (Auto) 11.5 % [place] % (Auto) 8.8 % Eos % (Auto) 0.3 % Baso % (Auto) 0.3 % Neut # (Auto) 5.61 (1.8-7.7) 10^3/u L Lymph # (Auto) 0.8 (0.8-4.8) 10^3/u L [place] # (Auto) 0.6 (0.2-0.9) 10^3/u L Eos # (Auto) 0.0 (0.0-0.8) 10^3/u L Baso # (Auto) 0.0 (0.0-0.1) 10^3/u L Nucleated RBC % (a uto) 0 % Nucleated RBCs # 0.0 /100WBC PT (12.1-14.9) SECO NDS INR (0.8-1.2) APTT (23.9-36.7) SECO NDS Fibrinogen (174-498) mg/dL D-Dimer (0-0.59) ug/mIFE U Specimen Type Sample Site ABG pH (7.35-7.45) ABG pCO2 (35-45) mmHg ABG pO2 (80.0-100.0) mmH g ABG HCO3 (22-26) mmol/L ABG Base Excess (-2.0-2.0) mmol/ L [place] Test Hematocrit (42-52) % O2 Delivery Device Load Out Worker ID Sodium 137 (136-145) mmol/L Potassium 3.9 (3.5-5.1) mmol/L Chloride 107 (98-107) mmol/L Carbon Dioxide 18 L (22-29) mmol/L Anion Gap 16.9 (5-19) BUN 30 H (6-20) mg/dL Creatinine 1.1 (0.7-1.2) mg/dL GFR Calculation 70.0 L (90-130) mL/min Glucose 202 H (65-115) mg/dL POC Glucose (70-110) mg/dL Calculated Osmolal ity 295 (285-295) mOsm/k g Lactic Acid (0.5-2.2) mmol/L Lactate 2.6 H (0.5-2.2) mmol/L Calcium 7.7 L (8.5-10.5) mg/dL Phosphorus (2.5-4.5) mg/dL Magnesium (1.7-2.3) mg/dL Ferritin (30-400) ng/mL Total Bilirubin (0.15-1.2) mg/dL AST (0-40) U/L ALT (0-41) U/L Alkaline Phosphata se (40-130) IU/L Lactate Dehydrogen ase (135-225) U/L Creatine Kinase (39-308) U/L Troponin T Gen 5 n g/L (0-15) ng/L Troponin T Baselin e (0-15) ng/L Troponin T 120 Min [place] (0-15) ng/L Delta Troponin T (0-10) ABS# Troponin T Hi Sens 6Hr (0-15) ng/L Troponin T Hi Sens 6Hr Delta (0-12) ng/L C-Reactive Protein (0.0-4.9) mg/L Total Protein (6.6-8.7) g/dL Albumin (3.5-5.2) g/dL Globulin (1.3-4.6) g/dL Lipase (13-60) U/L Procalcitonin (0-0.5) ng/mL Urine Color (Yellow) Urine Appearance (CLEAR) Urine pH (5-7) Ur Specific Gravit y (1.005-1.030) Urine Protein (Negative) Urine Glucose (UA) (Normal) Urine Ketones (Negative) Urine Blood (Negative) Urine Nitrate (Negative) Urine Bilirubin (Negative) Urine Urobilinogen (Negative) mg/dL Ur Leukocyte Amanda ase (Negative) Urine RBC (0-2) /hpf Urine WBC (0-5) /hpf Ur Squamous Epith Cells (0-5) /hpf Amorphous Sediment Urine Bacteria (NONE) /hpf Serum Ketones (Negative) Nasal/Oral COVID-1 9 PCR SARS-CoV-2 Ag (Rap id) (Negative) Blood Type Rho(D) Type Antibody Screen Crossmatch 11/25/19 11/25/19 11/25/19 Range/Units 13:31 18:22 18:43 WBC (4.0-10.0) 10^3/ uL RBC (4.1-5.3) 10^6/u L Hgb (11.7-16.6) g/dL Hct (42.0-52.0) % MCV (80-94) fL MCH (28.0-34.0) pg MCHC (30.0-36.0) g/dL RDW (12.1-15.1) % Plt Count (130-400) 10^3/c mm MPV (7.4-10.4) fL Neut % (Auto) % Lymph % (Auto) % [place] % (Auto) % Eos % (Auto) % Baso % (Auto) % Neut # (Auto) (1.8-7.7) 10^3/u L Lymph # (Auto) (0.8-4.8) 10^3/u L [place] # (Auto) (0.2-0.9) 10^3/u L Eos # (Auto) (0.0-0.8) 10^3/u L Baso # (Auto) (0.0-0.1) 10^3/u L Nucleated RBC % (a uto) % Nucleated RBCs # /100WBC PT (12.1-14.9) SECO NDS INR (0.8-1.2) APTT 57.8 H (23.9-36.7) SECO NDS Fibrinogen (174-498) mg/dL D-Dimer (0-0.59) ug/mIFE U Specimen Type Sample Site ABG pH (7.35-7.45) ABG pCO2 (35-45) mmHg ABG pO2 (80.0-100.0) mmH g ABG HCO3 (22-26) mmol/L ABG Base Excess (-2.0-2.0) mmol/ L [place] Test Hematocrit (42-52) % O2 Delivery Device Load Out Worker ID Sodium (136-145) mmol/L Potassium (3.5-5.1) mmol/L Chloride (98-107) mmol/L Carbon Dioxide (22-29) mmol/L Anion Gap (5-19) BUN (6-20) mg/dL Creatinine (0.7-1.2) mg/dL GFR Calculation (90-130) mL/min Glucose (65-115) mg/dL POC Glucose 183 (70-110) mg/dL Calculated Osmolal ity (285-295) mOsm/k g Lactic Acid 1.7 (0.5-2.2) mmol/L Lactate (0.5-2.2) mmol/L Calcium (8.5-10.5) mg/dL Phosphorus (2.5-4.5) mg/dL Magnesium (1.7-2.3) mg/dL Ferritin (30-400) ng/mL Total Bilirubin (0.15-1.2) mg/dL AST (0-40) U/L ALT (0-41) U/L Alkaline Phosphata se (40-130) IU/L Lactate Dehydrogen ase (135-225) U/L Creatine Kinase (39-308) U/L Troponin T Gen 5 n g/L (0-15) ng/L Troponin T Baselin e (0-15) ng/L Troponin T 120 Min [place] (0-15) ng/L Delta Troponin T (0-10) ABS# Troponin T Hi Sens 6Hr (0-15) ng/L Troponin T Hi Sens 6Hr Delta (0-12) ng/L C-Reactive Protein (0.0-4.9) mg/L Total Protein (6.6-8.7) g/dL Albumin (3.5-5.2) g/dL Globulin (1.3-4.6) g/dL Lipase (13-60) U/L Procalcitonin (0-0.5) ng/mL Urine Color (Yellow) Urine Appearance (CLEAR) Urine pH (5-7) Ur Specific Gravit y (1.005-1.030) Urine Protein (Negative) Urine Glucose (UA) (Normal) Urine Ketones (Negative) Urine Blood (Negative) Urine Nitrate (Negative) Urine Bilirubin (Negative) Urine Urobilinogen (Negative) mg/dL Ur Leukocyte Maanda ase (Negative) Urine RBC (0-2) /hpf Urine WBC (0-5) /hpf Ur Squamous Epith Cells (0-5) /hpf Amorphous Sediment Urine Bacteria (NONE) /hpf Serum Ketones (Negative) Nasal/Oral COVID-1 9 PCR SARS-CoV-2 Ag (Rap id) (Negative) Blood Type Rho(D) Type Antibody Screen Crossmatch 11/25/19 11/26/19 11/26/19 Range/Units 18:43 01:37 01:39 WBC 6.1 (4.0-10.0) 10^3/ uL RBC 3.03 L (4.1-5.3) 10^6/u L Hgb 9.5 L (11.7-16.6) g/dL Hct 28.3 L (42.0-52.0) % MCV 93.4 (80-94) fL MCH 31.4 (28.0-34.0) pg MCHC 33.6 (30.0-36.0) g/dL RDW 16.0 H (12.1-15.1) % Plt Count 76 L (130-400) 10^3/c mm MPV 11.0 H (7.4-10.4) fL Neut % (Auto) 73.8 % Lymph % (Auto) 13.6 % [place] % (Auto) 10.2 % Eos % (Auto) 1.3 % Baso % (Auto) 0.3 % Neut # (Auto) 4.49 (1.8-7.7) 10^3/u L Lymph # (Auto) 0.8 (0.8-4.8) 10^3/u L [place] # (Auto) 0.6 (0.2-0.9) 10^3/u L Eos # (Auto) 0.1 (0.0-0.8) 10^3/u L Baso # (Auto) 0.0 (0.0-0.1) 10^3/u L Nucleated RBC % (a uto) 0 % Nucleated RBCs # 0.0 /100WBC PT (12.1-14.9) SECO NDS INR (0.8-1.2) APTT (23.9-36.7) SECO NDS Fibrinogen (174-498) mg/dL D-Dimer (0-0.59) ug/mIFE U Specimen Type Sample Site ABG pH (7.35-7.45) ABG pCO2 (35-45) mmHg ABG pO2 (80.0-100.0) mmH g ABG HCO3 (22-26) mmol/L ABG Base Excess (-2.0-2.0) mmol/ L [place] Test Hematocrit (42-52) % O2 Delivery Device Load Out Worker ID Sodium (136-145) mmol/L Potassium (3.5-5.1) mmol/L Chloride (98-107) mmol/L Carbon Dioxide (22-29) mmol/L Anion Gap (5-19) BUN (6-20) mg/dL Creatinine (0.7-1.2) mg/dL GFR Calculation (90-130) mL/min Glucose (65-115) mg/dL POC Glucose 136 (70-110) mg/dL Calculated Osmolal ity (285-295) mOsm/k g Lactic Acid (0.5-2.2) mmol/L Lactate (0.5-2.2) mmol/L Calcium (8.5-10.5) mg/dL Phosphorus 2.8 (2.5-4.5) mg/dL Magnesium 1.5 L (1.7-2.3) mg/dL Ferritin (30-400) ng/mL Total Bilirubin (0.15-1.2) mg/dL AST (0-40) U/L ALT (0-41) U/L Alkaline Phosphata se (40-130) IU/L Lactate Dehydrogen ase (135-225) U/L Creatine Kinase (39-308) U/L Troponin T Gen 5 n g/L (0-15) ng/L Troponin T Baselin e (0-15) ng/L Troponin T 120 Min [place] (0-15) ng/L Delta Troponin T (0-10) ABS# Troponin T Hi Sens 6Hr (0-15) ng/L Troponin T Hi Sens 6Hr Delta (0-12) ng/L C-Reactive Protein (0.0-4.9) mg/L Total Protein (6.6-8.7) g/dL Albumin (3.5-5.2) g/dL Globulin (1.3-4.6) g/dL Lipase (13-60) U/L Procalcitonin 0.21 (0-0.5) ng/mL Urine Color (Yellow) Urine Appearance (CLEAR) Urine pH (5-7) Ur Specific Gravit y (1.005-1.030) Urine Protein (Negative) Urine Glucose (UA) (Normal) Urine Ketones (Negative) Urine Blood (Negative) Urine Nitrate (Negative) Urine Bilirubin (Negative) Urine Urobilinogen (Negative) mg/dL Ur Leukocyte Amanda ase (Negative) Urine RBC (0-2) /hpf Urine WBC (0-5) /hpf Ur Squamous Epith Cells (0-5) /hpf Amorphous Sediment Urine Bacteria (NONE) /hpf Serum Ketones (Negative) Nasal/Oral COVID-1 9 PCR SARS-CoV-2 Ag (Rap id) (Negative) Blood Type Rho(D) Type Antibody Screen Crossmatch 11/26/19 11/26/19 11/26/19 Range/Units 01:39 01:39 08:35 WBC (4.0-10.0) 10^3/ uL RBC (4.1-5.3) 10^6/u L Hgb (11.7-16.6) g/dL Hct (42.0-52.0) % MCV (80-94) fL MCH (28.0-34.0) pg MCHC (30.0-36.0) g/dL RDW (12.1-15.1) % Plt Count (130-400) 10^3/c mm MPV (7.4-10.4) fL Neut % (Auto) % Lymph % (Auto) % [place] % (Auto) % Eos % (Auto) % Baso % (Auto) % Neut # (Auto) (1.8-7.7) 10^3/u L Lymph # (Auto) (0.8-4.8) 10^3/u L [place] # (Auto) (0.2-0.9) 10^3/u L Eos # (Auto) (0.0-0.8) 10^3/u L Baso # (Auto) (0.0-0.1) 10^3/u L Nucleated RBC % (a uto) % Nucleated RBCs # /100WBC PT (12.1-14.9) SECO NDS INR (0.8-1.2) APTT (23.9-36.7) SECO NDS Fibrinogen (174-498) mg/dL D-Dimer (0-0.59) ug/mIFE U Specimen Type Sample Site ABG pH (7.35-7.45) ABG pCO2 (35-45) mmHg ABG pO2 (80.0-100.0) mmH g ABG HCO3 (22-26) mmol/L ABG Base Excess (-2.0-2.0) mmol/ L Josafat Test Hematocrit (42-52) % O2 Delivery Device Load Out Worker ID Sodium 136 (136-145) mmol/L Potassium 3.7 (3.5-5.1) mmol/L Chloride 109 H (98-107) mmol/L Carbon Dioxide 17 L (22-29) mmol/L Anion Gap 13.7 (5-19) BUN 26 H (6-20) mg/dL Creatinine 1.0 (0.7-1.2) mg/dL GFR Calculation 78.2 L (90-130) mL/min Glucose 142 H (65-115) mg/dL POC Glucose 141 (70-110) mg/dL Calculated Osmolal ity 289 (285-295) mOsm/k g Lactic Acid (0.5-2.2) mmol/L Lactate (0.5-2.2) mmol/L Calcium 7.6 L (8.5-10.5) mg/dL Phosphorus 2.7 (2.5-4.5) mg/dL Magnesium 1.4 L (1.7-2.3) mg/dL Ferritin (30-400) ng/mL Total Bilirubin 0.7 (0.15-1.2) mg/dL AST 24 (0-40) U/L ALT 8 (0-41) U/L Alkaline Phosphata se 100 (40-130) IU/L Lactate Dehydrogen ase (135-225) U/L Creatine Kinase (39-308) U/L Troponin T Gen 5 n g/L (0-15) ng/L Troponin T Baselin e (0-15) ng/L Troponin T 120 Min [place] (0-15) ng/L Delta Troponin T (0-10) ABS# Troponin T Hi Sens 6Hr (0-15) ng/L Troponin T Hi Sens 6Hr Delta (0-12) ng/L C-Reactive Protein (0.0-4.9) mg/L Total Protein 5.7 L (6.6-8.7) g/dL Albumin 2.1 L (3.5-5.2) g/dL Globulin 3.6 (1.3-4.6) g/dL Lipase (13-60) U/L Procalcitonin 0.20 (0-0.5) ng/mL Urine Color (Yellow) Urine Appearance (CLEAR) Urine pH (5-7) Ur Specific Gravit y (1.005-1.030) Urine Protein (Negative) Urine Glucose (UA) (Normal) Urine Ketones (Negative) Urine Blood (Negative) Urine Nitrate (Negative) Urine Bilirubin (Negative) Urine Urobilinogen (Negative) mg/dL Ur Leukocyte Amanda ase (Negative) Urine RBC (0-2) /hpf Urine WBC (0-5) /hpf Ur Squamous Epith Cells (0-5) /hpf Amorphous Sediment Urine Bacteria (NONE) /hpf Serum Ketones (Negative) Nasal/Oral COVID-1 9 PCR SARS-CoV-2 Ag (Rap id) (Negative) Blood Type Rho(D) Type Antibody Screen Crossmatch 11/26/19 Range/Units 10:38 WBC (4.0-10.0) 10^3/ uL RBC (4.1-5.3) 10^6/u L Hgb (11.7-16.6) g/dL Hct (42.0-52.0) % MCV (80-94) fL MCH (28.0-34.0) pg MCHC (30.0-36.0) g/dL RDW (12.1-15.1) % Plt Count (130-400) 10^3/c mm MPV (7.4-10.4) fL Neut % (Auto) % Lymph % (Auto) % [place] % (Auto) % Eos % (Auto) % Baso % (Auto) % Neut # (Auto) (1.8-7.7) 10^3/u L Lymph # (Auto) (0.8-4.8) 10^3/u L [place] # (Auto) (0.2-0.9) 10^3/u L Eos # (Auto) (0.0-0.8) 10^3/u L Baso # (Auto) (0.0-0.1) 10^3/u L Nucleated RBC % (a uto) % Nucleated RBCs # /100WBC PT (12.1-14.9) SECO NDS INR (0.8-1.2) APTT > 250.0 H* D (23.9-36.7) SECO NDS Fibrinogen (174-498) mg/dL D-Dimer (0-0.59) ug/mIFE U Specimen Type Sample Site ABG pH (7.35-7.45) ABG pCO2 (35-45) mmHg ABG pO2 (80.0-100.0) mmH g ABG HCO3 (22-26) mmol/L ABG Base Excess (-2.0-2.0) mmol/ L [place] Test Hematocrit (42-52) % O2 Delivery Device Load Out Worker ID Sodium (136-145) mmol/L Potassium (3.5-5.1) mmol/L Chloride (98-107) mmol/L Carbon Dioxide (22-29) mmol/L Anion Gap (5-19) BUN (6-20) mg/dL Creatinine (0.7-1.2) mg/dL GFR Calculation (90-130) mL/min Glucose (65-115) mg/dL POC Glucose (70-110) mg/dL Calculated Osmolal ity (285-295) mOsm/k g Lactic Acid (0.5-2.2) mmol/L Lactate (0.5-2.2) mmol/L Calcium (8.5-10.5) mg/dL Phosphorus (2.5-4.5) mg/dL Magnesium (1.7-2.3) mg/dL Ferritin (30-400) ng/mL Total Bilirubin (0.15-1.2) mg/dL AST (0-40) U/L ALT (0-41) U/L Alkaline Phosphata se (40-130) IU/L Lactate Dehydrogen ase (135-225) U/L Creatine Kinase (39-308) U/L Troponin T Gen 5 n g/L (0-15) ng/L Troponin T Baselin e (0-15) ng/L Troponin T 120 Min [place] (0-15) ng/L Delta Troponin T (0-10) ABS# Troponin T Hi Sens 6Hr (0-15) ng/L Troponin T Hi Sens 6Hr Delta (0-12) ng/L C-Reactive Protein (0.0-4.9) mg/L Total Protein (6.6-8.7) g/dL Albumin (3.5-5.2) g/dL Globulin (1.3-4.6) g/dL Lipase (13-60) U/L Procalcitonin (0-0.5) ng/mL Urine Color (Yellow) Urine Appearance (CLEAR) Urine pH (5-7) Ur Specific Gravit y (1.005-1.030) Urine Protein (Negative) Urine Glucose (UA) (Normal) Urine Ketones (Negative) Urine Blood (Negative) Urine Nitrate (Negative) Urine Bilirubin (Negative) Urine Urobilinogen (Negative) mg/dL Ur Leukocyte Amanda ase (Negative) Urine RBC (0-2) /hpf Urine WBC (0-5) /hpf Ur Squamous Epith Cells (0-5) /hpf Amorphous Sediment Urine Bacteria (NONE) /hpf Serum Ketones (Negative) Nasal/Oral COVID-1 9 PCR SARS-CoV-2 Ag (Rap id) (Negative) Blood Type Rho(D) Type Antibody Screen Crossmatch Discharge Plan Discharge Clinical Impression: Colitis, Anemia, [place] mesenteric artery thrombosis, Suspected 2019-nCoV infection, Non-ST elevation [place] (NSTEMI), Mesenteric artery thrombosis, Diabetes, Liver cirrhosis, Portal hypertension, Thrombocytopenia Condition: Stable Prescriptions: No Action nitroglycerin [Nitrostat] 0.4 mg tablet, sublingual 0.4 mg SUBLINGUAL Q5M PRN (Reason: Chest Pain) RF: 0 oxycodone 30 mg tablet 30 mg PO 5XD PRN (Reason: Pain) 30 Days Qty: 150 RF: 0 oxycodone [OxyContin] 10 mg tablet,oral only,ext.rel.12 hr 10 mg PO Q12H 7 Days Qty: 14 RF: 0 fluticasone propion-salmeterol [Advair Diskus] 250-50 mcg/dose Blister With Device 1 inh INHALATION BID RF: 0 Tresiba FlexTouch U-100 100 unit/mL (3 mL) Insulin Pen 20 unit SUBCUT BEDTIME PRN (Reason: Hyperglycemia) RF: 0 albuterol sulfate 90 mcg/actuation Aero Powdr Breath Act W/Sensor 1 - 2 inh INHALATION QID PRN (Reason: Shortness Of Breath) RF: 0 trazodone 150 mg tablet 150 mg PO BEDTIME PRN (Reason: Sleep) RF: 0 ibuprofen 200 mg Tablet 200 - 400 mg PO DAILY PRN (Reason: Pain) RF: 0 furosemide 40 mg tablet 40 mg PO DAILY@0800 RF: 0 lorazepam 0.5 mg tablet 0.5 mg PO BEDTIME PRN (Reason: unknown) RF: 0 insulin aspart U-100 [Novolog Flexpen U-100 Insulin] 100 unit/mL (3 mL) insulin pen 5 unit SUBCUT TID RF: 0 lactulose 10 gram/15 mL solution 5 - 10 ml PO DAILY PRN (Reason: Constipation) RF: 0 Dexilant 30 mg capsule,biphase delayed releas 30 mg PO DAILY RF: 0 aspirin 325 mg Tablet 325 mg PO DAILY RF: 0 albuterol sulfate 2.5 mg /3 mL (0.083 %) Solution For Nebulization 2.5 mg INHALATION Q4H PRN (Reason: Shortness Of Breath) RF: 0 Referrals: Andreia De León DO [Primary Care Provider] - Discharge Date/Time: 11/26/19 14:30 Sign Out Sign Out Data: Patient Sign Out occurred on 11/24/19 at 06:10. Patient's care was discussed, and care was transferred from Malathi Portillo to Neville Vasqeuz DO. Sign Out Comment: Case turned over to Dr. Vasquez at change of shift. Last updated by Malathi Portillo at 11/24/19 06:01 Patient Sign Out occurred on 11/26/19 at 06:31. Patient's care was discussed, and care was transferred from Malathi Portillo to Neville Vasquez DO. Sign Out Comment: Case again turned over to Dr. Vasquez at change of shift. Last updated by Malathi Portillo at 11/26/19 05:58 Coding Level of Care Code ED Salvage Supervisor for Chg Fwd Exam Comprehensive
[2019-11-24 05:00] LABS: ABG PCO2 25.8 mmHg (35-45); ABG PH Result 7.51 (7.35-7.45); Arterial Blood Gas Hematocrit 22.6 % (42-52); Base Excess ABG -2.1 mmol/L (-2.0-2.0); Blood Gas Allen Test Pos; Blood Gas Sample Site Radial, right; Blood Gas Sample Type Arterial; HCO3 ABG 20.5 mmol/L (22-26); PO2 ABG 56.9 mmHg (80.0-100.0)
[2019-11-24] MEDS: ondansetron 2 mg/ML SDV 2 mL 4 MG IVP (05:03)
[2019-11-24] MEDS: morphine 4 mg/mL SDV 1 mL IVP ×2 (05:07→18:40)
[2019-11-24] MEDS: sodium chloride 0.9% 1,000 ML 999 ML IV (05:09)
[2019-11-24 05:16] LABS: Basophils % 0.8 %; Eosinophils # 0.2 10^3/uL (0.0-0.8); Hematocrit 22.9 % (42.0-52.0); Hemoglobin 7.5 g/dL (11.7-16.6); Lymphocytes # 0.6 10^3/uL (0.8-4.8); Lymphocytes % 10.9 %; Mean Corpuscular HGB Conc 32.8 g/dL (30.0-36.0); Mean Corpuscular Hemoglobin 31.3 pg (28.0-34.0); Mean Corpuscular Volume 95.4 fL (80-94); Mean Platelet Volume 10.5 fL (7.4-10.4); Monocytes # 0.7 10^3/uL (0.2-0.9); Monocytes % 13.2 %; Neutrophils # 3.79 10^3/uL (1.8-7.7); Neutrophils % 71.3 %; Nucleated Red Blood Cells % 0 %; Platelet Count 77 10^3/cmm (130-400); Red Cell Distribution Width 16.5 % (12.1-15.1); White Blood Count 5.3 10^3/uL (4.0-10.0)
[2019-11-24] MEDS: iohexol 300 mg/mL 100 mL Btl IV (05:19)
[2019-11-24 05:21] LABS: Ketone (Acetest) Serum Negative (Negative)
[2019-11-24 05:28] LABS: Alanine Aminotransferase 8 U/L (0-41); Alkaline Phosphatase 115 IU/L (40-130); Anion Gap 14.7 (5-19); Aspartate Amino Transferase 17 U/L (0-40); Blood Urea Nitrogen 20 mg/dL (6-20); Calcium 7.4 mg/dL (8.5-10.5); Carbon Dioxide 18 mmol/L (22-29); Chloride 107 mmol/L (98-107); Globulin 3.6 g/dL (1.3-4.6); Glomerular Filtration Rate 78.2 mL/min (90-130); Glucose 219 mg/dL (65-115); Lipase 48 U/L (13-60); Magnesium 1.4 mg/dL (1.7-2.3); Osmolality Calculated 291 mOsm/kg (285-295); Potassium 3.7 mmol/L (3.5-5.1); Sodium 136 mmol/L (136-145); Total Bilirubin 0.9 mg/dL (0.15-1.2); Total Protein 5.6 g/dL (6.6-8.7)
[2019-11-24 05:35] LABS: SARS Covid-2 Antigen Negative (Negative); Troponin(5th) Baseline 91 ng/L (0-15)
--- NOTE | 2019-11-24 05:35 | PC.NURSE ---
FSBS 316 mg/dl reported to Dr Portillo
--- NOTE | 2019-11-24 05:50 | PC.NURSE ---
Fluids stopped per Dr. Portillo. Patient oxygen saturation dropped to 87%. Patient put on 2 liters oxygen nasal cannula.
--- NOTE | 2019-11-24 06:32 | PC.NURSE ---
Patient took nasal cannula off. Oxygen saturation at 96% oxygen discontinued.
--- NOTE | 2019-11-24 06:42 | ECG_ITS ---
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 Measurements Intervals [place] Rate: 76 P: 34 CA: 138 QRS: -1 QRSD: 97 T: 57 QT: 403 QTc: 455 Interpretive Statements SINUS RHYTHM LOW QRS VOLTAGE IN EXTREMITY LEADS [QRS DEFLECTION < 0.5 mV IN LIMB LEADS] Compared to ECG 11/24/2019 05:42:26 Short CA interval no longer present Electronically Signed On 11-24-2019 20:20:02 CDT by Myrna Puckett M.D. [id number]
--- NOTE | 2019-11-24 06:53 | PC.NURSE ---
Patient requested we call his Dayanna. I called her but there was no answer. I left a voicemail.
--- NOTE | 2019-11-24 06:54 | PC.NURSE ---
Report received from night nurse medic at this time.
--- NOTE | 2019-11-24 06:55 | PC.NURSE ---
Patient oxygen saturation dropped to 87% again. Patient placed back on oxygen via nasal cannula at 2L.
--- NOTE | 2019-11-24 07:00 | PC.NURSE ---
Rounded on patient. Patient resting in bed. No distress noted. Patient reports that he is in some pain. Will communicate the patients pain with the physician. Patient has no other needs at this time. Will continue to monitor patient.
[2019-11-24 07:17] LABS: Troponin 5 2HR 99.31 ng/L (0-15); Troponin 5 2HR Delta 8.31 ABS# (0-10)
[2019-11-24] MEDS: sodium chloride 0.9% 500 ML 999 ML IV (07:36)
[2019-11-24 07:38] LABS: Protein Urine 1+ (Negative); Urine Appearance Clear (CLEAR); Urine Color Yellow (Yellow); pH Urine 5 (5-7)
[2019-11-24 07:39] LABS: Add Urine Culture? No; Bacteria Urine TRACE /hpf; Bilirubin Urine Neg (Negative); Blood Urine 3+ (Negative); Glucose Urine UA Norm (Normal); Ketones Urine Negative (Negative); Leukocyte Esterase Urine Negative (Negative); Nitrate Urine Negative (Negative); Urobilinogen Urine 1 mg/dL (Negative); WBC Urine 0-4 /hpf (0-5)
[2019-11-24] MEDS: enoxaparin 80 mg/0.8 mL Syringe 70 MG SUBCUT ×2 (07:54→19:51)
[2019-11-24] MEDS: dexamethasone 4 mg/mL INJ 6 MG IVP (07:55)
[2019-11-24] MEDS: HYDROmorphone 1 mg/mL INJ 1 mL 0.5 MG IVP (07:59)
[2019-11-24 08:02] LABS: INR 1.47 (0.8-1.2)
[2019-11-24] MEDS: cefTRIAXone 1,000 MG in sodium chloride 0.9% (plus) 50 ML 100 MG IV ×2 (08:02→19:52)
[2019-11-24 08:03] LABS: Partial Thromboplastin Time 42.1 SECONDS (23.9-36.7)
[2019-11-24 08:05] LABS: Procalcitonin 0.23 ng/mL (0-0.5)
[2019-11-24] MEDS: metroNIDAZOLE IV 500 MG/100 ML PREMIX 100 MG IV ×2 (08:07→17:08)
[2019-11-24 08:09] LABS: Fibrinogen 214 mg/dL (174-498)
[2019-11-24 08:16] LABS: C Reactive Protein 57.1 mg/L (0.0-4.9); Creatine Phosphokinase 104 U/L (39-308); Ferritin 605 ng/mL (30-400); Lactate Dehydrogenase 314 U/L (135-225)
[2019-11-24 08:24] LABS: D Dimer 11.59 ug/mIFEU (0-0.59)
--- NOTE | 2019-11-24 09:31 | PC.NURSE ---
Patient resting in bed, blood infusing without concerns noted. VS trending.
--- NOTE | 2019-11-24 10:42 | ECG_ITS ---
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 Measurements Intervals [place] Rate: 60 P: 26 DE: 129 QRS: -11 QRSD: 98 T: 31 QT: 450 QTc: 452 Interpretive Statements SINUS RHYTHM LOW QRS VOLTAGE IN EXTREMITY LEADS [QRS DEFLECTION < 0.5 mV IN LIMB LEADS] Compared to ECG 11/24/2019 06:47:59 No significant changes Electronically Signed On 11-24-2019 20:16:59 CDT by Myrna Puckett M.D. [id number]
--- NOTE | 2019-11-24 12:45 | PC.NURSE ---
PATIENT USING URINAL AT SIDE OF BED. BLOOD INFUSING, NO CONCERNS ARE NOTED. VS TRENDING
--- NOTE | 2019-11-24 16:12 | PC.NURSE ---
Pt wallet, phone and Oxycodone sent home with pt . Pt repositioned, call light in reach.
[2019-11-24 18:57] LABS: Basophils % 0.2 %; Hematocrit 30.2 % (42.0-52.0); Lymphocytes # 0.4 10^3/uL (0.8-4.8); Mean Corpuscular HGB Conc 33.1 g/dL (30.0-36.0); Mean Corpuscular Hemoglobin 31.2 pg (28.0-34.0); Mean Corpuscular Volume 94.1 fL (80-94); Mean Platelet Volume 10.8 fL (7.4-10.4); Monocytes # 0.2 10^3/uL (0.2-0.9); Monocytes % 5.1 %; Neutrophils # 3.66 10^3/uL (1.8-7.7); Neutrophils % 84.5 %; Nucleated Red Blood Cells % 0 %; Platelet Count 65 10^3/cmm (130-400); Red Blood Count 3.21 10^6/uL (4.1-5.3); Red Cell Distribution Width 15.3 % (12.1-15.1); White Blood Count 4.3 10^3/uL (4.0-10.0)
--- NOTE | 2019-11-24 19:05 | PM.CONSULT ---
Providers/Reason For Consult Consulting Physican/Specialty*: ER physician Reason for Consult*: Superior mesenteric artery thrombosis, anemia, thrombocytopenia, COVID-19 not ruled out Primary Care Provider: Andreia De León DO History of Present Illness History of Present Illness Hugo Oquendo is a 53 year old male with PMH hep C associated cirrhosis, treated in 2013 with portal HTN , previously with peritoneal drain placed in June 2019 due to frequency of drainage, subsequently needing to be removed on 10/07 due to recurrent bacterial peritonitis. He presented to the ER today with 1 week of nausea, vomiting and diarrhea along with a diffuse crampy abdominal pain. He states his pain has been constant for 1 week. He is also been complaining of cough without any difficulty in breathing, sore throat but does complain of occasional loss of sense of smell and taste. He denies of having any chest pain. He was last in hospital on October 27. Review of Systems General: Reports: 10 or more systems reviewed and unremarkable except in HPI and below Const: Denies: fever(s), chills, body aches, change in appetite, change in weight, malaise, night sweats, diaphoresis, change in sleep pattern, daytime sleepiness or snoring Eyes: Denies: change in vision, blurry vision, photophobia, eye discomfort or eye discharge ENMT: Denies: throat pain, enlarged tonsils, hoarseness, mouth pain, oral sores, dry mouth, tinnitus, nasal congestion or post nasal drip Card: Denies: chest pain, palpitations, irregular heart rhythm, edema, swelling of feet/ankles, lightheadedness, syncope, pre-syncope, dyspnea on exertion, orthopnea, leg pain with exertion or acrocyanosis Resp: Denies: dyspnea, productive cough, non-productive cough, wheezing, stridor, pain on inspiration, change in phlegm color, hemoptysis or chest congestion GI: Denies: abdominal pain, nausea, vomiting, hematemesis, coffee ground emesis, dysphagia, heartburn, diarrhea, constipation, bloating, GI cramping, change in bowel habits, pain on defecation, hematochezia or melena : Denies: flank pain, difficulty urinating, dysuria, urinary frequency, urinary urgency, urinary hesitancy, urinary dribbling, difficulty starting urination, change in urine stream, nocturia or hematuria Musc: Denies: neck pain, back pain, extremity pain, joint pain, joint swelling, joint redness, joint stiffness or limited range of motion Neuro: Denies: headache(s), numbness in extremities, weakness in extremities, sensory changes, lack of coordination, difficulty walking, frequent falls, dizziness, vertigo, confusion, Slurred speech present, difficulty communicating thoughts or seizure-like activity Psych: Denies: anxiety, depression, mood swings, panic attacks, hopelessness or irritability Endo: Denies: polyuria, polydipsia, tired all the time, cold intolerance, excessive sweating, flushing or heat intolerance Jose Martin/Lymph: Denies: easy bruising or easy bleeding All/Imm: Denies: tongue swelling, facial swelling or acute wheezing Meds/Allergies Home Medications and Allergies Home Medications Medication Instructions Recorded Confirmed Last Taken Type Tresiba FlexTouch U-100 20 unit SUBCUT BEDTIME PRN 03/05/19 11/24/19 11/23/19 History albuterol sulfate 1 - 2 inh INHALATION QID PRN 03/05/19 11/24/19 11/14/19 History fluticasone propion-salmeterol 1 inh INHALATION BID 03/05/19 11/24/19 11/24/19 History [Advair Diskus] nitroglycerin 0.4 mg sublingual 0.4 mg SUBLINGUAL Q5M PRN 03/10/19 11/24/19 04/20/19 History tablet trazodone 150 mg PO BEDTIME PRN 08/03/19 11/24/19 11/13/19 History Dexilant 30 mg PO DAILY 09/30/19 11/24/19 11/24/19 History insulin aspart U-100 [Novolog 5 unit SUBCUT TID 09/30/19 11/24/19 11/13/19 History Flexpen U-100 Insulin] lactulose 5 - 10 ml PO DAILY PRN 09/30/19 11/24/19 11/13/19 History lorazepam 0.5 mg PO BEDTIME PRN 09/30/19 11/24/19 11/13/19 History aspirin 325 mg PO DAILY 10/28/19 11/24/19 11/03/19 History furosemide 40 mg PO DAILY@0800 11/07/19 11/24/19 11/24/19 History ibuprofen 200 - 400 mg PO DAILY PRN 11/07/19 11/24/19 11/24/19 History oxycodone 10 mg tablet,crush 10 mg PO Q12H 7 Days #14 tab 11/12/19 11/24/19 11/23/19 Rx resistant,extended release 12 hr oxycodone 30 mg tablet 30 mg PO 5XD PRN 30 Days #150 tab 11/12/19 11/24/19 11/24/19 Rx albuterol sulfate 2.5 mg INHALATION Q4H PRN 11/24/19 11/24/19 Unknown History Allergies Allergy/AdvReac Type Severity Reaction Status Date / Time adhesive tape Allergy ADR-Itching Verified 11/12/19 10:22 citalopram [From Celexa] Allergy ADR-Agitate Verified 11/12/19 10:22 d insulin glargine Allergy ALGY-Anaphy Verified 11/12/19 10:22 [From Lantus U-100 Insulin] laxis levofloxacin [From Levaquin] Allergy ALGY-Anaphy Verified 11/12/19 10:22 laxis Penicillins Allergy ALGY-Anaphy Verified 11/12/19 10:22 laxis potassium chloride Allergy ADR-Vomitin Verified 11/12/19 10:22 g duloxetine [From Cymbalta] AdvReac NAUSEA Verified 11/12/19 10:22 VOMITTING pregabalin [From Lyrica] AdvReac NAUSEA Verified 11/12/19 10:22 Current Medications Current Medications Generic Name Dose Route Start Last Admin Trade Name Freq PRN Reason Stop Dose Admin Metronidazole 500 mg in 100 mls @ 100 mls/hr 11/24/19 17:00 11/24/19 18:48 Flagyl Iv IV Infused Q8H [facility] Infusion Protocol PFSH Acute PFSH: Medical History Ascites Chronic cervical pain Chronic low back pain Diabetes Diabetic neuropathy, painful Encounter for long-term opiate analgesic use Liver cirrhosis Liver failure Somatic dysfunction of back THORACIC AND LUMBAR Surgical History History of abdominal paracentesis History of colonoscopy History of esophagogastroduodenoscopy (EGD) Hx of circumcision Hx of inguinal hernia repair (~04/10/19) LAP REPAIR OF RIGHT INGUINAL HERNIA WITH ULTRAPRO 15X10 CM MESH. Hx of oral surgery Family History Father Cancer LUNG CANCER Other Diabetes Heart disease Lung disease Myocardial infarct Stroke Denies family history of Anesthesia complication Bleeding disorder Social History Smoking and tobacco status: current every day smoker cigarettes Alcohol intake: former Year of sobriety/quit date alcohol: 2009 Caregiver/support person: Yes Lives independently: Yes Household members: friend(s) Current occupational status: disabled History of recent travel: No Vitals/I&O/Wt Last Vital Signs Temp 98.4 F 11/24/19 14:46 Pulse 45 L 11/24/19 18:40 Resp 12 11/24/19 18:40 BP 141/67 11/24/19 18:40 Pulse Ox 92 11/24/19 18:40 11/24/19 11/24/19 11/24/19 06:59 14:59 22:59 Intake Total 432.9 / 432.9 500 / 500 600 / 1100 Balance 432.9 / 432.9 500 / 500 600 / 1100 Weight last 48 hrs Weight 68.946 kg Physical Exam Narrative: EXAM NARRATIVE: EXAM NARRATIVE: General: No acute distress, AO x3, NC oxygen supplementation HEENT: PERRLA, pupils bilaterally equal and reactive Chest:Bronchial breath sounds b/l , equal good air entry bilaterally, no fine basal crackles CVS: S1-S2 regular, no murmurs, no tachycardia, no gallops, no rubs Abdomen: Soft, tenderness over the abdomen, bowel sounds sluggish Neuro: No focal deficits, no facial deformity, AO x3, power 5/5 in all limbs A&P Assessment and plan (1) Colitis: Status: Acute (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 Patient was also found to have anemia on chronic thrombocytopenia which is most likely because of cirrhosis. Previous peritonitis secondary to Serratia. For now will advise ciprofloxacin and Flagyl. We will continue to monitor lactate. Will advise lactic acid level stat, blood culture start. Given the superior mesenteric artery thrombosis patient will require full dose anticoagulation. Will advise for heparin drip given ongoing anemia and thrombocytopenia. We will also advise for 1 unit of blood transfusion to keep hemoglobin over 8 given ongoing SMA thrombosis. We will advise for Protonix 40 mg IV twice daily. Continue to monitor hemoglobin and platelet counts every 12 hours. Continue to monitor vitals. Given the lab value of elevated d-dimer, inflammatory markers with ongoing leukopenia COVID-19 was actually sent from the ER. We will continue to follow COVID-19 PCR. For now continue with isolation precautions. N.p.o. for now. Unfortunately at we do not have the services he will need here including GI and possible interventional radiology. We should try to transfer him to higher level care center/[place] as he has been seen there before and evidently has been scheduled for evaluation for a TIPS procedure there. Case discussed in detail with Dr. Vasquez who is the ER physician during consult. Thank you for letting me part of patient's care. Guarded prognosis Consult Attestations Medical Necessity Statement: Patient requires transfer to higher level care center for specialties like gastroenterology and possible interventional neurology given liver cirrhosis and ongoing SMA thrombosis with anemia and thrombocytopenia while he is on COVID-19 precautions Critical Care Time: Critical Care Time (min): 60 Coding Level of Care Code Acute Station Worker for Chg Fwd Diagnoses Colitis K52.9 Superior mesenteric artery thrombosis K55.069 Suspected 2019-nCoV infection Z20.828 Portal hypertension K76.6 Anemia D64.9 Thrombocytopenia D69.6 Smoking addiction F17.200
[2019-11-24 19:25] LABS: Anion Gap 14.5 (5-19); Blood Urea Nitrogen 21 mg/dL (6-20); Calcium 7.4 mg/dL (8.5-10.5); Carbon Dioxide 18 mmol/L (22-29); Chloride 106 mmol/L (98-107); Glomerular Filtration Rate 78.2 mL/min (90-130); Glucose 246 mg/dL (65-115); Osmolality Calculated 289 mOsm/kg (285-295); Potassium 4.5 mmol/L (3.5-5.1); Sodium 134 mmol/L (136-145)
--- NOTE | 2019-11-24 19:33 | W.ED.ABDPA2 ---
Documented by User: Malathi Protillo 11/24/19 19:34 HPI - Abdominal Pain General: Chief Complaint: Abdominal Pain Stated Complaint: ABD PAIN Time Seen by Provider: 11/24/19 04:36 Source: patient and EMS Mode of arrival: EMS Limitations: no limitations PFSH ED PFSH: Medical History Ascites Chronic cervical pain Chronic low back pain Diabetes Diabetic neuropathy, painful Encounter for long-term opiate analgesic use Liver cirrhosis Liver failure Somatic dysfunction of back THORACIC AND LUMBAR Surgical History History of abdominal paracentesis History of colonoscopy History of esophagogastroduodenoscopy (EGD) Hx of circumcision Hx of inguinal hernia repair (~05/22/18) LAP REPAIR OF RIGHT INGUINAL HERNIA WITH ULTRAPRO 15X10 CM MESH. Hx of oral surgery Family History Father Cancer LUNG CANCER Other Diabetes Heart disease Lung disease Myocardial infarct Stroke Denies family history of Anesthesia complication Bleeding disorder Social History Smoking and tobacco status: current every day smoker cigarettes Alcohol intake: former Year of sobriety/quit date alcohol: 2009 Caregiver/support person: Yes Lives independently: Yes Household members: friend(s) Current occupational status: disabled History of recent travel: No Course ED course: 1932 -care assumed back to me from Dr. Vasquez at change of shift. Please see my note from the previous evening as well as Dr. Vasquez's note from the day. Patient has been accepted at [facility] but we have not received a bed number at this time. Patient's vital signs at this time are stable and he states he is feeling mildly better. Patient received 2 units of blood. The hospitalist service has been consulted for assistance with medical management while he is here in the department. Currently the patient voices no complaints or concerns. Vital Signs: Vital signs: Vital Signs Temperature 98.4 F 11/24/19 14:46 Pulse Rate 54 L 11/26/19 12:39 Respiratory Rate 18 11/26/19 12:39 Blood Pressure 182/83 11/26/19 12:39 Pulse Oximetry 91 10/14/20 12:39 MDM - Abdominal Pain Lab Data: Labs: Lab Results 11/24/19 11/24/19 11/24/19 Range/Units 02:30 04:50 05:00 WBC 5.3 (4.0-10.0) 10^3/ uL RBC 2.40 L (4.1-5.3) 10^6/u L Hgb 7.5 L (11.7-16.6) g/dL Hct 22.9 L (42.0-52.0) % MCV 95.4 H (80-94) fL MCH 31.3 (28.0-34.0) pg MCHC 32.8 (30.0-36.0) g/dL RDW 16.5 H (12.1-15.1) % Plt Count 77 L (130-400) 10^3/c mm MPV 10.5 H (7.4-10.4) fL Neut % (Auto) 71.3 % Lymph % (Auto) 10.9 % [place] % (Auto) 13.2 % Eos % (Auto) 3.0 % Baso % (Auto) 0.8 % Neut # (Auto) 3.79 (1.8-7.7) 10^3/u L Lymph # (Auto) 0.6 L (0.8-4.8) 10^3/u L [place] # (Auto) 0.7 (0.2-0.9) 10^3/u L Eos # (Auto) 0.2 (0.0-0.8) 10^3/u L Baso # (Auto) 0.0 (0.0-0.1) 10^3/u L Nucleated RBC % (a uto) 0 % Nucleated RBCs # 0.0 /100WBC PT 18.40 H (12.1-14.9) SECO NDS INR 1.47 H (0.8-1.2) APTT 42.1 H (23.9-36.7) SECO NDS Fibrinogen (174-498) mg/dL D-Dimer (0-0.59) ug/mIFE U Specimen Type Arterial Sample Site Radial, right ABG pH 7.51 H (7.35-7.45) ABG pCO2 25.8 L (35-45) mmHg ABG pO2 56.9 L (80.0-100.0) mmH g ABG HCO3 20.5 L (22-26) mmol/L ABG Base Excess -2.1 L (-2.0-2.0) mmol/ L Josafat Test Pos Hematocrit 22.6 L (42-52) % O2 Delivery Device Not Reportable Fib[employer] Bonding Machine Tender ID ellpe Sodium (136-145) mmol/L Potassium (3.5-5.1) mmol/L Chloride (98-107) mmol/L Carbon Dioxide (22-29) mmol/L Anion Gap (5-19) BUN (6-20) mg/dL Creatinine (0.7-1.2) mg/dL GFR Calculation (90-130) mL/min Glucose (65-115) mg/dL POC Glucose (70-110) mg/dL Calculated Osmolal ity (285-295) mOsm/k g Lactic Acid (0.5-2.2) mmol/L Lactate (0.5-2.2) mmol/L Calcium (8.5-10.5) mg/dL Phosphorus (2.5-4.5) mg/dL Magnesium (1.7-2.3) mg/dL Ferritin (30-400) ng/mL Total Bilirubin (0.15-1.2) mg/dL AST (0-40) U/L ALT (0-41) U/L Alkaline Phosphata se (40-130) IU/L Lactate Dehydrogen ase (135-225) U/L Creatine Kinase (39-308) U/L Troponin T Gen 5 n g/L (0-15) ng/L Troponin T Baselin e (0-15) ng/L Troponin T 120 Min [place] (0-15) ng/L Delta Troponin T (0-10) ABS# Troponin T Hi Sens 6Hr (0-15) ng/L Troponin T Hi Sens 6Hr Delta (0-12) ng/L C-Reactive Protein (0.0-4.9) mg/L Total Protein (6.6-8.7) g/dL Albumin (3.5-5.2) g/dL Globulin (1.3-4.6) g/dL Lipase (13-60) U/L Procalcitonin (0-0.5) ng/mL Urine Color (Yellow) Urine Appearance (CLEAR) Urine pH (5-7) Ur Specific Gravit y (1.005-1.030) Urine Protein (Negative) Urine Glucose (UA) (Normal) Urine Ketones (Negative) Urine Blood (Negative) Urine Nitrate (Negative) Urine Bilirubin (Negative) Urine Urobilinogen (Negative) mg/dL Ur Leukocyte Amanda ase (Negative) Urine RBC (0-2) /hpf Urine WBC (0-5) /hpf Ur Squamous Epith Cells (0-5) /hpf Amorphous Sediment Urine Bacteria (NONE) /hpf Serum Ketones (Negative) Nasal/Oral COVID-1 9 PCR SARS-CoV-2 Ag (Rap id) (Negative) Blood Type Rho(D) Type Antibody Screen Crossmatch 11/24/19 11/24/19 11/24/19 Range/Units 05:00 05:00 05:00 WBC (4.0-10.0) 10^3/ uL RBC (4.1-5.3) 10^6/u L Hgb (11.7-16.6) g/dL Hct (42.0-52.0) % MCV (80-94) fL MCH (28.0-34.0) pg MCHC (30.0-36.0) g/dL RDW (12.1-15.1) % Plt Count (130-400) 10^3/c mm MPV (7.4-10.4) fL Neut % (Auto) % Lymph % (Auto) % [place] % (Auto) % Eos % (Auto) % Baso % (Auto) % Neut # (Auto) (1.8-7.7) 10^3/u L Lymph # (Auto) (0.8-4.8) 10^3/u L [place] # (Auto) (0.2-0.9) 10^3/u L Eos # (Auto) (0.0-0.8) 10^3/u L Baso # (Auto) (0.0-0.1) 10^3/u L Nucleated RBC % (a uto) % Nucleated RBCs # /100WBC PT (12.1-14.9) SECO NDS INR (0.8-1.2) APTT (23.9-36.7) SECO NDS Fibrinogen (174-498) mg/dL D-Dimer (0-0.59) ug/mIFE U Specimen Type Sample Site ABG pH (7.35-7.45) ABG pCO2 (35-45) mmHg ABG pO2 (80.0-100.0) mmH g ABG HCO3 (22-26) mmol/L ABG Base Excess (-2.0-2.0) mmol/ L Jos[place]at Test Hematocrit (42-52) % O2 Delivery Device [employer] Machine Tender ID Sodium 136 (136-145) mmol/L Potassium 3.7 (3.5-5.1) mmol/L Chloride 107 (98-107) mmol/L Carbon Dioxide 18 L (22-29) mmol/L Anion Gap 14.7 (5-19) BUN 20 (6-20) mg/dL Creatinine 1.0 (0.7-1.2) mg/dL GFR Calculation 78.2 L (90-130) mL/min Glucose 219 H (65-115) mg/dL POC Glucose (70-110) mg/dL Calculated Osmolal ity 291 (285-295) mOsm/k g Lactic Acid 2.0 (0.5-2.2) mmol/L Lactate (0.5-2.2) mmol/L Calcium 7.4 L (8.5-10.5) mg/dL Phosphorus (2.5-4.5) mg/dL Magnesium 1.4 L (1.7-2.3) mg/dL Ferritin (30-400) ng/mL Total Bilirubin 0.9 (0.15-1.2) mg/dL AST 17 (0-40) U/L ALT 8 (0-41) U/L Alkaline Phosphata se 115 (40-130) IU/L Lactate Dehydrogen ase (135-225) U/L Creatine Kinase (39-308) U/L Troponin T Gen 5 n g/L (0-15) ng/L Troponin T Baselin e 91 H (0-15) ng/L Troponin T 120 Min [place] (0-15) ng/L Delta Troponin T (0-10) ABS# Troponin T Hi Sens 6Hr (0-15) ng/L Troponin T Hi Sens 6Hr Delta (0-12) ng/L C-Reactive Protein (0.0-4.9) mg/L Total Protein 5.6 L (6.6-8.7) g/dL Albumin 2.0 L (3.5-5.2) g/dL Globulin 3.6 (1.3-4.6) g/dL Lipase 48 (13-60) U/L Procalcitonin (0-0.5) ng/mL Urine Color (Yellow) Urine Appearance (CLEAR) Urine pH (5-7) Ur Specific Gravit y (1.005-1.030) Urine Protein (Negative) Urine Glucose (UA) (Normal) Urine Ketones (Negative) Urine Blood (Negative) Urine Nitrate (Negative) Urine Bilirubin (Negative) Urine Urobilinogen (Negative) mg/dL Ur Leukocyte Amanda ase (Negative) Urine RBC (0-2) /hpf Urine WBC (0-5) /hpf Ur Squamous Epith Cells (0-5) /hpf Amorphous Sediment Urine Bacteria (NONE) /hpf Serum Ketones Negative (Negative) Nasal/Oral COVID-1 9 PCR SARS-CoV-2 Ag (Rap id) (Negative) Blood Type Rho(D) Type Antibody Screen Crossmatch 11/24/19 11/24/19 11/24/19 Range/Units 05:00 05:00 05:00 WBC (4.0-10.0) 10^3/ uL RBC (4.1-5.3) 10^6/u L Hgb (11.7-16.6) g/dL Hct (42.0-52.0) % MCV (80-94) fL MCH (28.0-34.0) pg MCHC (30.0-36.0) g/dL RDW (12.1-15.1) % Plt Count (130-400) 10^3/c mm MPV (7.4-10.4) fL Neut % (Auto) % Lymph % (Auto) % [place] % (Auto) % Eos % (Auto) % Baso % (Auto) % Neut # (Auto) (1.8-7.7) 10^3/u L Lymph # (Auto) (0.8-4.8) 10^3/u L [place] # (Auto) (0.2-0.9) 10^3/u L Eos # (Auto) (0.0-0.8) 10^3/u L Baso # (Auto) (0.0-0.1) 10^3/u L Nucleated RBC % (a uto) % Nucleated RBCs # /100WBC PT (12.1-14.9) SECO NDS INR (0.8-1.2) APTT (23.9-36.7) SECO NDS Fibrinogen 214 (174-498) mg/dL D-Dimer 11.59 H (0-0.59) ug/mIFE U Specimen Type Sample Site ABG pH (7.35-7.45) ABG pCO2 (35-45) mmHg ABG pO2 (80.0-100.0) mmH g ABG HCO3 (22-26) mmol/L ABG Base Excess (-2.0-2.0) mmol/ L [place]at Test Hematocrit (42-52) % O2 Delivery Device [employer]ing Machine Tender ID Sodium (136-145) mmol/L Potassium (3.5-5.1) mmol/L Chloride (98-107) mmol/L Carbon Dioxide (22-29) mmol/L Anion Gap (5-19) BUN (6-20) mg/dL Creatinine (0.7-1.2) mg/dL GFR Calculation (90-130) mL/min Glucose (65-115) mg/dL POC Glucose (70-110) mg/dL Calculated Osmolal ity (285-295) mOsm/k g Lactic Acid (0.5-2.2) mmol/L Lactate (0.5-2.2) mmol/L Calcium (8.5-10.5) mg/dL Phosphorus (2.5-4.5) mg/dL Magnesium (1.7-2.3) mg/dL Ferritin 605 H (30-400) ng/mL Total Bilirubin (0.15-1.2) mg/dL AST (0-40) U/L ALT (0-41) U/L Alkaline Phosphata se (40-130) IU/L Lactate Dehydrogen ase 314 H (135-225) U/L Creatine Kinase 104 (39-308) U/L Troponin T Gen 5 n g/L (0-15) ng/L Troponin T Baselin e (0-15) ng/L Troponin T 120 Min [place] (0-15) ng/L Delta Troponin T (0-10) ABS# Troponin T Hi Sens 6Hr (0-15) ng/L Troponin T Hi Sens 6Hr Delta (0-12) ng/L C-Reactive Protein 57.1 H (0.0-4.9) mg/L Total Protein (6.6-8.7) g/dL Albumin (3.5-5.2) g/dL Globulin (1.3-4.6) g/dL Lipase (13-60) U/L Procalcitonin 0.23 (0-0.5) ng/mL Urine Color (Yellow) Urine Appearance (CLEAR) Urine pH (5-7) Ur Specific Gravit y (1.005-1.030) Urine Protein (Negative) Urine Glucose (UA) (Normal) Urine Ketones (Negative) Urine Blood (Negative) Urine Nitrate (Negative) Urine Bilirubin (Negative) Urine Urobilinogen (Negative) mg/dL Ur Leukocyte Amanda ase (Negative) Urine RBC (0-2) /hpf Urine WBC (0-5) /hpf Ur Squamous Epith Cells (0-5) /hpf Amorphous Sediment Urine Bacteria (NONE) /hpf Serum Ketones (Negative) Nasal/Oral COVID-1 9 PCR SARS-CoV-2 Ag (Rap id) Negative (Negative) Blood Type Rho(D) Type Antibody Screen Crossmatch 11/24/19 11/24/19 11/24/19 Range/Units 06:03 06:22 06:44 WBC (4.0-10.0) 10^3/ uL RBC (4.1-5.3) 10^6/u L Hgb (11.7-16.6) g/dL Hct (42.0-52.0) % MCV (80-94) fL MCH (28.0-34.0) pg MCHC (30.0-36.0) g/dL RDW (12.1-15.1) % Plt Count (130-400) 10^3/c mm MPV (7.4-10.4) fL Neut % (Auto) % Lymph % (Auto) % [place] % (Auto) % Eos % (Auto) % Baso % (Auto) % Neut # (Auto) (1.8-7.7) 10^3/u L Lymph # (Auto) (0.8-4.8) 10^3/u L [place] # (Auto) (0.2-0.9) 10^3/u L Eos # (Auto) (0.0-0.8) 10^3/u L Baso # (Auto) (0.0-0.1) 10^3/u L Nucleated RBC % (a uto) % Nucleated RBCs # /100WBC PT (12.1-14.9) SECO NDS INR (0.8-1.2) APTT (23.9-36.7) SECO NDS Fibrinogen (174-498) mg/dL D-Dimer (0-0.59) ug/mIFE U Specimen Type Sample Site ABG pH (7.35-7.45) ABG pCO2 (35-45) mmHg ABG pO2 (80.0-100.0) mmH g ABG HCO3 (22-26) mmol/L ABG Base Excess (-2.0-2.0) mmol/ L [place] Test Hematocrit (42-52) % O2 Delivery Device [employer] Machine Tender ID Sodium (136-145) mmol/L Potassium (3.5-5.1) mmol/L Chloride (98-107) mmol/L Carbon Dioxide (22-29) mmol/L Anion Gap (5-19) BUN (6-20) mg/dL Creatinine (0.7-1.2) mg/dL GFR Calculation (90-130) mL/min Glucose (65-115) mg/dL POC Glucose (70-110) mg/dL Calculated Osmolal ity (285-295) mOsm/k g Lactic Acid (0.5-2.2) mmol/L Lactate (0.5-2.2) mmol/L Calcium (8.5-10.5) mg/dL Phosphorus (2.5-4.5) mg/dL Magnesium (1.7-2.3) mg/dL Ferritin (30-400) ng/mL Total Bilirubin (0.15-1.2) mg/dL AST (0-40) U/L ALT (0-41) U/L Alkaline Phosphata se (40-130) IU/L Lactate Dehydrogen ase (135-225) U/L Creatine Kinase (39-308) U/L Troponin T Gen 5 n g/L (0-15) ng/L Troponin T Baselin e (0-15) ng/L Troponin T 120 Min [place] 99.31 H (0-15) ng/L Delta Troponin T 8.31 (0-10) ABS# Troponin T Hi Sens 6Hr (0-15) ng/L Troponin T Hi Sens 6Hr Delta (0-12) ng/L C-Reactive Protein (0.0-4.9) mg/L Total Protein (6.6-8.7) g/dL Albumin (3.5-5.2) g/dL Globulin (1.3-4.6) g/dL Lipase (13-60) U/L Procalcitonin (0-0.5) ng/mL Urine Color Yellow (Yellow) Urine Appearance Clear (CLEAR) Urine pH 5 (5-7) Ur Specific Gravit y 1.010 (1.005-1.030) Urine Protein 1+ H (Negative) Urine Glucose (UA) Norm (Normal) Urine Ketones Negative (Negative) Urine Blood 3+ H (Negative) Urine Nitrate Negative (Negative) Urine Bilirubin Neg (Negative) Urine Urobilinogen 1 H (Negative) mg/dL Ur Leukocyte Amanda ase Negative (Negative) Urine RBC 5-10 H (0-2) /hpf Urine WBC 0-4 H (0-5) /hpf Ur Squamous Epith Cells None (0-5) /hpf Amorphous Sediment Not Reportable Urine Bacteria Trace (NONE) /hpf Serum Ketones (Negative) Nasal/Oral COVID-1 9 PCR SARS-CoV-2 Ag (Rap id) (Negative) Blood Type O Positive Rho(D) Type Positive Antibody Screen Negative Crossmatch See Detail 11/24/19 11/24/19 11/24/19 Range/Units 07:48 18:40 18:40 WBC 4.3 (4.0-10.0) 10^3/ uL RBC 3.21 L (4.1-5.3) 10^6/u L Hgb 10.0 L D (11.7-16.6) g/dL Hct 30.2 L D (42.0-52.0) % MCV 94.1 H (80-94) fL MCH 31.2 (28.0-34.0) pg MCHC 33.1 (30.0-36.0) g/dL RDW 15.3 H (12.1-15.1) % Plt Count 65 L (130-400) 10^3/c mm MPV 10.8 H (7.4-10.4) fL Neut % (Auto) 84.5 % Lymph % (Auto) 9.0 % [place] % (Auto) 5.1 % Eos % (Auto) 0.0 % Baso % (Auto) 0.2 % Neut # (Auto) 3.66 (1.8-7.7) 10^3/u L Lymph # (Auto) 0.4 L (0.8-4.8) 10^3/u L [place] # (Auto) 0.2 (0.2-0.9) 10^3/u L Eos # (Auto) 0.0 (0.0-0.8) 10^3/u L Baso # (Auto) 0.0 (0.0-0.1) 10^3/u L Nucleated RBC % (a uto) 0 % Nucleated RBCs # 0.0 /100WBC PT (12.1-14.9) SECO NDS INR (0.8-1.2) APTT (23.9-36.7) SECO NDS Fibrinogen (174-498) mg/dL D-Dimer (0-0.59) ug/mIFE U Specimen Type Sample Site ABG pH (7.35-7.45) ABG pCO2 (35-45) mmHg ABG pO2 (80.0-100.0) mmH g ABG HCO3 (22-26) mmol/L ABG Base Excess (-2.0-2.0) mmol/ L [place] Test Hematocrit (42-52) % O2 Delivery Device Fib[employer]ing Machine Tender ID Sodium 134 L (136-145) mmol/L Potassium 4.5 (3.5-5.1) mmol/L Chloride 106 (98-107) mmol/L Carbon Dioxide 18 L (22-29) mmol/L Anion Gap 14.5 (5-19) BUN 21 H (6-20) mg/dL Creatinine 1.0 (0.7-1.2) mg/dL GFR Calculation 78.2 L (90-130) mL/min Glucose 246 H (65-115) mg/dL POC Glucose (70-110) mg/dL Calculated Osmolal ity 289 (285-295) mOsm/k g Lactic Acid (0.5-2.2) mmol/L Lactate (0.5-2.2) mmol/L Calcium 7.4 L (8.5-10.5) mg/dL Phosphorus (2.5-4.5) mg/dL Magnesium (1.7-2.3) mg/dL Ferritin (30-400) ng/mL Total Bilirubin (0.15-1.2) mg/dL AST (0-40) U/L ALT (0-41) U/L Alkaline Phosphata se (40-130) IU/L Lactate Dehydrogen ase (135-225) U/L Creatine Kinase (39-308) U/L Troponin T Gen 5 n g/L (0-15) ng/L Troponin T Baselin e (0-15) ng/L Troponin T 120 Min [place] (0-15) ng/L Delta Troponin T (0-10) ABS# Troponin T Hi Sens 6Hr (0-15) ng/L Troponin T Hi Sens 6Hr Delta (0-12) ng/L C-Reactive Protein (0.0-4.9) mg/L Total Protein (6.6-8.7) g/dL Albumin (3.5-5.2) g/dL Globulin (1.3-4.6) g/dL Lipase (13-60) U/L Procalcitonin (0-0.5) ng/mL Urine Color (Yellow) Urine Appearance (CLEAR) Urine pH (5-7) Ur Specific Gravit y (1.005-1.030) Urine Protein (Negative) Urine Glucose (UA) (Normal) Urine Ketones (Negative) Urine Blood (Negative) Urine Nitrate (Negative) Urine Bilirubin (Negative) Urine Urobilinogen (Negative) mg/dL Ur Leukocyte Amanda ase (Negative) Urine RBC (0-2) /hpf Urine WBC (0-5) /hpf Ur Squamous Epith Cells (0-5) /hpf Amorphous Sediment Urine Bacteria (NONE) /hpf Serum Ketones (Negative) Nasal/Oral COVID-1 9 PCR Negative SARS-CoV-2 Ag (Rap id) (Negative) Blood Type Rho(D) Type Antibody Screen Crossmatch 11/24/19 11/24/19 11/24/19 Range/Units 18:40 20:18 21:44 WBC (4.0-10.0) 10^3/ uL RBC (4.1-5.3) 10^6/u L Hgb (11.7-16.6) g/dL Hct (42.0-52.0) % MCV (80-94) fL MCH (28.0-34.0) pg MCHC (30.0-36.0) g/dL RDW (12.1-15.1) % Plt Count (130-400) 10^3/c mm MPV (7.4-10.4) fL Neut % (Auto) % Lymph % (Auto) % [place] % (Auto) % Eos % (Auto) % Baso % (Auto) % Neut # (Auto) (1.8-7.7) 10^3/u L Lymph # (Auto) (0.8-4.8) 10^3/u L [place] # (Auto) (0.2-0.9) 10^3/u L Eos # (Auto) (0.0-0.8) 10^3/u L Baso # (Auto) (0.0-0.1) 10^3/u L Nucleated RBC % (a uto) % Nucleated RBCs # /100WBC PT (12.1-14.9) SECO NDS INR (0.8-1.2) APTT (23.9-36.7) SECO NDS Fibrinogen (174-498) mg/dL D-Dimer (0-0.59) ug/mIFE U Specimen Type Sample Site ABG pH (7.35-7.45) ABG pCO2 (35-45) mmHg ABG pO2 (80.0-100.0) mmH g ABG HCO3 (22-26) mmol/L ABG Base Excess (-2.0-2.0) mmol/ L [place] Test Hematocrit (42-52) % O2 Delivery Device [employer] Bond[employer] Machine Tender ID Sodium (136-145) mmol/L Potassium (3.5-5.1) mmol/L Chloride (98-107) mmol/L Carbon Dioxide (22-29) mmol/L Anion Gap (5-19) BUN (6-20) mg/dL Creatinine (0.7-1.2) mg/dL GFR Calculation (90-130) mL/min Glucose (65-115) mg/dL POC Glucose (70-110) mg/dL Calculated Osmolal ity (285-295) mOsm/k g Lactic Acid 1.5 (0.5-2.2) mmol/L Lactate (0.5-2.2) mmol/L Calcium (8.5-10.5) mg/dL Phosphorus (2.5-4.5) mg/dL Magnesium (1.7-2.3) mg/dL Ferritin (30-400) ng/mL Total Bilirubin (0.15-1.2) mg/dL AST (0-40) U/L ALT (0-41) U/L Alkaline Phosphata se (40-130) IU/L Lactate Dehydrogen ase (135-225) U/L Creatine Kinase (39-308) U/L Troponin T Gen 5 n g/L 89 H (0-15) ng/L Troponin T Baselin e (0-15) ng/L Troponin T 120 Min [place] (0-15) ng/L Delta Troponin T (0-10) ABS# Troponin T Hi Sens 6Hr 93.84 H (0-15) ng/L Troponin T Hi Sens 6Hr Delta 2.84 (0-12) ng/L C-Reactive Protein (0.0-4.9) mg/L Total Protein (6.6-8.7) g/dL Albumin (3.5-5.2) g/dL Globulin (1.3-4.6) g/dL Lipase (13-60) U/L Procalcitonin (0-0.5) ng/mL Urine Color (Yellow) Urine Appearance (CLEAR) Urine pH (5-7) Ur Specific Gravit y (1.005-1.030) Urine Protein (Negative) Urine Glucose (UA) (Normal) Urine Ketones (Negative) Urine Blood (Negative) Urine Nitrate (Negative) Urine Bilirubin (Negative) Urine Urobilinogen (Negative) mg/dL Ur Leukocyte Amanda ase (Negative) Urine RBC (0-2) /hpf Urine WBC (0-5) /hpf Ur Squamous Epith Cells (0-5) /hpf Amorphous Sediment Urine Bacteria (NONE) /hpf Serum Ketones (Negative) Nasal/Oral COVID-1 9 PCR SARS-CoV-2 Ag (Rap id) (Negative) Blood Type Rho(D) Type Antibody Screen Crossmatch 11/25/19 11/25/19 11/25/19 Range/Units 13:31 13:31 13:31 WBC 7.2 (4.0-10.0) 10^3/ uL RBC 3.31 L (4.1-5.3) 10^6/u L Hgb 10.3 L (11.7-16.6) g/dL Hct 31.4 L (42.0-52.0) % MCV 94.9 H (80-94) fL MCH 31.1 (28.0-34.0) pg MCHC 32.8 (30.0-36.0) g/dL RDW 15.9 H (12.1-15.1) % Plt Count 77 L (130-400) 10^3/c mm MPV 11.7 H (7.4-10.4) fL Neut % (Auto) 78.4 % Lymph % (Auto) 11.5 % [place] % (Auto) 8.8 % Eos % (Auto) 0.3 % Baso % (Auto) 0.3 % Neut # (Auto) 5.61 (1.8-7.7) 10^3/u L Lymph # (Auto) 0.8 (0.8-4.8) 10^3/u L [place] # (Auto) 0.6 (0.2-0.9) 10^3/u L Eos # (Auto) 0.0 (0.0-0.8) 10^3/u L Baso # (Auto) 0.0 (0.0-0.1) 10^3/u L Nucleated RBC % (a uto) 0 % Nucleated RBCs # 0.0 /100WBC PT (12.1-14.9) SECO NDS INR (0.8-1.2) APTT (23.9-36.7) SECO NDS Fibrinogen (174-498) mg/dL D-Dimer (0-0.59) ug/mIFE U Specimen Type Sample Site ABG pH (7.35-7.45) ABG pCO2 (35-45) mmHg ABG pO2 (80.0-100.0) mmH g ABG HCO3 (22-26) mmol/L ABG Base Excess (-2.0-2.0) mmol/ L Josafat Test Hematocrit (42-52) % O2 Delivery Device [employer] Tender ID Sodium 137 (136-145) mmol/L Potassium 3.9 (3.5-5.1) mmol/L Chloride 107 (98-107) mmol/L Carbon Dioxide 18 L (22-29) mmol/L Anion Gap 16.9 (5-19) BUN 30 H (6-20) mg/dL Creatinine 1.1 (0.7-1.2) mg/dL GFR Calculation 70.0 L (90-130) mL/min Glucose 202 H (65-115) mg/dL POC Glucose (70-110) mg/dL Calculated Osmolal ity 295 (285-295) mOsm/k g Lactic Acid (0.5-2.2) mmol/L Lactate 2.6 H (0.5-2.2) mmol/L Calcium 7.7 L (8.5-10.5) mg/dL Phosphorus (2.5-4.5) mg/dL Magnesium (1.7-2.3) mg/dL Ferritin (30-400) ng/mL Total Bilirubin (0.15-1.2) mg/dL AST (0-40) U/L ALT (0-41) U/L Alkaline Phosphata se (40-130) IU/L Lactate Dehydrogen ase (135-225) U/L Creatine Kinase (39-308) U/L Troponin T Gen 5 n g/L (0-15) ng/L Troponin T Baselin e (0-15) ng/L Troponin T 120 Min [place] (0-15) ng/L Delta Troponin T (0-10) ABS# Troponin T Hi Sens 6Hr (0-15) ng/L Troponin T Hi Sens 6Hr Delta (0-12) ng/L C-Reactive Protein (0.0-4.9) mg/L Total Protein (6.6-8.7) g/dL Albumin (3.5-5.2) g/dL Globulin (1.3-4.6) g/dL Lipase (13-60) U/L Procalcitonin (0-0.5) ng/mL Urine Color (Yellow) Urine Appearance (CLEAR) Urine pH (5-7) Ur Specific Gravit y (1.005-1.030) Urine Protein (Negative) Urine Glucose (UA) (Normal) Urine Ketones (Negative) Urine Blood (Negative) Urine Nitrate (Negative) Urine Bilirubin (Negative) Urine Urobilinogen (Negative) mg/dL Ur Leukocyte Amanda ase (Negative) Urine RBC (0-2) /hpf Urine WBC (0-5) /hpf Ur Squamous Epith Cells (0-5) /hpf Amorphous Sediment Urine Bacteria (NONE) /hpf Serum Ketones (Negative) Nasal/Oral COVID-1 9 PCR SARS-CoV-2 Ag (Rap id) (Negative) Blood Type Rho(D) Type Antibody Screen Crossmatch 11/25/19 11/25/19 11/25/19 Range/Units 13:31 18:22 18:43 WBC (4.0-10.0) 10^3/ uL RBC (4.1-5.3) 10^6/u L Hgb (11.7-16.6) g/dL Hct (42.0-52.0) % MCV (80-94) fL MCH (28.0-34.0) pg MCHC (30.0-36.0) g/dL RDW (12.1-15.1) % Plt Count (130-400) 10^3/c mm MPV (7.4-10.4) fL Neut % (Auto) % Lymph % (Auto) % [place] % (Auto) % Eos % (Auto) % Baso % (Auto) % Neut # (Auto) (1.8-7.7) 10^3/u L Lymph # (Auto) (0.8-4.8) 10^3/u L [place] # (Auto) (0.2-0.9) 10^3/u L Eos # (Auto) (0.0-0.8) 10^3/u L Baso # (Auto) (0.0-0.1) 10^3/u L Nucleated RBC % (a uto) % Nucleated RBCs # /100WBC PT (12.1-14.9) SECO NDS INR (0.8-1.2) APTT 57.8 H (23.9-36.7) SECO NDS Fibrinogen (174-498) mg/dL D-Dimer (0-0.59) ug/mIFE U Specimen Type Sample Site ABG pH (7.35-7.45) ABG pCO2 (35-45) mmHg ABG pO2 (80.0-100.0) mmH g ABG HCO3 (22-26) mmol/L ABG Base Excess (-2.0-2.0) mmol/ L [place] Test Hematocrit (42-52) % O2 Delivery Device [employer] Tender ID Sodium (136-145) mmol/L Potassium (3.5-5.1) mmol/L Chloride (98-107) mmol/L Carbon Dioxide (22-29) mmol/L Anion Gap (5-19) BUN (6-20) mg/dL Creatinine (0.7-1.2) mg/dL GFR Calculation (90-130) mL/min Glucose (65-115) mg/dL POC Glucose 183 (70-110) mg/dL Calculated Osmolal ity (285-295) mOsm/k g Lactic Acid 1.7 (0.5-2.2) mmol/L Lactate (0.5-2.2) mmol/L Calcium (8.5-10.5) mg/dL Phosphorus (2.5-4.5) mg/dL Magnesium (1.7-2.3) mg/dL Ferritin (30-400) ng/mL Total Bilirubin (0.15-1.2) mg/dL AST (0-40) U/L ALT (0-41) U/L Alkaline Phosphata se (40-130) IU/L Lactate Dehydrogen ase (135-225) U/L Creatine Kinase (39-308) U/L Troponin T Gen 5 n g/L (0-15) ng/L Troponin T Baselin e (0-15) ng/L Troponin T 120 Min [place] (0-15) ng/L Delta Troponin T (0-10) ABS# Troponin T Hi Sens 6Hr (0-15) ng/L Troponin T Hi Sens 6Hr Delta (0-12) ng/L C-Reactive Protein (0.0-4.9) mg/L Total Protein (6.6-8.7) g/dL Albumin (3.5-5.2) g/dL Globulin (1.3-4.6) g/dL Lipase (13-60) U/L Procalcitonin (0-0.5) ng/mL Urine Color (Yellow) Urine Appearance (CLEAR) Urine pH (5-7) Ur Specific Gravit y (1.005-1.030) Urine Protein (Negative) Urine Glucose (UA) (Normal) Urine Ketones (Negative) Urine Blood (Negative) Urine Nitrate (Negative) Urine Bilirubin (Negative) Urine Urobilinogen (Negative) mg/dL Ur Leukocyte Amanda ase (Negative) Urine RBC (0-2) /hpf Urine WBC (0-5) /hpf Ur Squamous Epith Cells (0-5) /hpf Amorphous Sediment Urine Bacteria (NONE) /hpf Serum Ketones (Negative) Nasal/Oral COVID-1 9 PCR SARS-CoV-2 Ag (Rap id) (Negative) Blood Type Rho(D) Type Antibody Screen Crossmatch 11/25/19 11/26/19 11/26/19 Range/Units 18:43 01:37 01:39 WBC 6.1 (4.0-10.0) 10^3/ uL RBC 3.03 L (4.1-5.3) 10^6/u L Hgb 9.5 L (11.7-16.6) g/dL Hct 28.3 L (42.0-52.0) % MCV 93.4 (80-94) fL MCH 31.4 (28.0-34.0) pg MCHC 33.6 (30.0-36.0) g/dL RDW 16.0 H (12.1-15.1) % Plt Count 76 L (130-400) 10^3/c mm MPV 11.0 H (7.4-10.4) fL Neut % (Auto) 73.8 % Lymph % (Auto) 13.6 % [place] % (Auto) 10.2 % Eos % (Auto) 1.3 % Baso % (Auto) 0.3 % Neut # (Auto) 4.49 (1.8-7.7) 10^3/u L Lymph # (Auto) 0.8 (0.8-4.8) 10^3/u L [place] # (Auto) 0.6 (0.2-0.9) 10^3/u L Eos # (Auto) 0.1 (0.0-0.8) 10^3/u L Baso # (Auto) 0.0 (0.0-0.1) 10^3/u L Nucleated RBC % (a uto) 0 % Nucleated RBCs # 0.0 /100WBC PT (12.1-14.9) SECO NDS INR (0.8-1.2) APTT (23.9-36.7) SECO NDS Fibrinogen (174-498) mg/dL D-Dimer (0-0.59) ug/mIFE U Specimen Type Sample Site ABG pH (7.35-7.45) ABG pCO2 (35-45) mmHg ABG pO2 (80.0-100.0) mmH g ABG HCO3 (22-26) mmol/L ABG Base Excess (-2.0-2.0) mmol/ L Josafat Test Hematocrit (42-52) % O2 Delivery Device [employer]ing Machine Tender ID Sodium (136-145) mmol/L Potassium (3.5-5.1) mmol/L Chloride (98-107) mmol/L Carbon Dioxide (22-29) mmol/L Anion Gap (5-19) BUN (6-20) mg/dL Creatinine (0.7-1.2) mg/dL GFR Calculation (90-130) mL/min Glucose (65-115) mg/dL POC Glucose 136 (70-110) mg/dL Calculated Osmolal ity (285-295) mOsm/k g Lactic Acid (0.5-2.2) mmol/L Lactate (0.5-2.2) mmol/L Calcium (8.5-10.5) mg/dL Phosphorus 2.8 (2.5-4.5) mg/dL Magnesium 1.5 L (1.7-2.3) mg/dL Ferritin (30-400) ng/mL Total Bilirubin (0.15-1.2) mg/dL AST (0-40) U/L ALT (0-41) U/L Alkaline Phosphata se (40-130) IU/L Lactate Dehydrogen ase (135-225) U/L Creatine Kinase (39-308) U/L Troponin T Gen 5 n g/L (0-15) ng/L Troponin T Baselin e (0-15) ng/L Troponin T 120 Min [place] (0-15) ng/L Delta Troponin T (0-10) ABS# Troponin T Hi Sens 6Hr (0-15) ng/L Troponin T Hi Sens 6Hr Delta (0-12) ng/L C-Reactive Protein (0.0-4.9) mg/L Total Protein (6.6-8.7) g/dL Albumin (3.5-5.2) g/dL Globulin (1.3-4.6) g/dL Lipase (13-60) U/L Procalcitonin 0.21 (0-0.5) ng/mL Urine Color (Yellow) Urine Appearance (CLEAR) Urine pH (5-7) Ur Specific Gravit y (1.005-1.030) Urine Protein (Negative) Urine Glucose (UA) (Normal) Urine Ketones (Negative) Urine Blood (Negative) Urine Nitrate (Negative) Urine Bilirubin (Negative) Urine Urobilinogen (Negative) mg/dL Ur Leukocyte Amanda ase (Negative) Urine RBC (0-2) /hpf Urine WBC (0-5) /hpf Ur Squamous Epith Cells (0-5) /hpf Amorphous Sediment Urine Bacteria (NONE) /hpf Serum Ketones (Negative) Nasal/Oral COVID-1 9 PCR SARS-CoV-2 Ag (Rap id) (Negative) Blood Type Rho(D) Type Antibody Screen Crossmatch 11/26/19 11/26/19 11/26/19 Range/Units 01:39 01:39 08:35 WBC (4.0-10.0) 10^3/ uL RBC (4.1-5.3) 10^6/u L Hgb (11.7-16.6) g/dL Hct (42.0-52.0) % MCV (80-94) fL MCH (28.0-34.0) pg MCHC (30.0-36.0) g/dL RDW (12.1-15.1) % Plt Count (130-400) 10^3/c mm MPV (7.4-10.4) fL Neut % (Auto) % Lymph % (Auto) % [place] % (Auto) % Eos % (Auto) % Baso % (Auto) % Neut # (Auto) (1.8-7.7) 10^3/u L Lymph # (Auto) (0.8-4.8) 10^3/u L [place] # (Auto) (0.2-0.9) 10^3/u L Eos # (Auto) (0.0-0.8) 10^3/u L Baso # (Auto) (0.0-0.1) 10^3/u L Nucleated RBC % (a uto) % Nucleated RBCs # /100WBC PT (12.1-14.9) SECO NDS INR (0.8-1.2) APTT (23.9-36.7) SECO NDS Fibrinogen (174-498) mg/dL D-Dimer (0-0.59) ug/mIFE U Specimen Type Sample Site ABG pH (7.35-7.45) ABG pCO2 (35-45) mmHg ABG pO2 (80.0-100.0) mmH g ABG HCO3 (22-26) mmol/L ABG Base Excess (-2.0-2.0) mmol/ L Josafat Test Hematocrit (42-52) % O2 Delivery Device [employer] Tender ID Sodium 136 (136-145) mmol/L Potassium 3.7 (3.5-5.1) mmol/L Chloride 109 H (98-107) mmol/L Carbon Dioxide 17 L (22-29) mmol/L Anion Gap 13.7 (5-19) BUN 26 H (6-20) mg/dL Creatinine 1.0 (0.7-1.2) mg/dL GFR Calculation 78.2 L (90-130) mL/min Glucose 142 H (65-115) mg/dL POC Glucose 141 (70-110) mg/dL Calculated Osmolal ity 289 (285-295) mOsm/k g Lactic Acid (0.5-2.2) mmol/L Lactate (0.5-2.2) mmol/L Calcium 7.6 L (8.5-10.5) mg/dL Phosphorus 2.7 (2.5-4.5) mg/dL Magnesium 1.4 L (1.7-2.3) mg/dL Ferritin (30-400) ng/mL Total Bilirubin 0.7 (0.15-1.2) mg/dL AST 24 (0-40) U/L ALT 8 (0-41) U/L Alkaline Phosphata se 100 (40-130) IU/L Lactate Dehydrogen ase (135-225) U/L Creatine Kinase (39-308) U/L Troponin T Gen 5 n g/L (0-15) ng/L Troponin T Baselin e (0-15) ng/L Troponin T 120 Min [place] (0-15) ng/L Delta Troponin T (0-10) ABS# Troponin T Hi Sens 6Hr (0-15) ng/L Troponin T Hi Sens 6Hr Delta (0-12) ng/L C-Reactive Protein (0.0-4.9) mg/L Total Protein 5.7 L (6.6-8.7) g/dL Albumin 2.1 L (3.5-5.2) g/dL Globulin 3.6 (1.3-4.6) g/dL Lipase (13-60) U/L Procalcitonin 0.20 (0-0.5) ng/mL Urine Color (Yellow) Urine Appearance (CLEAR) Urine pH (5-7) Ur Specific Gravit y (1.005-1.030) Urine Protein (Negative) Urine Glucose (UA) (Normal) Urine Ketones (Negative) Urine Blood (Negative) Urine Nitrate (Negative) Urine Bilirubin (Negative) Urine Urobilinogen (Negative) mg/dL Ur Leukocyte Amanda ase (Negative) Urine RBC (0-2) /hpf Urine WBC (0-5) /hpf Ur Squamous Epith Cells (0-5) /hpf Amorphous Sediment Urine Bacteria (NONE) /hpf Serum Ketones (Negative) Nasal/Oral COVID-1 9 PCR SARS-CoV-2 Ag (Rap id) (Negative) Blood Type Rho(D) Type Antibody Screen Crossmatch 11/26/19 Range/Units 10:38 WBC (4.0-10.0) 10^3/ uL RBC (4.1-5.3) 10^6/u L Hgb (11.7-16.6) g/dL Hct (42.0-52.0) % MCV (80-94) fL MCH (28.0-34.0) pg MCHC (30.0-36.0) g/dL RDW (12.1-15.1) % Plt Count (130-400) 10^3/c mm MPV (7.4-10.4) fL Neut % (Auto) % Lymph % (Auto) % [place] % (Auto) % Eos % (Auto) % Baso % (Auto) % Neut # (Auto) (1.8-7.7) 10^3/u L Lymph # (Auto) (0.8-4.8) 10^3/u L [place] # (Auto) (0.2-0.9) 10^3/u L Eos # (Auto) (0.0-0.8) 10^3/u L Baso # (Auto) (0.0-0.1) 10^3/u L Nucleated RBC % (a uto) % Nucleated RBCs # /100WBC PT (12.1-14.9) SECO NDS INR (0.8-1.2) APTT > 250.0 H* D (23.9-36.7) SECO NDS Fibrinogen (174-498) mg/dL D-Dimer (0-0.59) ug/mIFE U Specimen Type Sample Site ABG pH (7.35-7.45) ABG pCO2 (35-45) mmHg ABG pO2 (80.0-100.0) mmH g ABG HCO3 (22-26) mmol/L ABG Base Excess (-2.0-2.0) mmol/ L Josafat Test Hematocrit (42-52) % O2 Delivery Device [employer] Machine Tender ID Sodium (136-145) mmol/L Potassium (3.5-5.1) mmol/L Chloride (98-107) mmol/L Carbon Dioxide (22-29) mmol/L Anion Gap (5-19) BUN (6-20) mg/dL Creatinine (0.7-1.2) mg/dL GFR Calculation (90-130) mL/min Glucose (65-115) mg/dL POC Glucose (70-110) mg/dL Calculated Osmolal ity (285-295) mOsm/k g Lactic Acid (0.5-2.2) mmol/L Lactate (0.5-2.2) mmol/L Calcium (8.5-10.5) mg/dL Phosphorus (2.5-4.5) mg/dL Magnesium (1.7-2.3) mg/dL Ferritin (30-400) ng/mL Total Bilirubin (0.15-1.2) mg/dL AST (0-40) U/L ALT (0-41) U/L Alkaline Phosphata se (40-130) IU/L Lactate Dehydrogen ase (135-225) U/L Creatine Kinase (39-308) U/L Troponin T Gen 5 n g/L (0-15) ng/L Troponin T Baselin e (0-15) ng/L Troponin T 120 Min [place] (0-15) ng/L Delta Troponin T (0-10) ABS# Troponin T Hi Sens 6Hr (0-15) ng/L Troponin T Hi Sens 6Hr Delta (0-12) ng/L C-Reactive Protein (0.0-4.9) mg/L Total Protein (6.6-8.7) g/dL Albumin (3.5-5.2) g/dL Globulin (1.3-4.6) g/dL Lipase (13-60) U/L Procalcitonin (0-0.5) ng/mL Urine Color (Yellow) Urine Appearance (CLEAR) Urine pH (5-7) Ur Specific Gravit y (1.005-1.030) Urine Protein (Negative) Urine Glucose (UA) (Normal) Urine Ketones (Negative) Urine Blood (Negative) Urine Nitrate (Negative) Urine Bilirubin (Negative) Urine Urobilinogen (Negative) mg/dL Ur Leukocyte Amanda ase (Negative) Urine RBC (0-2) /hpf Urine WBC (0-5) /hpf Ur Squamous Epith Cells (0-5) /hpf Amorphous Sediment Urine Bacteria (NONE) /hpf Serum Ketones (Negative) Nasal/Oral COVID-1 9 PCR SARS-CoV-2 Ag (Rap id) (Negative) Blood Type Rho(D) Type Antibody Screen Crossmatch Discharge Plan Discharge Clinical Impression: Colitis, Anemia, Superior mesenteric artery thrombosis, Suspected 2019-nCoV infection, Non-ST elevation CA (NSTEMI), Mesenteric artery thrombosis, Diabetes, Liver cirrhosis, Portal hypertension, Thrombocytopenia Condition: Stable Prescriptions: No Action nitroglycerin [Nitrostat] 0.4 mg tablet, sublingual 0.4 mg SUBLINGUAL Q5M PRN (Reason: Chest Pain) RF: 0 oxycodone 30 mg tablet 30 mg PO 5XD PRN (Reason: Pain) 30 Days Qty: 150 RF: 0 oxycodone [OxyContin] 10 mg tablet,oral only,ext.rel.12 hr 10 mg PO Q12H 7 Days Qty: 14 RF: 0 fluticasone propion-salmeterol [Advair Diskus] 250-50 mcg/dose Blister With Device 1 inh INHALATION BID RF: 0 Tresiba FlexTouch U-100 100 unit/mL (3 mL) Insulin Pen 20 unit SUBCUT BEDTIME PRN (Reason: Hyperglycemia) RF: 0 albuterol sulfate 90 mcg/actuation Aero Powdr Breath Act W/Sensor 1 - 2 inh INHALATION QID PRN (Reason: Shortness Of Breath) RF: 0 trazodone 150 mg tablet 150 mg PO BEDTIME PRN (Reason: Sleep) RF: 0 ibuprofen 200 mg Tablet 200 - 400 mg PO DAILY PRN (Reason: Pain) RF: 0 furosemide 40 mg tablet 40 mg PO DAILY@0800 RF: 0 lorazepam 0.5 mg tablet 0.5 mg PO BEDTIME PRN (Reason: unknown) RF: 0 insulin aspart U-100 [Novolog Flexpen U-100 Insulin] 100 unit/mL (3 mL) insulin pen 5 unit SUBCUT TID RF: 0 lactulose 10 gram/15 mL solution 5 - 10 ml PO DAILY PRN (Reason: Constipation) RF: 0 Dexilant 30 mg capsule,biphase delayed releas 30 mg PO DAILY RF: 0 aspirin 325 mg Tablet 325 mg PO DAILY RF: 0 albuterol sulfate 2.5 mg /3 mL (0.083 %) Solution For Nebulization 2.5 mg INHALATION Q4H PRN (Reason: Shortness Of Breath) RF: 0 Referrals: Andreia De León DO [Primary Care Provider] - Discharge Date/Time: 11/26/19 14:30 Sign Out Sign Out Data: Patient Sign Out occurred on 11/24/19 at 06:10. Patient's care was discussed, and care was transferred from Malathi Portillo to Neville Vasquez DO. Sign Out Comment: Case turned over to Dr. Vasquez at change of shift. Last updated by Malathi Portillo at 11/24/19 06:01 Patient Sign Out occurred on 11/26/19 at 06:31. Patient's care was discussed, and care was transferred from Malathi Portillo to Neville Vasquez DO. Sign Out Comment: Case again turned over to Dr. Vasquez at change of shift. Last updated by Malathi Portillo at 11/26/19 05:58 Coding Level of Care Code ED Fishing Vessel Deckhand for Chg Fwd Documented by User: Neville Vasquez DO 11/26/19 16:09 HPI - Abdominal Pain General: Chief Complaint: Abdominal Pain Stated Complaint: ABD PAIN Time Seen by Provider: 11/24/19 04:36 PFSH ED PFSH: Medical History Ascites Chronic cervical pain Chronic low back pain Diabetes Diabetic neuropathy, painful Encounter for long-term opiate analgesic use Liver cirrhosis Liver failure Somatic dysfunction of back THORACIC AND LUMBAR Surgical History History of abdominal paracentesis History of colonoscopy History of esophagogastroduodenoscopy (EGD) Hx of circumcision Hx of inguinal hernia repair (~05/22/18) LAP REPAIR OF RIGHT INGUINAL HERNIA WITH ULTRAPRO 15X10 CM MESH. Hx of oral surgery Family History Father Cancer LUNG CANCER Other Diabetes Heart disease Lung disease Myocardial infarct Stroke Denies family history of Anesthesia complication Bleeding disorder Social History Smoking and tobacco status: current every day smoker cigarettes Alcohol intake: former Year of sobriety/quit date alcohol: 2009 Caregiver/support person: Yes Lives independently: Yes Household members: friend(s) Current occupational status: disabled History of recent travel: No Course Vital Signs: Vital signs: Vital Signs Temperature 98.4 F 11/24/19 14:46 Pulse Rate 54 L 11/26/19 12:39 Respiratory Rate 18 11/26/19 12:39 Blood Pressure 182/83 11/26/19 12:39 Pulse Oximetry 91 11/26/19 12:39 MDM - Abdominal Pain Lab Data: Labs: Lab Results 11/24/19 11/24/19 11/24/19 Range/Units 02:30 04:50 05:00 WBC 5.3 (4.0-10.0) 10^3/ uL RBC 2.40 L (4.1-5.3) 10^6/u L Hgb 7.5 L (11.7-16.6) g/dL Hct 22.9 L (42.0-52.0) % MCV 95.4 H (80-94) fL MCH 31.3 (28.0-34.0) pg MCHC 32.8 (30.0-36.0) g/dL RDW 16.5 H (12.1-15.1) % Plt Count 77 L (130-400) 10^3/c mm MPV 10.5 H (7.4-10.4) fL Neut % (Auto) 71.3 % Lymph % (Auto) 10.9 % [place] % (Auto) 13.2 % Eos % (Auto) 3.0 % Baso % (Auto) 0.8 % Neut # (Auto) 3.79 (1.8-7.7) 10^3/u L Lymph # (Auto) 0.6 L (0.8-4.8) 10^3/u L [place] # (Auto) 0.7 (0.2-0.9) 10^3/u L Eos # (Auto) 0.2 (0.0-0.8) 10^3/u L Baso # (Auto) 0.0 (0.0-0.1) 10^3/u L Nucleated RBC % (a uto) 0 % Nucleated RBCs # 0.0 /100WBC PT 18.40 H (12.1-14.9) SECO NDS INR 1.47 H (0.8-1.2) APTT 42.1 H (23.9-36.7) SECO NDS Fibrinogen (174-498) mg/dL D-Dimer (0-0.59) ug/mIFE U Specimen Type Arterial Sample Site Radial, right ABG pH 7.51 H (7.35-7.45) ABG pCO2 25.8 L (35-45) mmHg ABG pO2 56.9 L (80.0-100.0) mmH g ABG HCO3 20.5 L (22-26) mmol/L ABG Base Excess -2.1 L (-2.0-2.0) mmol/ L Josafat Test Pos Hematocrit 22.6 L (42-52) % O2 Delivery Device Not Reportable [employer] Machine Tender ID ellpe Sodium (136-145) mmol/L Potassium (3.5-5.1) mmol/L Chloride (98-107) mmol/L Carbon Dioxide (22-29) mmol/L Anion Gap (5-19) BUN (6-20) mg/dL Creatinine (0.7-1.2) mg/dL GFR Calculation (90-130) mL/min Glucose (65-115) mg/dL POC Glucose (70-110) mg/dL Calculated Osmolal ity (285-295) mOsm/k g Lactic Acid (0.5-2.2) mmol/L Lactate (0.5-2.2) mmol/L Calcium (8.5-10.5) mg/dL Phosphorus (2.5-4.5) mg/dL Magnesium (1.7-2.3) mg/dL Ferritin (30-400) ng/mL Total Bilirubin (0.15-1.2) mg/dL AST (0-40) U/L ALT (0-41) U/L Alkaline Phosphata se (40-130) IU/L Lactate Dehydrogen ase (135-225) U/L Creatine Kinase (39-308) U/L Troponin T Gen 5 n g/L (0-15) ng/L Troponin T Baselin e (0-15) ng/L Troponin T 120 Min [place] (0-15) ng/L Delta Troponin T (0-10) ABS# Troponin T Hi Sens 6Hr (0-15) ng/L Troponin T Hi Sens 6Hr Delta (0-12) ng/L C-Reactive Protein (0.0-4.9) mg/L Total Protein (6.6-8.7) g/dL Albumin (3.5-5.2) g/dL Globulin (1.3-4.6) g/dL Lipase (13-60) U/L Procalcitonin (0-0.5) ng/mL Urine Color (Yellow) Urine Appearance (CLEAR) Urine pH (5-7) Ur Specific Gravit y (1.005-1.030) Urine Protein (Negative) Urine Glucose (UA) (Normal) Urine Ketones (Negative) Urine Blood (Negative) Urine Nitrate (Negative) Urine Bilirubin (Negative) Urine Urobilinogen (Negative) mg/dL Ur Leukocyte Amanda ase (Negative) Urine RBC (0-2) /hpf Urine WBC (0-5) /hpf Ur Squamous Epith Cells (0-5) /hpf Amorphous Sediment Urine Bacteria (NONE) /hpf Serum Ketones (Negative) Nasal/Oral COVID-1 9 PCR SARS-CoV-2 Ag (Rap id) (Negative) Blood Type Rho(D) Type Antibody Screen Crossmatch 11/24/19 11/24/19 11/24/19 Range/Units 05:00 05:00 05:00 WBC (4.0-10.0) 10^3/ uL RBC (4.1-5.3) 10^6/u L Hgb (11.7-16.6) g/dL Hct (42.0-52.0) % MCV (80-94) fL MCH (28.0-34.0) pg MCHC (30.0-36.0) g/dL RDW (12.1-15.1) % Plt Count (130-400) 10^3/c mm MPV (7.4-10.4) fL Neut % (Auto) % Lymph % (Auto) % [place] % (Auto) % Eos % (Auto) % Baso % (Auto) % Neut # (Auto) (1.8-7.7) 10^3/u L Lymph # (Auto) (0.8-4.8) 10^3/u L [place] # (Auto) (0.2-0.9) 10^3/u L Eos # (Auto) (0.0-0.8) 10^3/u L Baso # (Auto) (0.0-0.1) 10^3/u L Nucleated RBC % (a uto) % Nucleated RBCs # /100WBC PT (12.1-14.9) SECO NDS INR (0.8-1.2) APTT (23.9-36.7) SECO NDS Fibrinogen (174-498) mg/dL D-Dimer (0-0.59) ug/mIFE U Specimen Type Sample Site ABG pH (7.35-7.45) ABG pCO2 (35-45) mmHg ABG pO2 (80.0-100.0) mmH g ABG HCO3 (22-26) mmol/L ABG Base Excess (-2.0-2.0) mmol/ L Josafat Test Hematocrit (42-52) % O2 Delivery Device [employer] Machine Tender ID Sodium 136 (136-145) mmol/L Potassium 3.7 (3.5-5.1) mmol/L Chloride 107 (98-107) mmol/L Carbon Dioxide 18 L (22-29) mmol/L Anion Gap 14.7 (5-19) BUN 20 (6-20) mg/dL Creatinine 1.0 (0.7-1.2) mg/dL GFR Calculation 78.2 L (90-130) mL/min Glucose 219 H (65-115) mg/dL POC Glucose (70-110) mg/dL Calculated Osmolal ity 291 (285-295) mOsm/k g Lactic Acid 2.0 (0.5-2.2) mmol/L Lactate (0.5-2.2) mmol/L Calcium 7.4 L (8.5-10.5) mg/dL Phosphorus (2.5-4.5) mg/dL Magnesium 1.4 L (1.7-2.3) mg/dL Ferritin (30-400) ng/mL Total Bilirubin 0.9 (0.15-1.2) mg/dL AST 17 (0-40) U/L ALT 8 (0-41) U/L Alkaline Phosphata se 115 (40-130) IU/L Lactate Dehydrogen ase (135-225) U/L Creatine Kinase (39-308) U/L Troponin T Gen 5 n g/L (0-15) ng/L Troponin T Baselin e 91 H (0-15) ng/L Troponin T 120 Min [place] (0-15) ng/L Delta Troponin T (0-10) ABS# Troponin T Hi Sens 6Hr (0-15) ng/L Troponin T Hi Sens 6Hr Delta (0-12) ng/L C-Reactive Protein (0.0-4.9) mg/L Total Protein 5.6 L (6.6-8.7) g/dL Albumin 2.0 L (3.5-5.2) g/dL Globulin 3.6 (1.3-4.6) g/dL Lipase 48 (13-60) U/L Procalcitonin (0-0.5) ng/mL Urine Color (Yellow) Urine Appearance (CLEAR) Urine pH (5-7) Ur Specific Gravit y (1.005-1.030) Urine Protein (Negative) Urine Glucose (UA) (Normal) Urine Ketones (Negative) Urine Blood (Negative) Urine Nitrate (Negative) Urine Bilirubin (Negative) Urine Urobilinogen (Negative) mg/dL Ur Leukocyte Amanda ase (Negative) Urine RBC (0-2) /hpf Urine WBC (0-5) /hpf Ur Squamous Epith Cells (0-5) /hpf Amorphous Sediment Urine Bacteria (NONE) /hpf Serum Ketones Negative (Negative) Nasal/Oral COVID-1 9 PCR SARS-CoV-2 Ag (Rap id) (Negative) Blood Type Rho(D) Type Antibody Screen Crossmatch 11/24/19 11/24/19 11/24/19 Range/Units 05:00 05:00 05:00 WBC (4.0-10.0) 10^3/ uL RBC (4.1-5.3) 10^6/u L Hgb (11.7-16.6) g/dL Hct (42.0-52.0) % MCV (80-94) fL MCH (28.0-34.0) pg MCHC (30.0-36.0) g/dL RDW (12.1-15.1) % Plt Count (130-400) 10^3/c mm MPV (7.4-10.4) fL Neut % (Auto) % Lymph % (Auto) % [place] % (Auto) % Eos % (Auto) % Baso % (Auto) % Neut # (Auto) (1.8-7.7) 10^3/u L Lymph # (Auto) (0.8-4.8) 10^3/u L [place] # (Auto) (0.2-0.9) 10^3/u L Eos # (Auto) (0.0-0.8) 10^3/u L Baso # (Auto) (0.0-0.1) 10^3/u L Nucleated RBC % (a uto) % Nucleated RBCs # /100WBC PT (12.1-14.9) SECO NDS INR (0.8-1.2) APTT (23.9-36.7) SECO NDS Fibrinogen 214 (174-498) mg/dL D-Dimer 11.59 H (0-0.59) ug/mIFE U Specimen Type Sample Site ABG pH (7.35-7.45) ABG pCO2 (35-45) mmHg ABG pO2 (80.0-100.0) mmH g ABG HCO3 (22-26) mmol/L ABG Base Excess (-2.0-2.0) mmol/ L Josafat Test Hematocrit (42-52) % O2 Delivery Device [employer] Bonding Machine Tender ID Sodium (136-145) mmol/L Potassium (3.5-5.1) mmol/L Chloride (98-107) mmol/L Carbon Dioxide (22-29) mmol/L Anion Gap (5-19) BUN (6-20) mg/dL Creatinine (0.7-1.2) mg/dL GFR Calculation (90-130) mL/min Glucose (65-115) mg/dL POC Glucose (70-110) mg/dL Calculated Osmolal ity (285-295) mOsm/k g Lactic Acid (0.5-2.2) mmol/L Lactate (0.5-2.2) mmol/L Calcium (8.5-10.5) mg/dL Phosphorus (2.5-4.5) mg/dL Magnesium (1.7-2.3) mg/dL Ferritin 605 H (30-400) ng/mL Total Bilirubin (0.15-1.2) mg/dL AST (0-40) U/L ALT (0-41) U/L Alkaline Phosphata se (40-130) IU/L Lactate Dehydrogen ase 314 H (135-225) U/L Creatine Kinase 104 (39-308) U/L Troponin T Gen 5 n g/L (0-15) ng/L Troponin T Baselin e (0-15) ng/L Troponin T 120 Min [place] (0-15) ng/L Delta Troponin T (0-10) ABS# Troponin T Hi Sens 6Hr (0-15) ng/L Troponin T Hi Sens 6Hr Delta (0-12) ng/L C-Reactive Protein 57.1 H (0.0-4.9) mg/L Total Protein (6.6-8.7) g/dL Albumin (3.5-5.2) g/dL Globulin (1.3-4.6) g/dL Lipase (13-60) U/L Procalcitonin 0.23 (0-0.5) ng/mL Urine Color (Yellow) Urine Appearance (CLEAR) Urine pH (5-7) Ur Specific Gravit y (1.005-1.030) Urine Protein (Negative) Urine Glucose (UA) (Normal) Urine Ketones (Negative) Urine Blood (Negative) Urine Nitrate (Negative) Urine Bilirubin (Negative) Urine Urobilinogen (Negative) mg/dL Ur Leukocyte Amanda ase (Negative) Urine RBC (0-2) /hpf Urine WBC (0-5) /hpf Ur Squamous Epith Cells (0-5) /hpf Amorphous Sediment Urine Bacteria (NONE) /hpf Serum Ketones (Negative) Nasal/Oral COVID-1 9 PCR SARS-CoV-2 Ag (Rap id) Negative (Negative) Blood Type Rho(D) Type Antibody Screen Crossmatch 11/24/19 11/24/19 11/24/19 Range/Units 06:03 06:22 06:44 WBC (4.0-10.0) 10^3/ uL RBC (4.1-5.3) 10^6/u L Hgb (11.7-16.6) g/dL Hct (42.0-52.0) % MCV (80-94) fL MCH (28.0-34.0) pg MCHC (30.0-36.0) g/dL RDW (12.1-15.1) % Plt Count (130-400) 10^3/c mm MPV (7.4-10.4) fL Neut % (Auto) % Lymph % (Auto) % [place] % (Auto) % Eos % (Auto) % Baso % (Auto) % Neut # (Auto) (1.8-7.7) 10^3/u L Lymph # (Auto) (0.8-4.8) 10^3/u L [place] # (Auto) (0.2-0.9) 10^3/u L Eos # (Auto) (0.0-0.8) 10^3/u L Baso # (Auto) (0.0-0.1) 10^3/u L Nucleated RBC % (a uto) % Nucleated RBCs # /100WBC PT (12.1-14.9) SECO NDS INR (0.8-1.2) APTT (23.9-36.7) SECO NDS Fibrinogen (174-498) mg/dL D-Dimer (0-0.59) ug/mIFE U Specimen Type Sample Site ABG pH (7.35-7.45) ABG pCO2 (35-45) mmHg ABG pO2 (80.0-100.0) mmH g ABG HCO3 (22-26) mmol/L ABG Base Excess (-2.0-2.0) mmol/ L Josafat Test Hematocrit (42-52) % O2 Delivery Device [employer] Tender ID Sodium (136-145) mmol/L Potassium (3.5-5.1) mmol/L Chloride (98-107) mmol/L Carbon Dioxide (22-29) mmol/L Anion Gap (5-19) BUN (6-20) mg/dL Creatinine (0.7-1.2) mg/dL GFR Calculation (90-130) mL/min Glucose (65-115) mg/dL POC Glucose (70-110) mg/dL Calculated Osmolal ity (285-295) mOsm/k g Lactic Acid (0.5-2.2) mmol/L Lactate (0.5-2.2) mmol/L Calcium (8.5-10.5) mg/dL Phosphorus (2.5-4.5) mg/dL Magnesium (1.7-2.3) mg/dL Ferritin (30-400) ng/mL Total Bilirubin (0.15-1.2) mg/dL AST (0-40) U/L ALT (0-41) U/L Alkaline Phosphata se (40-130) IU/L Lactate Dehydrogen ase (135-225) U/L Creatine Kinase (39-308) U/L Troponin T Gen 5 n g/L (0-15) ng/L Troponin T Baselin e (0-15) ng/L Troponin T 120 Min [place] 99.31 H (0-15) ng/L Delta Troponin T 8.31 (0-10) ABS# Troponin T Hi Sens 6Hr (0-15) ng/L Troponin T Hi Sens 6Hr Delta (0-12) ng/L C-Reactive Protein (0.0-4.9) mg/L Total Protein (6.6-8.7) g/dL Albumin (3.5-5.2) g/dL Globulin (1.3-4.6) g/dL Lipase (13-60) U/L Procalcitonin (0-0.5) ng/mL Urine Color Yellow (Yellow) Urine Appearance Clear (CLEAR) Urine pH 5 (5-7) Ur Specific Gravit y 1.010 (1.005-1.030) Urine Protein 1+ H (Negative) Urine Glucose (UA) Norm (Normal) Urine Ketones Negative (Negative) Urine Blood 3+ H (Negative) Urine Nitrate Negative (Negative) Urine Bilirubin Neg (Negative) Urine Urobilinogen 1 H (Negative) mg/dL Ur Leukocyte Amanda ase Negative (Negative) Urine RBC 5-10 H (0-2) /hpf Urine WBC 0-4 H (0-5) /hpf Ur Squamous Epith Cells None (0-5) /hpf Amorphous Sediment Not Reportable Urine Bacteria Trace (NONE) /hpf Serum Ketones (Negative) Nasal/Oral COVID-1 9 PCR SARS-CoV-2 Ag (Rap id) (Negative) Blood Type O Positive Rho(D) Type Positive Antibody Screen Negative Crossmatch See Detail 11/24/19 11/24/19 11/24/19 Range/Units 07:48 18:40 18:40 WBC 4.3 (4.0-10.0) 10^3/ uL RBC 3.21 L (4.1-5.3) 10^6/u L Hgb 10.0 L D (11.7-16.6) g/dL Hct 30.2 L D (42.0-52.0) % MCV 94.1 H (80-94) fL MCH 31.2 (28.0-34.0) pg MCHC 33.1 (30.0-36.0) g/dL RDW 15.3 H (12.1-15.1) % Plt Count 65 L (130-400) 10^3/c mm MPV 10.8 H (7.4-10.4) fL Neut % (Auto) 84.5 % Lymph % (Auto) 9.0 % [place] % (Auto) 5.1 % Eos % (Auto) 0.0 % Baso % (Auto) 0.2 % Neut # (Auto) 3.66 (1.8-7.7) 10^3/u L Lymph # (Auto) 0.4 L (0.8-4.8) 10^3/u L [place] # (Auto) 0.2 (0.2-0.9) 10^3/u L Eos # (Auto) 0.0 (0.0-0.8) 10^3/u L Baso # (Auto) 0.0 (0.0-0.1) 10^3/u L Nucleated RBC % (a uto) 0 % Nucleated RBCs # 0.0 /100WBC PT (12.1-14.9) SECO NDS INR (0.8-1.2) APTT (23.9-36.7) SECO NDS Fibrinogen (174-498) mg/dL D-Dimer (0-0.59) ug/mIFE U Specimen Type Sample Site ABG pH (7.35-7.45) ABG pCO2 (35-45) mmHg ABG pO2 (80.0-100.0) mmH g ABG HCO3 (22-26) mmol/L ABG Base Excess (-2.0-2.0) mmol/ L Josafat Test Hematocrit (42-52) % O2 Delivery Device [employer] Tender ID Sodium 134 L (136-145) mmol/L Potassium 4.5 (3.5-5.1) mmol/L Chloride 106 (98-107) mmol/L Carbon Dioxide 18 L (22-29) mmol/L Anion Gap 14.5 (5-19) BUN 21 H (6-20) mg/dL Creatinine 1.0 (0.7-1.2) mg/dL GFR Calculation 78.2 L (90-130) mL/min Glucose 246 H (65-115) mg/dL POC Glucose (70-110) mg/dL Calculated Osmolal ity 289 (285-295) mOsm/k g Lactic Acid (0.5-2.2) mmol/L Lactate (0.5-2.2) mmol/L Calcium 7.4 L (8.5-10.5) mg/dL Phosphorus (2.5-4.5) mg/dL Magnesium (1.7-2.3) mg/dL Ferritin (30-400) ng/mL Total Bilirubin (0.15-1.2) mg/dL AST (0-40) U/L ALT (0-41) U/L Alkaline Phosphata se (40-130) IU/L Lactate Dehydrogen ase (135-225) U/L Creatine Kinase (39-308) U/L Troponin T Gen 5 n g/L (0-15) ng/L Troponin T Baselin e (0-15) ng/L Troponin T 120 Min [place] (0-15) ng/L Delta Troponin T (0-10) ABS# Troponin T Hi Sens 6Hr (0-15) ng/L Troponin T Hi Sens 6Hr Delta (0-12) ng/L C-Reactive Protein (0.0-4.9) mg/L Total Protein (6.6-8.7) g/dL Albumin (3.5-5.2) g/dL Globulin (1.3-4.6) g/dL Lipase (13-60) U/L Procalcitonin (0-0.5) ng/mL Urine Color (Yellow) Urine Appearance (CLEAR) Urine pH (5-7) Ur Specific Gravit y (1.005-1.030) Urine Protein (Negative) Urine Glucose (UA) (Normal) Urine Ketones (Negative) Urine Blood (Negative) Urine Nitrate (Negative) Urine Bilirubin (Negative) Urine Urobilinogen (Negative) mg/dL Ur Leukocyte Amanda ase (Negative) Urine RBC (0-2) /hpf Urine WBC (0-5) /hpf Ur Squamous Epith Cells (0-5) /hpf Amorphous Sediment Urine Bacteria (NONE) /hpf Serum Ketones (Negative) Nasal/Oral COVID-1 9 PCR Negative SARS-CoV-2 Ag (Rap id) (Negative) Blood Type Rho(D) Type Antibody Screen Crossmatch 11/24/19 11/24/19 11/24/19 Range/Units 18:40 20:18 21:44 WBC (4.0-10.0) 10^3/ uL RBC (4.1-5.3) 10^6/u L Hgb (11.7-16.6) g/dL Hct (42.0-52.0) % MCV (80-94) fL MCH (28.0-34.0) pg MCHC (30.0-36.0) g/dL RDW (12.1-15.1) % Plt Count (130-400) 10^3/c mm MPV (7.4-10.4) fL Neut % (Auto) % Lymph % (Auto) % [place] % (Auto) % Eos % (Auto) % Baso % (Auto) % Neut # (Auto) (1.8-7.7) 10^3/u L Lymph # (Auto) (0.8-4.8) 10^3/u L [place] # (Auto) (0.2-0.9) 10^3/u L Eos # (Auto) (0.0-0.8) 10^3/u L Baso # (Auto) (0.0-0.1) 10^3/u L Nucleated RBC % (a uto) % Nucleated RBCs # /100WBC PT (12.1-14.9) SECO NDS INR (0.8-1.2) APTT (23.9-36.7) SECO NDS Fibrinogen (174-498) mg/dL D-Dimer (0-0.59) ug/mIFE U Specimen Type Sample Site ABG pH (7.35-7.45) ABG pCO2 (35-45) mmHg ABG pO2 (80.0-100.0) mmH g ABG HCO3 (22-26) mmol/L ABG Base Excess (-2.0-2.0) mmol/ L Josafat Test Hematocrit (42-52) % O2 Delivery Device [employer]ing Machine Tender ID Sodium (136-145) mmol/L Potassium (3.5-5.1) mmol/L Chloride (98-107) mmol/L Carbon Dioxide (22-29) mmol/L Anion Gap (5-19) BUN (6-20) mg/dL Creatinine (0.7-1.2) mg/dL GFR Calculation (90-130) mL/min Glucose (65-115) mg/dL POC Glucose (70-110) mg/dL Calculated Osmolal ity (285-295) mOsm/k g Lactic Acid 1.5 (0.5-2.2) mmol/L Lactate (0.5-2.2) mmol/L Calcium (8.5-10.5) mg/dL Phosphorus (2.5-4.5) mg/dL Magnesium (1.7-2.3) mg/dL Ferritin (30-400) ng/mL Total Bilirubin (0.15-1.2) mg/dL AST (0-40) U/L ALT (0-41) U/L Alkaline Phosphata se (40-130) IU/L Lactate Dehydrogen ase (135-225) U/L Creatine Kinase (39-308) U/L Troponin T Gen 5 n g/L 89 H (0-15) ng/L Troponin T Baselin e (0-15) ng/L Troponin T 120 Min [place] (0-15) ng/L Delta Troponin T (0-10) ABS# Troponin T Hi Sens 6Hr 93.84 H (0-15) ng/L Troponin T Hi Sens 6Hr Delta 2.84 (0-12) ng/L C-Reactive Protein (0.0-4.9) mg/L Total Protein (6.6-8.7) g/dL Albumin (3.5-5.2) g/dL Globulin (1.3-4.6) g/dL Lipase (13-60) U/L Procalcitonin (0-0.5) ng/mL Urine Color (Yellow) Urine Appearance (CLEAR) Urine pH (5-7) Ur Specific Gravit y (1.005-1.030) Urine Protein (Negative) Urine Glucose (UA) (Normal) Urine Ketones (Negative) Urine Blood (Negative) Urine Nitrate (Negative) Urine Bilirubin (Negative) Urine Urobilinogen (Negative) mg/dL Ur Leukocyte Amanda ase (Negative) Urine RBC (0-2) /hpf Urine WBC (0-5) /hpf Ur Squamous Epith Cells (0-5) /hpf Amorphous Sediment Urine Bacteria (NONE) /hpf Serum Ketones (Negative) Nasal/Oral COVID-1 9 PCR SARS-CoV-2 Ag (Rap id) (Negative) Blood Type Rho(D) Type Antibody Screen Crossmatch 11/25/19 11/25/19 11/25/19 Range/Units 13:31 13:31 13:31 WBC 7.2 (4.0-10.0) 10^3/ uL RBC 3.31 L (4.1-5.3) 10^6/u L Hgb 10.3 L (11.7-16.6) g/dL Hct 31.4 L (42.0-52.0) % MCV 94.9 H (80-94) fL MCH 31.1 (28.0-34.0) pg MCHC 32.8 (30.0-36.0) g/dL RDW 15.9 H (12.1-15.1) % Plt Count 77 L (130-400) 10^3/c mm MPV 11.7 H (7.4-10.4) fL Neut % (Auto) 78.4 % Lymph % (Auto) 11.5 % [place] % (Auto) 8.8 % Eos % (Auto) 0.3 % Baso % (Auto) 0.3 % Neut # (Auto) 5.61 (1.8-7.7) 10^3/u L Lymph # (Auto) 0.8 (0.8-4.8) 10^3/u L [place] # (Auto) 0.6 (0.2-0.9) 10^3/u L Eos # (Auto) 0.0 (0.0-0.8) 10^3/u L Baso # (Auto) 0.0 (0.0-0.1) 10^3/u L Nucleated RBC % (a uto) 0 % Nucleated RBCs # 0.0 /100WBC PT (12.1-14.9) SECO NDS INR (0.8-1.2) APTT (23.9-36.7) SECO NDS Fibrinogen (174-498) mg/dL D-Dimer (0-0.59) ug/mIFE U Specimen Type Sample Site ABG pH (7.35-7.45) ABG pCO2 (35-45) mmHg ABG pO2 (80.0-100.0) mmH g ABG HCO3 (22-26) mmol/L ABG Base Excess (-2.0-2.0) mmol/ L Josafat Test Hematocrit (42-52) % O2 Delivery Device [employer] Machine Tender ID Sodium 137 (136-145) mmol/L Potassium 3.9 (3.5-5.1) mmol/L Chloride 107 (98-107) mmol/L Carbon Dioxide 18 L (22-29) mmol/L Anion Gap 16.9 (5-19) BUN 30 H (6-20) mg/dL Creatinine 1.1 (0.7-1.2) mg/dL GFR Calculation 70.0 L (90-130) mL/min Glucose 202 H (65-115) mg/dL POC Glucose (70-110) mg/dL Calculated Osmolal ity 295 (285-295) mOsm/k g Lactic Acid (0.5-2.2) mmol/L Lactate 2.6 H (0.5-2.2) mmol/L Calcium 7.7 L (8.5-10.5) mg/dL Phosphorus (2.5-4.5) mg/dL Magnesium (1.7-2.3) mg/dL Ferritin (30-400) ng/mL Total Bilirubin (0.15-1.2) mg/dL AST (0-40) U/L ALT (0-41) U/L Alkaline Phosphata se (40-130) IU/L Lactate Dehydrogen ase (135-225) U/L Creatine Kinase (39-308) U/L Troponin T Gen 5 n g/L (0-15) ng/L Troponin T Baselin e (0-15) ng/L Troponin T 120 Min [place] (0-15) ng/L Delta Troponin T (0-10) ABS# Troponin T Hi Sens 6Hr (0-15) ng/L Troponin T Hi Sens 6Hr Delta (0-12) ng/L C-Reactive Protein (0.0-4.9) mg/L Total Protein (6.6-8.7) g/dL Albumin (3.5-5.2) g/dL Globulin (1.3-4.6) g/dL Lipase (13-60) U/L Procalcitonin (0-0.5) ng/mL Urine Color (Yellow) Urine Appearance (CLEAR) Urine pH (5-7) Ur Specific Gravit y (1.005-1.030) Urine Protein (Negative) Urine Glucose (UA) (Normal) Urine Ketones (Negative) Urine Blood (Negative) Urine Nitrate (Negative) Urine Bilirubin (Negative) Urine Urobilinogen (Negative) mg/dL Ur Leukocyte Amanda ase (Negative) Urine RBC (0-2) /hpf Urine WBC (0-5) /hpf Ur Squamous Epith Cells (0-5) /hpf Amorphous Sediment Urine Bacteria (NONE) /hpf Serum Ketones (Negative) Nasal/Oral COVID-1 9 PCR SARS-CoV-2 Ag (Rap id) (Negative) Blood Type Rho(D) Type Antibody Screen Crossmatch 11/25/19 11/25/19 11/25/19 Range/Units 13:31 18:22 18:43 WBC (4.0-10.0) 10^3/ uL RBC (4.1-5.3) 10^6/u L Hgb (11.7-16.6) g/dL Hct (42.0-52.0) % MCV (80-94) fL MCH (28.0-34.0) pg MCHC (30.0-36.0) g/dL RDW (12.1-15.1) % Plt Count (130-400) 10^3/c mm MPV (7.4-10.4) fL Neut % (Auto) % Lymph % (Auto) % [place] % (Auto) % Eos % (Auto) % Baso % (Auto) % Neut # (Auto) (1.8-7.7) 10^3/u L Lymph # (Auto) (0.8-4.8) 10^3/u L [place] # (Auto) (0.2-0.9) 10^3/u L Eos # (Auto) (0.0-0.8) 10^3/u L Baso # (Auto) (0.0-0.1) 10^3/u L Nucleated RBC % (a uto) % Nucleated RBCs # /100WBC PT (12.1-14.9) SECO NDS INR (0.8-1.2) APTT 57.8 H (23.9-36.7) SECO NDS Fibrinogen (174-498) mg/dL D-Dimer (0-0.59) ug/mIFE U Specimen Type Sample Site ABG pH (7.35-7.45) ABG pCO2 (35-45) mmHg ABG pO2 (80.0-100.0) mmH g ABG HCO3 (22-26) mmol/L ABG Base Excess (-2.0-2.0) mmol/ L Josafat Test Hematocrit (42-52) % O2 Delivery Device [employer] Machine Tender ID Sodium (136-145) mmol/L Potassium (3.5-5.1) mmol/L Chloride (98-107) mmol/L Carbon Dioxide (22-29) mmol/L Anion Gap (5-19) BUN (6-20) mg/dL Creatinine (0.7-1.2) mg/dL GFR Calculation (90-130) mL/min Glucose (65-115) mg/dL POC Glucose 183 (70-110) mg/dL Calculated Osmolal ity (285-295) mOsm/k g Lactic Acid 1.7 (0.5-2.2) mmol/L Lactate (0.5-2.2) mmol/L Calcium (8.5-10.5) mg/dL Phosphorus (2.5-4.5) mg/dL Magnesium (1.7-2.3) mg/dL Ferritin (30-400) ng/mL Total Bilirubin (0.15-1.2) mg/dL AST (0-40) U/L ALT (0-41) U/L Alkaline Phosphata se (40-130) IU/L Lactate Dehydrogen ase (135-225) U/L Creatine Kinase (39-308) U/L Troponin T Gen 5 n g/L (0-15) ng/L Troponin T Baselin e (0-15) ng/L Troponin T 120 Min [place] (0-15) ng/L Delta Troponin T (0-10) ABS# Troponin T Hi Sens 6Hr (0-15) ng/L Troponin T Hi Sens 6Hr Delta (0-12) ng/L C-Reactive Protein (0.0-4.9) mg/L Total Protein (6.6-8.7) g/dL Albumin (3.5-5.2) g/dL Globulin (1.3-4.6) g/dL Lipase (13-60) U/L Procalcitonin (0-0.5) ng/mL Urine Color (Yellow) Urine Appearance (CLEAR) Urine pH (5-7) Ur Specific Gravit y (1.005-1.030) Urine Protein (Negative) Urine Glucose (UA) (Normal) Urine Ketones (Negative) Urine Blood (Negative) Urine Nitrate (Negative) Urine Bilirubin (Negative) Urine Urobilinogen (Negative) mg/dL Ur Leukocyte Amanda ase (Negative) Urine RBC (0-2) /hpf Urine WBC (0-5) /hpf Ur Squamous Epith Cells (0-5) /hpf Amorphous Sediment Urine Bacteria (NONE) /hpf Serum Ketones (Negative) Nasal/Oral COVID-1 9 PCR SARS-CoV-2 Ag (Rap id) (Negative) Blood Type Rho(D) Type Antibody Screen Crossmatch 11/25/19 11/26/19 11/26/19 Range/Units 18:43 01:37 01:39 WBC 6.1 (4.0-10.0) 10^3/ uL RBC 3.03 L (4.1-5.3) 10^6/u L Hgb 9.5 L (11.7-16.6) g/dL Hct 28.3 L (42.0-52.0) % MCV 93.4 (80-94) fL MCH 31.4 (28.0-34.0) pg MCHC 33.6 (30.0-36.0) g/dL RDW 16.0 H (12.1-15.1) % Plt Count 76 L (130-400) 10^3/c mm MPV 11.0 H (7.4-10.4) fL Neut % (Auto) 73.8 % Lymph % (Auto) 13.6 % [place] % (Auto) 10.2 % Eos % (Auto) 1.3 % Baso % (Auto) 0.3 % Neut # (Auto) 4.49 (1.8-7.7) 10^3/u L Lymph # (Auto) 0.8 (0.8-4.8) 10^3/u L [place] # (Auto) 0.6 (0.2-0.9) 10^3/u L Eos # (Auto) 0.1 (0.0-0.8) 10^3/u L Baso # (Auto) 0.0 (0.0-0.1) 10^3/u L Nucleated RBC % (a uto) 0 % Nucleated RBCs # 0.0 /100WBC PT (12.1-14.9) SECO NDS INR (0.8-1.2) APTT (23.9-36.7) SECO NDS Fibrinogen (174-498) mg/dL D-Dimer (0-0.59) ug/mIFE U Specimen Type Sample Site ABG pH (7.35-7.45) ABG pCO2 (35-45) mmHg ABG pO2 (80.0-100.0) mmH g ABG HCO3 (22-26) mmol/L ABG Base Excess (-2.0-2.0) mmol/ L Josafat Test Hematocrit (42-52) % O2 Delivery Device [employer] Machine Tender ID Sodium (136-145) mmol/L Potassium (3.5-5.1) mmol/L Chloride (98-107) mmol/L Carbon Dioxide (22-29) mmol/L Anion Gap (5-19) BUN (6-20) mg/dL Creatinine (0.7-1.2) mg/dL GFR Calculation (90-130) mL/min Glucose (65-115) mg/dL POC Glucose 136 (70-110) mg/dL Calculated Osmolal ity (285-295) mOsm/k g Lactic Acid (0.5-2.2) mmol/L Lactate (0.5-2.2) mmol/L Calcium (8.5-10.5) mg/dL Phosphorus 2.8 (2.5-4.5) mg/dL Magnesium 1.5 L (1.7-2.3) mg/dL Ferritin (30-400) ng/mL Total Bilirubin (0.15-1.2) mg/dL AST (0-40) U/L ALT (0-41) U/L Alkaline Phosphata se (40-130) IU/L Lactate Dehydrogen ase (135-225) U/L Creatine Kinase (39-308) U/L Troponin T Gen 5 n g/L (0-15) ng/L Troponin T Baselin e (0-15) ng/L Troponin T 120 Min [place] (0-15) ng/L Delta Troponin T (0-10) ABS# Troponin T Hi Sens 6Hr (0-15) ng/L Troponin T Hi Sens 6Hr Delta (0-12) ng/L C-Reactive Protein (0.0-4.9) mg/L Total Protein (6.6-8.7) g/dL Albumin (3.5-5.2) g/dL Globulin (1.3-4.6) g/dL Lipase (13-60) U/L Procalcitonin 0.21 (0-0.5) ng/mL Urine Color (Yellow) Urine Appearance (CLEAR) Urine pH (5-7) Ur Specific Gravit y (1.005-1.030) Urine Protein (Negative) Urine Glucose (UA) (Normal) Urine Ketones (Negative) Urine Blood (Negative) Urine Nitrate (Negative) Urine Bilirubin (Negative) Urine Urobilinogen (Negative) mg/dL Ur Leukocyte Amanda ase (Negative) Urine RBC (0-2) /hpf Urine WBC (0-5) /hpf Ur Squamous Epith Cells (0-5) /hpf Amorphous Sediment Urine Bacteria (NONE) /hpf Serum Ketones (Negative) Nasal/Oral COVID-1 9 PCR SARS-CoV-2 Ag (Rap id) (Negative) Blood Type Rho(D) Type Antibody Screen Crossmatch 11/26/19 11/26/19 11/26/19 Range/Units 01:39 01:39 08:35 WBC (4.0-10.0) 10^3/ uL RBC (4.1-5.3) 10^6/u L Hgb (11.7-16.6) g/dL Hct (42.0-52.0) % MCV (80-94) fL MCH (28.0-34.0) pg MCHC (30.0-36.0) g/dL RDW (12.1-15.1) % Plt Count (130-400) 10^3/c mm MPV (7.4-10.4) fL Neut % (Auto) % Lymph % (Auto) % [place] % (Auto) % Eos % (Auto) % Baso % (Auto) % Neut # (Auto) (1.8-7.7) 10^3/u L Lymph # (Auto) (0.8-4.8) 10^3/u L [place] # (Auto) (0.2-0.9) 10^3/u L Eos # (Auto) (0.0-0.8) 10^3/u L Baso # (Auto) (0.0-0.1) 10^3/u L Nucleated RBC % (a uto) % Nucleated RBCs # /100WBC PT (12.1-14.9) SECO NDS INR (0.8-1.2) APTT (23.9-36.7) SECO NDS Fibrinogen (174-498) mg/dL D-Dimer (0-0.59) ug/mIFE U Specimen Type Sample Site ABG pH (7.35-7.45) ABG pCO2 (35-45) mmHg ABG pO2 (80.0-100.0) mmH g ABG HCO3 (22-26) mmol/L ABG Base Excess (-2.0-2.0) mmol/ L Jos[place]at Test Hematocrit (42-52) % O2 Delivery Device Fib[employer] Machine Tender ID Sodium 136 (136-145) mmol/L Potassium 3.7 (3.5-5.1) mmol/L Chloride 109 H (98-107) mmol/L Carbon Dioxide 17 L (22-29) mmol/L Anion Gap 13.7 (5-19) BUN 26 H (6-20) mg/dL Creatinine 1.0 (0.7-1.2) mg/dL GFR Calculation 78.2 L (90-130) mL/min Glucose 142 H (65-115) mg/dL POC Glucose 141 (70-110) mg/dL Calculated Osmolal ity 289 (285-295) mOsm/k g Lactic Acid (0.5-2.2) mmol/L Lactate (0.5-2.2) mmol/L Calcium 7.6 L (8.5-10.5) mg/dL Phosphorus 2.7 (2.5-4.5) mg/dL Magnesium 1.4 L (1.7-2.3) mg/dL Ferritin (30-400) ng/mL Total Bilirubin 0.7 (0.15-1.2) mg/dL AST 24 (0-40) U/L ALT 8 (0-41) U/L Alkaline Phosphata se 100 (40-130) IU/L Lactate Dehydrogen ase (135-225) U/L Creatine Kinase (39-308) U/L Troponin T Gen 5 n g/L (0-15) ng/L Troponin T Baselin e (0-15) ng/L Troponin T 120 Min [place] (0-15) ng/L Delta Troponin T (0-10) ABS# Troponin T Hi Sens 6Hr (0-15) ng/L Troponin T Hi Sens 6Hr Delta (0-12) ng/L C-Reactive Protein (0.0-4.9) mg/L Total Protein 5.7 L (6.6-8.7) g/dL Albumin 2.1 L (3.5-5.2) g/dL Globulin 3.6 (1.3-4.6) g/dL Lipase (13-60) U/L Procalcitonin 0.20 (0-0.5) ng/mL Urine Color (Yellow) Urine Appearance (CLEAR) Urine pH (5-7) Ur Specific Gravit y (1.005-1.030) Urine Protein (Negative) Urine Glucose (UA) (Normal) Urine Ketones (Negative) Urine Blood (Negative) Urine Nitrate (Negative) Urine Bilirubin (Negative) Urine Urobilinogen (Negative) mg/dL Ur Leukocyte Amanda ase (Negative) Urine RBC (0-2) /hpf Urine WBC (0-5) /hpf Ur Squamous Epith Cells (0-5) /hpf Amorphous Sediment Urine Bacteria (NONE) /hpf Serum Ketones (Negative) Nasal/Oral COVID-1 9 PCR SARS-CoV-2 Ag (Rap id) (Negative) Blood Type Rho(D) Type Antibody Screen Crossmatch 11/26/19 Range/Units 10:38 WBC (4.0-10.0) 10^3/ uL RBC (4.1-5.3) 10^6/u L Hgb (11.7-16.6) g/dL Hct (42.0-52.0) % MCV (80-94) fL MCH (28.0-34.0) pg MCHC (30.0-36.0) g/dL RDW (12.1-15.1) % Plt Count (130-400) 10^3/c mm MPV (7.4-10.4) fL Neut % (Auto) % Lymph % (Auto) % [place] % (Auto) % Eos % (Auto) % Baso % (Auto) % Neut # (Auto) (1.8-7.7) 10^3/u L Lymph # (Auto) (0.8-4.8) 10^3/u L [place] # (Auto) (0.2-0.9) 10^3/u L Eos # (Auto) (0.0-0.8) 10^3/u L Baso # (Auto) (0.0-0.1) 10^3/u L Nucleated RBC % (a uto) % Nucleated RBCs # /100WBC PT (12.1-14.9) SECO NDS INR (0.8-1.2) APTT > 250.0 H* D (23.9-36.7) SECO NDS Fibrinogen (174-498) mg/dL D-Dimer (0-0.59) ug/mIFE U Specimen Type Sample Site ABG pH (7.35-7.45) ABG pCO2 (35-45) mmHg ABG pO2 (80.0-100.0) mmH g ABG HCO3 (22-26) mmol/L ABG Base Excess (-2.0-2.0) mmol/ L Jos[place]at Test Hematocrit (42-52) % O2 Delivery Device [employer] Bond[employer] Machine Tender ID Sodium (136-145) mmol/L Potassium (3.5-5.1) mmol/L Chloride (98-107) mmol/L Carbon Dioxide (22-29) mmol/L Anion Gap (5-19) BUN (6-20) mg/dL Creatinine (0.7-1.2) mg/dL GFR Calculation (90-130) mL/min Glucose (65-115) mg/dL POC Glucose (70-110) mg/dL Calculated Osmolal ity (285-295) mOsm/k g Lactic Acid (0.5-2.2) mmol/L Lactate (0.5-2.2) mmol/L Calcium (8.5-10.5) mg/dL Phosphorus (2.5-4.5) mg/dL Magnesium (1.7-2.3) mg/dL Ferritin (30-400) ng/mL Total Bilirubin (0.15-1.2) mg/dL AST (0-40) U/L ALT (0-41) U/L Alkaline Phosphata se (40-130) IU/L Lactate Dehydrogen ase (135-225) U/L Creatine Kinase (39-308) U/L Troponin T Gen 5 n g/L (0-15) ng/L Troponin T Baselin e (0-15) ng/L Troponin T 120 Min [place] (0-15) ng/L Delta Troponin T (0-10) ABS# Troponin T Hi Sens 6Hr (0-15) ng/L Troponin T Hi Sens 6Hr Delta (0-12) ng/L C-Reactive Protein (0.0-4.9) mg/L Total Protein (6.6-8.7) g/dL Albumin (3.5-5.2) g/dL Globulin (1.3-4.6) g/dL Lipase (13-60) U/L Procalcitonin (0-0.5) ng/mL Urine Color (Yellow) Urine Appearance (CLEAR) Urine pH (5-7) Ur Specific Gravit y (1.005-1.030) Urine Protein (Negative) Urine Glucose (UA) (Normal) Urine Ketones (Negative) Urine Blood (Negative) Urine Nitrate (Negative) Urine Bilirubin (Negative) Urine Urobilinogen (Negative) mg/dL Ur Leukocyte Amanda ase (Negative) Urine RBC (0-2) /hpf Urine WBC (0-5) /hpf Ur Squamous Epith Cells (0-5) /hpf Amorphous Sediment Urine Bacteria (NONE) /hpf Serum Ketones (Negative) Nasal/Oral COVID-1 9 PCR SARS-CoV-2 Ag (Rap id) (Negative) Blood Type Rho(D) Type Antibody Screen Crossmatch Discharge Plan Discharge Clinical Impression: Colitis, Anemia, Superior mesenteric artery thrombosis, Suspected 2019-nCoV infection, Non-ST elevation CA (NSTEMI), Mesenteric artery thrombosis, Diabetes, Liver cirrhosis, Portal hypertension, Thrombocytopenia Condition: Stable Prescriptions: No Action nitroglycerin [Nitrostat] 0.4 mg tablet, sublingual 0.4 mg SUBLINGUAL Q5M PRN (Reason: Chest Pain) RF: 0 oxycodone 30 mg tablet 30 mg PO 5XD PRN (Reason: Pain) 30 Days Qty: 150 RF: 0 oxycodone [OxyContin] 10 mg tablet,oral only,ext.rel.12 hr 10 mg PO Q12H 7 Days Qty: 14 RF: 0 fluticasone propion-salmeterol [Advair Diskus] 250-50 mcg/dose Blister With Device 1 inh INHALATION BID RF: 0 Tresiba FlexTouch U-100 100 unit/mL (3 mL) Insulin Pen 20 unit SUBCUT BEDTIME PRN (Reason: Hyperglycemia) RF: 0 albuterol sulfate 90 mcg/actuation Aero Powdr Breath Act W/Sensor 1 - 2 inh INHALATION QID PRN (Reason: Shortness Of Breath) RF: 0 trazodone 150 mg tablet 150 mg PO BEDTIME PRN (Reason: Sleep) RF: 0 ibuprofen 200 mg Tablet 200 - 400 mg PO DAILY PRN (Reason: Pain) RF: 0 furosemide 40 mg tablet 40 mg PO DAILY@0800 RF: 0 lorazepam 0.5 mg tablet 0.5 mg PO BEDTIME PRN (Reason: unknown) RF: 0 insulin aspart U-100 [Novolog Flexpen U-100 Insulin] 100 unit/mL (3 mL) insulin pen 5 unit SUBCUT TID RF: 0 lactulose 10 gram/15 mL solution 5 - 10 ml PO DAILY PRN (Reason: Constipation) RF: 0 Dexilant 30 mg capsule,biphase delayed releas 30 mg PO DAILY RF: 0 aspirin 325 mg Tablet 325 mg PO DAILY RF: 0 albuterol sulfate 2.5 mg /3 mL (0.083 %) Solution For Nebulization 2.5 mg INHALATION Q4H PRN (Reason: Shortness Of Breath) RF: 0 Referrals: Andreia De León DO [Primary Care Provider] - Discharge Date/Time: 11/26/19 14:30 Sign Out Sign Out Data: Patient Sign Out occurred on 11/24/19 at 06:10. Patient's care was discussed, and care was transferred from Malathi Portillo to Neville Vasquez DO. Sign Out Comment: Case turned over to Dr. Vasquez at change of shift. Last updated by Malathi Portillo at 11/24/19 06:01 Patient Sign Out occurred on 11/26/19 at 06:31. Patient's care was discussed, and care was transferred from Malathi Portillo to Neville Vasquez DO. Sign Out Comment: Case again turned over to Dr. Vasquez at change of shift. Last updated by Malathi Portillo at 11/26/19 05:58 Coding Level of Care Code ED [employer] Deck[employer] for Eduin Savage
[2019-11-24 21:08] LABS: Troponin T (5th) Once 89 ng/L (0-15)
[2019-11-24 21:47] LABS: Lactic Sepsis W/Reflex 1.5 mmol/L (0.5-2.2)
[2019-11-24 22:18] LABS: Troponin 5 6HR 93.84 ng/L (0-15)
[2019-11-24 22:41] LABS: Troponin 5 6HR Delta 2.84 ng/L (0-12)
[2019-11-25] VITALS (53 sets, daily range): BP systolic 109–166; BP diastolic 61–100; PULSE 51–86; RESP 10–18; O2SAT 91–98
[2019-11-25] MEDS: metroNIDAZOLE IV 500 MG/100 ML PREMIX 100 MG IV ×3 (02:38→18:16)
[2019-11-25] MEDS: enoxaparin 80 mg/0.8 mL Syringe 70 MG SUBCUT (08:30)
[2019-11-25] MEDS: cefTRIAXone 1,000 MG in sodium chloride 0.9% (plus) 50 ML 100 MG IV ×2 (08:30→19:59)
[2019-11-25 08:38] LABS: Coronavirus Lab Test PTC Negative
--- NOTE | 2019-11-25 09:16 | PC.NURSE ---
Kiki was called and updated on negative COVID results. Pt called and updated on results and told she is ok to come visit pt. Precautions removed per Dr Vasquez order.
[2019-11-25] MEDS: pantoprazole 40 mg SDV IVP (13:08)
[2019-11-25] MEDS: heparin drip 25,000 UNIT/500 ML PREMIX 19.3 UNIT IV (13:09)
[2019-11-25] MEDS: heparin 5,000 unit/mL INJ 1 mL IV (13:10)
[2019-11-25 13:39] LABS: Basophils % 0.3 %; Eosinophils % 0.3 %; Hematocrit 31.4 % (42.0-52.0); Hemoglobin 10.3 g/dL (11.7-16.6); Lymphocytes # 0.8 10^3/uL (0.8-4.8); Lymphocytes % 11.5 %; Mean Corpuscular HGB Conc 32.8 g/dL (30.0-36.0); Mean Corpuscular Hemoglobin 31.1 pg (28.0-34.0); Mean Corpuscular Volume 94.9 fL (80-94); Mean Platelet Volume 11.7 fL (7.4-10.4); Monocytes # 0.6 10^3/uL (0.2-0.9); Monocytes % 8.8 %; Neutrophils # 5.61 10^3/uL (1.8-7.7); Neutrophils % 78.4 %; Nucleated Red Blood Cells % 0 %; Platelet Count 77 10^3/cmm (130-400); Red Blood Count 3.31 10^6/uL (4.1-5.3); Red Cell Distribution Width 15.9 % (12.1-15.1); White Blood Count 7.2 10^3/uL (4.0-10.0)
[2019-11-25 14:02] LABS: Lactate (Lactic Acid level) 2.6 mmol/L (0.5-2.2)
[2019-11-25 14:07] LABS: Partial Thromboplastin Time 57.8 SECONDS (23.9-36.7)
[2019-11-25 14:23] LABS: Blood Urea Nitrogen 30 mg/dL (6-20); Calcium 7.7 mg/dL (8.5-10.5); Carbon Dioxide 18 mmol/L (22-29); Glucose 202 mg/dL (65-115)
[2019-11-25 14:39] LABS: Anion Gap 16.9 (5-19); Chloride 107 mmol/L (98-107); Osmolality Calculated 295 mOsm/kg (285-295); Potassium 3.9 mmol/L (3.5-5.1); Sodium 137 mmol/L (136-145)
[2019-11-25] MEDS: sodium chlor 0.9% + KCl 20 mEq 20 MEQ/1,000 ML BAG 125 MEQ IV (17:27)
--- NOTE | 2019-11-25 18:01 | P.PN_ITS ---
Subjective Subjective: Interval history: Patient has remained stable hemodynamically. Blood work and labs noted. Still awaiting bed at a higher center for transfer. COVID-19 PCR came back negative. Denies of having any nausea, vomiting, headache. Vitals/I&O/Wt Last Vital Signs Temp 98.4 F 11/24/19 14:46 Pulse 62 11/25/19 16:41 Resp 17 11/25/19 16:41 BP 148/68 11/25/19 17:30 Pulse Ox 93 11/25/19 17:30 11/25/19 11/25/19 11/25/19 06:59 14:59 22:59 Intake Total 100 / 1250 150 / 150 Balance 100 / 1250 150 / 150 Weight last 48 hrs Weight 68.946 kg Physical Exam Narrative: EXAM NARRATIVE: EXAM NARRATIVE: General: No acute distress, AO x3, NC oxygen supplementation HEENT: PERRLA, pupils bilaterally equal and reactive Chest:Bronchial breath sounds b/l , equal good air entry bilaterally, no fine basal crackles CVS: S1-S2 regular, no murmurs, no tachycardia, no gallops, no rubs Abdomen: Soft, tenderness over the abdomen, bowel sounds sluggish Neuro: No focal deficits, no facial deformity, AO x3, power 5/5 in all limbs Data : 11/25/19 13:31 11/25/19 13:31 Micro: Microbiology 11/24/19 20:18 Blood Culture - Preliminary Blood SPECIMEN COLLECTED 11/24/19 20:18 Blood Culture - Preliminary Blood SPECIMEN COLLECTED A&P Assessment and plan (1) Colitis: Status: Acute (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 Patient was also found to have anemia on chronic thrombocytopenia which is most likely because of cirrhosis. Previous peritonitis secondary to Serratia. For now will advise ciprofloxacin and Flagyl. Continue to monitor lactate every 24 hours. Blood cultures have remained preliminarily negative for now. Continue with D5 half NS at 125 cc/h. Last echo done in October 2019 shows an EF of 50 to 55%, diastolic dysfunction could not be measured at that time. Monitor for signs of fluid overload. Oxygen supplementation keeping saturation over 90%. Given the superior mesenteric artery thrombosis patient will require full dose anticoagulation. Will advise for heparin drip given ongoing anemia and thrombocytopenia. Keep hemoglobin over 8. Posttransfusion hemoglobin has remained over 10. Continue to monitor hemoglobin daily for now. We will advised to bleed hemoglobin over 8 given SMA thrombosis. Continue with Protonix 40 mg IV twice daily. Continue to monitor hemoglobin and platelet counts every 12 hours. Continue to monitor vitals. COVID-19 PCR negative. We will stop the isolation precautions for now. N.p.o. for now. Type 2 diabetes mellitus: Patient is n.p.o. Insulin sliding scale at mild dose every 6 hour. Continue other chronic medications like Advair, albuterol as needed, trazodone as needed at bedtime. Patient still awaiting bed at a higher center. Unfortunately at [facility] we do not have the services he will need here including GI and possible interventional radiology. We should try to transfer him to higher level care center/[facility] as he has been seen there before and evidently has been scheduled for evaluation for a TIPS procedure there. Case discussed in detail with Dr. Davenport who is the ER physician during consult. Thank you for letting me part of patient's care. Guarded prognosis Attestations Medical Necessity Statement*: Patient requires transfer to a higher center for treatment of SMA thrombosis because of lack of specific required speciality of GI and possible [place] [facility] [place] Time Spent in Patient Care: Greater than 35 minutes (>than 50% of time spent in counselling and/or direct pt care on unit) . Coding Level of Care Code Acute Travel Manager for Chg Fwd Diagnoses Colitis K52.9 Superior mesenteric artery thrombosis K55.069 Suspected 2019-nCoV infection Z20.828 Portal hypertension K76.6 Anemia D64.9 Thrombocytopenia D69.6 Smoking addiction F17.200
[2019-11-25 18:29] LABS: Glucose Point of Care 183 mg/dL (70-110)
--- NOTE | 2019-11-25 19:06 | PC.NURSE ---
PT placed in a hospital bed.
[2019-11-25 19:19] LABS: Lactic Sepsis W/Reflex 1.7 mmol/L (0.5-2.2)
[2019-11-25 19:26] LABS: Procalcitonin 0.21 ng/mL (0-0.5)
[2019-11-25 19:37] LABS: Magnesium 1.5 mg/dL (1.7-2.3); Phosphorus 2.8 mg/dL (2.5-4.5)
[2019-11-25] MEDS: ondansetron 2 mg/ML SDV 2 mL 4 MG IVP (19:42)
--- NOTE | 2019-11-25 20:54 | PC.SOCIAL ---
Transfer attempts: [facility]-reports would be a [facility] case. They will not have beds for 3-4 days but we can get on the waiting list if we'd like. Will call back if that is wanted by physician. [facility] in [place]-no beds [facility]-none at [facility], may have beds at [facility]. Dr. Portillo spoke to. [facility]-accepted per Dr. Grajeda but no beds available yet.
[2019-11-26] VITALS (10 sets, daily range): BP systolic 101–182; BP diastolic 68–86; PULSE 54–59; RESP 14–18; O2SAT 91–98
[2019-11-26] MEDS: sodium chlor 0.9% + KCl 20 mEq 20 MEQ/1,000 ML BAG 125 MEQ IV (01:10)
[2019-11-26] MEDS: metroNIDAZOLE IV 500 MG/100 ML PREMIX 100 MG IV (01:26)
[2019-11-26] MEDS: pantoprazole 40 mg SDV IVP (01:26)
[2019-11-26 01:42] LABS: Glucose Point of Care 136 mg/dL (70-110)
[2019-11-26 01:53] LABS: Basophils % 0.3 %; Eosinophils # 0.1 10^3/uL (0.0-0.8); Eosinophils % 1.3 %; Hematocrit 28.3 % (42.0-52.0); Hemoglobin 9.5 g/dL (11.7-16.6); Lymphocytes # 0.8 10^3/uL (0.8-4.8); Lymphocytes % 13.6 %; Mean Corpuscular HGB Conc 33.6 g/dL (30.0-36.0); Mean Corpuscular Hemoglobin 31.4 pg (28.0-34.0); Mean Corpuscular Volume 93.4 fL (80-94); Monocytes # 0.6 10^3/uL (0.2-0.9); Monocytes % 10.2 %; Neutrophils # 4.49 10^3/uL (1.8-7.7); Neutrophils % 73.8 %; Nucleated Red Blood Cells % 0 %; Platelet Count 76 10^3/cmm (130-400); Red Blood Count 3.03 10^6/uL (4.1-5.3); White Blood Count 6.1 10^3/uL (4.0-10.0)
[2019-11-26 02:10] LABS: Alanine Aminotransferase 8 U/L (0-41); Albumin Level 2.1 g/dL (3.5-5.2); Alkaline Phosphatase 100 IU/L (40-130); Anion Gap 13.7 (5-19); Aspartate Amino Transferase 24 U/L (0-40); Blood Urea Nitrogen 26 mg/dL (6-20); Calcium 7.6 mg/dL (8.5-10.5); Carbon Dioxide 17 mmol/L (22-29); Chloride 109 mmol/L (98-107); Globulin 3.6 g/dL (1.3-4.6); Glomerular Filtration Rate 78.2 mL/min (90-130); Glucose 142 mg/dL (65-115); Magnesium 1.4 mg/dL (1.7-2.3); Osmolality Calculated 289 mOsm/kg (285-295); Phosphorus 2.7 mg/dL (2.5-4.5); Potassium 3.7 mmol/L (3.5-5.1); Sodium 136 mmol/L (136-145); Total Bilirubin 0.7 mg/dL (0.15-1.2); Total Protein 5.7 g/dL (6.6-8.7)
[2019-11-26] MEDS: morphine 4 mg/mL SDV 1 mL 2 MG IVP (05:26)
--- NOTE | 2019-11-26 08:34 | PC.NURSE ---
spoke to Kiki Gould this morning. gave updated info on patient. kiki said hopefully they will have a bed this morning.
[2019-11-26 08:40] LABS: Glucose Point of Care 141 mg/dL (70-110)
[2019-11-26] MEDS: cefTRIAXone 1,000 MG in sodium chloride 0.9% (plus) 50 ML 100 MG IV (09:00)
--- NOTE | 2019-11-26 10:54 | PC.NURSE ---
pt refuses to wear supplemental oxygen. pt states it doesn't help anyway
[2019-11-26 11:44] LABS: Partial Thromboplastin Time > 250.0 SECONDS (23.9-36.7)
--- NOTE | 2019-11-26 11:50 | PC.NURSE ---
pt's PTT value was greater than 250. ED provider notified. Orders received to turn off heparin gtt at this time.
--- NOTE | 2019-11-26 12:29 | PC.NURSE ---
pt refusing anymore IV meds and fluids. Stating it's just making me worse
--- NOTE | 2019-11-26 13:44 | PC.NURSE ---
pt loaded into ambulance and his HR was only 33bpm. EKG obtained. Print Project Manager back in to speak with ED physician. Pt brought back into room and put back on monitor. air transport being considered.
== END 2019-11-26 14:30 ==
PROVIDERS: Emergency Medicine; Student in an Organized Health Care Education/Training Program; Emergency Provider Family Medicine; PCP Family Medicine
DX: K52.9 Noninfective gastroenteritis and colitis, unspecified (principal); D64.9 Anemia, unspecified; K55.069 Acute infarction of intestine, part and extent unspecified; Z20.828 Contact with and (suspected) exposure to other viral communicable diseases; I21.4 Non-ST elevation (NSTEMI) myocardial infarction; K74.60 Unspecified cirrhosis of liver; K76.6 Portal hypertension; D69.6 Thrombocytopenia, unspecified; Z79.4 Long term (current) use of insulin; Z79.82 Long term (current) use of aspirin; E11.40 Type 2 diabetes mellitus with diabetic neuropathy, unspecified; F17.210 Nicotine dependence, cigarettes, uncomplicated
CPT/HCPCS: 12345; 36415; 36416; 36430; 36600; 71045; 74177; 80048; 80053; 81001; 82009; 82550; 82728; 82803; 82962; 83605; 83615; 83690; 83735; 84100; 84145; 84484; 85025; 85378; 85384; 85610; 85730; 86140; 86850; 86900; 86920; 87040; 87426; 87635; 93005; 96361; 96365; 96366; 96367; 96368; 96372; 96375; 96376; 99285; C9113; J0696; J1100; J1170; J1644; J1650; J1815; J2270; J2405; J7030; J7040; P9016; Q9967; S0030

== ENCOUNTER 2019-12-03 21:10 | Emergency (ER) | payer MEDICARE, MEDICAID, SELFPAY ==
[2019-12-03] VITALS (7 sets, daily range): BP systolic 165–183; BP diastolic 77–96; PULSE 70–97; RESP 13–22; TEMP 36.6; O2SAT 88–93
--- NOTE | 2019-12-03 21:15 | XR_ITS ---
WS: [id number] Portable AP upright chest, 12/03/2019 Clinical Data: sob Comparison: Portable chest, 11/24/2019. Findings: Diffuse bilateral opacities may represent pulmonary edema or diffuse pneumonia. The heart i s slightly enlarged. Monitor leads are on the chest wall. XR/XR chest 1V portable [id number] Impression: 1. Increased pulmonary opacities which may represent pulmonary edema and/or dif fuse pneumonia. 2. Cardiomegaly.
--- NOTE | 2019-12-03 21:16 | ECG_ITS ---
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 Measurements Intervals [place] Rate: 77 P: 43 [place]: 137 QRS: -19 QRSD: 104 T: 38 QT: 416 QTc: 472 Interpretive Statements SINUS RHYTHM Compared to ECG 11/24/2019 10:44:26 No significant changes Electronically Signed On 12-04-2019 18:27:11 CDT by Carlos Lange M.D. [id number]
--- NOTE | 2019-12-03 21:16 | W.ED.SOB ---
HPI - SOB/Dyspnea General: Chief Complaint: Shortness of Breath/Dyspnea Stated Complaint: diff breathing Time Seen by Provider: 12/03/19 21:14 Source: patient and EMS Mode of arrival: EMS Limitations: no limitations History of Present Illness: HPI Narrative: 54-year-old male who has a history of cirrhosis and has had to have thoracentesis in the past due to pleural effusions. Patient had just got discharged from [place] this week. He states that he is on 6 L oxygen at home and became short of breath. EMS states when they arrived he was saturation in the 70s on his 6 L and placed him on nonrebreather. Patient said no fever or cough. He states he just had increasing dyspnea. Denies any worsening improving factors. Denies any chest pain. MD elicited complaint: shortness of breath Associated symptoms: Deny abdominal pain, chest pain, fever(s), nausea or vomiting Review of Systems Const: Denies: fever(s), chills, body aches or change in appetite Eyes: Denies: blurry vision or eye discomfort ENMT: Denies: throat pain or dental pain Card: Denies: chest pain Resp: Reports: dyspnea GI: Denies: abdominal pain, nausea, vomiting or diarrhea : Denies: dysuria Musc: Denies: neck pain or back pain Skin/Breast: Denies: rash Neuro: Denies: headache(s) Psych: Denies: depression Jose Martin/Lymph: Denies: easy bruising All/Imm: Denies: urticaria PFSH ED PFSH: Medical History Ascites Chronic cervical pain Chronic low back pain Diabetes Diabetic neuropathy, painful Encounter for long-term opiate analgesic use Liver cirrhosis Liver failure Somatic dysfunction of back THORACIC AND LUMBAR Surgical History History of abdominal paracentesis History of colonoscopy History of esophagogastroduodenoscopy (EGD) Hx of circumcision Hx of inguinal hernia repair (~05/22/18) LAP REPAIR OF RIGHT INGUINAL HERNIA WITH ULTRAPRO 15X10 CM MESH. Hx of oral surgery Family History Father Cancer LUNG CANCER Other Diabetes Heart disease Lung disease Myocardial infarct Stroke Denies family history of Anesthesia complication Bleeding disorder Social History Smoking and tobacco status: current every day smoker cigarettes Alcohol intake: former Year of sobriety/quit date alcohol: 2009 Caregiver/support person: Yes Lives independently: Yes Household members: friend(s) Current occupational status: disabled History of recent travel: No Course Vital Signs: Vital signs: Vital Signs Temperature 97.9 F 12/03/19 21:11 Pulse Rate 74 12/04/19 01:30 Respiratory Rate 15 12/04/19 01:30 Blood Pressure 169/77 12/04/19 01:30 Pulse Oximetry 94 12/04/19 01:30 MDM - SOB/Dyspnea MDM Narrative: Medical decision making narrative: Hugo presents here with shortness of breath x-ray shows pneumonia versus pulmonary edema. Patient is not requiring increased oxygen. Spoke to physician at [facility] and will transfer there as we have no bed availability at this time. Lab Data: Labs: Lab Results 12/03/19 12/03/19 12/03/19 Range/Units 21:28 21:28 21:28 WBC 8.2 (4.0-10.0) 10^3/ uL RBC 2.98 L (4.1-5.3) 10^6/u L Hgb 9.3 L (11.7-16.6) g/dL Hct 29.3 L (42.0-52.0) % MCV 98.3 H (80-94) fL MCH 31.2 (28.0-34.0) pg MCHC 31.7 (30.0-36.0) g/dL RDW 17.2 H (12.1-15.1) % Plt Count 59 L (130-400) 10^3/c mm MPV 11.3 H (7.4-10.4) fL Neut % (Auto) 88.1 % Lymph % (Auto) 3.9 % [place] % (Auto) 6.6 % Eos % (Auto) 0.4 % Baso % (Auto) 0.4 % Neut # (Auto) 7.26 (1.8-7.7) 10^3/u L Lymph # (Auto) 0.3 L (0.8-4.8) 10^3/u L [place] # (Auto) 0.5 (0.2-0.9) 10^3/u L Eos # (Auto) 0.0 (0.0-0.8) 10^3/u L Baso # (Auto) 0.0 (0.0-0.1) 10^3/u L Nucleated RBC % (a uto) 0 % Nucleated RBCs # 0.0 /100WBC PT 19.60 H (12.1-14.9) SECO NDS INR 1.60 H (0.8-1.2) Specimen Type Sample Site ABG pH (7.35-7.45) ABG pCO2 (35-45) mmHg ABG pO2 (80.0-100.0) mmH g ABG HCO3 (22-26) mmol/L ABG Base Excess (-2.0-2.0) mmol/ L Josafat Test Hematocrit (42-52) % O2 Delivery Device O2 Liters/Min % Specimen Drawn By Sodium 138 (136-145) mmol/L Potassium 3.9 (3.5-5.1) mmol/L Chloride 106 (98-107) mmol/L Carbon Dioxide 18 L (22-29) mmol/L Anion Gap 17.9 (5-19) BUN 41 H (6-20) mg/dL Creatinine 1.1 (0.7-1.2) mg/dL GFR Calculation 69.8 L (90-130) mL/min Glucose 247 H (65-115) mg/dL Calculated Osmolal ity 304 H (285-295) mOsm/k g Lactate (0.5-2.2) mmol/L Calcium 8.1 L (8.5-10.5) mg/dL Total Bilirubin 1.9 H (0.15-1.2) mg/dL AST 37 (0-40) U/L ALT 10 (0-41) U/L Alkaline Phosphata se 112 (40-130) IU/L NT-Pro-B Natriuret Pep 8373 H (0-125) pg/mL Total Protein 6.5 L (6.6-8.7) g/dL Albumin 3.1 L (3.5-5.2) g/dL Globulin 3.4 (1.3-4.6) g/dL SARS-CoV-2 Ag (Rap id) (Negative) Blood Type Rho(D) Type Antibody Screen 12/03/19 12/03/19 12/03/19 Range/Units 21:33 22:02 22:02 WBC (4.0-10.0) 10^3/ uL RBC (4.1-5.3) 10^6/u L Hgb (11.7-16.6) g/dL Hct (42.0-52.0) % MCV (80-94) fL MCH (28.0-34.0) pg MCHC (30.0-36.0) g/dL RDW (12.1-15.1) % Plt Count (130-400) 10^3/c mm MPV (7.4-10.4) fL Neut % (Auto) % Lymph % (Auto) % [place] % (Auto) % Eos % (Auto) % Baso % (Auto) % Neut # (Auto) (1.8-7.7) 10^3/u L Lymph # (Auto) (0.8-4.8) 10^3/u L [place] # (Auto) (0.2-0.9) 10^3/u L Eos # (Auto) (0.0-0.8) 10^3/u L Baso # (Auto) (0.0-0.1) 10^3/u L Nucleated RBC % (a uto) % Nucleated RBCs # /100WBC PT (12.1-14.9) SECO NDS INR (0.8-1.2) Specimen Type Sample Site ABG pH (7.35-7.45) ABG pCO2 (35-45) mmHg ABG pO2 (80.0-100.0) mmH g ABG HCO3 (22-26) mmol/L ABG Base Excess (-2.0-2.0) mmol/ L Josafat Test Hematocrit (42-52) % O2 Delivery Device O2 Liters/Min % Specimen Drawn By Sodium (136-145) mmol/L Potassium (3.5-5.1) mmol/L Chloride (98-107) mmol/L Carbon Dioxide (22-29) mmol/L Anion Gap (5-19) BUN (6-20) mg/dL Creatinine (0.7-1.2) mg/dL GFR Calculation (90-130) mL/min Glucose (65-115) mg/dL Calculated Osmolal ity (285-295) mOsm/k g Lactate 2.9 H (0.5-2.2) mmol/L Calcium (8.5-10.5) mg/dL Total Bilirubin (0.15-1.2) mg/dL AST (0-40) U/L ALT (0-41) U/L Alkaline Phosphata se (40-130) IU/L NT-Pro-B Natriuret Pep (0-125) pg/mL Total Protein (6.6-8.7) g/dL Albumin (3.5-5.2) g/dL Globulin (1.3-4.6) g/dL SARS-CoV-2 Ag (Rap id) Negative (Negative) Blood Type O Positive Rho(D) Type Positive Antibody Screen Negative 12/03/19 Range/Units 22:09 WBC (4.0-10.0) 10^3/ uL RBC (4.1-5.3) 10^6/u L Hgb (11.7-16.6) g/dL Hct (42.0-52.0) % MCV (80-94) fL MCH (28.0-34.0) pg MCHC (30.0-36.0) g/dL RDW (12.1-15.1) % Plt Count (130-400) 10^3/c mm MPV (7.4-10.4) fL Neut % (Auto) % Lymph % (Auto) % [place] % (Auto) % Eos % (Auto) % Baso % (Auto) % Neut # (Auto) (1.8-7.7) 10^3/u L Lymph # (Auto) (0.8-4.8) 10^3/u L [place] # (Auto) (0.2-0.9) 10^3/u L Eos # (Auto) (0.0-0.8) 10^3/u L Baso # (Auto) (0.0-0.1) 10^3/u L Nucleated RBC % (a uto) % Nucleated RBCs # /100WBC PT (12.1-14.9) SECO NDS INR (0.8-1.2) Specimen Type arterial Sample Site right radial ABG pH 7.39 (7.35-7.45) ABG pCO2 28.6 L (35-45) mmHg ABG pO2 62.4 L (80.0-100.0) mmH g ABG HCO3 17.5 L (22-26) mmol/L ABG Base Excess -6.5 L (-2.0-2.0) mmol/ L Josafat Test positive Hematocrit 27.1 L (42-52) % O2 Delivery Device Hfnc O2 Liters/Min 15.0 % Specimen Drawn By harkr Sodium (136-145) mmol/L Potassium (3.5-5.1) mmol/L Chloride (98-107) mmol/L Carbon Dioxide (22-29) mmol/L Anion Gap (5-19) BUN (6-20) mg/dL Creatinine (0.7-1.2) mg/dL GFR Calculation (90-130) mL/min Glucose (65-115) mg/dL Calculated Osmolal ity (285-295) mOsm/k g Lactate (0.5-2.2) mmol/L Calcium (8.5-10.5) mg/dL Total Bilirubin (0.15-1.2) mg/dL AST (0-40) U/L ALT (0-41) U/L Alkaline Phosphata se (40-130) IU/L NT-Pro-B Natriuret Pep (0-125) pg/mL Total Protein (6.6-8.7) g/dL Albumin (3.5-5.2) g/dL Globulin (1.3-4.6) g/dL SARS-CoV-2 Ag (Rap id) (Negative) Blood Type Rho(D) Type Antibody Screen Imaging Data^: CXR: Attestation: I personally reviewed and interpreted this imaging study as follows: My impression: likely bilateral pneumonia vs pulmonary edema EKG Data^: EKG 1: Attestation: I personally reviewed and interpreted this EKG as follows: EKG Interpretation Date: 12/03/19 EKG interpretation time: 21:31 Interpretation: nsr hr [address] or t wave abnormalities qrs 104 qtc 448 Discharge Plan Discharge Patient Disposition: Xfer Other Clinical Impression: Liver cirrhosis, Pneumonia, Pulmonary edema Condition: Stable Referrals: Andreia De León DO [Primary Care Provider] - Coding Level of Care Code ED Pediatric Radiologist for Chg Fwd
[2019-12-03 21:37] LABS: Basophils % 0.4 %; Eosinophils % 0.4 %; Hematocrit 29.3 % (42.0-52.0); Hemoglobin 9.3 g/dL (11.7-16.6); Lymphocytes # 0.3 10^3/uL (0.8-4.8); Lymphocytes % 3.9 %; Mean Corpuscular HGB Conc 31.7 g/dL (30.0-36.0); Mean Corpuscular Hemoglobin 31.2 pg (28.0-34.0); Mean Corpuscular Volume 98.3 fL (80-94); Mean Platelet Volume 11.3 fL (7.4-10.4); Monocytes # 0.5 10^3/uL (0.2-0.9); Monocytes % 6.6 %; Neutrophils # 7.26 10^3/uL (1.8-7.7); Neutrophils % 88.1 %; Nucleated Red Blood Cells % 0 %; Platelet Count 59 10^3/cmm (130-400); Red Blood Count 2.98 10^6/uL (4.1-5.3); Red Cell Distribution Width 17.2 % (12.1-15.1); White Blood Count 8.2 10^3/uL (4.0-10.0)
[2019-12-03 22:05] LABS: Alanine Aminotransferase 10 U/L (0-41); Albumin Level 3.1 g/dL (3.5-5.2); Alkaline Phosphatase 112 IU/L (40-130); Aspartate Amino Transferase 37 U/L (0-40); Blood Urea Nitrogen 41 mg/dL (6-20); Calcium 8.1 mg/dL (8.5-10.5); Carbon Dioxide 18 mmol/L (22-29); Chloride 106 mmol/L (98-107); Globulin 3.4 g/dL (1.3-4.6); Glomerular Filtration Rate 69.8 mL/min (90-130); Glucose 247 mg/dL (65-115); NT Pro B Type Natriuretic Pept 8373 pg/mL (0-125); Osmolality Calculated 304 mOsm/kg (285-295); Sodium 138 mmol/L (136-145); Total Bilirubin 1.9 mg/dL (0.15-1.2); Total Protein 6.5 g/dL (6.6-8.7)
[2019-12-03 22:15] LABS: Anion Gap 17.9 (5-19); Potassium 3.9 mmol/L (3.5-5.1)
[2019-12-03 22:24] LABS: Lactate (Lactic Acid level) 2.9 mmol/L (0.5-2.2)
[2019-12-03 22:27] LABS: ABG PCO2 28.6 mmHg (35-45); ABG PH Result 7.39 (7.35-7.45); Base Excess ABG -6.5 mmol/L (-2.0-2.0); Blood Gas Allen Test positive; HCO3 ABG 17.5 mmol/L (22-26); Oxygen Device HFNC; PO2 ABG 62.4 mmHg (80.0-100.0)
[2019-12-03 22:28] LABS: Arterial Blood Gas Hematocrit 27.1 % (42-52)
[2019-12-03 22:50] LABS: SARS Covid-2 Antigen Negative (Negative)
[2019-12-03] MEDS: FUROsemide 10 mg/mL SDV 4mL 40 MG IVP (23:54)
[2019-12-03] MEDS: vancomycin 1,000 MG in sodium chloride 0.9% 250 ML 250 MG IV (23:57)
[2019-12-04] VITALS: BP 189/93; PULSE 88; RESP 22; O2SAT 92
[2019-12-04 00:30] VITALS: BP 184/91; PULSE 73; RESP 15; O2SAT 93
[2019-12-04 01:00] VITALS: BP 192/97; PULSE 67; RESP 15; O2SAT 91
[2019-12-04 01:30] VITALS: BP 169/77; PULSE 74; RESP 15; O2SAT 94
--- NOTE | 2019-12-04 01:59 | PC.SOCIAL ---
Patient seen in ED. He was discharged from [facility] earlier this week. He has been on 6L of oxygen at home but still was having respiratory trouble. He gets his oxygen from [facility] He lives with his . He was scheduled to have a TIPS procedure at [place]. He was to go for a evaluation on 12/08/19 and then have the procedure on 12/11/19. It was thought he would be [place] [facility] but he will be transferred to [facility] in [place].
[2019-12-04] MEDS: aztreonam 2,000 MG in sodium chloride 0.9% (plus) 100 ML 200 MG IV (02:05)
[2019-12-04 03:21] VITALS: BP 166/80; PULSE 76; RESP 17; O2SAT 92
[2019-12-04] MEDS: HYDROmorphone 1 mg/mL INJ 1 mL IVP (04:06)
[2019-12-09 17:24] LABS: Blood Gas CCRB Time HARKR
== END 2019-12-04 04:07 | disposition other institution (70) ==
PROVIDERS: Emergency Provider Emergency Medicine; PCP Family Medicine
DX: J18.9 Pneumonia, unspecified organism (principal); J81.1 Chronic pulmonary edema; K74.60 Unspecified cirrhosis of liver; E11.40 Type 2 diabetes mellitus with diabetic neuropathy, unspecified; F17.210 Nicotine dependence, cigarettes, uncomplicated
CPT/HCPCS: 12345; 36415; 36600; 71045; 80053; 82803; 83605; 83880; 85025; 85610; 86850; 86900; 87040; 87426; 93005; 96365; 96367; 96375; 99284; 99285; J1170; J1940; J3370; J3490; J7050

== ENCOUNTER → 2020-01-15 14:49 | Outpatient (BNVA) | payer MEDICARE, MEDICAID, SELFPAY | PROVIDERS: PCP Family Medicine; Visit Provider Anesthesiology | DX: G89.29 Other chronic pain (principal); M54.5 Low back pain; M54.2 Cervicalgia; M99.09 Segmental and somatic dysfunction of abdomen and other regions; K72.90 Hepatic failure, unspecified without coma; F17.210 Nicotine dependence, cigarettes, uncomplicated; Z79.891 Long term (current) use of opiate analgesic | CPT/HCPCS: 99214 ==

== ENCOUNTER 2020-02-18 13:09 | Inpatient (IN) | payer MEDICARE, MEDICAID, SELFPAY ==
[2020-02-18] VITALS (8 sets, daily range): BP systolic 149–194; BP diastolic 66–162; PULSE 64–90; RESP 17–20; TEMP 36.6–37.1; O2SAT 96–99; BMI 24.3
--- NOTE | 2020-02-18 13:28 | CT_ITS ---
WS: [id number] CT HEAD NONCONTRAST HISTORY: Confusion TECHNIQUE: Contiguous axial imaging performed through the brain in 2.5 mm imaging. Bone and soft tiss ue windows. Sagittal and coronal reformats reviewed. All CT scans at [facility] use at ast one of these dose optimization techniques: automated exposure control; mA and/or kV adjustment pe r patient size (includes targeted exams where dose is matched to clinical indication); or iterative r econstruction. DLP: 556.15 mGy.cm COMPARISON: None available. No acute intracranial hemorrhage, midline shift or mass effect. No atrophy or prior infarcts or herniation. Ventricles: Normal size with no hydrocephalus. Paranasal sinuses: As visualized are clear. Mastoid air cells: Well pneumatized. Calvarium and scalp: Skull is intact with no soft tissue edema or swelling. CT/CT head wo con* [id number] IMPRESSION: Negative head CT.
[2020-02-18 14:13] LABS: Basophils # 0.1 10^3/uL (0.0-0.1); Basophils % 1.4 %; Eosinophils # 0.2 10^3/uL (0.0-0.8); Eosinophils % 3.5 %; Hematocrit 23.5 % (42.0-52.0); Hemoglobin 7.9 g/dL (11.7-16.6); Lymphocytes # 0.9 10^3/uL (0.8-4.8); Lymphocytes % 18.4 %; Mean Corpuscular HGB Conc 33.6 g/dL (30.0-36.0); Mean Corpuscular Hemoglobin 32.9 pg (28.0-34.0); Mean Corpuscular Volume 97.9 fL (80-94); Mean Platelet Volume 9.3 fL (7.4-10.4); Monocytes # 0.8 10^3/uL (0.2-0.9); Monocytes % 15.3 %; Neutrophils # 2.99 10^3/uL (1.8-7.7); Nucleated Red Blood Cells % 0 %; Platelet Count 78 10^3/cmm (130-400); Red Cell Distribution Width 15.7 % (12.1-15.1); White Blood Count 4.9 10^3/uL (4.0-10.0)
--- NOTE | 2020-02-18 14:24 | PC.NURSE ---
bridge crane operator at bedside, to keep pt from crawling out of bed and pulling IV out
[2020-02-18] MEDS: sodium chloride 0.9% 1,000 ML 999 ML IV (14:28)
[2020-02-18 14:35] LABS: Ammonia 104 umol/L (16-60)
[2020-02-18] MEDS: haloperidol inj 5 mg/mL INJ 1 mL IVP (14:36)
[2020-02-18 14:42] LABS: Alanine Aminotransferase 15 U/L (0-41); Albumin Level 2.2 g/dL (3.5-5.2); Alkaline Phosphatase 116 IU/L (40-130); Anion Gap 9.9 (5-19); Aspartate Amino Transferase 38 U/L (0-40); Blood Urea Nitrogen 15 mg/dL (6-20); Calcium 7.9 mg/dL (8.5-10.5); Carbon Dioxide 23 mmol/L (22-29); Chloride 107 mmol/L (98-107); Creatine Phosphokinase 235 U/L (39-308); Creatinine Clr Calc Pharmacy 76.0861; Glomerular Filtration Rate 69.8 mL/min (90-130); Glucose 198 mg/dL (65-115); Osmolality Calculated 288 mOsm/kg (285-295); Potassium 3.9 mmol/L (3.5-5.1); Sodium 136 mmol/L (136-145); Total Bilirubin 1.7 mg/dL (0.15-1.2); Total Protein 5.2 g/dL (6.6-8.7)
[2020-02-18 14:43] LABS: Lactate (Lactic Acid level) 2.2 mmol/L (0.5-2.2)
[2020-02-18 14:44] LABS: Alcohol Level < 10 mg/dL (0-10)
--- NOTE | 2020-02-18 15:00 | ED_ITS ---
HPI - Altered Mental Status General: Chief Complaint: Altered Mental Status Stated Complaint: CONFUSION Time Seen by Provider: 02/18/20 13:15 History of Present Illness: HPI narrative: 54-year-old male patient with a longstanding history of liver cirrhosis and ascites presents with some confusion and altered mental status from home. Emergency medical services brought him and after someone called over his condition. History is very limited at this point. MD complaint: altered mental status, confusion and decreased responsiveness Review of Systems General: Reports: ROS unobtainable due to medical condition PFSH ED PFSH: Medical History (Updated 02/18/20 @ 16:14 by Danielito Hanna DO) Ascites Chronic cervical pain Chronic low back pain Diabetes Diabetic neuropathy, painful Encounter for long-term opiate analgesic use Liver cirrhosis Liver failure Somatic dysfunction of back THORACIC AND LUMBAR Surgical History History of abdominal paracentesis History of colonoscopy History of esophagogastroduodenoscopy (EGD) Hx of circumcision Hx of inguinal hernia repair (~05/22/18) LAP REPAIR OF RIGHT INGUINAL HERNIA WITH ULTRAPRO 15X10 CM MESH. Hx of oral surgery Family History Father Cancer LUNG CANCER Other Diabetes Heart disease Lung disease Myocardial infarct Stroke Denies family history of Anesthesia complication Bleeding disorder Social History Smoking and tobacco status: current every day smoker cigarettes Alcohol intake: former Year of sobriety/quit date alcohol: 2009 Caregiver/support person: Yes Lives independently: Yes Household members: friend(s) Current occupational status: disabled History of recent travel: No Physical Exam Const: COMMON NORMALS: no acute distress; negative for healthy appearing and negative for alert EXAM LIMITATIONS: altered mental status GENERAL APPEARANCE: disheveled and ill appearing ORIENTATION/CONSCIOUSNESS: Yes confused; not oriented to person HENMT: COMMON NORMALS: normocephalic and oropharynx normal HEAD & SCALP: normocephalic and other (Scleral icterus) MOUTH: Normal oral and palatal mucosa present Resp: COMMON NORMALS: normal respiratory effort EFFORT & INSPECTION: Yes able to speak in complete sentences Cardio: COMMON NORMALS: regular rate and regular rhythm RATE: regular rate RHYTHM: regular rhythm GI: COMMON NORMALS: Soft to palpation INSPECTION: Yes Fluid wave present PALPATION: Yes Soft to palpation, Yes Hepatosplenomegaly present and Yes Ascites present PERCUSSION: Fluid wave present : BLADDER/KIDNEY EXAM: Yes CVA tenderness Back/Pelvis: GENERAL BACK: Yes CVA tenderness Neuro: SENSORIUM/ORIENTATION: No alert and No oriented to person Skin: COMMON NORMALS: negative for no jaundice GENERAL SKIN EXAM: jaundice Course Vital Signs: Vital signs: Vital Signs Temperature 98.0 F 02/18/20 13:12 Pulse Rate 64 02/18/20 16:15 Respiratory Rate 18 02/18/20 16:15 Blood Pressure 172/68 02/18/20 15:59 Pulse Oximetry 96 02/18/20 16:15 MDM - Altered Mental Status MDM Narrative: Medical decision making narrative: 54-year-old male in with altered mental status the differential is broad and includes medication overdose, elevated ammonia level, hepatic encephalopathy, spontaneous bacterial peritonitis among others. Recommend routine labs the patient is very altered and combative and a danger to himself and others will have to give him a little anxiolysis / sedative with some Haldol. Patient was found to have marked elevation of ammonia. Suspect he has hepatic encephalopathy. Will give CT lactulose. Lab Data: Labs: Lab Results 02/18/20 02/18/20 02/18/20 Range/Units 14:05 14:05 14:05 WBC 4.9 (4.0-10.0) 10^3/ uL RBC 2.40 L (4.1-5.3) 10^6/u L Hgb 7.9 L (11.7-16.6) g/dL Hct 23.5 L (42.0-52.0) % MCV 97.9 H (80-94) fL MCH 32.9 (28.0-34.0) pg MCHC 33.6 (30.0-36.0) g/dL RDW 15.7 H (12.1-15.1) % Plt Count 78 L (130-400) 10^3/c mm MPV 9.3 (7.4-10.4) fL Neut % (Auto) 61.0 % Lymph % (Auto) 18.4 % [place] % (Auto) 15.3 % Eos % (Auto) 3.5 % Baso % (Auto) 1.4 % Neut # (Auto) 2.99 (1.8-7.7) 10^3/u L Lymph # (Auto) 0.9 (0.8-4.8) 10^3/u L [place] # (Auto) 0.8 (0.2-0.9) 10^3/u L Eos # (Auto) 0.2 (0.0-0.8) 10^3/u L Baso # (Auto) 0.1 (0.0-0.1) 10^3/u L Nucleated RBC % (a uto) 0 % Nucleated RBCs # 0.0 /100WBC Sodium 136 (136-145) mmol/L Potassium 3.9 (3.5-5.1) mmol/L Chloride 107 (98-107) mmol/L Carbon Dioxide 23 (22-29) mmol/L Anion Gap 9.9 (5-19) BUN 15 (6-20) mg/dL Creatinine 1.1 (0.7-1.2) mg/dL GFR Calculation 69.8 L (90-130) mL/min Glucose 198 H (65-115) mg/dL Calculated Osmolal ity 288 (285-295) mOsm/k g Lactate 2.2 (0.5-2.2) mmol/L Calcium 7.9 L (8.5-10.5) mg/dL Total Bilirubin 1.7 H (0.15-1.2) mg/dL AST 38 (0-40) U/L ALT 15 (0-41) U/L Alkaline Phosphata se 116 (40-130) IU/L Ammonia (16-60) umol/L Creatine Kinase 235 (39-308) U/L Total Protein 5.2 L (6.6-8.7) g/dL Albumin 2.2 L (3.5-5.2) g/dL Globulin 3.0 (1.3-4.6) g/dL Ethyl Alcohol < 10 (0-10) mg/dL 02/18/20 Range/Units 14:05 WBC (4.0-10.0) 10^3/ uL RBC (4.1-5.3) 10^6/u L Hgb (11.7-16.6) g/dL Hct (42.0-52.0) % MCV (80-94) fL MCH (28.0-34.0) pg MCHC (30.0-36.0) g/dL RDW (12.1-15.1) % Plt Count (130-400) 10^3/c mm MPV (7.4-10.4) fL Neut % (Auto) % Lymph % (Auto) % [place] % (Auto) % Eos % (Auto) % Baso % (Auto) % Neut # (Auto) (1.8-7.7) 10^3/u L Lymph # (Auto) (0.8-4.8) 10^3/u L [place] # (Auto) (0.2-0.9) 10^3/u L Eos # (Auto) (0.0-0.8) 10^3/u L Baso # (Auto) (0.0-0.1) 10^3/u L Nucleated RBC % (a uto) % Nucleated RBCs # /100WBC Sodium (136-145) mmol/L Potassium (3.5-5.1) mmol/L Chloride (98-107) mmol/L Carbon Dioxide (22-29) mmol/L Anion Gap (5-19) BUN (6-20) mg/dL Creatinine (0.7-1.2) mg/dL GFR Calculation (90-130) mL/min Glucose (65-115) mg/dL Calculated Osmolal ity (285-295) mOsm/k g Lactate (0.5-2.2) mmol/L Calcium (8.5-10.5) mg/dL Total Bilirubin (0.15-1.2) mg/dL AST (0-40) U/L ALT (0-41) U/L Alkaline Phosphata se (40-130) IU/L Ammonia 104 H (16-60) umol/L Creatine Kinase (39-308) U/L Total Protein (6.6-8.7) g/dL Albumin (3.5-5.2) g/dL Globulin (1.3-4.6) g/dL Ethyl Alcohol (0-10) mg/dL Discharge Plan Discharge Patient Disposition: Admitted As Inpatient Clinical Impression: Acute alteration in mental status, Acute hepatic encephalopathy Ascites Qualifiers: Ascites type: due to alcoholic cirrhosis Qualified Code(s): K70.31 - Alcoholic cirrhosis of liver with ascites Condition: Stable Coding Level of Care Code ED Clerk General Office for Chg Fwd Exam Detailed
--- NOTE | 2020-02-18 15:06 | PC.NURSE ---
ap processor at bedside. Pt restless.
[2020-02-18] MEDS: LORazepam 2 mg/mL INJ 1 mL 1 MG IVP (15:31)
--- NOTE | 2020-02-18 16:01 | PC.NURSE ---
forensic science technician at bedside. Patient still slightly restless but has calmed down after medication.
--- NOTE | 2020-02-18 17:04 | P.HP_ITS ---
Providers/Chief Complaint Admitting Physician: Nat Jasmine MD Primary Care Provider: Andreia De León DO Chief Complaint: CONFUSION History of Present Illness Hugo Oquendo is a 54 year old male with PMH hep C associated cirrhosis, treated in 2013 with portal HTN , previously with peritoneal drain placed in June 2019 due to frequency of drainage, subsequently needing to be removed on 10/07 due to recurrent bacterial peritonitis. He follows with transportation modeler Dr. Clayton in [facility] and on my last evaluation in October was planned for a TIPSS. I am uncertain if he has had this procedure. He is currenty lethargic and unable to provide details. He presented to ER today with altered mental status, unable to provide history at this time. Unable to reach his at this time. Diagnsotics notable for negative CT head , ammonia >100, LFTs at baseline. Hb lower than last time at 7.9 (last at ~9) , Review of Systems General: Reports: ROS unobtainable due to medical condition Medications/Allergies Home Medications Medication Instructions Recorded Confirmed Last Taken Type Tresiba FlexTouch U-100 20 unit SUBCUT BEDTIME PRN 03/05/19 02/18/20 11/23/19 History albuterol sulfate 1 - 2 inh INHALATION QID PRN 03/05/19 02/18/20 11/14/19 History fluticasone propion-salmeterol 1 inh INHALATION BID 03/05/19 02/18/20 11/24/19 History [Advair Diskus] nitroglycerin 0.4 mg sublingual 0.4 mg SUBLINGUAL Q5M PRN 03/10/19 02/18/20 04/20/19 History tablet trazodone 150 mg PO BEDTIME PRN 08/03/19 02/18/20 11/13/19 History Dexilant 30 mg PO DAILY 09/30/19 02/18/20 11/24/19 History lactulose 5 - 10 ml PO DAILY PRN 09/30/19 02/18/20 11/13/19 History lorazepam 0.5 mg PO BEDTIME PRN 09/30/19 02/18/20 11/13/19 History aspirin 325 mg PO DAILY 10/28/19 02/18/20 11/03/19 History furosemide 40 mg PO DAILY@0800 11/07/19 02/18/20 11/24/19 History ibuprofen 200 - 400 mg PO DAILY PRN 11/07/19 02/18/20 11/24/19 History albuterol sulfate 2.5 mg INHALATION Q4H PRN 11/24/19 02/18/20 Unknown History oxycodone 10 mg tablet,crush 10 mg PO Q12H 30 Days #60 tab 01/15/20 02/18/20 Unknown Rx resistant,extended release 12 hr oxycodone 30 mg tablet 30 mg PO 5XD PRN 30 Days #150 tab 01/15/20 02/18/20 Unknown Rx insulin aspart U-100 [Novolog See Rx Instructions .ROUTE .COMPLEX 02/18/20 02/18/20 Unknown History U-100 Insulin aspart] spironolactone 100 mg PO DAILY 02/18/20 02/18/20 Unknown History Allergies Allergy/AdvReac Type Severity Reaction Status Date / Time sodium bicarbonate Allergy Intermediate Stomach Verified 02/18/20 17:01 pain adhesive tape Allergy ADR-Itching Verified 02/18/20 17:00 citalopram [From Celexa] Allergy ADR-Agitate Verified 02/18/20 17:00 d insulin glargine Allergy ALGY-Anaphy Verified 02/18/20 17:00 [From Lantus U-100 Insulin] laxis levofloxacin [From Levaquin] Allergy ALGY-Anaphy Verified 02/18/20 17:00 laxis Penicillins Allergy ALGY-Anaphylaxis, Verified 02/18/20 17:04 tolerates cephalosporins potassium chloride Allergy ADR-Vomitin Verified 02/18/20 17:00 g duloxetine [From Cymbalta] AdvReac NAUSEA Verified 02/18/20 17:00 VOMITTING pregabalin [From Lyrica] AdvReac NAUSEA Verified 02/18/20 17:00 PFSH Acute PFSH: Medical History Ascites Chronic cervical pain Chronic low back pain Diabetes Diabetic neuropathy, painful Encounter for long-term opiate analgesic use Liver cirrhosis Liver failure Somatic dysfunction of back THORACIC AND LUMBAR Surgical History History of abdominal paracentesis History of colonoscopy History of esophagogastroduodenoscopy (EGD) Hx of circumcision Hx of inguinal hernia repair (~05/22/18) LAP REPAIR OF RIGHT INGUINAL HERNIA WITH ULTRAPRO 15X10 CM MESH. Hx of oral surgery Family History Father Cancer LUNG CANCER Other Diabetes Heart disease Lung disease Myocardial infarct Stroke Denies family history of Anesthesia complication Bleeding disorder Social History Smoking and tobacco status: current every day smoker cigarettes Alcohol intake: former Year of sobriety/quit date alcohol: 2009 Caregiver/support person: Yes Lives independently: Yes Household members: friend(s) Current occupational status: disabled History of recent travel: No Vitals/I&O/Wt Last Vital Signs Temp 98.0 F 02/18/20 13:12 Pulse 64 02/18/20 16:15 Resp 18 02/18/20 16:15 BP 172/68 02/18/20 15:59 Pulse Ox 96 02/18/20 16:15 Weight last 48 hrs Weight 72.575 kg Physical Exam Narrative: EXAM NARRATIVE: GEN: somnolent, obtunded, fidgets in bed CVS: S1S2 N RS: CTA B/L Abd: Soft, distended, fluid thrill+ PRODUCTION METAL SPRAYER: moves all extremities while in bed, though not to commands Data : 02/18/20 14:05 02/18/20 14:05 A&P Assessment and plan (1) Acute hepatic encephalopathy: Ammonia elevated at >100 Started on lactulose 10mg rectally every 6 hrs continue for now, titrate to 3-4 BM per day and monitor for improvement Status: Acute (2) Portal hypertension: Secondary to chronic liver disease Awaiting TIPSS at [place] when last seen in 10/2019 Multiple varices seen on last CT, check FOBT, Hb currently at 7.[address] from 11/2019, he had partial SMA thrombosis and was transferred to [facility] for further management, however i do not see any a/c on his medication list currently Repeat CT in am to assess status Status: Acute (3) Bacterial peritonitis: h/o recurrent bacterial periotnitis which necessitated removal of peritoneal drain in the past ceftriaxone 1g iv q24h presumptively for now assess for thoracentesis in am Status: Acute (4) Liver cirrhosis: due to hep C Status: Acute Attestations Medical Necessity Statement*: > 2midnight anticipated for management of above issues Coding Level of Care Code Acute Culinary Art Teacher for [facility] Janette Diagnoses Acute hepatic encephalopathy K72.00 Portal hypertension K76.6 Bacterial peritonitis K65.9 Liver cirrhosis K74.60
[2020-02-18] MEDS: famotidine 20 mg/2 mL INJ IVP (17:33)
[2020-02-18] MEDS: ondansetron 2 mg/ML SDV 2 mL 4 MG IVP (17:34)
--- NOTE | 2020-02-18 18:45 | PC.NURSE ---
Saline fluids completed at 1845
[2020-02-18] MEDS: lactulose oral liq 20 gm/30 mL UDC 200 GM PR (23:59)
[2020-02-18] MEDS: cefTRIAXone 1,000 MG in sodium chloride 0.9% (plus) 50 ML 100 MG IV (23:59)
[2020-02-19] VITALS (10 sets, daily range): BP systolic 127–167; BP diastolic 58–84; PULSE 60–89; RESP 15–18; TEMP 36.4–37.2; O2SAT 95–98
[2020-02-19] MEDS: iohexol 350 mg/mL 100 mL Btl IV (03:21)
[2020-02-19] MEDS: iohexol 300 mg/mL 100 mL Btl IV (03:42)
[2020-02-19] MEDS: famotidine 20 mg/2 mL INJ IVP ×2 (06:00→18:59)
[2020-02-19] MEDS: FUROsemide 10 mg/mL SDV 2mL 20 MG IVP (06:00)
--- NOTE | 2020-02-19 06:00 | CTR_ITS ---
PROCEDURE INFORMATION: Exam: CT Abdomen And Pelvis With Contrast Exam date and time: 02/19/2020 1:53 AM Age: 54 years old Clinical indication: Constipation; Abdominal pain; Generalized; Prior surgery; Surgery type: Inguinal hernia; Patient HX: Possible impaction S/P lactulose enema. History of sma thrombosis. Sudden injector error resulting in hand push of contrast through iv. ; Additional info: H/o sma thrombosis, follow up TECHNIQUE: Imaging protocol: Computed tomography of the abdomen and pelvis with intravenous contrast. Radiation optimization: All CT scans at this facility use at least one of these dose optimization techniques: automated exposure control; mA and/or kV adjustment per patient size (includes targeted exams where dose is matched to clinical indication); or iterative reconstruction. Contrast material: OMNI 300; Contrast volume: 75 ml; Contrast route: INTRAVENOUS (IV); COMPARISON: CT abdomen pelvis w con* [id number] 11/24/2019 5:15 AM RADIATION DOSE METRICS: Total DLP (mGy-cm): 503.89 FINDINGS: Lungs: Nodule at lateral left lower lobe is unchanged dating back to December 2018. Pleural space: Pleural effusions have decreased. Liver: TIPS is in place. Advanced cirrhosis noted. Gallbladder and bile ducts: Normal. No calcified stones. No ductal dilation. Pancreas: Normal. No ductal dilation. Spleen: Spleen has decreased in size. Adrenal glands: Normal. No mass. Kidneys and ureters: Lower pole calculi noted in left kidney. Stomach and bowel: Low-density thickening previously seen in the colonic wall has cleared following placement of TIPS. Appendix: No evidence of appendicitis. Intraperitoneal space: Ascites has decreased. Vasculature: Previously noted thrombus in the upper superior mesenteric vein is no longer evident. Lymph nodes: Unremarkable. No enlarged lymph nodes. Urinary bladder: Unremarkable as visualized. Reproductive: Unremarkable as visualized. Bones/joints: No acute fracture. Soft tissues: Unremarkable. CT/CT abdomen pelvis w con* [id number] IMPRESSION: Improvement in ascites and pleural effusions following interval placement of TIPS. Spleen has also decreased in size. Clearance of previously suggested thrombus in superior mesenteric vein. Advanced cirrhosis noted. Radiation Dose CTDIVOL = (mGy): DLP = 503.89 (mGy-cm)
[2020-02-19 06:14] LABS: INR 1.53 (0.8-1.2)
[2020-02-19 06:17] LABS: Alanine Aminotransferase 13 U/L (0-41); Albumin Level 2.2 g/dL (3.5-5.2); Alkaline Phosphatase 104 IU/L (40-130); Blood Urea Nitrogen 16 mg/dL (6-20); Calcium 7.4 mg/dL (8.5-10.5); Carbon Dioxide 22 mmol/L (22-29); Chloride 109 mmol/L (98-107); Globulin 2.6 g/dL (1.3-4.6); Glomerular Filtration Rate 87.9 mL/min (90-130); Glucose 117 mg/dL (65-115); Osmolality Calculated 288 mOsm/kg (285-295); Sodium 138 mmol/L (136-145); Total Bilirubin 2.1 mg/dL (0.15-1.2); Total Protein 4.8 g/dL (6.6-8.7)
[2020-02-19 06:38] LABS: Anion Gap 11.2 (5-19); Aspartate Amino Transferase 38 U/L (0-40); Potassium 4.2 mmol/L (3.5-5.1)
[2020-02-19 07:25] LABS: Basophils # 0.1 10^3/uL (0.0-0.1); Basophils % 1.4 %; Eosinophils # 0.2 10^3/uL (0.0-0.8); Eosinophils % 3.1 %; Hemoglobin 8.5 g/dL (11.7-16.6); Lymphocytes # 0.8 10^3/uL (0.8-4.8); Lymphocytes % 16.3 %; Mean Corpuscular HGB Conc 35.4 g/dL (30.0-36.0); Mean Corpuscular Hemoglobin 32.7 pg (28.0-34.0); Mean Corpuscular Volume 92.3 fL (80-94); Mean Platelet Volume 9.3 fL (7.4-10.4); Monocytes # 0.6 10^3/uL (0.2-0.9); Neutrophils # 3.38 10^3/uL (1.8-7.7); Neutrophils % 66.6 %; Nucleated Red Blood Cells % 0 %; Platelet Count 81 10^3/cmm (130-400); Red Cell Distribution Width 15.6 % (12.1-15.1); White Blood Count 5.1 10^3/uL (4.0-10.0)
[2020-02-19 08:16] LABS: Glucose Point of Care 126 mg/dL (70-110)
[2020-02-19 10:51] LABS: Glucose Point of Care 125 mg/dL (70-110)
--- NOTE | 2020-02-19 16:24 | PM.PN ---
Subjective Subjective: Interval history: No overnight issue Medications: Reviewed: Yes Vitals/I&O/Wt Last Vital Signs Temp 98.0 F 02/19/20 15:49 Pulse 73 02/19/20 15:49 Resp 15 02/19/20 15:49 BP 154/76 02/19/20 15:49 Pulse Ox 95 02/19/20 15:49 02/19/20 02/19/20 02/19/20 06:59 14:59 22:59 Output Total 0 / 0 Balance 0 / 0 Weight last 48 hrs Weight 72.575 kg Physical Exam Narrative: EXAM NARRATIVE: GEN: obtunded, fidgets in bed CVS: S1S2 N RS: CTA B/L Abd: Soft, distended, fluid thrill+ WATCH INSPECTOR: moves all extremities while in bed, though not to commands Unchanged from day prior Data : 02/19/20 05:50 02/19/20 05:50 Micro: Microbiology 02/19/20 02:16 Occult Blood (FIT) - Final Stool Routine Collection A&P Assessment and plan (1) Acute hepatic encephalopathy: Ammonia elevated at >100 Started on lactulose 10mg rectally every 6 hrs continue for now, titrate to 3-4 BM per day and monitor for improvement Patient not compliant Will initiate Xifaxan 550 Status: Acute (2) Portal hypertension: Secondary to chronic liver disease Awaiting TIPSS at [facility] when last seen in 10/2019 Multiple varices seen on last CT, check FOBT, Hb currently at 7.6- improved to 8.[address] from 11/2019, he had partial SMA thrombosis and was transferred to [facility] for further management, however i do not see any a/c on his medication list currently CT abd/pelvis - today Improvement in ascites and pleural effusions following interval placement of TIPS. Spleen has also decreased in size. Clearance of previously suggested thrombus in superior mesenteric vein. Advanced cirrhosis noted. Status: Acute (3) Bacterial peritonitis: h/o recurrent bacterial periotnitis which necessitated removal of peritoneal drain in the past ceftriaxone 1g iv q24h presumptively for now Low suspection Afebrile cbc in am Status: Acute (4) Liver cirrhosis: due to hep C Status: Acute Attestations Medical Necessity Statement*: Requires continued hospitalization for management of her product encephalopathy Coding Level of Care Code Acute Culture Room Worker for Chg Fwd Diagnoses Acute hepatic encephalopathy K72.00 Portal hypertension K76.6 Bacterial peritonitis K65.9 Liver cirrhosis K74.60
[2020-02-19 17:25] LABS: Glucose Point of Care 115 mg/dL (70-110)
[2020-02-19 20:49] LABS: Glucose Point of Care 109 mg/dL (70-110)
--- NOTE | 2020-02-19 21:41 | PC.NURSE ---
This RN spoke with patient's Dayanna. Updated her on patients well being and she was able to help finish his admission to the hospital. No other needs were voiced at the time.
[2020-02-19] MEDS: cefTRIAXone 1,000 MG in sodium chloride 0.9% (plus) 50 ML 100 MG IV (23:57)
[2020-02-20] VITALS (7 sets, daily range): BP systolic 141–170; BP diastolic 54–74; PULSE 65–72; RESP 16–20; TEMP 36.6–37.3; O2SAT 93–98
[2020-02-20] MEDS: famotidine 20 mg/2 mL INJ IVP ×2 (05:31→17:33)
[2020-02-20] MEDS: lactulose oral liq 20 gm/30 mL UDC 200 GM PR ×3 (05:32→17:33)
[2020-02-20 05:33] LABS: Alanine Aminotransferase 16 U/L (0-41); Alkaline Phosphatase 102 IU/L (40-130); Blood Urea Nitrogen 19 mg/dL (6-20); Calcium 7.7 mg/dL (8.5-10.5); Carbon Dioxide 19 mmol/L (22-29); Chloride 110 mmol/L (98-107); Glomerular Filtration Rate 100.7 mL/min (90-130); Glucose 96 mg/dL (65-115); Osmolality Calculated 292 mOsm/kg (285-295); Sodium 140 mmol/L (136-145); Total Bilirubin 2.8 mg/dL (0.15-1.2)
[2020-02-20 05:43] LABS: Anion Gap 15.3 (5-19); Aspartate Amino Transferase 46 U/L (0-40); Potassium 4.3 mmol/L (3.5-5.1)
[2020-02-20 06:49] LABS: Glucose Point of Care 97 mg/dL (70-110)
[2020-02-20 08:22] LABS: Basophils # 0.1 10^3/uL (0.0-0.1); Basophils % 1.6 %; Eosinophils # 0.1 10^3/uL (0.0-0.8); Eosinophils % 1.9 %; Hemoglobin 7.2 g/dL (11.7-16.6); Lymphocytes # 0.7 10^3/uL (0.8-4.8); Lymphocytes % 13.6 %; Mean Corpuscular HGB Conc 34.6 g/dL (30.0-36.0); Mean Corpuscular Hemoglobin 32.7 pg (28.0-34.0); Mean Corpuscular Volume 94.5 fL (80-94); Mean Platelet Volume 8.9 fL (7.4-10.4); Monocytes # 0.6 10^3/uL (0.2-0.9); Monocytes % 11.7 %; Neutrophils # 3.63 10^3/uL (1.8-7.7); Neutrophils % 70.4 %; Nucleated Red Blood Cells % 0 %; Platelet Count 66 10^3/cmm (130-400); Red Cell Distribution Width 15.5 % (12.1-15.1); White Blood Count 5.2 10^3/uL (4.0-10.0)
[2020-02-20 08:38] LABS: INR 1.73 (0.8-1.2)
[2020-02-20 08:44] LABS: Ammonia 63 umol/L (16-60)
[2020-02-20 08:47] LABS: Hematocrit 20.8 % (42.0-52.0)
[2020-02-20 10:32] LABS: Glucose Point of Care 101 mg/dL (70-110)
--- NOTE | 2020-02-20 12:34 | PC.CHAP ---
Pastoral Care Encounter/Spiritual Assessment Type of Contact [xx] Declined sales representative trainee visit [] Patient/Family/Request visit [] Outpatient visit [xx] Follow-up visit [] Physician referral [] Code/Alert [xx] Routine visit [] Staff referral [] Actively dying [] Patient sleeping [] Family support [] [] Out of room [] Palliative care [] [] Receiving care in room [] Pre-surgical visit [] Trauma [] Long length of stay [] ICU visit [] Other: Relational/Emotional Strength [] Patient feels connected with others/family/visitors/staff [] Distress [] Loneliness/isolation [] Abandonment Spirituality of Patient [] Person of Gaby [] Attends Holiness of their Gaby [] Believes in Prayer [] Reads Bible or Anglican materials [] There are Spiritual issues to be addressed Learning And Development Consultant Interventions [] Prayer [] Active listening [] Non-anxious presence [] Spiritual/emotional support [] Crisis/trauma care [] Spiritual counseling [] Bereavement support [] Provided bereavement packet [] Provided Bible/devotional materials [] Provided toy/stuffed animal, coloring book to patient or family member [] Provided Communion [] Anointing/[place] [] Salvation [] Completed spiritual assessment [] Other: Impact on Illness or Injury [] Angry [] Fearful [] Anxious [] Often cries [] Exhaustion [] Unable to work [] Unable to attend taoist [] Unable to walk/stand [] Unable to read [] Unable to drive [] Unable to eat/drink [] Unable to sleep [] Unable to be with family [] Patient intubated [] Other: Summary Pt was awake but refused to acknowledge presence of sales representative trainee. No conversation or actual contact made. Time spent with patient 2 minutes
--- NOTE | 2020-02-20 13:27 | PC.NURSE ---
Attempt to give 200g lactulose per rectum without success. Nurse notified.
--- NOTE | 2020-02-20 14:10 | XR_ITS ---
WS: [id number] KUB, 02/20/2020 Clinical Data: constipation Comparison: Flat and upright abdomen, 06/10/2018. Findings: No abnormal intraabdominal masses or calcifications are seen. There is no dilatated small bowel or ev idence of obstruction. There is a TIPS stent in position. There is contrast material in bladder from a recent CT scan of the abdomen. Haziness in the abdomen implies ascites. XR/XR KUB portable [id number] Impression: 1. Probable ascites. 2. TIPS stent in position.
--- NOTE | 2020-02-20 15:01 | PC.RESP ---
SMOKING CESSATION INFORMATION SENT TO PATIENT.
--- NOTE | 2020-02-20 15:19 | P.PN_ITS ---
Subjective Subjective: Interval history: Patient has been very confused. primarily at night. For the most part has been nonverbal During my evaluations. Has not had any fever. Not taken any oral intake. Did have a bowel movement last evening. Medications: Reviewed: Yes Vitals/I&O/Wt Last Vital Signs Temp 98.7 F 02/20/20 12:00 Pulse 68 02/20/20 12:00 Resp 16 02/20/20 12:00 BP 141/60 02/20/20 12:00 Pulse Ox 96 02/20/20 12:00 Physical Exam Narrative: EXAM NARRATIVE: GEN: obtunded, fidgets in bed CVS: S1S2 N RS: CTA B/L Abd: Soft, distended, fluid thrill+ CUFF KNITTER: moves all extremities while in bed, though not to commands Unchanged from day prior Data : 02/20/20 08:12 02/20/20 04:11 A&P Assessment and plan (1) Acute hepatic encephalopathy: Ammonia elevated at >100 - Repeat ammonia improved Lactulose retention enema ordered Non-compliant with oral intake May have to consider NG Repeat ammonia in am Status: Acute (2) Portal hypertension: S/p TIPS Repeat CT noted below CT abd/pelvis - 02/18 Improvement in ascites and pleural effusions following interval placement of TIPS. Spleen has also decreased in size. Clearance of previously suggested thrombus in superior mesenteric vein. Advanced cirrhosis noted. Status: Acute (3) Bacterial peritonitis: h/o recurrent bacterial peritonitis which necessitated removal of peritoneal drain in the past Ceftriaxone 1g iv q24h emperically No abdominal pain, no fevers May consider stopping in monitoring off Status: Acute (4) Liver cirrhosis: Due to hep C Complicated with portal hypertension status post tips, thrombocytopenia, and hepatic encephalopathy as noted above Status: Acute Attestations Medical Necessity Statement*: Patient require further hospitalization for man agement of altered mental status. Time Spent in Patient Care: Greater than 35 minutes (>than 50% of time spent in counselling and/or direct pt care on unit) . Coding Level of Care Code Acute Rail Car Repair Carman for Eduin Savage Diagnoses Acute hepatic encephalopathy K72.00 Portal hypertension K76.6 Bacterial peritonitis K65.9 Liver cirrhosis K74.60
[2020-02-20 17:05] LABS: Glucose Point of Care 140 mg/dL (70-110)
[2020-02-20 17:26] LABS: Glucose Point of Care 152 mg/dL (70-110)
--- NOTE | 2020-02-20 20:02 | PC.NURSE ---
enema lactolose enema given pt was able to retain at least have as of this time pt has had no results.
[2020-02-20 22:28] LABS: Glucose Point of Care 153 mg/dL (70-110)
[2020-02-21] VITALS (8 sets, daily range): BP systolic 150–179; BP diastolic 63–78; PULSE 56–84; RESP 16–18; TEMP 36.5–37.1; O2SAT 94–98
[2020-02-21] MEDS: cefTRIAXone 1,000 MG in sodium chloride 0.9% (plus) 50 ML 100 MG IV ×2 (01:13→02:38)
[2020-02-21] MEDS: lactulose oral liq 20 gm/30 mL UDC 200 GM PR ×2 (01:13→05:24)
[2020-02-21 03:48] LABS: Basophils # 0.1 10^3/uL (0.0-0.1); Basophils % 0.9 %; Eosinophils # 0.2 10^3/uL (0.0-0.8); Eosinophils % 2.9 %; Hemoglobin 7.1 g/dL (11.7-16.6); Lymphocytes # 1.1 10^3/uL (0.8-4.8); Lymphocytes % 19.8 %; Mean Corpuscular HGB Conc 34.3 g/dL (30.0-36.0); Mean Corpuscular Hemoglobin 32.9 pg (28.0-34.0); Mean Corpuscular Volume 95.8 fL (80-94); Mean Platelet Volume 9.3 fL (7.4-10.4); Monocytes # 0.7 10^3/uL (0.2-0.9); Monocytes % 12.3 %; Neutrophils # 3.58 10^3/uL (1.8-7.7); Neutrophils % 63.7 %; Nucleated Red Blood Cells % 0 %; Platelet Count 63 10^3/cmm (130-400); Red Blood Count 2.16 10^6/uL (4.1-5.3); Red Cell Distribution Width 15.5 % (12.1-15.1); White Blood Count 5.6 10^3/uL (4.0-10.0)
[2020-02-21 04:08] LABS: Ammonia 48 umol/L (16-60)
[2020-02-21 04:25] LABS: Procalcitonin 0.16 ng/mL (0-0.5)
[2020-02-21 04:38] LABS: Alanine Aminotransferase 11 U/L (0-41); Albumin Level 2.1 g/dL (3.5-5.2); Alkaline Phosphatase 108 IU/L (40-130); Anion Gap 12.4 (5-19); Aspartate Amino Transferase 27 U/L (0-40); Blood Urea Nitrogen 23 mg/dL (6-20); Calcium 7.5 mg/dL (8.5-10.5); Carbon Dioxide 22 mmol/L (22-29); Chloride 111 mmol/L (98-107); Creatinine Clr Calc Pharmacy 76.0861; Glomerular Filtration Rate 69.8 mL/min (90-130); Glucose 148 mg/dL (65-115); Osmolality Calculated 300 mOsm/kg (285-295); Potassium 3.4 mmol/L (3.5-5.1); Sodium 142 mmol/L (136-145); Total Bilirubin 1.7 mg/dL (0.15-1.2); Total Protein 5.1 g/dL (6.6-8.7)
[2020-02-21 06:07] LABS: Glucose Point of Care 170 mg/dL (70-110)
[2020-02-21 06:23] LABS: Hematocrit 20.7 % (42.0-52.0)
[2020-02-21] MEDS: famotidine 20 mg/2 mL INJ IVP ×2 (06:44→17:06)
[2020-02-21] MEDS: spironolactone 25 mg Tablet 100 MG PO (08:36)
--- NOTE | 2020-02-21 10:27 | PC.SOCIAL ---
IMM Update Pg. 2 of IMM updated. Attempted to call patient's , but she does not answer the phone. Initialed, dated, and timed and placed in chart and copy left at bedside.
[2020-02-21 10:54] LABS: Glucose Point of Care 155 mg/dL (70-110)
[2020-02-21] MEDS: oxyCODONE IR 30 mg Tablet PO (11:46)
--- NOTE | 2020-02-21 11:49 | PC.NURSE ---
Patient denied enema. States he had a bowel movement this morning (verified by tech- states it was a large bowel movement) and does not think he needs it. I told him that may make his stomach feel better, but still refuses.
--- NOTE | 2020-02-21 15:17 | PC.NURSE ---
Patient resting in his room right now
--- NOTE | 2020-02-21 15:26 | P.PN_ITS ---
Subjective Subjective: Interval history: 54-year-old male with history of hep C, cirrhosis, portal hypertension, status post TIPS procedure who admitted for confusion. Seen with family at bedside. Mental status better. Ammonia level improved. Appetite okay. Reports nausea with oral lactulose. Medications: Reviewed: Yes Vitals/I&O/Wt Last Vital Signs Temp 98.0 F 02/21/20 15:22 Pulse 56 L 02/21/20 15:22 Resp 18 02/21/20 15:22 BP 179/78 02/21/20 15:22 Pulse Ox 96 02/21/20 15:22 02/21/20 02/21/20 02/21/20 06:59 14:59 22:59 Intake Total 50 / 290 360 / 360 Balance 50 / 190 360 / 360 Physical Exam Const: COMMON NORMALS: no acute distress and patient oriented x3 Neck/C-Spine: COMMON NORMALS: no JVD Resp: COMMON NORMALS: normal respiratory effort and No retractions Cardio: COMMON NORMALS: no JVD and regular rate RATE: regular rate GI: COMMON NORMALS: Normal to inspection, nondistended, normoactive bowel sounds present, Soft to palpation and non-tender PALPATION: Yes Soft to palpation Extremity: COMMON NORMALS: normal to inspection Neuro: COMMON NORMALS: patient oriented x3 Skin: COMMON NORMALS: no rashes or lesions noted and no wounds GENERAL SKIN EXAM: no rashes or lesions noted Data : 02/21/20 03:38 02/21/20 03:38 A&P Assessment and plan (1) Acute alteration in mental status: Status: Acute (2) Liver cirrhosis: Status: Acute Additional A&P Information Acute hepatic encephalopathy: Ammonia elevated at >100 - Repeat ammonia improved Lactulose retention enema ordered, can try oral in smaller doses Non-compliant with oral intake Repeat ammonia in am (2) Portal hypertension: S/p TIPS Repeat CT noted below CT abd/pelvis - 02/18 Improvement in ascites and pleural effusions following interval placement of TIPS. Spleen has also decreased in size. Clearance of previously suggested thrombus in superior mesenteric vein. Advanced cirrhosis noted. (3) Bacterial peritonitis: h/o recurrent bacterial peritonitis which necessitated removal of peritoneal drain in the past Ceftriaxone 1g iv q24h empirically No abdominal pain, no fevers will stop at dc (4) Liver cirrhosis: Due to hep C Complicated with portal hypertension status post tips, thrombocytopenia, and hepatic encephalopathy as noted above Dispo: dc home soon Attestations Medical Necessity Statement*: Hugo Oquendo's hospital stay will require greater than 2 midnights for cirrhosis Coding Level of Care Code Acute Preventive Medicine Physician for Eduin Fwadrianna Diagnoses Acute alteration in mental status R41.82 Liver cirrhosis K74.60
[2020-02-21] MEDS: lactulose oral liq 20 gm/30 mL UDC PO (16:47)
[2020-02-21 17:07] LABS: Glucose Point of Care 167 mg/dL (70-110)
--- NOTE | 2020-02-21 17:19 | PC.NURSE ---
Had some issue with flushing IV. Removed Venaguard and repositioned IV. IV now giving blood return. Applied new Venaguard and wrapped IV with gauze fluff.
--- NOTE | 2020-02-21 18:18 | PC.NURSE ---
SHIFT SUMMARY Patient has had increased orientation throughout the day. Initially he was very withdrawn and his speech was mumbled, but now he is alert and oriented x3 and he is able to ambulate to the restroom with assistance. Has had one significant bowel movement this AM. Has denied any enemas since bowel movement. Have switched to PO lactulose, per Dr. Maya's recommendations; patient has been able to hold down lactulose. Patient's IV was having some difficulty flushing; I removed mario wrap around IV and redressed with new Venaguard. IV is now flushing well. Patient's was at bedside with home most of this afternoon. States she will be back tomorrow. Patient resting at this time.
[2020-02-21 20:17] LABS: Glucose Point of Care 219 mg/dL (70-110)
[2020-02-22] VITALS (12 sets, daily range): BP systolic 138–171; BP diastolic 72–86; PULSE 66–94; RESP 14–18; TEMP 36.7–37.7; O2SAT 92–97
[2020-02-22 02:57] LABS: Add Urine Microscopic? YES; Bilirubin Urine 1+ (Negative); Blood Urine 3+ (Negative); Glucose Urine UA Norm (Normal); Ketones Urine 1+ (Negative); Leukocyte Esterase Urine Negative (Negative); Nitrate Urine Negative (Negative); Protein Urine 3+ (Negative); Specific Gravity, Urine 1.025 (1.005-1.030); Urine Appearance Clear (CLEAR); Urine Color Yellow (Yellow); Urobilinogen Urine Norm (Negative); pH Urine 5 (5-7)
[2020-02-22 02:59] LABS: Bacteria Urine TRACE /hpf; Mucus Urine 1+ /hpf; Squamous Epithelial Cell Urine 0-4 /hpf (0-5)
[2020-02-22 03:00] LABS: Add Urine Culture? Yes; Hyaline Casts Urine 25-40 /lpf
[2020-02-22 03:01] LABS: Amphetamines Screen Urine Negative (Negative); Barbiturates Screen Urine Negative (Negative); Benzodiazepines Screen Urine Positive (Negative); Cocaine Screen Urine Negative (Negative); Opiate Screen Urine Positive (Negative); PCP Screen Urine Negative (Negative); THC Screen Urine Negative (Negative)
[2020-02-22 03:46] LABS: Basophils # 0.1 10^3/uL (0.0-0.1); Basophils % 1.6 %; Eosinophils # 0.4 10^3/uL (0.0-0.8); Eosinophils % 6.4 %; Hemoglobin 6.8 g/dL (11.7-16.6); Lymphocytes # 1.3 10^3/uL (0.8-4.8); Lymphocytes % 21.3 %; Mean Corpuscular HGB Conc 33.3 g/dL (30.0-36.0); Mean Corpuscular Hemoglobin 32.2 pg (28.0-34.0); Mean Corpuscular Volume 96.7 fL (80-94); Mean Platelet Volume 8.7 fL (7.4-10.4); Monocytes # 0.8 10^3/uL (0.2-0.9); Neutrophils # 3.63 10^3/uL (1.8-7.7); Neutrophils % 58.4 %; Nucleated Red Blood Cells % 0 %; Platelet Count 71 10^3/cmm (130-400); Red Blood Count 2.11 10^6/uL (4.1-5.3); Red Cell Distribution Width 15.8 % (12.1-15.1); White Blood Count 6.2 10^3/uL (4.0-10.0)
[2020-02-22 04:01] LABS: Hematocrit 20.4 % (42.0-52.0)
[2020-02-22 04:07] LABS: Alanine Aminotransferase 16 U/L (0-41); Albumin Level 1.9 g/dL (3.5-5.2); Alkaline Phosphatase 104 IU/L (40-130); Anion Gap 12.5 (5-19); Aspartate Amino Transferase 50 U/L (0-40); Blood Urea Nitrogen 22 mg/dL (6-20); Calcium 7.2 mg/dL (8.5-10.5); Carbon Dioxide 22 mmol/L (22-29); Chloride 108 mmol/L (98-107); Globulin 2.8 g/dL (1.3-4.6); Glomerular Filtration Rate 63.1 mL/min (90-130); Glucose 187 mg/dL (65-115); Osmolality Calculated 296 mOsm/kg (285-295); Potassium 3.5 mmol/L (3.5-5.1); Sodium 139 mmol/L (136-145); Total Bilirubin 1.3 mg/dL (0.15-1.2); Total Protein 4.7 g/dL (6.6-8.7)
[2020-02-22 04:12] LABS: Ammonia 66 umol/L (16-60)
--- NOTE | 2020-02-22 05:15 | PC.NURSE ---
patient was wrapped up in his blankets and a heavy jacket when first temp was taken. rechecked temp. 98.1 orally
[2020-02-22] MEDS: famotidine 20 mg/2 mL INJ IVP ×2 (05:52→17:11)
[2020-02-22 07:07] LABS: Glucose Point of Care 247 mg/dL (70-110)
[2020-02-22] MEDS: spironolactone 25 mg Tablet 100 MG PO (09:05)
[2020-02-22 10:55] LABS: Glucose Point of Care 222 mg/dL (70-110)
--- NOTE | 2020-02-22 11:18 | P.PN_ITS ---
Subjective Subjective: Interval history: 54-year-old male with history of hep C, cirrhosis, portal hypertension, status post TIPS procedure who admitted for confusion. lethargic this AM Hgb noted to be low denies cp, or sob reports nausea with lactulose. Medications: Reviewed: Yes Vitals/I&O/Wt Last Vital Signs Temp 98.4 F 02/22/20 08:00 Pulse 94 02/22/20 08:00 Resp 18 02/22/20 08:00 BP 169/82 02/22/20 08:00 Pulse Ox 92 02/22/20 08:00 02/21/20 02/22/20 02/22/20 22:59 06:59 14:59 Intake Total 720 / 1080 480 / 1560 720 / 720 Output Total 150 / 150 50 / 200 Balance 570 / 930 430 / 1360 720 / 720 Physical Exam Const: COMMON NORMALS: no acute distress and patient oriented x3 Neck/C-Spine: COMMON NORMALS: no JVD Resp: COMMON NORMALS: normal respiratory effort and No retractions Cardio: COMMON NORMALS: no JVD and regular rate RATE: regular rate GI: COMMON NORMALS: Normal to inspection, nondistended, normoactive bowel sounds present, Soft to palpation and non-tender PALPATION: Yes Soft to palpation Extremity: COMMON NORMALS: normal to inspection Neuro: COMMON NORMALS: patient oriented x3 Skin: COMMON NORMALS: no rashes or lesions noted and no wounds GENERAL SKIN EXAM: no rashes or lesions noted Data : 02/22/20 03:35 02/22/20 03:35 A&P Assessment and plan (1) Acute alteration in mental status: Status: Acute (2) Liver cirrhosis: Status: Acute Additional A&P Information Acute hepatic encephalopathy: Ammonia elevated at >100 - Repeat ammonia slighlty higher this MA Lactulose retention enema ordered,encourage small dose of oral Non-compliant with oral intake Repeat ammonia in am (2) Portal hypertension: S/p TIPS Repeat CT noted below CT abd/pelvis - 02/18 Improvement in ascites and pleural effusions following interval placement of TIPS. Spleen has also decreased in size. Clearance of previously suggested thrombus in superior mesenteric vein. Advanced cirrhosis noted. (3) Bacterial peritonitis: h/o recurrent bacterial peritonitis which necessitated removal of peritoneal drain in the past Ceftriaxone 1g iv q24h empirically No abdominal pain, no fevers will stop at dc (4) Liver cirrhosis: Due to hep C Complicated with portal hypertension status post tips, thrombocytopenia, and hepatic encephalopathy as noted above (5) anemia -?production issue -order 1 unit PRBC Dispo: dc home soon Attestations Medical Necessity Statement*: Hugo Yoana Oquendo's hospital stay will require greater than 2 midnights for -c-irrohsis Coding Level of Care Code Acute Supervisor Capacitor Processing for Chg Fwd Diagnoses Acute alteration in mental status R41.82 Liver cirrhosis K74.60
[2020-02-22] MEDS: lactulose oral liq 20 gm/30 mL UDC PO (14:02)
[2020-02-22 16:51] LABS: Glucose Point of Care 111 mg/dL (70-110)
[2020-02-22] MEDS: sodium chloride 0.9% (100 ml) 100 ML 30 ML (17:07)
--- NOTE | 2020-02-22 18:00 | PC.NURSE ---
SHIFT SUMMARY Patient has been more alert and oriented throughout this shift, though he occasionally states things that do not make complete sense. Patient has been able to ambulate to the restroom with minimal assistance. He has not had any bowel movements throughout this shift. He has denied any pain; spends most of his time sleeping in his room, though he is awakened easily. He received one unit of blood during this shift. Patient was upset this afternoon due to his not visiting him. He has stated multiple times I'm leaving after this or I'm going home , though he has been able to be redirected each time. He does have the potential to become more agitated throughout the night.
[2020-02-22 20:36] LABS: Glucose Point of Care 181 mg/dL (70-110)
[2020-02-23] VITALS (7 sets, daily range): BP systolic 130–156; BP diastolic 69–77; PULSE 77–87; RESP 16–18; TEMP 36.6–36.9; O2SAT 93–98
[2020-02-23] MEDS: cefTRIAXone 1,000 MG in sodium chloride 0.9% (plus) 50 ML 100 MG IV (00:10)
[2020-02-23] MEDS: lactulose oral liq 20 gm/30 mL UDC PO (00:13)
[2020-02-23] MEDS: trazodone 150 mg Tablet 100 MG PO (01:15)
[2020-02-23 03:58] LABS: Basophils # 0.1 10^3/uL (0.0-0.1); Basophils % 1.7 %; Eosinophils # 0.3 10^3/uL (0.0-0.8); Eosinophils % 5.1 %; Hematocrit 24.3 % (42.0-52.0); Hemoglobin 8.3 g/dL (11.7-16.6); Lymphocytes # 1.5 10^3/uL (0.8-4.8); Lymphocytes % 21.9 %; Mean Corpuscular HGB Conc 34.2 g/dL (30.0-36.0); Mean Corpuscular Hemoglobin 32.3 pg (28.0-34.0); Mean Corpuscular Volume 94.6 fL (80-94); Mean Platelet Volume 8.7 fL (7.4-10.4); Monocytes # 0.8 10^3/uL (0.2-0.9); Monocytes % 12.6 %; Neutrophils # 3.84 10^3/uL (1.8-7.7); Neutrophils % 58.1 %; Nucleated Red Blood Cells % 0 %; Platelet Count 63 10^3/cmm (130-400); Red Blood Count 2.57 10^6/uL (4.1-5.3); Red Cell Distribution Width 15.3 % (12.1-15.1); White Blood Count 6.6 10^3/uL (4.0-10.0)
[2020-02-23 04:24] LABS: Ammonia 58 umol/L (16-60)
[2020-02-23 07:08] LABS: Glucose Point of Care 197 mg/dL (70-110)
[2020-02-23] MEDS: spironolactone 25 mg Tablet 100 MG PO (08:52)
--- NOTE | 2020-02-23 10:40 | PC.SOCIAL ---
IMM Update Pg. 2 of [facility] updated and reviewed with patient, who verbalized understanding. Attempted to call patient's to explain to her as well but she did not answer.
[2020-02-23 10:56] LABS: Glucose Point of Care 273 mg/dL (70-110)
--- NOTE | 2020-02-23 11:59 | P.PN_ITS ---
Subjective Subjective: Interval history: Patient has been very confused. primarily at night. For the most part has been nonverbal During my evaluations. Has not had any fever. Not taken any oral intake. Did have a bowel movement last evening. Medications: Reviewed: Yes Vitals/I&O/Wt Last Vital Signs Temp 98.4 F 02/23/20 10:59 Pulse 79 02/23/20 10:59 Resp 18 02/23/20 10:59 BP 147/73 02/23/20 10:59 Pulse Ox 98 02/23/20 10:59 02/22/20 02/23/20 02/23/20 22:59 06:59 14:59 Intake Total 80 / 1530 640 / 640 Output Total 450 / 450 Balance 80 / 1530 -450 / 1080 640 / 640 Physical Exam Narrative: EXAM NARRATIVE: GEN: obtunded, fidgets in bed CVS: S1S2 N RS: CTA B/L Abd: Soft, distended, fluid thrill+ OUTPATIENT CODING SPECIALIST: moves all extremities while in bed, though not to commands Unchanged from day prior Data : 02/23/20 03:48 02/22/20 03:35 Micro: Microbiology 02/22/20 02:24 Urine Culture - Preliminary Urine,Voided A&P Assessment and plan (1) Liver cirrhosis: Due to hep C Complicated with portal hypertension status post tips, thrombocytopenia, and hepatic encephalopathy as noted above Status: Acute (2) Anemia: Status: Acute Qualifiers: Anemia type: unspecified type Qualified Code(s): D64.9 - Anemia, unspecified Additional A&P Information Acute hepatic encephalopathy: Ammonia elevated at >100 - Repeat ammonia slighlty higher this MA Lactulose retention enema ordered,encourage small dose of oral Non-compliant with oral intake Repeat ammonia in am (2) Portal hypertension: S/p TIPS Repeat CT noted below CT abd/pelvis - 02/18 Improvement in ascites and pleural effusions following interval placement of TIPS. Spleen has also decreased in size. Clearance of previously suggested thrombus in superior mesenteric vein. Advanced cirrhosis noted. (3) Bacterial peritonitis: h/o recurrent bacterial peritonitis which necessitated removal of peritoneal drain in the past Ceftriaxone 1g iv q24h empirically No abdominal pain, no fevers will stop at dc (4) Liver cirrhosis: Due to hep C Complicated with portal hypertension status post tips, thrombocytopenia, and hepatic encephalopathy as noted above (5) anemia -?production issue -order 1 unit PRBC Dispo: dc home soon Coding Level of Care Code Acute Neonatal Icu Coordinator for Chg Fwd Diagnoses Liver cirrhosis K74.60 Anemia D64.9 Anemia type: unspecified type
--- NOTE | 2020-02-23 14:51 | P.DS_ITS ---
Discharge Providers Date of Admission: 02/18/20 16:17 Date of Discharge: February 23, 2020 Attending Provider at Admission: Nat Jasmine MD Attending Provider at Discharge: Rebeka Boogie Primary Care Provider: Andreia De León DO Diagnoses at Discharge Discharge Diagnosis (1) Acute alteration in mental status: Status: Acute (2) Liver cirrhosis: Status: Acute Reason for Visit Reason for Visit: CONFUSION Hospital Course Hospital Course 54 year old male with PMH hep C associated cirrhosis, treated in 2013 with portal HTN , previously with peritoneal drain placed in June 2019 due to frequency of drainage, subsequently needing to be removed on 10/07 due to recurrent bacterial peritonitis. He follows with university registrar Dr. Clayton in [facility] and on my last evaluation in October was planned for a TIPSS. I am uncertain if he has had this procedure. He is currenty lethargic and unable to provide details. He presented to ER with altered mental status, unable to provide history at this time. Diagnostics notable for negative CT head , ammonia >100, LFTs at baseline. Hb lower than last time at 7.9 (last at ~9). Patient was started on lactulose MT due to his change in mental status and inability to tolerate oral intake. Patient was mental status gradually improved as his ammonia level improved to 66. . Lactulose was then transitioned to oral. Additionally was started empirically on Rocephin for possible SBP. CT abd/pelvis was performed which showed prior TIPS. Did not have any significant fever, No leukocytosis or abdominal pain. Low suspicion of SBP. Was not continued on abx at discharge. Additionally patient was noted to have a acute drop in hb to 6.8. Initially had some bright red blood per rectum due to hard stool however this had resolved. Was transfused after which his hb continued to improve. With no further bleeding despite thrombocytopenia stable hemoglobin and improvement in mental status he was discharged home. Physical Exam Narrative: EXAM NARRATIVE: GEN: Awake, alert, more responsive CVS: S1S2 N RS: CTA B/L Abd: Soft, distended, fluid thrill+ EXPORT SALES ASSISTANT: moves all extremities while in bed. Discharge Data Data Completed and Pending: Completed Studies During Hospitalization Category Date Time Status CT abdomen pelvis w con* [id number] Rout ine Cat Scan 02/19/20 06:[address] head wo con* 7 [id number] Urgent Cat Scan 02/18/20 13:28 Completed XR KUB portable 7 [id number] Routine Exams 02/20/20 14:10 Completed Pending at discharge Category Date Time Status Antibody Identifi cation Routine Lab 02/22/20 05:34 Results Antigen Typing Pa tieyariel Routine Lab 02/22/20 05:34 Results Leukocyte Reduced RBC Routine Lab 02/22/20 05:34 Results Type and Screen R outine Lab 02/22/20 05:34 Results Urine Culture Sta t Lab 02/22/20 02:24 Results Labs from last 24 hours 02/23/20 02/23/20 02/23/20 10:33 07:01 03:48 WBC RBC Hgb Hct MCV MCH MCHC RDW Plt Count MPV Neut % (Auto) Lymph % (Auto) [place] % (Auto) Eos % (Auto) Baso % (Auto) Neut # (Auto) Lymph # (Auto) [place] # (Auto) Eos # (Auto) Baso # (Auto) Nucleated RBC % (a uto) Nucleated RBCs # POC Glucose 273 H 197 H Ammonia 58 02/23/20 02/22/20 02/22/20 03:48 20:24 16:32 WBC 6.6 RBC 2.57 L Hgb 8.3 L Hct 24.3 L MCV 94.6 H MCH 32.3 MCHC 34.2 RDW 15.3 H Plt Count 63 L MPV 8.7 Neut % (Auto) 58.1 Lymph % (Auto) 21.9 [place] % (Auto) 12.6 Eos % (Auto) 5.1 Baso % (Auto) 1.7 Neut # (Auto) 3.84 Lymph # (Auto) 1.5 [place] # (Auto) 0.8 Eos # (Auto) 0.3 Baso # (Auto) 0.1 Nucleated RBC % (a uto) 0 Nucleated RBCs # 0.0 POC Glucose 181 H 111 H Ammonia Vitals: Last Vital Signs Temp 98.4 F 02/23/20 10:59 Pulse 79 02/23/20 10:59 Resp 18 02/23/20 10:59 BP 147/73 02/23/20 10:59 Pulse Ox 98 02/23/20 10:59 Discharge Plan Discharge Patient Disposition: Home Condition: Stable Prescriptions: New Xifaxan 550 mg Tablet 550 mg PO BID Qty: 60 RF: 0 lactulose 20 gram/30 mL Solution 20 g PO Q12H Qty: 300 RF: 0 Continued nitroglycerin [Nitrostat] 0.4 mg tablet, sublingual 0.4 mg SUBLINGUAL Q5M PRN (Reason: Chest Pain) RF: 0 fluticasone propion-salmeterol [Advair Diskus] 250-50 mcg/dose Blister With Device 1 inh INHALATION BID RF: 0 albuterol sulfate 90 mcg/actuation Aero Powdr Breath Act W/Sensor 1 - 2 inh INHALATION QID PRN (Reason: Shortness Of Breath) RF: 0 trazodone 150 mg tablet 150 mg PO BEDTIME PRN (Reason: Sleep) RF: 0 furosemide 40 mg tablet 40 mg PO DAILY@0800 RF: 0 Novolog U-100 Insulin aspart 100 unit/mL Solution See Rx Instructions .ROUTE .COMPLEX RF: 0 spironolactone 50 mg tablet 100 mg PO DAILY RF: 0 lorazepam 0.5 mg tablet 0.5 mg PO BEDTIME PRN (Reason: unknown) RF: 0 Dexilant 30 mg capsule,biphase delayed releas 30 mg PO DAILY RF: 0 albuterol sulfate 2.5 mg /3 mL (0.083 %) Solution For Nebulization 2.5 mg INHALATION Q4H PRN (Reason: Shortness Of Breath) RF: 0 Discontinued oxycodone 30 mg tablet 30 mg PO 5XD PRN (Reason: Pain) 30 Days Qty: 150 RF: 0 oxycodone [OxyContin] 10 mg tablet,oral only,ext.rel.12 hr 10 mg PO Q12H 30 Days Qty: 60 RF: 0 Tresiba FlexTouch U-100 100 unit/mL (3 mL) Insulin Pen 20 unit SUBCUT BEDTIME PRN (Reason: Hyperglycemia) RF: 0 ibuprofen 200 mg Tablet 200 - 400 mg PO DAILY PRN (Reason: Pain) RF: 0 lactulose 10 gram/15 mL solution 5 - 10 ml PO DAILY PRN (Reason: Constipation) RF: 0 aspirin 325 mg Tablet 325 mg PO DAILY RF: 0 Discharge Orders: Discharge Order (Routine); Ordered 02/23/20 Ordered By: Rebeka Boogie Other Ambulatory Orders: Complete Blood Count w/Man Dif (Routine) Timeframe: 3 Days Facility: [facility] - Location: Lab - Main Lab Ordered By: Rebeka Boogie Referrals: Andreia De León DO [Primary Care Provider] - 03/08/20 3:00 pm Discharge Diet: Advance as tolerated Discharge Activity: Increase activity as tolerated Patient Instructions: Ascites, Lactulose (By mouth), Rifaximin (By mouth), Hepatic Encephalopathy (DC), Altered Mental Status (GEN) Discharge Attestations Time Spent in Discharge Care*: greater than 30 min Specific Discharge Activities: educating patient, discussing with pcp/other providers, discussing with high risk case manager/social workers/dc planners, documenting/other paperwork and evaluating patient/reviewing data Status at Discharge: Cognitive status at discharge: cognitively intact , Behavioral status at discharge: cooperative , Overall status at discharge: patient is progressing back to baseline Quality Metrics Clinical Quality Measures During this hospital stay, did patient experience: None Coding Level of Care Code Acute Printer Slotter Operator for Eduin Savage Diagnoses Acute alteration in mental status R41.82 Liver cirrhosis K74.60
--- NOTE | 2020-02-23 15:30 | PC.NURSE ---
Addendum entered by Chloe Corbin RN 02/23/20 16:03: Patient respirations even and non-labored on room air. IVs removed prior to discharge patient tolerated well. Original Note: Reviewed discharge instructions with patient and . Patient and verbalized understanding. Patient is alert to self and place. Patient and verbalized understanding how to take new medications and what medications were discontinued. Patient wheel chaired to private car.
== END 2020-02-23 15:30 | disposition home or self-care (01) | DRG 441 ==
LOC: ER 16:14 → MEDSURG 18:44
PROVIDERS: Internal Medicine; Admitting Provider Student in an Organized Health Care Education/Training Program; Emergency Provider Family Medicine; PCP Family Medicine; Visit Provider Hospitalist
DX: K72.00 Acute and subacute hepatic failure without coma (principal); K65.9 Peritonitis, unspecified; R18.8 Other ascites; K76.6 Portal hypertension; B18.2 Chronic viral hepatitis C; K74.60 Unspecified cirrhosis of liver; G89.29 Other chronic pain; M54.2 Cervicalgia; M54.5 Low back pain; E11.42 Type 2 diabetes mellitus with diabetic polyneuropathy; F17.210 Nicotine dependence, cigarettes, uncomplicated; D64.9 Anemia, unspecified; D69.6 Thrombocytopenia, unspecified
CPT/HCPCS: 12345; 36415; 36416; 36430; 70450; 74018; 74177; 80053; 80306; 80307; 80500; 81001; 82140; 82274; 82550; 82962; 83605; 84145; 85025; 85610; 86850; 86870; 86900; 86902; 86920; 87086; 92610; 96372; 97116; 97161; 99283; J0696; J1630; J1815; J1940; J2060; J2405; J3490; J7030; P9016; Q9967

== ENCOUNTER 2020-03-05 21:36 | Emergency (ER) | payer MEDICARE, MEDICAID, SELFPAY ==
[2020-03-05 21:41] VITALS: BP 155/62; PULSE 65; RESP 18; TEMP 36.2; O2SAT 98; BMI 22.8
--- NOTE | 2020-03-05 21:43 | XRR_ITS ---
PROCEDURE INFORMATION: Exam: XR Chest, 1 View Exam date and time: 03/05/2020 9:56 PM Age: 54 years old Clinical indication: Shortness of breath; Additional info: AMS TECHNIQUE: Imaging protocol: XR of the chest Views: 1 view. COMPARISON: CR XR chest 1V portable [id number] 12/03/2019 9:18 PM FINDINGS: Lungs: Minimal bilateral patchy mixed interstitial and airspace opacities may reflect a mild bronchopneumonia. Pleural space: Unremarkable. No pleural effusion. No pneumothorax. Heart/Mediastinum: Unremarkable. No cardiomegaly. Bones/joints: Unremarkable. XR/XR chest 1V portable [id number] IMPRESSION: Minimal bilateral patchy mixed interstitial and airspace opacities may reflect a mild bronchopneumonia.
--- NOTE | 2020-03-05 21:44 | ECG_ITS ---
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
--- NOTE | 2020-03-05 21:49 | ED_ITS ---
HPI - Altered Mental Status General: Chief Complaint: Altered Mental Status Stated Complaint: CONFUSION Time Seen by Provider: 03/05/20 21:42 Source: patient and EMS Mode of arrival: EMS Limitations: altered mental status History of Present Illness: HPI narrative: 54-year-old male who has a history of hepatitis C and was recently admitted here for hepatic encephalopathy. called ambulance has over the last days had increasing confusion repeating himself here. Here he does not appear confused he is able to tell me his name but did not know the year or the president or where he is at. He has had no known fevers. Denies any worsening proving factors. Associated symptoms: Deny depression Review of Systems Const: Denies: fever(s), chills, body aches or change in appetite Eyes: Denies: blurry vision or eye discomfort ENMT: Denies: throat pain or dental pain Card: Denies: chest pain Resp: Denies: dyspnea GI: Denies: abdominal pain, nausea, vomiting or diarrhea : Denies: dysuria Musc: Denies: neck pain or back pain Skin/Breast: Denies: rash Neuro: Reports: confusion; Denies: headache(s) Psych: Denies: depression Jose Martin/Lymph: Denies: easy bruising All/Imm: Denies: urticaria PFSH ED PFSH: Medical History (Updated 03/05/20 @ 23:56 by Deepthi Tejada MD) Ascites Chronic cervical pain Chronic low back pain Diabetes Diabetic neuropathy, painful Encounter for long-term opiate analgesic use Liver cirrhosis Liver failure Somatic dysfunction of back THORACIC AND LUMBAR Surgical History History of abdominal paracentesis History of colonoscopy History of esophagogastroduodenoscopy (EGD) Hx of circumcision Hx of inguinal hernia repair (~05/22/18) LAP REPAIR OF RIGHT INGUINAL HERNIA WITH ULTRAPRO 15X10 CM MESH. Hx of oral surgery Family History Father Cancer LUNG CANCER Other Diabetes Heart disease Lung disease Myocardial infarct Stroke Denies family history of Anesthesia complication Bleeding disorder Social History Smoking and tobacco status: current every day smoker cigarettes Alcohol intake: former Year of sobriety/quit date alcohol: 2009 Caregiver/support person: Yes Lives independently: Yes Household members: friend(s) Current occupational status: disabled History of recent travel: No Physical Exam Const: COMMON NORMALS: no acute distress, healthy appearing and alert; negative for patient oriented x3 EXAM LIMITATIONS: altered mental status ORIENTATION/CONSCIOUSNESS: Yes oriented to person; not oriented to place and not oriented to time HENMT: COMMON NORMALS: normocephalic and atraumatic HEAD & SCALP: normocephalic and atraumatic Eye: COMMON NORMALS: Equal, round and reactive pupils present and EOMs intact bilaterally PUPIL: Yes Equal, round and reactive pupils present Neck/C-Spine: COMMON NORMALS: full ROM and supple Chest: COMMONS NORMALS: normal inspection of the chest and normal palpation of entire chest wall Resp: COMMON NORMALS: normal respiratory effort, No retractions, No use of accessory muscles and clear to auscultation bilaterally AUSCULTATION: clear to auscultation bilaterally Cardio: COMMON NORMALS: regular rate, regular rhythm and No murmurs present (Cardio) RATE: regular rate RHYTHM: regular rhythm GI: COMMON NORMALS: Normal to inspection, nondistended, normoactive bowel sounds present, Soft to palpation, non-tender and no masses PALPATION: Yes Soft to palpation Extremity: COMMON NORMALS: normal to inspection and full ROM Neuro: COMMON NORMALS: moves all extremities and no focal motor deficits; negative for patient oriented x3 SENSORIUM/ORIENTATION: Yes alert, Yes oriented to person, No oriented to place and No oriented to time Psych: COMMON NORMALS: mental status grossly normal, Normal thought process present and cooperative THOUGHT PROCESS: Normal thought process present Skin: COMMON NORMALS: no rashes or lesions noted and no wounds GENERAL SKIN EXAM: no rashes or lesions noted Course Vital Signs: Vital signs: Vital Signs Temperature 97.2 F L 03/05/20 21:41 Pulse Rate 71 03/05/20 22:47 Respiratory Rate 17 03/05/20 22:47 Blood Pressure 169/77 03/05/20 22:47 Pulse Oximetry 98 03/05/20 22:47 MDM - Altered Mental Status MDM Narrative: Medical decision making narrative: Patient presents here with hepatic encephalopathy and is confused here. Patient is not stable for discharge. Spoke to hospitalist will admit we will give patient lactulose. Lab Data: Labs: Lab Results 03/05/20 03/05/20 03/05/20 Range/Units 22:22 22:22 22:22 WBC 4.6 (4.0-10.0) 10^3/ uL RBC 3.00 L (4.1-5.3) 10^6/u L Hgb 9.7 L (11.7-16.6) g/dL Hct 28.0 L (42.0-52.0) % MCV 93.3 (80-94) fL MCH 32.3 (28.0-34.0) pg MCHC 34.6 (30.0-36.0) g/dL RDW 15.9 H (12.1-15.1) % Plt Count 97 L (130-400) 10^3/c mm MPV 8.7 (7.4-10.4) fL Neut % (Auto) 71.5 % Lymph % (Auto) 15.2 % [place] % (Auto) 7.5 % Eos % (Auto) 3.3 % Baso % (Auto) 1.8 % Neut # (Auto) 3.26 (1.8-7.7) 10^3/u L Lymph # (Auto) 0.7 L (0.8-4.8) 10^3/u L [place] # (Auto) 0.3 (0.2-0.9) 10^3/u L Eos # (Auto) 0.2 (0.0-0.8) 10^3/u L Baso # (Auto) 0.1 (0.0-0.1) 10^3/u L Nucleated RBC % (a uto) 0 % Nucleated RBCs # 0.0 /100WBC Sodium 135 L (136-145) mmol/L Potassium 4.8 (3.5-5.1) mmol/L Chloride 103 (98-107) mmol/L Carbon Dioxide 23 (22-29) mmol/L Anion Gap 13.8 (5-19) BUN 26 H (6-20) mg/dL Creatinine 1.5 H (0.7-1.2) mg/dL GFR Calculation 48.8 L (90-130) mL/min Glucose 195 H (65-115) mg/dL Calculated Osmolal ity 290 (285-295) mOsm/k g Calcium 8.1 L (8.5-10.5) mg/dL Total Bilirubin 1.4 H (0.15-1.2) mg/dL AST 23 (0-40) U/L ALT 10 (0-41) U/L Alkaline Phosphata se 116 (40-130) IU/L Ammonia 74 H (16-60) umol/L Total Protein 6.1 L (6.6-8.7) g/dL Albumin 2.3 L (3.5-5.2) g/dL Globulin 3.8 (1.3-4.6) g/dL Lipase 39 (13-60) U/L Ethyl Alcohol < 10 (0-10) mg/dL EKG Data^: EKG 1: Attestation: I personally reviewed and interpreted this EKG as follows: EKG interpretation date: 03/05/20 EKG interpretation time: 22:24 Interpretation: nsr hr [address] or t wave abnormalities qrs 104 qtc 440 Discharge Plan Discharge Patient Disposition: Admitted As Inpatient Clinical Impression: Acute hepatic encephalopathy Condition: Stable Coding Level of Care Code ED Patent Engineer for Chg Fwd Exam Comprehensive
[2020-03-05 22:28] LABS: Basophils # 0.1 10^3/uL (0.0-0.1); Basophils % 1.8 %; Eosinophils # 0.2 10^3/uL (0.0-0.8); Eosinophils % 3.3 %; Hemoglobin 9.7 g/dL (11.7-16.6); Lymphocytes # 0.7 10^3/uL (0.8-4.8); Lymphocytes % 15.2 %; Mean Corpuscular HGB Conc 34.6 g/dL (30.0-36.0); Mean Corpuscular Hemoglobin 32.3 pg (28.0-34.0); Mean Corpuscular Volume 93.3 fL (80-94); Mean Platelet Volume 8.7 fL (7.4-10.4); Monocytes # 0.3 10^3/uL (0.2-0.9); Monocytes % 7.5 %; Neutrophils # 3.26 10^3/uL (1.8-7.7); Neutrophils % 71.5 %; Nucleated Red Blood Cells % 0 %; Platelet Count 97 10^3/cmm (130-400); Red Cell Distribution Width 15.9 % (12.1-15.1); White Blood Count 4.6 10^3/uL (4.0-10.0)
[2020-03-05 22:47] VITALS: BP 169/77; PULSE 71; RESP 17; O2SAT 98
[2020-03-05 22:47] LABS: Ammonia 74 umol/L (16-60)
[2020-03-05 22:48] LABS: Alanine Aminotransferase 10 U/L (0-41); Albumin Level 2.3 g/dL (3.5-5.2); Alkaline Phosphatase 116 IU/L (40-130); Anion Gap 13.8 (5-19); Aspartate Amino Transferase 23 U/L (0-40); Blood Urea Nitrogen 26 mg/dL (6-20); Calcium 8.1 mg/dL (8.5-10.5); Carbon Dioxide 23 mmol/L (22-29); Chloride 103 mmol/L (98-107); Globulin 3.8 g/dL (1.3-4.6); Glomerular Filtration Rate 48.8 mL/min (90-130); Glucose 195 mg/dL (65-115); Lipase 39 U/L (13-60); Osmolality Calculated 290 mOsm/kg (285-295); Potassium 4.8 mmol/L (3.5-5.1); Sodium 135 mmol/L (136-145); Total Bilirubin 1.4 mg/dL (0.15-1.2); Total Protein 6.1 g/dL (6.6-8.7)
[2020-03-05 22:55] LABS: Alcohol Level < 10 mg/dL (0-10)
--- NOTE | 2020-03-05 23:00 | CTR_ITS ---
PROCEDURE INFORMATION: Exam: CT Head Without Contrast Exam date and time: 03/05/2020 11:01 PM Age: 54 years old Clinical indication: Pain; Headache; Additional info: FAITH TECHNIQUE: Imaging protocol: Computed tomography of the head without contrast. Radiation optimization: All CT scans at this facility use at least one of these dose optimization techniques: automated exposure control; mA and/or kV adjustment per patient size (includes targeted exams where dose is matched to clinical indication); or iterative reconstruction. COMPARISON: CT head wo con* [id number] 02/18/2020 1:33 PM RADIATION DOSE METRICS: Total DLP (mGy-cm): 865.34 FINDINGS: Brain: Normal. No hemorrhage. Unremarkable white matter. No mass effect. Cerebral ventricles: No ventriculomegaly. Bones/joints: Unremarkable. No acute fracture. Paranasal sinuses: Visualized sinuses are unremarkable. No fluid levels. Mastoid air cells: Visualized mastoid air cells are well aerated. Soft tissues: Unremarkable. CT/CT head wo con* [id number] IMPRESSION: Negative for intracranial hemorrhage or mass effect. Radiation Dose CTDIVOL = (mGy): DLP = 865.34 (mGy-cm)
--- NOTE | 2020-03-06 00:42 | P.HP_ITS ---
Providers/Chief Complaint Primary Care Provider: Andreia De León DO Chief Complaint: CONFUSION History of Present Illness Hugo Oquendo is a 54 year old male who has history of hepatitis C induced liver cirrhosis portal hypertension, recurrent paracentesis, at one point required peritoneal drain which was removed due to spontaneous bacterial peritonitis, status post TIPS sent by today because of worsening confusion. patient was recently discharged from the hospital after management of hepatic encephalopathy and confusion. During that visit ammonia level was greater than 100, required 1 unit of PRBC after hemoglobin dropped to 6.8, he was discharged on 02/22. Medications/Allergies Home Medications Medication Instructions Recorded Confirmed Last Taken Type albuterol sulfate 1 - 2 inh INHALATION QID PRN 03/05/19 02/18/20 11/14/19 History fluticasone propion-salmeterol 1 inh INHALATION BID 03/05/19 02/18/20 11/24/19 History [Advair Diskus] nitroglycerin 0.4 mg sublingual 0.4 mg SUBLINGUAL Q5M PRN 03/10/19 02/18/20 04/20/19 History tablet trazodone 150 mg PO BEDTIME PRN 08/03/19 02/18/20 11/13/19 History Dexilant 30 mg PO DAILY 09/30/19 02/18/20 11/24/19 History lorazepam 0.5 mg PO BEDTIME PRN 09/30/19 02/18/20 11/13/19 History furosemide 40 mg PO DAILY@0800 11/07/19 02/18/20 11/24/19 History albuterol sulfate 2.5 mg INHALATION Q4H PRN 11/24/19 02/18/20 Unknown History Novolog U-100 Insulin aspart See Rx Instructions .ROUTE .COMPLEX 02/18/20 02/18/20 Unknown History spironolactone 100 mg PO DAILY 02/18/20 02/18/20 Unknown History lactulose 20 g PO Q12H #300 ml 02/23/20 Unknown Rx rifaximin [Xifaxan] 550 mg PO BID #60 tab 02/23/20 Unknown Rx Allergies Allergy/AdvReac Type Severity Reaction Status Date / Time sodium bicarbonate Allergy Intermediate Stomach Verified 02/18/20 17:01 pain adhesive tape Allergy ADR-Itching Verified 02/18/20 17:00 citalopram [From Celexa] Allergy ADR-Agitate Verified 02/18/20 17:00 d insulin glargine Allergy ALGY-Anaphy Verified 02/18/20 17:00 [From Lantus U-100 Insulin] laxis levofloxacin [From Levaquin] Allergy ALGY-Anaphy Verified 02/18/20 17:00 laxis Penicillins Allergy ALGY-Anaphylaxis, Verified 02/18/20 17:04 tolerates cephalosporins potassium chloride Allergy ADR-Vomitin Verified 02/18/20 17:00 g duloxetine [From Cymbalta] AdvReac NAUSEA Verified 02/18/20 17:00 VOMITTING pregabalin [From Lyrica] AdvReac NAUSEA Verified 02/18/20 17:00 PFSH Acute PFSH: Medical History (Updated 03/05/20 @ 23:56 by Deepthi Tejada MD) Ascites Chronic cervical pain Chronic low back pain Diabetes Diabetic neuropathy, painful Encounter for long-term opiate analgesic use Liver cirrhosis Liver failure Somatic dysfunction of back THORACIC AND LUMBAR Surgical History History of abdominal paracentesis History of colonoscopy History of esophagogastroduodenoscopy (EGD) Hx of circumcision Hx of inguinal hernia repair (~05/22/18) LAP REPAIR OF RIGHT INGUINAL HERNIA WITH ULTRAPRO 15X10 CM MESH. Hx of oral surgery Family History Father Cancer LUNG CANCER Other Diabetes Heart disease Lung disease Myocardial infarct Stroke Denies family history of Anesthesia complication Bleeding disorder Social History Smoking and tobacco status: current every day smoker cigarettes Alcohol intake: former Year of sobriety/quit date alcohol: 2009 Caregiver/support person: Yes Lives independently: Yes Household members: friend(s) Current occupational status: disabled History of recent travel: No Vitals/I&O/Wt Last Vital Signs Temp 97.2 F L 03/05/20 21:41 Pulse 71 03/05/20 22:47 Resp 17 03/05/20 22:47 BP 169/77 03/05/20 22:47 Pulse Ox 98 03/05/20 22:47 Weight last 48 hrs Weight 68.039 kg Data : 03/05/20 22:22 03/05/20 22:22 Coding Level of Care Code Acute Head Loader for Eduin Savage
[2020-03-06 02:26] VITALS: BP 152/73; PULSE 62; RESP 18; O2SAT 98
[2020-03-06] MEDS: lactulose oral liq 20 gm/30 mL UDC 30 GM PO (03:25)
--- NOTE | 2020-03-06 19:24 | P.HP_ITS ---
Providers/Chief Complaint Primary Care Provider: Andreia De León DO Chief Complaint: CONFUSION History of Present Illness Hugo Oquendo is a 54 year old male Hugo Oquendo is a 54 year old male who has history of hepatitis C induced liver cirrhosis portal hypertension, recurrent paracentesis, at one point required peritoneal drain which was removed due to spontaneous bacterial peritonitis, status post TIPS sent by today because of worsening confusion. patient was recently discharged from the hospital after management of hepatic encephalopathy and confusion. During that visit ammonia level was greater than 100, required 1 unit of PRBC after hemoglobin dropped to 6.8, he was discharged on 02/22. He was seen in the emergency department yesterday for confusion, his confusion improved after 1 dose of lactulose he was discharged home. Patient returned with similar complaint today with worsening confusion. Patient is stating that he has been constipated for quite a while, he recently started taking his lactulose, he might have missed few doses as well. He did not notice any fever, abdominal pain, hemoptysis, hematemesis, hematochezia, active bleeding. He has observed significant improvement in recurrent ascites after TIPS procedure. Patient is denying cough, shortness of breath, orthopnea, PND, dysuria, diarrhea and severe abdominal pain. Diagnostics in the ER revealed stable hemoglobin, no signs of sepsis, GENESIS, bilirubin 1.4, ammonia level 64 which was 74 yesterday, low albumin 2.3, alcohol level less than 10, only remarkable finding on today's blood work is troponin 160, previously his troponin has been ranging in 90s, patient does not complain of active chest pain, orthopnea or PND, repeat CT head today is unremarkable otherwise calcified plaque is seen around carotid siphon, yesterday chest x-ray was showing interstitial markings however if you compared with previous x-ray it shows improvement, EKG shows sinus rhythm without ischemic or infarctive change Review of Systems Const: Reports: change in appetite, fatigue, malaise and change in sleep pattern; Denies: fever(s), chills or body aches Eyes: Denies: change in vision ENMT: Denies: throat pain Card: Denies: chest pain Resp: Denies: dyspnea GI: Denies: abdominal pain : Denies: flank pain Musc: Denies: neck pain Skin/Breast: Denies: rash Neuro: Denies: headache(s) Psych: Denies: anxiety Endo: Denies: polyuria Jose Martin/Lymph: Denies: easy bruising All/Imm: Denies: urticaria Medications/Allergies Home Medications Medication Instructions Recorded Confirmed Last Taken Type albuterol sulfate 1 - 2 inh INHALATION QID PRN 03/05/19 02/18/20 11/14/19 History fluticasone propion-salmeterol 1 inh INHALATION BID 03/05/19 02/18/20 11/24/19 History [Advair Diskus] nitroglycerin 0.4 mg sublingual 0.4 mg SUBLINGUAL Q5M PRN 03/10/19 02/18/20 04/20/19 History tablet trazodone 150 mg PO BEDTIME PRN 08/03/19 02/18/20 11/13/19 History Dexilant 30 mg PO DAILY 09/30/19 02/18/20 11/24/19 History lorazepam 0.5 mg PO BEDTIME PRN 09/30/19 02/18/20 11/13/19 History furosemide 40 mg PO DAILY@0800 11/07/19 02/18/20 11/24/19 History albuterol sulfate 2.5 mg INHALATION Q4H PRN 11/24/19 02/18/20 Unknown History Novolog U-100 Insulin aspart See Rx Instructions .ROUTE .COMPLEX 02/18/20 02/18/20 Unknown History spironolactone 100 mg PO DAILY 02/18/20 02/18/20 Unknown History lactulose 20 g PO Q12H #300 ml 02/23/20 Unknown Rx rifaximin [Xifaxan] 550 mg PO BID #60 tab 02/23/20 Unknown Rx Allergies Allergy/AdvReac Type Severity Reaction Status Date / Time sodium bicarbonate Allergy Intermediate Stomach Verified 03/06/20 17:44 pain adhesive tape Allergy ADR-Itching Verified 03/06/20 17:44 citalopram [From Celexa] Allergy ADR-Agitate Verified 03/06/20 17:44 d insulin glargine Allergy ALGY-Anaphy Verified 03/06/20 17:44 [From Lantus U-100 Insulin] laxis levofloxacin [From Levaquin] Allergy ALGY-Anaphy Verified 03/06/20 17:44 laxis Penicillins Allergy ALGY-Anaphylaxis, Verified 03/06/20 17:44 tolerates cephalosporins potassium chloride Allergy ADR-Vomitin Verified 03/06/20 17:44 g duloxetine [From Cymbalta] AdvReac NAUSEA Verified 03/06/20 17:44 VOMITTING pregabalin [From Lyrica] AdvReac NAUSEA Verified 03/06/20 17:44 PFSH Acute PFSH: Medical History (Updated 03/06/20 @ 19:59 by Deepthi Tejada MD) Ascites Chronic cervical pain Chronic low back pain Diabetes Diabetic neuropathy, painful Encounter for long-term opiate analgesic use Liver cirrhosis Liver failure Somatic dysfunction of back THORACIC AND LUMBAR Surgical History History of abdominal paracentesis History of colonoscopy History of esophagogastroduodenoscopy (EGD) Hx of circumcision Hx of inguinal hernia repair (~05/22/18) LAP REPAIR OF RIGHT INGUINAL HERNIA WITH ULTRAPRO 15X10 CM MESH. Hx of oral surgery Family History Father Cancer LUNG CANCER Other Diabetes Heart disease Lung disease Myocardial infarct Stroke Denies family history of Anesthesia complication Bleeding disorder Social History Smoking and tobacco status: current every day smoker cigarettes Alcohol intake: former Year of sobriety/quit date alcohol: 2009 Caregiver/support person: Yes Lives independently: Yes Household members: friend(s) Current occupational status: disabled History of recent travel: No Vitals/I&O/Wt Last Vital Signs Temp 97.2 F L 03/05/20 21:41 Pulse 62 03/06/20 02:26 Resp 18 03/06/20 02:26 BP 152/73 03/06/20 02:26 Pulse Ox 98 03/06/20 02:26 Weight last 48 hrs Weight 68.039 kg Physical Exam Narrative: EXAM NARRATIVE: Middle-age male who appears more than stated age Looks malnourished, S1, S2 sinus rhythm no active chest pain no signs of heart failure Abdomen soft mild distention however abdomen in general has no tenderness, bowel sound present No worsening ascites noticed Bilateral breath sounds with mild rhonchi otherwise no acute respiratory distress or active wheezing Lower extremity no edema gangrene or ulcer His mentation is fluctuant, is able to answer few of my questions otherwise no strokelike symptoms noted No neurological deficit, no gaze preference or focal deficit noted EOMI, PERRLA Skin without cellulitis or ischemic change Data : 03/05/20 22:22 03/05/20 22:22 A&P Assessment and plan (1) Acute hepatic encephalopathy: Status: Acute (2) Decompensated hepatic cirrhosis: Status: Acute (3) Diabetes: Status: Acute (4) Anemia: Status: Acute Qualifiers: Anemia type: unspecified type Qualified Code(s): D64.9 - Anemia, unspecified (5) Portal hypertension: Status: Acute (6) GENESIS (acute kidney injury): Status: Acute Additional A&P Information Decompensated liver cirrhosis Patient is status post TIPS procedure, does not require recurrent peritoneal fluid drainage anymore Patient endorses constipation, no severe electrolyte abnormality, no active sign of sepsis Chest x-ray shows improvement in bilateral interstitial infiltrates however no signs of sepsis patient is denying fever, shortness of breath orthopnea PND We will check procalcitonin level He does carry history of bacterial peritonitis in the past when peritoneal drain was removed, currently his abdomen is soft, I would keep him on ceftriaxone 2 g daily for now, I would continue lactulose to titrate BM 2-3 a day, continue rifaximin and low- dose Lasix Check urine drug screen Chronic macrocytic anemia No acute decompensation We will keep patient on B12 and folic acid Splenomegaly seems to be improved after TIPS Previously patient required 1 unit PRBC however hemoglobin is stable at this point no active bleeding noticed GENESIS Patient clinically looks dehydrated has low albumin status post TIPS procedure I suspect his creatinine to be slightly above baseline, this could be his new baseline as well Hold spironolactone for now continue Lasix However creatinine today is 1.3, yesterday in the ER his creatinine was 1.5 Type 2 diabetes I will keep him on consistent carbohydrate diet along low-dose sliding scale, and choosing low-dose sliding scale because of GENESIS Full code Cardiac/consistent carb diet DVT prophylaxis not indicated because of anemia requiring blood transfusion in the past would use SCDs for now I have counseled his extensively regarding why lactulose is needed, to know that liver cirrhosis can cause hepatic encephalopathy and patient can forget to take medications I requested her to be more assertive if patient is refusing medications at home in order to prevent constipation and readmissions Attestations Medical Necessity Statement*: Anticipating discharge in less than 48 hours continued lactulose to titrate bowel regimen 2-3 times a day he has been constipated for last 4 to 5 days, Time Spent in Patient Care: (>than 50% of time spent in counselling and/or direct pt care on unit) . 50mins Coding Level of Care Code Acute [employer] for [facility] Fwd Diagnoses Acute hepatic encephalopathy K72.00 Decompensated hepatic cirrhosis K72.90; K74.60 Diabetes E11.9 Anemia D64.9 Anemia type: unspecified type Portal hypertension K76.6 GENESIS (acute kidney injury) N17.9
== END 2020-03-06 02:26 | disposition home or self-care (01) ==
LOC: ER 03-06 00:28 → MEDSURG 03-06 01:11
PROVIDERS: Emergency Provider Emergency Medicine; PCP Family Medicine
DX: K72.00 Acute and subacute hepatic failure without coma (principal); E11.40 Type 2 diabetes mellitus with diabetic neuropathy, unspecified; F17.210 Nicotine dependence, cigarettes, uncomplicated
CPT/HCPCS: 12345; 70450; 71045; 80053; 80307; 82140; 83690; 85025; 93005; 99282; 99283

== ENCOUNTER 2020-03-06 17:35 | Inpatient (IN) | payer MEDICARE, MEDICAID, SELFPAY ==
[2020-03-06 17:38] VITALS: BP 167/72; PULSE 67; RESP 18; TEMP 36.7; O2SAT 99; BMI 22.8
--- NOTE | 2020-03-06 17:40 | ECG_ITS ---
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
--- NOTE | 2020-03-06 17:41 | CTR_ITS ---
PROCEDURE INFORMATION: Exam: CT Head Without Contrast Exam date and time: 03/06/2020 6:05 PM Age: 54 years old Clinical indication: Altered mental status/memory loss; Confusion or disorientation; Patient HX: AMS TECHNIQUE: Imaging protocol: Computed tomography of the head without contrast. Radiation optimization: All CT scans at this facility use at least one of these dose optimization techniques: automated exposure control; mA and/or kV adjustment per patient size (includes targeted exams where dose is matched to clinical indication); or iterative reconstruction. COMPARISON: CT head wo con* [id number] 03/05/2020 11:02 PM RADIATION DOSE METRICS: Total DLP (mGy-cm): 854.53 FINDINGS: Brain: Normal. No hemorrhage. Unremarkable white matter. No mass effect. Cerebral ventricles: Mild asymmetric prominence of the left lateral ventricle in relation to the right can be a normal variant and unchanged from the prior study. Bones/joints: Unremarkable. No acute fracture. Paranasal sinuses: Visualized sinuses are unremarkable. No fluid levels. Mastoid air cells: Visualized mastoid air cells are well aerated. Vasculature: Calcified plaque is present within the carotid siphons. Soft tissues: Unremarkable. CT/CT head wo con* [id number] IMPRESSION: Calcified plaque is present within the carotid siphons. No acute findings. Radiation Dose CTDIVOL = (mGy): DLP = 854.53 (mGy-cm)
--- NOTE | 2020-03-06 17:45 | ED_ITS ---
Documented by User: Neville Vasquez DO 03/08/20 07:12 HPI - Altered Mental Status General: Chief Complaint: Altered Mental Status Stated Complaint: AMS Time Seen by Provider: 03/06/20 17:39 History of Present Illness: HPI narrative: 54-year-old male who comes into the emergency room via EMS. Family reports she has altered mental status. He was seen last night here in the emergency room Dr. Tejada had arranged for admission but the patient's mental status improved and he refused admission he was discharged home he had a minimally elevated ammonia level at that time. Family says he is continued to worsen throughout the day today. He has a known history of liver cirrhosis secondary to alcohol use. He answers all questions with his birthdate in [birth year]. complaint: altered mental status, confusion and decreased responsiveness Onset (ago): hour(s) Severity: severe Consistency of symptoms: Getting Worse Context: history of similar presentation (.Hepatic encephalopathy) Associated symptoms: Deny auditory hallucinations, visual hallucinations, delusions, depression, homicidal ideation, racing thoughts or suicidal ideation Review of Systems General: Reports: ROS unobtainable due to medical condition and ROS unobtainable due to mental status Psych: Denies: depression, visual hallucinations, auditory hallucinations, suicidal ideation or homicidal ideation [facility] ED PFSH: Medical History (Updated 03/07/20 @ 16:02 by Jim Llanes MD) Ascites Chronic cervical pain Chronic low back pain Diabetes Diabetic neuropathy, painful Encounter for long-term opiate analgesic use Liver cirrhosis Liver failure Somatic dysfunction of back THORACIC AND LUMBAR Surgical History History of abdominal paracentesis History of colonoscopy History of esophagogastroduodenoscopy (EGD) Hx of circumcision Hx of inguinal hernia repair (~05/22/18) LAP REPAIR OF RIGHT INGUINAL HERNIA WITH ULTRAPRO 15X10 CM MESH. Hx of oral surgery Family History Father Cancer LUNG CANCER Other Diabetes Heart disease Lung disease Myocardial infarct Stroke Denies family history of Anesthesia complication Bleeding disorder Social History Smoking and tobacco status: current every day smoker cigarettes Alcohol intake: former Year of sobriety/quit date alcohol: 2009 Caregiver/support person: Yes Lives independently: Yes Household members: friend(s) Current occupational status: disabled History of recent travel: No Physical Exam Const: COMMON NORMALS: no acute distress GENERAL APPEARANCE: cooperative and comfortable HENMT: COMMON NORMALS: normocephalic, atraumatic and hearing grossly normal bilaterally HEAD & SCALP: normocephalic and atraumatic Eye: COMMON NORMALS: Equal, round and reactive pupils present, EOMs intact bilaterally and conjunctivae normal CONJUNCTIVA: Yes conjunctivae normal PUPIL: Yes Equal, round and reactive pupils present Neck/C-Spine: COMMON NORMALS: no JVD Resp: COMMON NORMALS: normal respiratory effort, No retractions, No use of accessory muscles and clear to auscultation bilaterally AUSCULTATION: clear to auscultation bilaterally Cardio: COMMON NORMALS: no JVD, regular rate, regular rhythm and No murmurs present (Cardio) RATE: regular rate RHYTHM: regular rhythm GI: COMMON NORMALS: Soft to palpation and No hepatosplenomegaly present AUSCULTATION: Yes normoactive bowel sounds PALPATION: Yes Soft to palpation, No Tenderness to palpation present (GI), No Guarding due to palpation present (GI) and Yes No hepatosplenomegaly present Extremity: COMMON NORMALS: normal to inspection, capillary refill normal, no clubbing, cyanosis or edema, no calf tenderness and no pedal edema Psych: THOUGHT CONTENT: No delusions Skin: NARRATIVE SKIN EXAM: Slightly icteric Course Vital Signs: Vital signs: Vital Signs Temperature 98.2 F 03/08/20 04:00 Pulse Rate 73 03/08/20 04:00 Respiratory Rate 18 03/08/20 04:00 Blood Pressure 146/67 03/08/20 04:00 Pulse Oximetry 97 03/08/20 04:00 MDM - Altered Mental Status MDM Narrative: Medical decision making narrative: Acute hepatic encephalopathy. Is not been taking any lactulose labs are all pending sees patient at the end of shift care turned over to Dr. Tejada at change of shift anticipate admission. See his notes for final diagnosis and disposition Lab Data: Labs: Lab Results 03/06/20 03/06/20 03/06/20 Range/Units 17:05 17:05 17:05 WBC 4.9 (4.0-10.0) 10^3/ uL RBC 2.94 L (4.1-5.3) 10^6/u L Hgb 9.6 L (11.7-16.6) g/dL Hct 28.3 L (42.0-52.0) % MCV 96.3 H (80-94) fL MCH 32.7 (28.0-34.0) pg MCHC 33.9 (30.0-36.0) g/dL RDW 15.9 H (12.1-15.1) % Plt Count 111 L (130-400) 10^3/c mm MPV 9.1 (7.4-10.4) fL Neut % (Auto) 58.3 % Lymph % (Auto) 25.1 % Kittson % (Auto) 9.3 % Eos % (Auto) 4.7 % Baso % (Auto) 2.0 % Neut # (Auto) 2.88 (1.8-7.7) 10^3/u L Lymph # (Auto) 1.2 (0.8-4.8) 10^3/u L Kittson # (Auto) 0.5 (0.2-0.9) 10^3/u L Eos # (Auto) 0.2 (0.0-0.8) 10^3/u L Baso # (Auto) 0.1 (0.0-0.1) 10^3/u L Nucleated RBC % (a uto) 0 % Nucleated RBCs # 0.0 /100WBC Specimen Type Sample Site ABG pH (7.35-7.45) ABG pCO2 (35-45) mmHg ABG pO2 (80.0-100.0) mmH g ABG HCO3 (22-26) mmol/L ABG O2 Saturation ABG Base Excess (-2.0-2.0) mmol/ L Josafat Test A-a O2 Gradient (5-10) mmHg Hematocrit (42-52) % Hgb O2 Saturation (95-100) % Carboxyhemoglobin (0.4-20.1) %THgb Methemoglobin (0.4-1.5) % Total Hemoglobin (14-18) g/dL Ionized Calcium (1.1-1.4) mmol/L O2 Delivery Device Plan Consultant ID Sodium 135 L (136-145) mmol/L Potassium 4.6 (3.5-5.1) mmol/L Chloride 104 (98-107) mmol/L Carbon Dioxide 23 (22-29) mmol/L Anion Gap 12.6 (5-19) BUN 24 H (6-20) mg/dL Creatinine 1.3 H (0.7-1.2) mg/dL GFR Calculation 57.5 L (90-130) mL/min Glucose 120 H (65-115) mg/dL Calculated Osmolal ity 285 (285-295) mOsm/k g Calcium 8.3 L (8.5-10.5) mg/dL Total Bilirubin 1.6 H (0.15-1.2) mg/dL AST 27 (0-40) U/L ALT 10 (0-41) U/L Alkaline Phosphata se 113 (40-130) IU/L Ammonia (16-60) umol/L Creatine Kinase 167 (39-308) U/L Troponin T Baselin e 160 H* (0-15) ng/L Total Protein 8.1 D (6.6-8.7) g/dL Albumin 2.3 L (3.5-5.2) g/dL Globulin 5.8 H (1.3-4.6) g/dL Salicylates < 0.3 L (3-10) mg/dL Acetaminophen < 5.0 L (10-30) ug/mL Ethyl Alcohol < 10 (0-10) mg/dL 03/06/20 03/06/20 Range/Units 17:47 18:18 WBC (4.0-10.0) 10^3/ uL RBC (4.1-5.3) 10^6/u L Hgb (11.7-16.6) g/dL Hct (42.0-52.0) % MCV (80-94) fL MCH (28.0-34.0) pg MCHC (30.0-36.0) g/dL RDW (12.1-15.1) % Plt Count (130-400) 10^3/c mm MPV (7.4-10.4) fL Neut % (Auto) % Lymph % (Auto) % Kittson % (Auto) % Eos % (Auto) % Baso % (Auto) % Neut # (Auto) (1.8-7.7) 10^3/u L Lymph # (Auto) (0.8-4.8) 10^3/u L Kittson # (Auto) (0.2-0.9) 10^3/u L Eos # (Auto) (0.0-0.8) 10^3/u L Baso # (Auto) (0.0-0.1) 10^3/u L Nucleated RBC % (a uto) % Nucleated RBCs # /100WBC Specimen Type Arterial Sample Site Radial, left ABG pH 7.55 H (7.35-7.45) ABG pCO2 26.9 L (35-45) mmHg ABG pO2 87.8 (80.0-100.0) mmH g ABG HCO3 23.7 (22-26) mmol/L ABG O2 Saturation 99.1 ABG Base Excess 1.7 (-2.0-2.0) mmol/ L Josafat Test Pos A-a O2 Gradient 3.6 L (5-10) mmHg Hematocrit 26.4 L (42-52) % Hgb O2 Saturation 96.1 (95-100) % Carboxyhemoglobin 2.4 (0.4-20.1) %THgb Methemoglobin 0.6 (0.4-1.5) % Total Hemoglobin 8.6 L (14-18) g/dL Ionized Calcium 1.1 (1.1-1.4) mmol/L O2 Delivery Device Room air Plan Consultant ID Cak Sodium 137.0 (136-145) mmol/L Potassium 4.4 (3.5-5.1) mmol/L Chloride (98-107) mmol/L Carbon Dioxide (22-29) mmol/L Anion Gap (5-19) BUN (6-20) mg/dL Creatinine (0.7-1.2) mg/dL GFR Calculation (90-130) mL/min Glucose 136.0 H (65-115) mg/dL Calculated Osmolal ity (285-295) mOsm/k g Calcium (8.5-10.5) mg/dL Total Bilirubin (0.15-1.2) mg/dL AST (0-40) U/L ALT (0-41) U/L Alkaline Phosphata se (40-130) IU/L Ammonia 64 H (16-60) umol/L Creatine Kinase (39-308) U/L Troponin T Baselin e (0-15) ng/L Total Protein (6.6-8.7) g/dL Albumin (3.5-5.2) g/dL Globulin (1.3-4.6) g/dL Salicylates (3-10) mg/dL Acetaminophen (10-30) ug/mL Ethyl Alcohol (0-10) mg/dL Discharge Plan Discharge Patient Disposition: Admitted As Inpatient Admit Provider: Eladio Muñoz Clinical Impression: Acute hepatic encephalopathy Condition: Stable Coding Level of Care Code ED Mailroom Associate for Chg Fwd Exam Comprehensive Documented by User: Deepthi Tejada MD 03/06/20 20:12 HPI - Altered Mental Status General: Chief Complaint: Altered Mental Status Stated Complaint: AMS Time Seen by Provider: 03/06/20 17:39 PFSH ED PFSH: Medical History (Updated 03/07/20 @ 16:02 by Jim Llanes MD) Ascites Chronic cervical pain Chronic low back pain Diabetes Diabetic neuropathy, painful Encounter for long-term opiate analgesic use Liver cirrhosis Liver failure Somatic dysfunction of back THORACIC AND LUMBAR Surgical History History of abdominal paracentesis History of colonoscopy History of esophagogastroduodenoscopy (EGD) Hx of circumcision Hx of inguinal hernia repair (~05/22/18) LAP REPAIR OF RIGHT INGUINAL HERNIA WITH ULTRAPRO 15X10 CM MESH. Hx of oral surgery Family History Father Cancer LUNG CANCER Other Diabetes Heart disease Lung disease Myocardial infarct Stroke Denies family history of Anesthesia complication Bleeding disorder Social History Smoking and tobacco status: current every day smoker cigarettes Alcohol intake: former Year of sobriety/quit date alcohol: 2009 Caregiver/support person: Yes Lives independently: Yes Household members: friend(s) Current occupational status: disabled History of recent travel: No Course Vital Signs: Vital signs: Vital Signs Temperature 98.2 F 03/08/20 04:00 Pulse Rate 73 03/08/20 04:00 Respiratory Rate 18 03/08/20 04:00 Blood Pressure 146/67 03/08/20 04:00 Pulse Oximetry 97 03/08/20 04:00 MDM - Altered Mental Status MDM Narrative: Medical decision making narrative: Hugo presents here with confusion from hepatic encephalopathy. Patient given lactulose here. Saw him last night and he is more confused tonight as well. He has no signs of meningitis. Initial troponin was elevated but looking the past did been elevated in the past and will follow with a 2-hour troponin. I spoke to the hospitalist will admit. Lab Data: Labs: Lab Results 03/06/20 03/06/20 03/06/20 Range/Units 17:05 17:05 17:05 WBC 4.9 (4.0-10.0) 10^3/ uL RBC 2.94 L (4.1-5.3) 10^6/u L Hgb 9.6 L (11.7-16.6) g/dL Hct 28.3 L (42.0-52.0) % MCV 96.3 H (80-94) fL MCH 32.7 (28.0-34.0) pg MCHC 33.9 (30.0-36.0) g/dL RDW 15.9 H (12.1-15.1) % Plt Count 111 L (130-400) 10^3/c mm MPV 9.1 (7.4-10.4) fL Neut % (Auto) 58.3 % Lymph % (Auto) 25.1 % Kittson % (Auto) 9.3 % Eos % (Auto) 4.7 % Baso % (Auto) 2.0 % Neut # (Auto) 2.88 (1.8-7.7) 10^3/u L Lymph # (Auto) 1.2 (0.8-4.8) 10^3/u L Kittson # (Auto) 0.5 (0.2-0.9) 10^3/u L Eos # (Auto) 0.2 (0.0-0.8) 10^3/u L Baso # (Auto) 0.1 (0.0-0.1) 10^3/u L Nucleated RBC % (a uto) 0 % Nucleated RBCs # 0.0 /100WBC Specimen Type Sample Site ABG pH (7.35-7.45) ABG pCO2 (35-45) mmHg ABG pO2 (80.0-100.0) mmH g ABG HCO3 (22-26) mmol/L ABG O2 Saturation ABG Base Excess (-2.0-2.0) mmol/ L Josafat Test A-a O2 Gradient (5-10) mmHg Hematocrit (42-52) % Hgb O2 Saturation (95-100) % Carboxyhemoglobin (0.4-20.1) %THgb Methemoglobin (0.4-1.5) % Total Hemoglobin (14-18) g/dL Ionized Calcium (1.1-1.4) mmol/L O2 Delivery Device Plan Consultant ID Sodium 135 L (136-145) mmol/L Potassium 4.6 (3.5-5.1) mmol/L Chloride 104 (98-107) mmol/L Carbon Dioxide 23 (22-29) mmol/L Anion Gap 12.6 (5-19) BUN 24 H (6-20) mg/dL Creatinine 1.3 H (0.7-1.2) mg/dL GFR Calculation 57.5 L (90-130) mL/min Glucose 120 H (65-115) mg/dL Calculated Osmolal ity 285 (285-295) mOsm/k g Calcium 8.3 L (8.5-10.5) mg/dL Total Bilirubin 1.6 H (0.15-1.2) mg/dL AST 27 (0-40) U/L ALT 10 (0-41) U/L Alkaline Phosphata se 113 (40-130) IU/L Ammonia (16-60) umol/L Creatine Kinase 167 (39-308) U/L Troponin T Baselin e 160 H* (0-15) ng/L Total Protein 8.1 D (6.6-8.7) g/dL Albumin 2.3 L (3.5-5.2) g/dL Globulin 5.8 H (1.3-4.6) g/dL Salicylates < 0.3 L (3-10) mg/dL Acetaminophen < 5.0 L (10-30) ug/mL Ethyl Alcohol < 10 (0-10) mg/dL 03/06/20 03/06/20 Range/Units 17:47 18:18 WBC (4.0-10.0) 10^3/ uL RBC (4.1-5.3) 10^6/u L Hgb (11.7-16.6) g/dL Hct (42.0-52.0) % MCV (80-94) fL MCH (28.0-34.0) pg MCHC (30.0-36.0) g/dL RDW (12.1-15.1) % Plt Count (130-400) 10^3/c mm MPV (7.4-10.4) fL Neut % (Auto) % Lymph % (Auto) % Kittson % (Auto) % Eos % (Auto) % Baso % (Auto) % Neut # (Auto) (1.8-7.7) 10^3/u L Lymph # (Auto) (0.8-4.8) 10^3/u L Kittson # (Auto) (0.2-0.9) 10^3/u L Eos # (Auto) (0.0-0.8) 10^3/u L Baso # (Auto) (0.0-0.1) 10^3/u L Nucleated RBC % (a uto) % Nucleated RBCs # /100WBC Specimen Type Arterial Sample Site Radial, left ABG pH 7.55 H (7.35-7.45) ABG pCO2 26.9 L (35-45) mmHg ABG pO2 87.8 (80.0-100.0) mmH g ABG HCO3 23.7 (22-26) mmol/L ABG O2 Saturation 99.1 ABG Base Excess 1.7 (-2.0-2.0) mmol/ L Josafat Test Pos A-a O2 Gradient 3.6 L (5-10) mmHg Hematocrit 26.4 L (42-52) % Hgb O2 Saturation 96.1 (95-100) % Carboxyhemoglobin 2.4 (0.4-20.1) %THgb Methemoglobin 0.6 (0.4-1.5) % Total Hemoglobin 8.6 L (14-18) g/dL Ionized Calcium 1.1 (1.1-1.4) mmol/L O2 Delivery Device Room air Plan Consultant ID Cak Sodium 137.0 (136-145) mmol/L Potassium 4.4 (3.5-5.1) mmol/L Chloride (98-107) mmol/L Carbon Dioxide (22-29) mmol/L Anion Gap (5-19) BUN (6-20) mg/dL Creatinine (0.7-1.2) mg/dL GFR Calculation (90-130) mL/min Glucose 136.0 H (65-115) mg/dL Calculated Osmolal ity (285-295) mOsm/k g Calcium (8.5-10.5) mg/dL Total Bilirubin (0.15-1.2) mg/dL AST (0-40) U/L ALT (0-41) U/L Alkaline Phosphata se (40-130) IU/L Ammonia 64 H (16-60) umol/L Creatine Kinase (39-308) U/L Troponin T Baselin e (0-15) ng/L Total Protein (6.6-8.7) g/dL Albumin (3.5-5.2) g/dL Globulin (1.3-4.6) g/dL Salicylates (3-10) mg/dL Acetaminophen (10-30) ug/mL Ethyl Alcohol (0-10) mg/dL EKG Data^: EKG 1: Attestation: I personally reviewed and interpreted this EKG as follows: EKG interpretation date: 03/06/20 EKG interpretation time: 17:51 Interpretation: nsr hr [address] or t wave abnormalities qrs 102 qtc 440 Discharge Plan Discharge Patient Disposition: Admitted As Inpatient Admit Provider: Eladio Muñoz Clinical Impression: Acute hepatic encephalopathy Condition: Stable Coding Level of Care Code ED Mailroom Associate for Chg Fwd Exam Comprehensive
[2020-03-06 17:58] LABS: ABG PCO2 26.9 mmHg (35-45); ABG PH Result 7.55 (7.35-7.45); Alveolar-Arterial Oxygen Gradi 3.6 mmHg (5-10); Arterial Blood Gas Hematocrit 26.4 % (42-52); Base Excess ABG 1.7 mmol/L (-2.0-2.0); Blood Gas Allen Test Pos; Blood Gas Operator Identificat CAK; Blood Gas Sample Site Radial, left; Blood Gas Sample Type Arterial; Carboxyhemoglobin 2.4 %THgb (0.4-20.1); HCO3 ABG 23.7 mmol/L (22-26); HGB O2 Sat 96.1 % (95-100); Ionized Calcium Level - ABG 1.1 mmol/L (1.1-1.4); Methemoglobin 0.6 % (0.4-1.5); Oxygen Device ROOM AIR; Oxygen Saturation ABG 99.1; PO2 ABG 87.8 mmHg (80.0-100.0); Potassium Level - ABG 4.4 mmol/L (3.5-5.0); Total Hemoglobin 8.6 g/dL (14-18)
[2020-03-06 18:03] LABS: Basophils # 0.1 10^3/uL (0.0-0.1); Eosinophils # 0.2 10^3/uL (0.0-0.8); Eosinophils % 4.7 %; Hematocrit 28.3 % (42.0-52.0); Hemoglobin 9.6 g/dL (11.7-16.6); Lymphocytes # 1.2 10^3/uL (0.8-4.8); Lymphocytes % 25.1 %; Mean Corpuscular HGB Conc 33.9 g/dL (30.0-36.0); Mean Corpuscular Hemoglobin 32.7 pg (28.0-34.0); Mean Corpuscular Volume 96.3 fL (80-94); Mean Platelet Volume 9.1 fL (7.4-10.4); Monocytes # 0.5 10^3/uL (0.2-0.9); Monocytes % 9.3 %; Neutrophils # 2.88 10^3/uL (1.8-7.7); Neutrophils % 58.3 %; Nucleated Red Blood Cells % 0 %; Platelet Count 111 10^3/cmm (130-400); Red Blood Count 2.94 10^6/uL (4.1-5.3); Red Cell Distribution Width 15.9 % (12.1-15.1); White Blood Count 4.9 10^3/uL (4.0-10.0)
[2020-03-06 18:36] LABS: Alanine Aminotransferase 10 U/L (0-41); Albumin Level 2.3 g/dL (3.5-5.2); Alkaline Phosphatase 113 IU/L (40-130); Anion Gap 12.6 (5-19); Aspartate Amino Transferase 27 U/L (0-40); Blood Urea Nitrogen 24 mg/dL (6-20); Calcium 8.3 mg/dL (8.5-10.5); Carbon Dioxide 23 mmol/L (22-29); Chloride 104 mmol/L (98-107); Creatine Phosphokinase 167 U/L (39-308); Globulin 5.8 g/dL (1.3-4.6); Glomerular Filtration Rate 57.5 mL/min (90-130); Glucose 120 mg/dL (65-115); Osmolality Calculated 285 mOsm/kg (285-295); Potassium 4.6 mmol/L (3.5-5.1); Sodium 135 mmol/L (136-145); Total Bilirubin 1.6 mg/dL (0.15-1.2); Total Protein 8.1 g/dL (6.6-8.7)
[2020-03-06 18:37] LABS: Acetaminophen < 5.0 ug/mL (10-30); Alcohol Level < 10 mg/dL (0-10); Salicylate < 0.3 mg/dL (3-10)
[2020-03-06 18:40] LABS: Troponin(5th) Baseline 160 ng/L (0-15)
[2020-03-06 18:59] LABS: Ammonia 64 umol/L (16-60)
--- NOTE | 2020-03-06 19:40 | ECG_ITS ---
[facility] Test Date: 2020-03-06 Pat Name: Hugo Oquendo Department: Room: 259 Gender: Male Physical Integration Practitioner: : 1965 Requested By: Neville Solano Order Number: [id number] Reading MD: ISACC DARLING Measurements Intervals [place] Rate: 66 P: 56 MT: 119 QRS: -22 QRSD: 93 T: 70 QT: 418 QTc: 439 Interpretive Statements SINUS RHYTHM WITH SHORT MT INTERVAL BORDERLINE LEFT AXIS DEVIATION [QRS AXIS < -20] Compared to ECG 03/06/2020 17:51:05 Short MT interval now present Electronically Signed On 03-07-2020 21:25:22 PORT TRAFFIC MANAGER by ISACC DARLING [email or web address] Sciencetippah county hospitalEndoInSightselect medical [id number]
[2020-03-06 20:19] LABS: Troponin 5 2HR Delta -15.2 ABS# (0-10)
[2020-03-06 20:20] LABS: Troponin 5 2HR 144.8 ng/L (0-15)
--- NOTE | 2020-03-06 20:33 | PC.NURSE ---
EKG done at 2030 and shown to ER doctor
[2020-03-06] MEDS: lactulose oral liq 20 gm/30 mL UDC 30 GM PO (20:40)
[2020-03-06 20:43] VITALS: BP 180/82; PULSE 69; RESP 16; O2SAT 99
[2020-03-06 20:55] VITALS: BP 180/82; PULSE 67; RESP 16; TEMP 36.7; O2SAT 98
[2020-03-06 21:00] VITALS: BP 159/68; PULSE 71; RESP 20; TEMP 36.5; O2SAT 97
[2020-03-06 21:12] LABS: Specific Gravity, Urine 1.005 (1.005-1.030); Urine Appearance Clear (CLEAR); Urine Color Yellow (Yellow); pH Urine 8 (5-7)
[2020-03-06 21:13] LABS: Add Urine Microscopic? YES; Bilirubin Urine Neg (Negative); Blood Urine 2+ (Negative); Glucose Urine UA Norm (Normal); Ketones Urine Negative (Negative); Leukocyte Esterase Urine Negative (Negative); Nitrate Urine Negative (Negative); Protein Urine 1+ (Negative); Sulfosalicylic Acid Urine Positive (Negative); Urobilinogen Urine Norm (Negative)
[2020-03-06 21:16] LABS: Add Urine Culture? No; Bacteria Urine TRACE /hpf; Squamous Epithelial Cell Urine 0-4 /hpf (0-5); WBC Urine 0-4 /hpf (0-5)
--- NOTE | 2020-03-06 23:40 | ECG_ITS ---
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: : 1965 Requested By: Neville Solano Order Number: [id number] Reading MD: ISACC DARLING Measurements Intervals [place] Rate: 60 P: 53 OH: 117 QRS: -37 QRSD: 101 T: 63 QT: 430 QTc: 431 Interpretive Statements SINUS RHYTHM WITH SHORT OH INTERVAL MARKED LEFT AXIS DEVIATION [QRS AXIS < -30] Compared to ECG 03/06/2020 20:29:33 No significant changes Electronically Signed On 03-07-2020 21:25:14 SUPERVISOR PUBLIC HEALTH NURSING by ISACC DARLING [id number]
[2020-03-06 23:46] LABS: Troponin 5 6HR Delta -25.2 ng/L (0-12)
[2020-03-06 23:48] LABS: Troponin 5 6HR 134.8 ng/L (0-15)
[2020-03-07] VITALS (12 sets, daily range): BP systolic 138–187; BP diastolic 57–78; PULSE 59–72; RESP 16–18; TEMP 36.5–36.8; O2SAT 97–100
[2020-03-07 05:47] LABS: Basophils # 0.1 10^3/uL (0.0-0.1); Basophils % 1.4 %; Eosinophils # 0.2 10^3/uL (0.0-0.8); Hemoglobin 7.8 g/dL (11.7-16.6); Lymphocytes # 1.1 10^3/uL (0.8-4.8); Lymphocytes % 26.1 %; Mean Corpuscular HGB Conc 33.9 g/dL (30.0-36.0); Mean Corpuscular Hemoglobin 31.8 pg (28.0-34.0); Mean Corpuscular Volume 93.9 fL (80-94); Mean Platelet Volume 9.4 fL (7.4-10.4); Monocytes # 0.5 10^3/uL (0.2-0.9); Monocytes % 11.4 %; Neutrophils # 2.39 10^3/uL (1.8-7.7); Neutrophils % 56.9 %; Nucleated Red Blood Cells % 0 %; Platelet Count 94 10^3/cmm (130-400); Red Blood Count 2.45 10^6/uL (4.1-5.3); Red Cell Distribution Width 15.4 % (12.1-15.1); White Blood Count 4.2 10^3/uL (4.0-10.0)
[2020-03-07 05:51] LABS: INR 1.44 (0.8-1.2)
[2020-03-07 05:52] LABS: Partial Thromboplastin Time 35.1 SECONDS (23.9-36.7)
[2020-03-07 05:53] LABS: Fibrinogen 178 mg/dL (174-498)
[2020-03-07 06:02] LABS: Alanine Aminotransferase 9 U/L (0-41); Alkaline Phosphatase 93 IU/L (40-130); Anion Gap 11.7 (5-19); Aspartate Amino Transferase 25 U/L (0-40); Blood Urea Nitrogen 21 mg/dL (6-20); Calcium 7.8 mg/dL (8.5-10.5); Carbon Dioxide 22 mmol/L (22-29); Chloride 108 mmol/L (98-107); Glomerular Filtration Rate 57.5 mL/min (90-130); Glucose 117 mg/dL (65-115); Osmolality Calculated 288 mOsm/kg (285-295); Potassium 4.7 mmol/L (3.5-5.1); Sodium 137 mmol/L (136-145); Total Bilirubin 1.4 mg/dL (0.15-1.2)
[2020-03-07 07:34] LABS: Platelet Count 94 10^3/cmm (130-400)
--- NOTE | 2020-03-07 08:41 | USCV_ITS ---
Hugo Oquendo Age: 54 Gender: M : 1965 Exam Date: 03/07/2020 09:09 Ordering Phys: Jim Llanes MD Technologist: Jennifer Spivey Exam Location: [facility] Indication: Elevated troponin, assess RWMA BP: 187 / 78 HR: 62 Rhythm: Sinus Technical Quality: Adequate MEASUREMENTS (Male / Female) Normal Values 2D ECHO LV Diastolic Diameter PLAX 3.8 cm 4.2 - 5.9 / 3.9 - 5.3 cm LV Systolic Diameter PLAX 2.7 cm IVS Diastolic Thickness 1.2 cm 0.6 - 1.0 / 0.6 - 0.9 cm IVS Systolic Thickness 1.2 cm LVPW Diastolic Thickness 1.0 cm 0.6 - 1.0 / 0.6 - 0.9 cm LVPW Systolic Thickness 1.3 cm LV Ejection Fraction 2D Teich 55.7 % LV Ejection Fraction MOD 2C 75.3 % LV Ejection Fraction 2C AL 75.8 % M-MODE LV Diastolic Diameter MM 5.4 cm 4.2 - 5.9 / 3.9 - 5.3 cm LV Systolic Diameter MM 3.2 cm LV Ejection Fraction MM Teich 71.6 % IVS Diastolic Thickness MM 1.4 cm 0.6 - 1.0 / 0.6 - 0.9 cm IVS Systolic Thickness MM 1.7 cm LVPW Diastolic Thickness MM 1.4 cm 0.6 - 1.0 / 0.6 - 0.9 cm LVPW Systolic Thickness MM 1.7 cm RV Diastolic Diameter MM 1.3 cm FINDINGS Left Ventricle Normal left ventricular cavity size. Normal left ventricular systolic function. No regional wall motion abnormalities. Left ventricular ejection fraction is estimated at 65 %. Right Ventricle The right ventricle is normal in size and function. RVSP could not be calculated due to incomplete tricuspid regurgitation velocity profile. Right Atrium The right atrium is normal in size. Left Atrium Mildly increased left atrial size. Mitral Valve Structurally normal mitral valve without significant stenosis or prolapse. There is no mitral regurgitation. Aortic Valve Structurally normal aortic valve without significant sclerosis or stenosis. There is no aortic regurgitation. Tricuspid Valve Trace tricuspid valve regurgitation. Pulmonic Valve Structurally normal pulmonic valve without significant stenosis. There is no pulmonic regurgitation. Pericardium Normal pericardium without effusion. Aorta Normal ascending aorta dimension. CONCLUSIONS 1-Normal left ventricular cavity size. Normal left ventricular systolic function. No regional wall motion abnormalities. Left ventricular ejection fraction is estimated at 65 %. 2-Mildly increased left atrial size. 3-There is no pericardial effusion. 4-No significant valve abnormalities. 5-The right ventricle is normal in size and function. RVSP could not be calculated due to incomplete tricuspid regurgitation velocity profile. 6-Right atrial pressure is around 5 mm of mercury. 7-Cannot compared with prior echocardiogram due to limited study in the past Eladio Sylvester MD (Electronically Signed) Final Date: 07 March 2020 19:18 S
--- NOTE | 2020-03-07 09:10 | PC.NURSE ---
US at bedside
--- NOTE | 2020-03-07 09:36 | PC.PHAR ---
Addendum entered by Lillian Felix 03/07/20 09:40: SHOULD SAY 60MG BID OF LASIX FROM [facility] Original Note: PTS STATES THE PT TAKES THE MEDICATIONS ENTERED-PTS STATES THE PT HAS BEEN TAKING LACTULOSE 30ML PO QID-WRITTEN 30ML Q12H ON 02/23/20-PTS STATES THE PTS LASIX WAS INCREASED TO 80MG BID FROM [facility]-RX FILLED ON 02/22/20 40MG BID-PTS STATES THE FARXIGA IS ON HOLD-PTS STATES THE PT USES THE NOVOLOG FLEXPEN 6 UNITS UP TO BID-RX FILLED ON 01/14/2020 5UNITS TID-PTS STATES THE PT IS STILL USING THE TRESIBA FLEXTOUFH 100U/ML 15 UNITS QPM-EXT MED HISTORY SHOWS LAST FILLED ON 06/04/19 75D/S 20 UNITS DAILY-PTS STATES THEY PICKED UP XIFAXAN FILLED ON 02/04/20 FOR A 30D/S BUT STATES THE PT NEVER TOOK
[2020-03-07] MEDS: lactulose oral liq 20 gm/30 mL UDC PO ×2 (10:02→20:37)
[2020-03-07] MEDS: pantoprazole DR 40 mg Tablet PO (10:02)
[2020-03-07] MEDS: albuterol 8 gm MDI 2 PUFF INHALATION ×2 (10:02→19:51)
--- NOTE | 2020-03-07 12:47 | PC.NURSE ---
patient asked for me to not apply SCDs at this time.
--- NOTE | 2020-03-07 15:46 | P.PN_ITS ---
Subjective Subjective: Interval history: She has been bothered by diarrhea. He denies abdominal pain. However, with the amount of diarrhea he requests if he may stay in the hospital. States he has had at least 5 bowel movements. He denies chest pain or pressure. Denies shortness of breath. Denies history of coronary disease. He states that he has had a stress test done here about a year ago which he says was not abnormal. Vitals/I&O/Wt Last Vital Signs Temp 97.9 F 03/07/20 15:19 Pulse 70 03/07/20 15:19 Resp 16 03/07/20 15:19 BP 152/68 03/07/20 15:19 Pulse Ox 98 03/07/20 15:19 03/07/20 03/07/20 03/07/20 06:59 14:59 22:59 Intake Total 120 / 120 Balance 120 / 120 Weight last 48 hrs Weight 68.039 kg Physical Exam Const: COMMON NORMALS: no acute distress and patient oriented x3 OTHER: Rolled up on his side trying to sleep. Somewhat uncomfortable due to diarrhea. Denies abdominal pain. HENMT: COMMON NORMALS: oropharynx normal Neck/C-Spine: COMMON NORMALS: no JVD Resp: COMMON NORMALS: normal respiratory effort and clear to auscultation bilaterally AUSCULTATION: clear to auscultation bilaterally Cardio: COMMON NORMALS: no JVD, regular rhythm, S1 normal heart sound present, S2 normal heart sound present and No murmurs present (Cardio) RHYTHM: regular rhythm HEART SOUNDS: S1 normal heart sound present and S2 normal heart sound present GI: COMMON NORMALS: Normal to inspection, nondistended, normoactive bowel sounds present, Soft to palpation and non-tender PALPATION: Yes Soft to palpation Extremity: COMMON NORMALS: no joint enlargement GENERAL: Yes edema (2+ ankle edema) Neuro: COMMON NORMALS: patient oriented x3 and moves all extremities Skin: COMMON NORMALS: no rashes or lesions noted GENERAL SKIN EXAM: no rashes or lesions noted Data : 03/07/20 04:47 03/07/20 04:47 Micro: Microbiology 03/06/20 19:03 Blood Culture - Preliminary Blood SPECIMEN COLLECTED 03/06/20 18:18 Blood Culture - Preliminary Blood SPECIMEN COLLECTED A&P Assessment and plan (1) Elevated troponin: He denies current chest pain. His troponin was moderately elevated as high as 160, with some gradual decrease. He denies known history of heart disease in the past. He states that he had a stress test a year ago which was normal. However, I cannot find this, and the latest stress test that is listed in the chart is from 2012, showing myocardial perfusion imaging revealing a small area of persistent decreased uptake in the apical inferior wall region, suggestive of myocardial scarring versus atten uation artifact. I cannot tell whether he had another stress test but elsewhere, or whether he is somewhat confused with hepatic encephalopathy. He otherwise appears to be fairly alert, and with fairly good insight into his condition. Troponin elevation may be secondary to demand ischemia in the setting of acute kidney injury, however, discussed with him we will go ahead and assess by limited echocardiography. We will monitor his symptoms for now. Treat decompensated cirrhosis, and once he is doing somewhat better may benefit from stress testing for additional assessment of coronary artery disease. He is agreeable with this plan. Status: Acute (2) Acute hepatic encephalopathy: This appears to have improved, he is alert (wakes up easily), conversant, although I am not sure whether statement above by the stress test is due to some confusion, or may be some persistence of encephalopathy. At this time he reports persistent diarrhea. Added qualification for lactulose dosing to hold in case has had 2-3 stools in a day. If diarrhea persist, consider additional stool testing. With diarrhea, recurrent episodes of encephalopathy recently, assess limited abdominal ultrasound for any residual ascites, and if so would consider diagnostic paracentesis. Status: Acute (3) Decompensated hepatic cirrhosis: Is he is now having profuse diarrhea, for now we will hold Lasix. Continue rifaximin. Lactulose to be held if has had 2-3 stools in a day. S/p TIPS Status: Acute (4) GENESIS (acute kidney injury): With mild improvement, creatinine down to 1.3. Reassess. Hold Lasix, spironolactone for now in the setting of profuse diarrhea. Status: Acute (5) Diabetes: Consistent carbohydrate, cardiac diet. Sliding scale insulin. Status: Acute (6) Anemia: Acute decrease in hemoglobin this morning down to 7.8. Will request Hemoccult. Continue B12, folic acid supplementation. History of TIPS. Splenomegaly reported with improvement. Monitor hemoglobin. Status: Acute Qualifiers: Anemia type: unspecified type Qualified Code(s): D64.9 - Anemia, unspecified (7) Portal hypertension: Hx. S/p TIPS Status: Acute Attestations Medical Necessity Statement*: Continue observation for additional assessment due to abnormal troponin level, recurrent hepatic encephalopathy in a gentleman with underlying liver cirrhosis, status post TIPS, with GENESIS, acute on chronic anemia. Coding Level of Care Code Acute Senior Telecommunications Technician for [facility] Fwd Diagnoses Elevated troponin R77.8 Acute hepatic encephalopathy K72.00 Decompensated hepatic cirrhosis K72.90; K74.60 GENESIS (acute kidney injury) N17.9 Diabetes E11.9 Anemia D64.9 Anemia type: unspecified type Portal hypertension K76.6
--- NOTE | 2020-03-07 16:31 | USR_ITS ---
PROCEDURE INFORMATION: Exam: US Abdomen; Limited Exam date and time: 03/07/2020 4:38 PM Age: 54 years old Clinical indication: Condition or disease; Liver condition; Cirrhosis; Additional info: Please assess for ascites TECHNIQUE: Imaging protocol: US abdomen. Real time ultrasound with image documentation. Limited exam focused on the region of clinical interest. COMPARISON: US paracentesis talon saavedra [id number] 11/14/2019 8:28 AM FINDINGS: Intraperitoneal space: There is a small pocket of ascites of ascites on the right side of the abdomen adjacent to the inferior tip of the liver. Other findings: Examination is limited as the patient was not able to lie supine for and length of time in the study was done with the patient mostly RPO. US/US abdomen limited [id number] IMPRESSION: Small ascites, less than on 11/14/2019
--- NOTE | 2020-03-07 17:33 | PC.NURSE ---
SHIFT SUMMARY PATIENT HAS BEEN CALM AND COOPERATIVE THROUGHOUT SHIFT. MOSTLY LAYS IN BED AND RESTS. PATIENT'S MENTATION HAS BEEN THAT OF A YOUNG CHILD, ASKING FOR HELP TO TUCK HIM INTO BED AND HELP HIM TO WALK TO THE BATHROOM. PATIENT HAS DENIED PAIN THROUGHOUT THE SHIFT, BUT HAS TAKEN HIS MEDICATIONS EASILY, OTHER THAN THE RIFAXIMIN, WHICH HE STATES HE IS ALLERGIC TO BUT IS UNABLE TO VERBALIZE WHAT THE REACTION IS. PATIENT'S CAME AND VISITED HIM DURING VISITING HOURS.
[2020-03-07 18:01] LABS: Glucose Point of Care 199 mg/dL (70-110)
[2020-03-07] MEDS: aspirin 325 mg Tablet PO (20:00)
[2020-03-07] MEDS: FUROsemide 40 mg Tablet 60 MG PO (20:00)
[2020-03-07] MEDS: atorvastatin 40 mg Tablet PO (20:37)
[2020-03-08] VITALS (10 sets, daily range): BP systolic 137–151; BP diastolic 67–77; PULSE 70–79; RESP 16–19; TEMP 36.8–37; O2SAT 95–99
--- NOTE | 2020-03-08 00:13 | PC.NURSE ---
CATHETER: CONDOM CATHETER UNAVAILABLE WHEN THIS NURSE APPROACHED PATIENT WITH THE IDEA OF AN INDWELLING CATHETER PATIENT REFUSED.
[2020-03-08 01:40] LABS: SARS Covid-2 Antigen Negative (Negative)
[2020-03-08 05:05] LABS: Basophils # 0.1 10^3/uL (0.0-0.1); Basophils % 1.6 %; Eosinophils # 0.1 10^3/uL (0.0-0.8); Eosinophils % 2.5 %; Hematocrit 22.2 % (42.0-52.0); Hemoglobin 7.5 g/dL (11.7-16.6); Lymphocytes # 0.8 10^3/uL (0.8-4.8); Lymphocytes % 18.9 %; Mean Corpuscular HGB Conc 33.8 g/dL (30.0-36.0); Mean Corpuscular Hemoglobin 32.2 pg (28.0-34.0); Mean Corpuscular Volume 95.3 fL (80-94); Mean Platelet Volume 8.9 fL (7.4-10.4); Monocytes # 0.5 10^3/uL (0.2-0.9); Monocytes % 12.5 %; Neutrophils # 2.77 10^3/uL (1.8-7.7); Nucleated Red Blood Cells % 0 %; Platelet Count 101 10^3/cmm (130-400); Red Blood Count 2.33 10^6/uL (4.1-5.3); Red Cell Distribution Width 15.3 % (12.1-15.1); White Blood Count 4.3 10^3/uL (4.0-10.0)
[2020-03-08 05:18] LABS: Alanine Aminotransferase 9 U/L (0-41); Albumin Level 1.9 g/dL (3.5-5.2); Alkaline Phosphatase 99 IU/L (40-130); Anion Gap 14.1 (5-19); Aspartate Amino Transferase 26 U/L (0-40); Blood Urea Nitrogen 17 mg/dL (6-20); Calcium 7.6 mg/dL (8.5-10.5); Carbon Dioxide 20 mmol/L (22-29); Chloride 107 mmol/L (98-107); Glomerular Filtration Rate 63.1 mL/min (90-130); Glucose 193 mg/dL (65-115); Osmolality Calculated 291 mOsm/kg (285-295); Potassium 4.1 mmol/L (3.5-5.1); Sodium 137 mmol/L (136-145); Total Bilirubin 1.2 mg/dL (0.15-1.2)
[2020-03-08 05:19] LABS: Ammonia 61 umol/L (16-60)
[2020-03-08] MEDS: spironolactone 25 mg Tablet 50 MG PO (06:34)
[2020-03-08 06:46] LABS: Glucose Point of Care 222 mg/dL (70-110)
[2020-03-08] MEDS: albuterol 8 gm MDI 2 PUFF INHALATION ×2 (08:34→19:55)
[2020-03-08] MEDS: FUROsemide 40 mg Tablet 60 MG PO (08:43)
[2020-03-08] MEDS: lactulose oral liq 20 gm/30 mL UDC PO ×2 (08:43→21:57)
[2020-03-08] MEDS: aspirin 325 mg Tablet PO (08:44)
[2020-03-08] MEDS: pantoprazole DR 40 mg Tablet PO (08:44)
--- NOTE | 2020-03-08 09:30 | PC.CHAP ---
Pastoral Care Encounter/Spiritual Assessment Type of Contact [] Declined mixing pan tender visit [] Patient/Family/Request visit [] Outpatient visit [] Follow-up visit [] Physician referral [] Code/Alert [x] Routine visit [] Staff referral [] Actively dying [x] Patient sleeping [] Family support [] [] Out of room [] Palliative care [] [] Receiving care in room [] Pre-surgical visit [] Trauma [] Long length of stay [] ICU visit [] Other: Relational/Emotional Strength [] Patient feels connected with others/family/visitors/staff [] Distress [] Loneliness/isolation [] Abandonment Spirituality of Patient [] Person of Gaby [] Attends Christianity of their Gaby [] Believes in Prayer [] Reads Bible or Tenriism materials [] There are Spiritual issues to be addressed Home Health Administrator Interventions [] Prayer [] Active listening [] Non-anxious presence [] Spiritual/emotional support [] Crisis/trauma care [] Spiritual counseling [] Bereavement support [] Provided bereavement packet [] Provided Bible/devotional materials [] Provided toy/stuffed animal, coloring book to patient or family member [] Provided Communion [] Anointing/Geraldine [] Salvation [] Completed spiritual assessment [] Other: Impact on Illness or Injury [] Angry [] Fearful [] Anxious [] Often cries [] Exhaustion [] Unable to work [] Unable to attend baptist [] Unable to walk/stand [] Unable to read [] Unable to drive [] Unable to eat/drink [] Unable to sleep [] Unable to be with family [] Patient intubated [] Other: Summary Time spent with patient
[2020-03-08 10:05] LABS: Glucose Point of Care 219 mg/dL (70-110)
[2020-03-08 13:03] LABS: Iron 135 ug/dL (59-158)
[2020-03-08 13:13] LABS: Cholesterol 108 mg/dL (0-200); HDL Cholesterol 45 mg/dL (60-100); LDL Cholesterol Calculated 53 mg/dL (50-129); Thyroid Stimulating Hormone 1.69 uIU/mL (0.27-4.20); Triglycerides 48 mg/dL (0-150); VLDL Cholestrol Calculation 10 mg/dL (0-30)
[2020-03-08 13:16] LABS: Vitamin B12 1108 pg/mL (232-1245)
[2020-03-08 13:17] LABS: Folate Level 6.4 ng/mL (4.5-32.2)
--- NOTE | 2020-03-08 16:22 | PC.RESP ---
Smoking Cessation information sent to patient.
--- NOTE | 2020-03-08 16:49 | PM.PN ---
Subjective Subjective: Interval history: Hospital course, labs and vitals noted. Examination sitting at bedside. He is AO x3. Able to talk to me in complete sentences and complete conversation. States he has been having diarrhea on and off. Concern of mild puffiness present under his eyes. Denies any itching, pain, watering from the eyes. Denies any nausea, vomiting, headache. States he is allergic to rifaximin he has never taken that medication because of nausea. Denies any chest pain, difficulty in breathing, headache, bleeding from anywhere but is concerned for lower limb swellings which he states is improving since yesterday. Above all also confirmed with the and she also states that patient is allergic to rifaximin and has not taken it in the past for the same reason. is also concerned for puffiness under the eyes. Vitals/I&O/Wt Last Vital Signs Temp 98.5 F 03/08/20 15:52 Pulse 74 03/08/20 15:52 Resp 18 03/08/20 15:52 BP 138/69 03/08/20 15:52 Pulse Ox 98 03/08/20 15:52 03/08/20 03/08/20 03/08/20 06:59 14:59 22:59 Intake Total 340 / 700 900 / 900 Output Total 100 / 100 600 / 600 Balance 240 / 600 300 / 300 Weight last 48 hrs Weight 74.843 kg Weight 68.039 kg Physical Exam Const: COMMON NORMALS: no acute distress and patient oriented x3 HENMT: COMMON NORMALS: oropharynx normal Neck/C-Spine: COMMON NORMALS: no JVD Resp: COMMON NORMALS: normal respiratory effort and clear to auscultation bilaterally AUSCULTATION: clear to auscultation bilaterally Cardio: COMMON NORMALS: no JVD, regular rhythm, S1 normal heart sound present, S2 normal heart sound present and No murmurs present (Cardio) RHYTHM: regular rhythm HEART SOUNDS: S1 normal heart sound present and S2 normal heart sound present GI: COMMON NORMALS: Normal to inspection, nondistended, normoactive bowel sounds present, Soft to palpation and non-tender PALPATION: Yes Soft to palpation Extremity: COMMON NORMALS: no joint enlargement GENERAL: Yes edema (2+ ankle edema) Neuro: COMMON NORMALS: patient oriented x3 and moves all extremities Skin: COMMON NORMALS: no rashes or lesions noted GENERAL SKIN EXAM: no rashes or lesions noted Data : 03/08/20 04:46 03/08/20 04:46 Micro: Microbiology 03/08/20 04:12 Occult Blood (FIT) - Final Stool - Stool Aspirate 03/06/20 19:03 Blood Culture - Preliminary Blood NEGATIVE TO DATE 03/06/20 18:18 Blood Culture - Preliminary Blood NEGATIVE TO DATE A&P Assessment and plan (1) Elevated troponin: Could be secondary to demand ischemia from anemia. No chest pain in last 24 to 48 hours. Troponin levels trending down. Echocardiogram results appreciated for no regional wall motion abnormality or low EF. For now we will hold off on aspirin because of ongoing anemia. We will also hold off on statins because of history of liver dysfunction, s/p TIPS. Check lipid panel, A1c. Status: Acute (2) Acute hepatic encephalopathy: This appears to have improved. As per the nurse patient is more alert and oriented from yesterday. He is more conversant. He is moving around in the room by himself without any signs of confusion. Ammonia levels appreciated. Continue with lactulose at current dose to the time patient has at least 2-3 soft bowel movements per day. Patient is concerned for possible diarrhea though not documented yet. For now we will do stool studies to rule out any infectious cause though unlikely. Status: Acute (3) Decompensated hepatic cirrhosis: Start rifaximin as both patient and patient's confirm that he is allergic leading to him having nausea. Patient is not thrilled about taking rifaximin for now. Continue lactulose alert and patient has at least 2-3 soft bowel movements a day. S/p TIPS Status: Acute (4) GENESIS (acute kidney injury): Resolved. Creatinine back to baseline of 1.2. Continue with home dose of diuretic for now with Aldactone 50 daily but will decrease the dose of Lasix to 40 twice daily. Daily weights, strict input output charting daily. Status: Acute (5) Diabetes: Consistent carbohydrate, cardiac diet. Sliding scale insulin. Status: Acute (6) Anemia: Acute decrease in hemoglobin this morning down to 7.8. Hemoccult blood negative. Check vitamin B12, folate levels. History of types. Splenomegaly is reported but with improvement. Status: Acute Qualifiers: Anemia type: unspecified type Qualified Code(s): D64.9 - Anemia, unspecified (7) Portal hypertension: Hx. S/p TIPS Status: Acute Additional A&P Information Carb consistent cardiac diet. SCDs. Change admission to inpatient. Full code. Discharge planning: If patient continues to improve mentation and if stool studies remain negative can plan to discharge in next 24 hours. Home with caregiver Attestations Medical Necessity Statement*: Requires further hospitalization for management of altered mental status, acute hepatic encephalopathy, resolving GENESIS in setting of decompensated hepatic cirrhosis post TIPS Time Spent in Patient Care: Greater than 35 minutes (>than 50% of time spent in counselling and/or direct pt care on unit). Coding Level of Care Code Acute Pacs Administrator for [facility] Fwd Diagnoses Elevated troponin R77.8 Acute hepatic encephalopathy K72.00 Decompensated hepatic cirrhosis K72.90; K74.60 GENESIS (acute kidney injury) N17.9 Diabetes E11.9 Anemia D64.9 Anemia type: unspecified type Portal hypertension K76.6
[2020-03-08] MEDS: FUROsemide 40 mg Tablet PO (17:05)
--- NOTE | 2020-03-08 18:42 | PC.NURSE ---
BRAYDEN Pollack notified this nurse that patients was on speaker phone with him in the room and she asked him did you get the medications i sent you this nurse went into room with Many CODING MACHINE OPERATOR and in patients backpack was a bottle of oxycodone 10mg hidden in between clothes. medication was counted with this nurse and Janett EVANS witnessed. medication was put in [facility]. patients then called shortly after and asked if she could take medication home. this nurse explained to her that she could take it home but patient was not allowed to have medications at the bedside unless there was a specific order from the physician.
[2020-03-08 18:53] LABS: Globulin 3.2 g/dL (1.3-4.6); Total Protein 5.1 g/dL (6.6-8.7)
[2020-03-08 20:20] LABS: Glucose Point of Care 257 mg/dL (70-110)
[2020-03-08] MEDS: LORazepam 0.5 mg Tablet PO (22:01)
[2020-03-09] VITALS (8 sets, daily range): BP systolic 144–187; BP diastolic 63–71; PULSE 61–72; RESP 16–18; TEMP 36.6–37; O2SAT 95–100
--- NOTE | 2020-03-09 03:30 | PC.NURSE ---
PERSONAL ITEMS IN PYXIS: THIS NURSE WENT INTO PATIENTS ROOM TO DO SHIFT ASSESSMENT ON PATIENT AND WHEN DONE ASSESSING PATIENT WHILE COVERING HIM UP NOTICED HE HAD A HEATED BLANKET ON BED FROM HOME THAT WAS PLUGGED INTO WALL WITH CORDS STRETCHED ACROSS FLOOR FROM BED TO OUTLET UNDER WINDOW. THIS NURSE REMOVED THE CORDED ELEMENTS FROM BLANKET ON BED AND OUTLET, PLACED THEM IN A PATIENT BELONGINGS BAG WITH A PATIENT LABEL, TAPED TOP OF BAG AND PLACED INTO THE [facility] PYXIS.
[2020-03-09 05:46] LABS: Unsaturated Iron Binding < 17 ug/dL (112-347)
[2020-03-09 06:25] LABS: Glucose Point of Care 130 mg/dL (70-110)
[2020-03-09] MEDS: spironolactone 25 mg Tablet 50 MG PO (06:51)
[2020-03-09 07:13] LABS: Alanine Aminotransferase 13 U/L (0-41); Albumin Level 2.3 g/dL (3.5-5.2); Alkaline Phosphatase 111 IU/L (40-130); Aspartate Amino Transferase 36 U/L (0-40); Blood Urea Nitrogen 14 mg/dL (6-20); Calcium 7.9 mg/dL (8.5-10.5); Carbon Dioxide 19 mmol/L (22-29); Chloride 103 mmol/L (98-107); Globulin 3.4 g/dL (1.3-4.6); Glomerular Filtration Rate 77.9 mL/min (90-130); Glucose 126 mg/dL (65-115); Osmolality Calculated 274 mOsm/kg (285-295); Sodium 131 mmol/L (136-145); Total Bilirubin 1.6 mg/dL (0.15-1.2); Total Protein 5.7 g/dL (6.6-8.7)
[2020-03-09 07:14] LABS: Anion Gap 13.5 (5-19); Potassium 4.5 mmol/L (3.5-5.1)
--- NOTE | 2020-03-09 07:24 | PC.NURSE ---
Pt would not let me do the rest of his vitals. I asked him a few times if i could and he refused. He just wanted to sleep.
[2020-03-09 07:33] LABS: Basophils # 0.1 10^3/uL (0.0-0.1); Basophils % 1.1 %; Eosinophils # 0.2 10^3/uL (0.0-0.8); Eosinophils % 3.2 %; Hemoglobin 9.1 g/dL (11.7-16.6); Lymphocytes % 18.2 %; Mean Corpuscular Hemoglobin 32.2 pg (28.0-34.0); Mean Corpuscular Volume 91.9 fL (80-94); Mean Platelet Volume 9.9 fL (7.4-10.4); Monocytes # 0.7 10^3/uL (0.2-0.9); Monocytes % 12.3 %; Neutrophils # 3.66 10^3/uL (1.8-7.7); Neutrophils % 64.5 %; Nucleated Red Blood Cells % 0 %; Platelet Count 91 10^3/cmm (130-400); Red Blood Count 2.83 10^6/uL (4.1-5.3); Red Cell Distribution Width 14.8 % (12.1-15.1); White Blood Count 5.7 10^3/uL (4.0-10.0)
--- NOTE | 2020-03-09 09:48 | PC.CHAP ---
Pastoral Care Encounter/Spiritual Assessment Type of Contact [] Declined senior policy advisor visit [] Patient/Family/Request visit [] Outpatient visit [] Follow-up visit [] Physician referral [] Code/Alert [x] Routine visit [] Staff referral [] Actively dying [x] Patient sleeping [] Family support [] [] Out of room [] Palliative care [] [] Receiving care in room [] Pre-surgical visit [] Trauma [] Long length of stay [] ICU visit [] Other: Relational/Emotional Strength [] Patient feels connected with others/family/visitors/staff [] Distress [] Loneliness/isolation [] Abandonment Spirituality of Patient [] Person of Gaby [] Attends Restorationist of their Gaby [] Believes in Prayer [] Reads Bible or Judaism materials [] There are Spiritual issues to be addressed Laboratory Operations Coordinator Interventions [] Prayer [] Active listening [] Non-anxious presence [] Spiritual/emotional support [] Crisis/trauma care [] Spiritual counseling [] Bereavement support [] Provided bereavement packet [] Provided Bible/devotional materials [] Provided toy/stuffed animal, coloring book to patient or family member [] Provided Communion [] Anointing/[place] [] Salvation [] Completed spiritual assessment [] Other: Impact on Illness or Injury [] Angry [] Fearful [] Anxious [] Often cries [] Exhaustion [] Unable to work [] Unable to attend hinduism [] Unable to walk/stand [] Unable to read [] Unable to drive [] Unable to eat/drink [] Unable to sleep [] Unable to be with family [] Patient intubated [] Other: Summary Time spent with patient
[2020-03-09] MEDS: FUROsemide 40 mg Tablet PO (10:38)
[2020-03-09] MEDS: pantoprazole DR 40 mg Tablet PO (10:38)
[2020-03-09] MEDS: albuterol 8 gm MDI 2 PUFF INHALATION (11:19)
[2020-03-09 16:15] LABS: Glucose Point of Care 115 mg/dL (70-110)
[2020-03-09 16:15] LABS: Glucose Point of Care 118 mg/dL (70-110)
--- NOTE | 2020-03-09 17:28 | PM.PN ---
Subjective Subjective: Interval history: Documents overnight. On examination today patient was lying in bed, sleeping but is arousable on physical stimulus and wakes up and has a full conversation though patient seems very lethargic. As per the nurse patient was given Ativan overnight for being mildly agitated. Patient denies any nausea, vomiting, headache. States does not have an appetite at present. Has remained hemodynamically stable and afebrile. Has been taking his medications orally except lactulose which he has been taking on and off. Vitals/I&O/Wt Last Vital Signs Temp 97.8 F 03/09/20 15:22 Pulse 61 03/09/20 15:22 Resp 18 03/09/20 15:22 BP 178/66 03/09/20 15:22 Pulse Ox 100 03/09/20 15:22 03/09/20 03/09/20 03/09/20 06:59 14:59 22:59 Output Total 300 / 300 Balance -300 / -300 Weight last 48 hrs Weight 70.398 kg Weight 74.843 kg Physical Exam Const: COMMON NORMALS: no acute distress and patient oriented x3 HENMT: COMMON NORMALS: oropharynx normal Neck/C-Spine: COMMON NORMALS: no JVD Resp: COMMON NORMALS: normal respiratory effort and clear to auscultation bilaterally AUSCULTATION: clear to auscultation bilaterally Cardio: COMMON NORMALS: no JVD, regular rhythm, S1 normal heart sound present, S2 normal heart sound present and No murmurs present (Cardio) RHYTHM: regular rhythm HEART SOUNDS: S1 normal heart sound present and S2 normal heart sound present GI: COMMON NORMALS: Normal to inspection, nondistended, normoactive bowel sounds present, Soft to palpation and non-tender PALPATION: Yes Soft to palpation Extremity: COMMON NORMALS: no joint enlargement GENERAL: Yes edema (2+ ankle edema) Neuro: COMMON NORMALS: patient oriented x3 and moves all extremities Skin: COMMON NORMALS: no rashes or lesions noted GENERAL SKIN EXAM: no rashes or lesions noted Data : 03/09/20 05:15 03/09/20 06:25 Micro: Microbiology 03/08/20 04:12 Stool Lactoferrin - Final Stool Enteric Pathogens (PCR) - Final Parasite Antigen Panel - Final 03/08/20 12:26 C.difficile Toxin B Gene (PCR) - Final Stool A&P Assessment and plan (1) Acute hepatic encephalopathy: Patient seems little more lethargic and than yesterday. No signs of infection, patient has remained afebrile without any white count. Patient is not taking lactulose as needed. Recheck ammonia levels. Discussed with patient in detail that he needs to take lactulose otherwise he will continue to get more more encephalopathic and he would need an NG tube to give lactulose. He states he will try. Continue with lactulose at current dose to the time patient has at least 2-3 soft bowel movements per day. Patient is concerned for possible diarrhea though not documented yet. Stool studies negative for any C. difficile, infectious source, occult blood. Status: Acute (2) Decompensated hepatic cirrhosis: Patient states he is allergic to rifaximin and has been confirmed by his . Taking lactulose regularly will restart on rifaximin mean and continue Zofran for nausea or vomiting. Continue lactulose till patient has at least 2-3 soft bowel movements a day. S/p TIPS Status: Acute (3) Elevated troponin: Could be secondary to demand ischemia from anemia. No chest pain in last 24 to 48 hours. Troponin levels trending down. Echocardiogram results appreciated for no regional wall motion abnormality or low EF. For now we will hold off on aspirin because of ongoing anemia. We will also hold off on statins because of history of liver dysfunction, s/p TIPS. Lipid panel and A1c results appreciated. Status: Acute (4) GENESIS (acute kidney injury): Resolved. Creatinine back to baseline of 1.2. Continue with home dose of diuretic for now with Aldactone 50 daily but will decrease the dose of Lasix to 40 twice daily. Daily weights, strict input output charting daily. Status: Acute (5) Diabetes: Consistent carbohydrate, cardiac diet. Sliding scale insulin. Status: Acute (6) Anemia: Acute decrease in hemoglobin this morning down to 7.8. Hemoccult blood negative. Check vitamin B12, folate levels. History of types. Splenomegaly is reported but with improvement. Status: Acute Qualifiers: Anemia type: unspecified type Qualified Code(s): D64.9 - Anemia, unspecified (7) Portal hypertension: Hx. S/p TIPS Status: Acute Additional A&P Information Carb consistent cardiac diet. SCDs. Change admission to inpatient. Full code. I discussed patient treatment plan with his Ms. Colon yesterday over the phone. Discussed in detail again today with his regarding need for patient to be on lactulose/rifaximin. Also discussed that if patient continues to refuse and becomes more confused we will have to put an NG tube and do lactulose to the NG tube. Also discussed that unfortunately this is a vicious [place] and we need to speak with the patient in detail together regarding need of being on lactulose going further in life. Discharge planning: If patient continues to improve mentation and if stool studies remain negative can plan to discharge in next 24 hours. Home with caregiver Attestations Medical Necessity Statement*: Requires further hospitalization for management of acute hepatic encephalopathy in setting of liver cirrhosis, status post TIPS. Time Spent in Patient Care: Greater than 35 minutes (>than 50% of time spent in counselling and/or direct pt care on unit). Coding Level of Care Code Acute Lead Python Developer for [facility] Fwd Diagnoses Acute hepatic encephalopathy K72.00 Decompensated hepatic cirrhosis K72.90; K74.60 Elevated troponin R77.8 GENESIS (acute kidney injury) N17.9 Diabetes E11.9 Anemia D64.9 Anemia type: unspecified type Portal hypertension K76.6
[2020-03-09 17:31] LABS: Ammonia 94 umol/L (16-60)
[2020-03-09] MEDS: lactulose oral liq 20 gm/30 mL UDC PO (18:24)
[2020-03-09 21:18] LABS: Glucose Point of Care 124 mg/dL (70-110)
--- NOTE | 2020-03-09 21:56 | PC.NURSE ---
LATOLOSE: PATIENT REFUSED TO TAKE. STATED LEAVE ME ALONE IM SLEEPING. LATER
[2020-03-10] VITALS (10 sets, daily range): BP systolic 148–176; BP diastolic 62–80; PULSE 61–87; RESP 16–18; TEMP 36.5–37.4; O2SAT 95–99
[2020-03-10] MEDS: spironolactone 25 mg Tablet 50 MG PO (06:31)
[2020-03-10 06:34] LABS: Basophils # 0.1 10^3/uL (0.0-0.1); Basophils % 1.4 %; Eosinophils # 0.1 10^3/uL (0.0-0.8); Eosinophils % 2.7 %; Hemoglobin 7.8 g/dL (11.7-16.6); Lymphocytes % 19.1 %; Mean Corpuscular HGB Conc 32.5 g/dL (30.0-36.0); Mean Corpuscular Hemoglobin 32.1 pg (28.0-34.0); Mean Corpuscular Volume 98.8 fL (80-94); Mean Platelet Volume 9.2 fL (7.4-10.4); Monocytes # 0.6 10^3/uL (0.2-0.9); Neutrophils # 3.39 10^3/uL (1.8-7.7); Neutrophils % 65.4 %; Nucleated Red Blood Cells % 0 %; Platelet Count 85 10^3/cmm (130-400); Red Blood Count 2.43 10^6/uL (4.1-5.3); Red Cell Distribution Width 14.7 % (12.1-15.1); White Blood Count 5.2 10^3/uL (4.0-10.0)
[2020-03-10 06:40] LABS: Glucose Point of Care 108 mg/dL (70-110)
[2020-03-10 07:07] LABS: Alanine Aminotransferase 12 U/L (0-41); Alkaline Phosphatase 100 IU/L (40-130); Anion Gap 12.5 (5-19); Aspartate Amino Transferase 28 U/L (0-40); Blood Urea Nitrogen 16 mg/dL (6-20); Calcium 7.8 mg/dL (8.5-10.5); Carbon Dioxide 20 mmol/L (22-29); Chloride 107 mmol/L (98-107); Globulin 3.1 g/dL (1.3-4.6); Glomerular Filtration Rate 77.9 mL/min (90-130); Glucose 108 mg/dL (65-115); Osmolality Calculated 282 mOsm/kg (285-295); Potassium 4.5 mmol/L (3.5-5.1); Sodium 135 mmol/L (136-145); Total Bilirubin 2.2 mg/dL (0.15-1.2); Total Protein 5.1 g/dL (6.6-8.7)
[2020-03-10 07:08] LABS: Ammonia 72 umol/L (16-60)
[2020-03-10] MEDS: albuterol 8 gm MDI 2 PUFF INHALATION ×2 (08:08→20:07)
[2020-03-10] MEDS: pantoprazole DR 40 mg Tablet PO (08:56)
[2020-03-10] MEDS: FUROsemide 40 mg Tablet PO (08:56)
[2020-03-10] MEDS: lactulose oral liq 20 gm/30 mL UDC PO ×2 (08:57→21:41)
--- NOTE | 2020-03-10 08:57 | PC.NURSE ---
patient took scheduled lactulose per doctors orders without any difficulty.
--- NOTE | 2020-03-10 10:13 | P.PN_ITS ---
Subjective Subjective: Interval history: No acute events. Patient is a little more awake. Taking accordingly. Denies any nausea, headache. Complaining of feeling cold without any chills. Vitals/I&O/Wt Last Vital Signs Temp 98.9 F 03/10/20 07:32 Pulse 62 03/10/20 08:10 Resp 16 03/10/20 08:09 BP 168/65 03/10/20 07:32 Pulse Ox 96 03/10/20 08:09 03/09/20 03/10/20 03/10/20 22:59 06:59 14:59 Intake Total 360 / 360 Balance 360 / 360 Weight last 48 hrs Weight 66.86 kg Weight 70.398 kg Physical Exam Const: COMMON NORMALS: no acute distress and patient oriented x3 HENMT: COMMON NORMALS: oropharynx normal Neck/C-Spine: COMMON NORMALS: no JVD Resp: COMMON NORMALS: normal respiratory effort and clear to auscultation bilaterally AUSCULTATION: clear to auscultation bilaterally Cardio: COMMON NORMALS: no JVD, regular rhythm, S1 normal heart sound present, S2 normal heart sound present and No murmurs present (Cardio) RHYTHM: regular rhythm HEART SOUNDS: S1 normal heart sound present and S2 normal heart sound present GI: COMMON NORMALS: Normal to inspection, nondistended, normoactive bowel sounds present, Soft to palpation and non-tender PALPATION: Yes Soft to palpation Extremity: COMMON NORMALS: no joint enlargement GENERAL: Yes edema (2+ ankle edema) Neuro: COMMON NORMALS: patient oriented x3 and moves all extremities Skin: COMMON NORMALS: no rashes or lesions noted GENERAL SKIN EXAM: no rashes or lesions noted Data : 03/11/20 10:09 03/11/20 10:09 Micro: Microbiology 03/08/20 04:12 Stool Lactoferrin - Final Stool Enteric Pathogens (PCR) - Final Parasite Antigen Panel - Final A&P Assessment and plan (1) Acute hepatic encephalopathy: Improving again today. Ammonia levels trending down. No signs of infection, patient has remained afebrile without any white count. Patient has not been taking lactulose as scheduled. Recheck ammonia levels. Discussed with patient in detail that he needs to take lactulose otherwise he will continue to get more more encephalopathic and he would need an NG tube to give lactulose. He states he will try. He is consistently taking his lactulose and rifaximin today. Continue with rifaximin twice daily and lactulose twice daily and as as needed until less patient has 2-3 soft bowel movements per day. Patient is concerned for possible diarrhea though not documented yet. Stool studies negative for any C. difficile, infectious source, occult blood. Status: Acute (2) Decompensated hepatic cirrhosis: Patient states he is allergic to rifaximin and has been confirmed by his . Taking lactulose regularly will restart on rifaximin mean and continue Zofran for nausea or vomiting. Continue lactulose till patient has at least 2-3 soft bowel movements a day. S/p TIPS Status: Acute (3) Elevated troponin: Could be secondary to demand ischemia from anemia. No chest pain in last 24 to 48 hours. Troponin levels trending down. Echocardiogram results appreciated for no regional wall motion abnormality or low EF. For now we will hold off on aspirin because of ongoing anemia. We will also hold off on statins because of history of liver dysfunction, s/p TIPS. Lipid panel and A1c results appreciated. Status: Acute (4) GENESIS (acute kidney injury): Resolved. Creatinine back to baseline of 1.2. Continue with home dose of diuretic for now with Aldactone 50 daily but will decrease the dose of Lasix to 40 twice daily. Daily weights, strict input output charting daily. Status: Acute (5) Diabetes: Consistent carbohydrate, cardiac diet. Sliding scale insulin. Status: Acute (6) Anemia: Acute decrease in hemoglobin this morning down to 7.8. Hemoccult blood negative. Check vitamin B12, folate levels. History of types. Splenomegaly is reported but with improvement. Status: Acute Qualifiers: Anemia type: unspecified type Qualified Code(s): D64.9 - Anemia, unspecified (7) Portal hypertension: Hx. S/p TIPS Status: Acute Additional A&P Information Carb consistent cardiac diet. SCDs. Change admission to inpatient. Full code. I discussed patient treatment plan with his Ms. Colon yesterday over the phone. Discussed in detail again today with his regarding need for patient to be on lactulose/rifaximin. Also discussed that if patient continues to refuse and becomes more confused we will have to put an NG tube and do lactulose to the NG tube. Also discussed that unfortunately this is a vicious [place] and we need to speak with the patient in detail together regarding need of being on lactulose going further in life. Discharge planning: If patient continues to improve mentation and if stool studies remain negative can plan to discharge in next 24 hours. Home with caregiver Attestations Medical Necessity Statement*: Requires further hospitalization for management of resolving hepatic metabolic encephalopathy. Coding Level of Care Code Acute Burnisher And Bumper for g Fwd Exam Comprehensive Diagnoses Acute hepatic encephalopathy K72.00 Decompensated hepatic cirrhosis K72.90; K74.60 Elevated troponin R77.8 GENESIS (acute kidney injury) N17.9 Diabetes E11.9 Anemia D64.9 Anemia type: unspecified type Portal hypertension K76.6
[2020-03-10 12:03] LABS: Glucose Point of Care 178 mg/dL (70-110)
--- NOTE | 2020-03-10 15:51 | PC.RESP ---
Smoking Cessation information sent to patient.
--- NOTE | 2020-03-10 16:16 | PC.NURSE ---
patient resting in bed quietly, denies pain or needs, call light in reach.
[2020-03-10 17:01] LABS: Glucose Point of Care 138 mg/dL (70-110)
[2020-03-10 20:02] LABS: Glucose Point of Care 164 mg/dL (70-110)
[2020-03-11 00:31] VITALS: BP 179/75; PULSE 87; RESP 18; TEMP 36.8; O2SAT 97
[2020-03-11 04:10] VITALS: BP 167/63; PULSE 74; RESP 18; TEMP 37; O2SAT 99
[2020-03-11 06:00] VITALS: BMI 23.2
[2020-03-11 06:34] LABS: Glucose Point of Care 232 mg/dL (70-110)
[2020-03-11] MEDS: spironolactone 25 mg Tablet 50 MG PO (06:37)
[2020-03-11 07:56] VITALS: BP 160/72; PULSE 88; RESP 17; TEMP 36.6; O2SAT 97
[2020-03-11 08:05] VITALS: PULSE 88; RESP 16; O2SAT 97
[2020-03-11] MEDS: albuterol 8 gm MDI 2 PUFF INHALATION (08:05)
[2020-03-11] MEDS: lactulose oral liq 20 gm/30 mL UDC PO (09:22)
[2020-03-11] MEDS: FUROsemide 40 mg Tablet PO (09:23)
[2020-03-11] MEDS: pantoprazole DR 40 mg Tablet PO (09:23)
[2020-03-11 10:27] LABS: Basophils # 0.1 10^3/uL (0.0-0.1); Basophils % 1.2 %; Eosinophils # 0.2 10^3/uL (0.0-0.8); Eosinophils % 4.1 %; Hematocrit 23.9 % (42.0-52.0); Hemoglobin 8.2 g/dL (11.7-16.6); Lymphocytes # 0.9 10^3/uL (0.8-4.8); Lymphocytes % 17.5 %; Mean Corpuscular HGB Conc 34.3 g/dL (30.0-36.0); Mean Corpuscular Hemoglobin 32.2 pg (28.0-34.0); Mean Corpuscular Volume 93.7 fL (80-94); Mean Platelet Volume 9.1 fL (7.4-10.4); Monocytes # 0.6 10^3/uL (0.2-0.9); Monocytes % 11.8 %; Neutrophils # 3.29 10^3/uL (1.8-7.7); Neutrophils % 64.8 %; Nucleated Red Blood Cells % 0 %; Platelet Count 96 10^3/cmm (130-400); Red Blood Count 2.55 10^6/uL (4.1-5.3); Red Cell Distribution Width 14.7 % (12.1-15.1); White Blood Count 5.1 10^3/uL (4.0-10.0)
--- NOTE | 2020-03-11 10:27 | PC.SOCIAL ---
IMM Update Pg. 2 of IMM updated and reviewed with patient, who verbalized understanding. Copy provided.
--- NOTE | 2020-03-11 10:42 | P.DS_ITS ---
Discharge Providers Date of Admission: 03/08/20 11:59 Date of Discharge: March 11, 2020 Attending Provider at Admission: Eladio Muñoz MD Attending Provider at Discharge: Maikel Brown MD Primary Care Provider: Andreia De León DO Diagnoses at Discharge Discharge Diagnosis (1) Acute hepatic encephalopathy: Status: Acute (2) Decompensated hepatic cirrhosis: Status: Acute (3) Elevated troponin: Status: Acute (4) GENESIS (acute kidney injury): Status: Acute (5) Diabetes: Status: Acute (6) Anemia: Status: Acute Qualifiers: Anemia type: unspecified type Qualified Code(s): D64.9 - Anemia, unspecified (7) Portal hypertension: Status: Acute Reason for Visit Reason for Visit: [facility] Hospital Course Hospital Course Hugo Oquendo is a 54 year old male Hugo Oquendo is a 54 year old male who has history of hepatitis C induced liver cirrhosis portal hypertension, recurrent paracentesis, at one point required peritoneal drain which was removed due to spontaneous bacterial peritonitis, status post TIPS sent by today because of worsening confusion. patient was recently discharged from the hospital after management of hepatic encephalopathy and confusion. During that visit ammonia level was greater than 100, required 1 unit of PRBC after hemoglobin dropped to 6.8, he was discharged on 02/22. He was seen in the emergency department yesterday for confusion, his confusion improved after 1 dose of lactulose he was discharged home. Patient returned with similar complaint today with worsening confusion. Patient is stating that he has been constipated for quite a while, he recently started taking his lactulose, he might have missed few doses as well. He did not notice any fever, abdominal pain, hemoptysis, hematemesis, hematochezia, active bleeding. He has observed significant improvement in recurrent ascites after TIPS procedure. Patient is denying cough, shortness of breath, orthopnea, PND, dysuria, diarrhea and severe abdominal pain. Diagnostics in the ER revealed stable hemoglobin, no signs of sepsis, GENESIS, bilirubin 1.4, ammonia level 64 which was 74 yesterday, low albumin 2.3, alcohol level less than 10, only remarkable finding on today's blood work is troponin 160, previously his troponin has been ranging in 90s, patient does not complain of active chest pain, orthopnea or PND, repeat CT head today is unremarkable otherwise calcified plaque is seen around carotid siphon, yesterday chest x-ray was showing interstitial markings however if you compared with previous x-ray it shows improvement, EKG shows sinus rhythm without ischemic or infarctive change. Patient went to the hospital for acute hepatic encephalopathy. He was started on scheduled lactulose with multiple rounds of counseling with both patient and his regarding need of continuous lactulose and rifaximin is not as an outpatient to prevent further hepatic encephalopathy. Other causes of encephalopathy including drug screen, CT head, sepsis work-up including infective diarrhea work-up and peritonitis were all negative. Patient's hemoglobin remained stable. On admission patient had mild GENESIS for which his dose of diuretics were modified and GENESIS resolved. For elevated blood pressure patient was started on propranolol 10 mg 3 times a day which will also help with portal hypertension and hepatic encephalopathy. Patient's medication and continuous need of lactulose and rifaximin even as an outpatient was discussed in detail again with patient and his on discharge. Patient is been discharged in hemodynamically stable condition with advised to follow-up with his primary care provider on set appointment date. Physical Exam Const: COMMON NORMALS: no acute distress and patient oriented x3 HENMT: COMMON NORMALS: oropharynx normal Neck/C-Spine: COMMON NORMALS: no JVD Resp: COMMON NORMALS: normal respiratory effort and clear to auscultation bilaterally AUSCULTATION: clear to auscultation bilaterally Cardio: COMMON NORMALS: no JVD, regular rhythm, S1 normal heart sound present, S2 normal heart sound present and No murmurs present (Cardio) RHYTHM: regular rhythm HEART SOUNDS: S1 normal heart sound present and S2 normal heart sound present GI: COMMON NORMALS: Normal to inspection, nondistended, normoactive bowel sounds present, Soft to palpation and non-tender PALPATION: Yes Soft to palpation Extremity: COMMON NORMALS: no joint enlargement GENERAL: Yes edema (2+ ankle edema) Neuro: COMMON NORMALS: patient oriented x3 and moves all extremities Skin: COMMON NORMALS: no rashes or lesions noted GENERAL SKIN EXAM: no rashes or lesions noted Discharge Data Data Completed and Pending: Completed Studies During Hospitalization Category Date Time Status CT head wo con* 7 0450 Stat Cat Scan 03/06/20 17:41 Completed CV echo limited 9 6590 Routine Ultrasound 03/07/20 08:41 Completed US abdomen limite d 24012 Routine Ultrasound 03/07/20 16:31 Completed Pending at discharge Category Date Time Status Ammonia Routine Lab 03/11/20 10:09 Received Blood Culture Sta t Lab 03/06/20 19:03 Results Comprehensive Met abolic Panel Routi ne Lab 03/11/20 10:09 Received Labs from last 24 hours 03/11/20 03/11/20 03/11/20 10:09 10:09 10:09 WBC 5.1 RBC 2.55 L Hgb 8.2 L Hct 23.9 L MCV 93.7 MCH 32.2 MCHC 34.3 RDW 14.7 Plt Count 96 L MPV 9.1 Neut % (Auto) 64.8 Lymph % (Auto) 17.5 [place] % (Auto) 11.8 Eos % (Auto) 4.1 Baso % (Auto) 1.2 Neut # (Auto) 3.29 Lymph # (Auto) 0.9 [place] # (Auto) 0.6 Eos # (Auto) 0.2 Baso # (Auto) 0.1 Nucleated RBC % (a uto) 0 Nucleated RBCs # 0.0 Sodium Pending Potassium Pending Chloride Pending Carbon Dioxide Pending Anion Gap Pending BUN Pending Creatinine Pending GFR Calculation Pending Glucose Pending POC Glucose Calculated Osmolal ity Pending Calcium Pending Total Bilirubin Pending AST Pending ALT Pending Alkaline Phosphata se Pending Ammonia Pending Total Protein Pending Albumin Pending Globulin Pending 03/11/20 03/10/20 03/10/20 06:31 19:46 16:47 WBC RBC Hgb Hct MCV MCH MCHC RDW Plt Count MPV Neut % (Auto) Lymph % (Auto) [place] % (Auto) Eos % (Auto) Baso % (Auto) Neut # (Auto) Lymph # (Auto) [place] # (Auto) Eos # (Auto) Baso # (Auto) Nucleated RBC % (a uto) Nucleated RBCs # Sodium Potassium Chloride Carbon Dioxide Anion Gap BUN Creatinine GFR Calculation Glucose POC Glucose 232 H 164 H 138 H Calculated Osmolal ity Calcium Total Bilirubin AST ALT Alkaline Phosphata se Ammonia Total Protein Albumin Globulin 03/10/20 11:19 WBC RBC Hgb Hct MCV MCH MCHC RDW Plt Count MPV Neut % (Auto) Lymph % (Auto) [place] % (Auto) Eos % (Auto) Baso % (Auto) Neut # (Auto) Lymph # (Auto) [place] # (Auto) Eos # (Auto) Baso # (Auto) Nucleated RBC % (a uto) Nucleated RBCs # Sodium Potassium Chloride Carbon Dioxide Anion Gap BUN Creatinine GFR Calculation Glucose POC Glucose 178 H Calculated Osmolal ity Calcium Total Bilirubin AST ALT Alkaline Phosphata se Ammonia Total Protein Albumin Globulin Vitals: Last Vital Signs Temp 97.9 F 03/11/20 07:56 Pulse 88 03/11/20 08:05 Resp 16 03/11/20 08:05 BP 160/72 03/11/20 07:56 Pulse Ox 97 03/11/20 08:05 Discharge Plan Discharge Patient Disposition: Home Condition: Stable Prescriptions: New propranolol 20 mg Tablet 10 mg PO TID 30 Days Qty: 45 RF: 0 Continued nitroglycerin [Nitrostat] 0.4 mg tablet, sublingual 0.4 mg SUBLINGUAL Q5M PRN (Reason: Chest Pain) RF: 0 fluticasone propion-salmeterol [Advair Diskus] 250-50 mcg/dose Blister With Device 1 inh INHALATION BID RF: 0 spironolactone 50 mg tablet 50 mg PO QAM RF: 0 Xifaxan 550 mg Tablet 550 mg PO BID Qty: 60 RF: 0 lactulose 20 gram/30 mL Solution 20 g PO Q12H Qty: 300 RF: 0 ondansetron HCl 4 mg tablet 4 mg PO QID PRN (Reason: Nausea And Vomiting) RF: 0 aspirin 81 mg Tablet,Delayed Release (Dr/Ec) 81 mg PO PRN RF: 0 Acid Billet Grinder (famotidine) 20 mg Tablet 20 mg PO BID PRN (Reason: GERD) RF: 0 oxycodone 30 mg tablet 30 mg PO 5XD PRN (Reason: Pain) RF: 0 Ventolin HFA 90 mcg/actuation HFA aerosol inhaler 1 - 2 puff INHALATION Q4H PRN (Reason: Shortness Of Breath) RF: 0 Novolog Flexpen U-100 Insulin 100 unit/mL (3 mL) insulin pen See Rx Instructions .ROUTE .COMPLEX RF: 0 Tresiba FlexTouch U-100 100 unit/mL (3 mL) insulin pen See Rx Instructions .ROUTE .COMPLEX RF: 0 Farxiga 5 mg tablet See Rx Instructions .ROUTE .COMPLEX RF: 0 OxyContin 10 mg tablet,oral only,ext.rel.12 hr 10 mg PO Q12H PRN (Reason: Pain) RF: 0 lorazepam 0.5 mg tablet 0.5 mg PO BEDTIME PRN (Reason: unknown) RF: 0 Dexilant 30 mg capsule,biphase delayed releas 30 mg PO DAILY RF: 0 Changed furosemide 40 mg tablet 60 mg PO DAILY Qty: 0 RF: 0 Discharge Orders: Discharge Order (Routine); Ordered 03/11/20 Ordered By: Maikel Brown Referrals: Andreia De León DO [Primary Care Provider] - 03/18/20 3:30 pm Discharge Diet: Usual diet Discharge Activity: Resume usual activity Patient Instructions: Propranolol (By mouth), Acute Kidney Injury (DC), Hepatic Encephalopathy (GEN) Discharge Attestations Time Spent in Discharge Care*: greater than 30 min Specific Discharge Activities: educating patient, educating and/or supporting family/caregiver, discussing with pillowcase maker/social workers/dc planners, documenting/other paperwork and evaluating patient/reviewing data Status at Discharge: Cognitive status at discharge: mildly impaired cognition , Behavioral status at discharge: cooperative , Functional status at discharge: independent ambulation Overall status at discharge: patient is back to baseline Quality Metrics Clinical Quality Measures During this hospital stay, did patient experience: None Coding Level of Care Code Acute Chief Catalyst Operator for [facility] Fwd Exam Comprehensive Diagnoses Acute hepatic encephalopathy K72.00 Decompensated hepatic cirrhosis K72.90; K74.60 Elevated troponin R77.8 GENESIS (acute kidney injury) N17.9 Diabetes E11.9 Anemia D64.9 Anemia type: unspecified type Portal hypertension K76.6
[2020-03-11 10:45] LABS: Alanine Aminotransferase 15 U/L (0-41); Albumin Level 2.3 g/dL (3.5-5.2); Alkaline Phosphatase 118 IU/L (40-130); Anion Gap 13.8 (5-19); Aspartate Amino Transferase 33 U/L (0-40); Blood Urea Nitrogen 19 mg/dL (6-20); Calcium 8.1 mg/dL (8.5-10.5); Carbon Dioxide 19 mmol/L (22-29); Chloride 105 mmol/L (98-107); Globulin 3.4 g/dL (1.3-4.6); Glomerular Filtration Rate 69.8 mL/min (90-130); Glucose 259 mg/dL (65-115); Osmolality Calculated 289 mOsm/kg (285-295); Potassium 3.8 mmol/L (3.5-5.1); Sodium 134 mmol/L (136-145); Total Bilirubin 1.3 mg/dL (0.15-1.2); Total Protein 5.7 g/dL (6.6-8.7)
[2020-03-11 10:46] LABS: Ammonia 74 umol/L (16-60)
[2020-03-11] MEDS: propranolol 20 mg Tablet 10 MG PO (11:12)
[2020-03-11 11:38] LABS: Glucose Point of Care 227 mg/dL (70-110)
[2020-03-11 11:51] VITALS: BP 172/73; PULSE 77; RESP 16; TEMP 36.4; O2SAT 99
--- NOTE | 2020-03-11 18:31 | PC.NURSE ---
AT APPROX. 1130 PT WAS ON HIS HANDS AND KNEES IN THE DOORWAY BY THE BATHROOM, HE YELLED AT EVS STAFF. HIS NURSE WAS COMING OUT OF A ROOM AND IMMEDIATELY RESPONDED TO HIS ROOM. WHEN ASKED WHAT HAPPENED, PT ASKED, ARE YOU GOING TO WIPE MY BUTT? NURSE TOLD PT YES, WHEN WE GET YOU UP. PT WAS HELPED UP, BOTTOM WIPED AND HE WALKED BACK TO HIS CHAIR. NO S/SX OF INJURY. DR. MAYFIELD NOTIFIED, WANTED UPDATED VS AND ORTHO BPS.
--- NOTE | 2020-03-11 18:47 | PC.NURSE ---
AT APPROX. [address] MAYFIELD ENTERED THE ROOM TO D/C PT. PTS HAD REMOVED PTS IV. I EDUCATED HER THAT SHE WAS NOT ALLOWED TO TAKE HIS IV OUT. THE IV CATHETER WAS FOUND INTACT AND LAYING ON PTS BED.
[2020-03-11 18:59] VITALS: BP 172/73; PULSE 77; RESP 16; TEMP 36.4; O2SAT 99
== END 2020-03-11 14:15 | disposition home or self-care (01) | DRG 442 ==
LOC: ER 19:47 → MEDSURG 19:49
PROVIDERS: Family Medicine; Internal Medicine; Admitting Provider Internal Medicine; Emergency Provider Emergency Medicine; PCP Family Medicine; Visit Provider Student in an Organized Health Care Education/Training Program
DX: K72.00 Acute and subacute hepatic failure without coma (principal); K76.6 Portal hypertension; N17.9 Acute kidney failure, unspecified; Z86.19 Personal history of other infectious and parasitic diseases; K74.60 Unspecified cirrhosis of liver; G89.29 Other chronic pain; M54.2 Cervicalgia; M54.5 Low back pain; E11.42 Type 2 diabetes mellitus with diabetic polyneuropathy; D64.9 Anemia, unspecified; R19.7 Diarrhea, unspecified; Z79.82 Long term (current) use of aspirin; Z79.4 Long term (current) use of insulin; Z96.89 Presence of other specified functional implants
CPT/HCPCS: 12345; 36415; 36416; 36600; 70450; 71045; 76705; 80051; 80053; 80061; 80307; 81001; 82140; 82274; 82330; 82550; 82607; 82746; 82805; 82962; 83540; 83550; 83605; 83630; 83690; 84443; 84484; 85025; 85045; 85049; 85384; 85610; 85730; 87040; 87426; 87493; 87506; 93005; 93308; 94640; 96372; 99282; 99283; G0378; J1815; J3535

== ENCOUNTER → 2020-03-19 10:03 | Outpatient (BNVA) | payer MEDICARE, MEDICAID, SELFPAY | PROVIDERS: PCP Family Medicine; Visit Provider Nurse Practitioner | DX: G89.29 Other chronic pain (principal); M54.2 Cervicalgia; M54.5 Low back pain; E11.40 Type 2 diabetes mellitus with diabetic neuropathy, unspecified; F17.210 Nicotine dependence, cigarettes, uncomplicated; Z95.828 Presence of other vascular implants and grafts; Z79.891 Long term (current) use of opiate analgesic | CPT/HCPCS: 99214 ==

== ENCOUNTER 2020-05-27 12:19 | Emergency (ER) | payer MEDICARE, MEDICAID, SELFPAY ==
[2020-05-27] VITALS (8 sets, daily range): BP systolic 165–221; BP diastolic 98–110; PULSE 88–99; RESP 18–80; TEMP 36.4; O2SAT 92–95; BMI 34.2
--- NOTE | 2020-05-27 | CT_ITS ---
WS: [id number] CT HEAD NONCONTRAST HISTORY: CONFUSION TECHNIQUE: Contiguous axial imaging performed through the brain in 2.5 mm imaging. Bone and soft tiss ue windows. Sagittal and coronal reformats reviewed. All CT scans at [facility] use at ast one of these dose optimization techniques: automated exposure control; mA and/or kV adjustment pe r patient size (includes targeted exams where dose is matched to clinical indication); or iterative r econstruction. DLP: 1953.24 mGy.cm COMPARISON: 03/06/2020 Mild motion artifact causing poor distinction of the cortical medullary junction. No hemorrhage is id entified. No midline shift. No atrophy or prior infarcts or herniation. Ventricles: Normal size with no hydrocephalus. No inferior displacement of the cerebellar tonsils. Paranasal sinuses: Small air-fluid level in the RIGHT maxillary sinus. Mastoid air cells: Effusion RIGHT mastoid air cells. Calvarium and scalp: Significantly limited by motion. No fracture identified. There is marked soft ti ssue edema and anasarca around the skull and extending over the facial bones and masseter spaces. CT/CT head wo con* [id number] IMPRESSION: 1. Study is limited by motion artifact. 2. No acute intracranial hemorrhage identified. 3. Large amount of anasarca and soft tissue edema involving the scalp and exte nding over the facial bones.
--- NOTE | 2020-05-27 12:29 | XR_ITS ---
WS: [id number] PORTABLE CHEST HISTORY: reduced breath sounds COMPARISON: 03/05/2020 Lung biopsy decreased. There is diffuse interstitial thickening and fluid overload which is new since the prior study. No focal consolidation or lobar collapse. No pneumothorax. Very small pleural effus ions are suspected. Cardiac size: Mildly enlarged cardiac silhouette. Mediastinum/Aorta: Mild atherosclerosis aorta. No osseous abnormality seen. XR/XR chest 1V portable [id number] IMPRESSION: Moderate pulmonary edema, new since 03/03/2020.
--- NOTE | 2020-05-27 12:29 | CT_ITS ---
WS: [id number] CT CHEST, ABDOMEN AND PELVIS WITHOUT CONTRAST HISTORY: ascites, abd pain TECHNIQUE: Contiguous 5 mm axial imaging performed through the chest, abdomen and pelvis without IV c ontrast, oral contrast has not been provided. Coronal and sagittal reformats chest. Coronal and sagit hosea reformats through the abdomen and pelvis. All CT scans at [facility] use at least one of these dose optimization techniques: automated exposure control; mA and/or kV adjustment per patie nt size (includes targeted exams where dose is matched to clinical indication); or iterative reconstr uction. CONTRAST: None DLP: 2535.93 mGy.cm COMPARISON: 02/19/2020. This study significantly limited without contrast and motion artifact. Chest CT: Marked pulmonary edema with small to moderate bilateral layering pleural effusions. Moderat e dilatation of the pulmonary artery. Thoracic aorta is poorly visualized due to motion. No significa nt pericardial effusion. Diffuse soft tissue edema is severe. Bilateral gynecomastia. Abdomen CT: Severe cirrhosis. Patient is status post TIPS procedure. No change in the location of the portal venous stent since 02/19/2020. Spleen is not significantly enlarged. Gallbladder is poorly visu alized. Perinephric stranding around the kidneys. No obvious renal obstruction. There is severe anasa rca and mesenteric edema. Marked motion artifact causing limited evaluation of the colon. There is fe aki retention. Obstruction or pneumatosis cannot be excluded with this amount of motion artifact. Grover e air cannot be excluded. Pelvic CT: Moderate amount of ascites. Diffuse soft tissue anasarca. There is a Lomas catheter presen t. CT/CT chest abd pel wo con IMPRESSION: 1. Quality of examination is significantly limited by motion artifact and lack of contrast. 2. Severe diffuse soft tissue edema and anasarca throughout the chest, abdomen and pelvis. 3. Small to moderate bilateral pleural effusions. 4. Small to moderate amount of ascites. 5. TIPS appears unchanged in position as compared to 02/19/2020. 6. Cirrhotic liver. 7. Marked pulmonary edema.
--- NOTE | 2020-05-27 12:35 | ECG_ITS ---
[facility] Test Date: 2020-05-27 Pat Name: Hugo Oquendo Department: Room: Gender: Male Trust Manager: : 1965 Requested By: Aamir Canela Order Number: [id number] Skylar MD: ISACC DARLING Measurements Intervals [place] Rate: 88 P: [place]: QRS: -2 QRSD: 90 T: 120 QT: 403 QTc: 489 Interpretive Statements ATRIAL FIBRILLATION LOW QRS VOLTAGE [QRS DEFLECTION < 0.5/1.0 mV IN LIMB/CHEST LEADS] MODERATE T-WAVE ABNORMALITY, CONSIDER ANTERIOR ISCHEMIA [-0.1+ mV T WAVE IN V3/V4] Compared to ECG 03/07/2020 06:05:34 Low QRS voltage now present T-wave abnormality now present Possible ischemia now present Sinus rhythm no longer present Short [place] interval no longer present Left-axis deviation no longer present Electronically Signed On 05-27-2020 20:41:53 CDT by ISACC DARLING [id number]
[2020-05-27] MEDS: LORazepam 2 mg/mL INJ 1 mL (12:53)
[2020-05-27] MEDS: haloperidol inj 5 mg/mL INJ 1 mL IM (13:32)
--- NOTE | 2020-05-27 13:40 | W.ED.AMS ---
HPI - Altered Mental Status General: Chief Complaint: Altered Mental Status Stated Complaint: AMS/ CONFUSED/ COMBATIVE Time Seen by Provider: 05/27/20 12:26 History of Present Illness: HPI narrative: The patient is a 54-year-old male with past medical history end-stage liver disease with TIPS procedure done at [facility] recently discharged from [facility] less than a week ago, ascites, hep C, CKD, diabetes. He comes to the ER from halfway today with altered mental status. They said since his discharge less than a week ago he has gained approximately 60 pounds. He has a edema to his belly and extremities as well as his periorbital area are swollen as well. He is combative with staff and will not let us draw labs without swinging arms potentially striking this. He will be sedated with Ativan. He has had this issue in the past with his liver failure where he becomes altered and has elevated ammonia. MD complaint: altered mental status and decreased responsiveness Review of Systems General: Reports: ROS unobtainable due to medical condition and ROS unobtainable due to mental status PFSH ED PFSH: Medical History (Updated 05/27/20 @ 17:57 by Aamir Canela MD) Ascites Chronic cervical pain Chronic low back pain Diabetes Diabetic neuropathy, painful Elevated troponin Encounter for long-term opiate analgesic use Liver cirrhosis Liver failure Somatic dysfunction of back THORACIC AND LUMBAR Surgical History (Updated 03/19/20 @ 11:13 by MARIELY Lorenzana) History of abdominal paracentesis History of colonoscopy History of esophagogastroduodenoscopy (EGD) Hx of circumcision Hx of inguinal hernia repair (~05/22/18) LAP REPAIR OF RIGHT INGUINAL HERNIA WITH ULTRAPRO 15X10 CM MESH. Hx of oral surgery Family History Father Cancer LUNG CANCER Other Diabetes Heart disease Lung disease Myocardial infarct Stroke Denies family history of Anesthesia complication Bleeding disorder Social History Smoking and tobacco status: current every day smoker cigarettes Alcohol intake: former Year of sobriety/quit date alcohol: 2009 Caregiver/support person: Yes Lives independently: Yes Household members: friend(s) Current occupational status: disabled History of recent travel: No Physical Exam Const: EXAM LIMITATIONS: altered mental status GENERAL APPEARANCE: combative, disheveled and ill appearing NUTRITIONAL APPEARANCE: overweight OTHER: Patient has altered mental status and is unable to answer any questions. When you touch him he swings violently and says come on man! Eye: COMMON NORMALS: Equal, round and reactive pupils present and EOMs intact bilaterally GENERAL EYE: other (Periorbital edema bilaterally) PUPIL: Yes Equal, round and reactive pupils present Neck/C-Spine: COMMON NORMALS: full ROM, no lymphadenopathy, no meningeal signs and no JVD GENERAL: Yes normal visual inspection Lymph: LYMPHATIC: no lymphadenopathy noted Chest: COMMONS NORMALS: normal inspection of the chest and normal palpation of entire chest wall Resp: COMMON NORMALS: normal respiratory effort EFFORT & INSPECTION: Yes tachypneic AUSCULTATION: diminished lung sounds Cardio: COMMON NORMALS: no JVD, regular rate, regular rhythm, S1 normal heart sound present, S2 normal heart sound present and Peripheral pulses 2+ throughout RATE: regular rate RHYTHM: regular rhythm HEART SOUNDS: S1 normal heart sound present and S2 normal heart sound present PERIPHERAL PULSES: Peripheral pulses 2+ throughout GI: COMMON NORMALS: Soft to palpation, non-tender and no masses INSPECTION: Yes Anasarca PALPATION: Yes Soft to palpation OTHER: Abdomen soft but distended likely ascites. : COMMON NORMALS: Yes no CVA tenderness BLADDER/KIDNEY EXAM: Yes no CVA tenderness Back/Pelvis: COMMON NORMALS: no CVA tenderness, thoracic and lumbar spine normal to inspection, no thoracic nor lumbar tenderness and thoraco-lumbar ROM normal Extremity: COMMON NORMALS: normal to inspection, full ROM, capillary refill normal and no joint enlargement GENERAL: Yes normal exam except as noted OTHER: 3+ peripheral edema in bilateral lower extremities. Neuro: MENINGEAL SIGNS: Yes no meningeal signs Skin: COMMON NORMALS: no rashes or lesions noted GENERAL SKIN EXAM: no rashes or lesions noted Urinary Catheter Management^: Lomas: Cath Placed During This Visit: yes Urinary Catheter Date of Insertion: 05/27/20 Urinary Catheter Time of Insertion: 13:17 Procedures Central Line Placement Right SC: Time Out Performed: Yes Patient Placed on Monitor/Pulse Ox: Yes MD Prep: mask, gown and gloves Central Line Prep: Chlorhexidine scrub and sterile drapes applied Local Anesthetic: lidocaine 1% Amount of anesthesia used (mL): 4 Ultrasound Used for Placement: Yes Central Line Lumen Inserted: triple Post Procedure: sutured in place, good blood return, all ports aspirated, flushed, capped and sterile dressing applied Patient Tolerated Procedure: well and no complications Complications: none Additional Comments: pt became hospice. no post procedure xray done. Course Vital Signs: Vital signs: Vital Signs Temperature 97.5 F L 05/27/20 16:00 Pulse Rate 99 05/27/20 17:00 Respiratory Rate 18 05/27/20 17:00 Blood Pressure 200/98 05/27/20 17:00 Pulse Oximetry 95 05/27/20 17:00 MDM - Altered Mental Status MDM Narrative: Medical decision making narrative: This patient is a very unfortunate case. He is a sick male with hep C and end-stage liver failure with TIPS placement earlier this year. He left [facility] 3 days ago AGAINST MEDICAL ADVICE because he did not want to be treated anymore. Today he comes to the ER combative and altered mental status. He was given Haldol and Ativan to sedate him and placed a right subclavian central line. He was given Lasix and scanned. He has diffuse anasarca and pulmonary edema. Discussed with the patient's who is currently the medical decision maker as he is incapacitated. Recommended transferring to [facility] which she absolutely refuses because she says he did not want that and just left AGAINST MEDICAL ADVICE there. Also recommended admitting him to the hospital here for diuresis and lactulose to get his ammonia down as he can possibly recover his mental status if those 2 things improve. Discuss[address] with Dr. Vega who came down and talked with her further. She had been arranging home hospice as he did not want any further medical treatment. She tells me in the ER that she wishes him to be a DNR DNI and that she does not want any invasive procedures to be done. I told her there is a good possibility that with medical treatment and procedures at another facility his life can be spared albeit he still has end-stage liver disease and would likely be right back in the hospital. She says even so he has been in and out of the hospital and he does not wish to be treated anymore. She is comfortable with the patient returning home to a hospice environment where he can receive comfort care only and that is what she prefers. She does not want him admitted to the hospital at all she prefers for him to go home and peacefully. Dr. Vega ordered the home hospice and I will discharge the patient home. Hospice nurse to meet them home. Lab Data: Labs: Lab Results 05/27/20 05/27/20 05/27/20 Range/Units 13:18 13:47 14:43 WBC (4.0-10.0) 10^3/ uL RBC (4.1-5.3) 10^6/u L Hgb (11.7-16.6) g/dL Hct (42.0-52.0) % MCV (80-94) fL MCH (28.0-34.0) pg MCHC (30.0-36.0) g/dL RDW (12.1-15.1) % Plt Count (130-400) 10^3/c mm MPV (7.4-10.4) fL Neut % (Auto) % Lymph % (Auto) % Lincoln % (Auto) % Eos % (Auto) % Baso % (Auto) % Neut # (Auto) (1.8-7.7) 10^3/u L Lymph # (Auto) (0.8-4.8) 10^3/u L Lincoln # (Auto) (0.2-0.9) 10^3/u L Eos # (Auto) (0.0-0.8) 10^3/u L Baso # (Auto) (0.0-0.1) 10^3/u L Nucleated RBC % (a uto) % Nucleated RBCs # /100WBC PT (12.1-14.9) SECO NDS INR (0.8-1.2) Specimen Type Arterial Sample Site Radial, left ABG pH 7.44 (7.35-7.45) ABG pCO2 29.0 L (35-45) mmHg ABG pO2 56.3 L (80.0-100.0) mmH g ABG HCO3 19.8 L (22-26) mmol/L ABG Base Excess -3.6 L (-2.0-2.0) mmol/ L Josafat Test Pos Hematocrit 29.3 L (42-52) % O2 Delivery Device Nc O2 Liters/Min 2.0 % FiO2 28.0 % Control Valve Mechanic ID Ed Sodium (136-145) mmol/L Potassium (3.5-5.1) mmol/L Chloride (98-107) mmol/L Carbon Dioxide (22-29) mmol/L Anion Gap (5-19) BUN (6-20) mg/dL Creatinine (0.7-1.2) mg/dL GFR Calculation (90-130) mL/min Glucose (65-115) mg/dL Calculated Osmolal ity (285-295) mOsm/k g Lactate (0.5-2.2) mmol/L Calcium (8.5-10.5) mg/dL Total Bilirubin (0.15-1.2) mg/dL AST (0-40) U/L ALT (0-41) U/L Alkaline Phosphata se (40-130) IU/L Ammonia 185 H (16-60) umol/L Troponin T Baselin e (0-15) ng/L Troponin T 120 Min [place] (0-15) ng/L Delta Troponin T (0-10) ABS# NT-Pro-B Natriuret Pep (0-125) pg/mL Total Protein (6.6-8.7) g/dL Albumin (3.5-5.2) g/dL Globulin (1.3-4.6) g/dL Lipase (13-60) U/L Urine Color Yellow (Yellow) Urine Appearance Cloudy (CLEAR) Urine pH 5 (5-7) Ur Specific Gravit y 1.015 (1.005-1.030) Urine Protein 3+ H (Negative) Urine Glucose (UA) Norm (Normal) Urine Ketones 1+ H (Negative) Urine Blood 3+ H (Negative) Urine Nitrate Negative (Negative) Urine Bilirubin Neg (Negative) Urine Urobilinogen Norm (Negative) mg/dL Ur Leukocyte Amanda ase Negative (Negative) Urine RBC 0-4 H (0-2) /hpf Urine WBC None (0-5) /hpf Ur Squamous Epith Cells 0-4 H (0-5) /hpf Amorphous Sediment 4+ /hpf Urine Bacteria Trace (NONE) /hpf Ethyl Alcohol (0-10) mg/dL 05/27/20 05/27/20 05/27/20 Range/Units 14:43 14:43 14:43 WBC 6.4 (4.0-10.0) 10^3/ uL RBC 2.67 L (4.1-5.3) 10^6/u L Hgb 8.7 L (11.7-16.6) g/dL Hct 27.0 L (42.0-52.0) % MCV 101.1 H (80-94) fL MCH 32.6 (28.0-34.0) pg MCHC 32.2 (30.0-36.0) g/dL RDW 16.1 H (12.1-15.1) % Plt Count 106 L (130-400) 10^3/c mm MPV 9.2 (7.4-10.4) fL Neut % (Auto) 81.7 % Lymph % (Auto) 6.6 % Lincoln % (Auto) 9.4 % Eos % (Auto) 0.6 % Baso % (Auto) 1.4 % Neut # (Auto) 5.22 (1.8-7.7) 10^3/u L Lymph # (Auto) 0.4 L (0.8-4.8) 10^3/u L Lincoln # (Auto) 0.6 (0.2-0.9) 10^3/u L Eos # (Auto) 0.0 (0.0-0.8) 10^3/u L Baso # (Auto) 0.1 (0.0-0.1) 10^3/u L Nucleated RBC % (a uto) 0 % Nucleated RBCs # 0.0 /100WBC PT (12.1-14.9) SECO NDS INR (0.8-1.2) Specimen Type Sample Site ABG pH (7.35-7.45) ABG pCO2 (35-45) mmHg ABG pO2 (80.0-100.0) mmH g ABG HCO3 (22-26) mmol/L ABG Base Excess (-2.0-2.0) mmol/ L Josafat Test Hematocrit (42-52) % O2 Delivery Device O2 Liters/Min % FiO2 % Control Valve Mechanic ID Sodium 137 (136-145) mmol/L Potassium 5.2 H (3.5-5.1) mmol/L Chloride 109 H (98-107) mmol/L Carbon Dioxide 20 L (22-29) mmol/L Anion Gap 13.2 (5-19) BUN 49 H (6-20) mg/dL Creatinine 1.2 (0.7-1.2) mg/dL GFR Calculation 63.1 L (90-130) mL/min Glucose 140 H (65-115) mg/dL Calculated Osmolal ity 299 H (285-295) mOsm/k g Lactate 2.3 H (0.5-2.2) mmol/L Calcium 7.7 L (8.5-10.5) mg/dL Total Bilirubin 1.3 H (0.15-1.2) mg/dL AST 34 (0-40) U/L ALT 17 (0-41) U/L Alkaline Phosphata se 168 H (40-130) IU/L Ammonia (16-60) umol/L Troponin T Baselin e (0-15) ng/L Troponin T 120 Min [place] (0-15) ng/L Delta Troponin T (0-10) ABS# NT-Pro-B Natriuret Pep [id number] H (0-125) pg/mL Total Protein 5.2 L (6.6-8.7) g/dL Albumin 2.0 L (3.5-5.2) g/dL Globulin 3.2 (1.3-4.6) g/dL Lipase 39 (13-60) U/L Urine Color (Yellow) Urine Appearance (CLEAR) Urine pH (5-7) Ur Specific Gravit y (1.005-1.030) Urine Protein (Negative) Urine Glucose (UA) (Normal) Urine Ketones (Negative) Urine Blood (Negative) Urine Nitrate (Negative) Urine Bilirubin (Negative) Urine Urobilinogen (Negative) mg/dL Ur Leukocyte Amanda ase (Negative) Urine RBC (0-2) /hpf Urine WBC (0-5) /hpf Ur Squamous Epith Cells (0-5) /hpf Amorphous Sediment /hpf Urine Bacteria (NONE) /hpf Ethyl Alcohol < 10 (0-10) mg/dL 05/27/20 05/27/20 05/27/20 Range/Units 14:43 15:50 15:50 WBC (4.0-10.0) 10^3/ uL RBC (4.1-5.3) 10^6/u L Hgb (11.7-16.6) g/dL Hct (42.0-52.0) % MCV (80-94) fL MCH (28.0-34.0) pg MCHC (30.0-36.0) g/dL RDW (12.1-15.1) % Plt Count (130-400) 10^3/c mm MPV (7.4-10.4) fL Neut % (Auto) % Lymph % (Auto) % [place] % (Auto) % Eos % (Auto) % Baso % (Auto) % Neut # (Auto) (1.8-7.7) 10^3/u L Lymph # (Auto) (0.8-4.8) 10^3/u L [place] # (Auto) (0.2-0.9) 10^3/u L Eos # (Auto) (0.0-0.8) 10^3/u L Baso # (Auto) (0.0-0.1) 10^3/u L Nucleated RBC % (a uto) % Nucleated RBCs # /100WBC PT 18.80 H (12.1-14.9) SECO NDS INR 1.52 H (0.8-1.2) Specimen Type Sample Site ABG pH (7.35-7.45) ABG pCO2 (35-45) mmHg ABG pO2 (80.0-100.0) mmH g ABG HCO3 (22-26) mmol/L ABG Base Excess (-2.0-2.0) mmol/ L Josafat Test Hematocrit (42-52) % O2 Delivery Device O2 Liters/Min % FiO2 % Control Valve Mechanic ID Sodium (136-145) mmol/L Potassium (3.5-5.1) mmol/L Chloride (98-107) mmol/L Carbon Dioxide (22-29) mmol/L Anion Gap (5-19) BUN (6-20) mg/dL Creatinine (0.7-1.2) mg/dL GFR Calculation (90-130) mL/min Glucose (65-115) mg/dL Calculated Osmolal ity (285-295) mOsm/k g Lactate (0.5-2.2) mmol/L Calcium (8.5-10.5) mg/dL Total Bilirubin (0.15-1.2) mg/dL AST (0-40) U/L ALT (0-41) U/L Alkaline Phosphata se (40-130) IU/L Ammonia (16-60) umol/L Troponin T Baselin e 282 H* (0-15) ng/L Troponin T 120 Min [place] 272.1 H (0-15) ng/L Delta Troponin T -9.9 L (0-10) ABS# NT-Pro-B Natriuret Pep (0-125) pg/mL Total Protein (6.6-8.7) g/dL Albumin (3.5-5.2) g/dL Globulin (1.3-4.6) g/dL Lipase (13-60) U/L Urine Color (Yellow) Urine Appearance (CLEAR) Urine pH (5-7) Ur Specific Gravit y (1.005-1.030) Urine Protein (Negative) Urine Glucose (UA) (Normal) Urine Ketones (Negative) Urine Blood (Negative) Urine Nitrate (Negative) Urine Bilirubin (Negative) Urine Urobilinogen (Negative) mg/dL Ur Leukocyte Amanda ase (Negative) Urine RBC (0-2) /hpf Urine WBC (0-5) /hpf Ur Squamous Epith Cells (0-5) /hpf Amorphous Sediment /hpf Urine Bacteria (NONE) /hpf Ethyl Alcohol (0-10) mg/dL Discharge Plan Discharge Patient Disposition: Home Clinical Impression: Chronic hepatic failure with coma, Fluid overload, Pulmonary edema Condition: Serious Prescriptions: No Action nitroglycerin [Nitrostat] 0.4 mg tablet, sublingual 0.4 mg SUBLINGUAL Q5M PRN (Reason: Chest Pain) RF: 0 OxyContin 10 mg tablet,oral only,ext.rel.12 hr 10 mg PO Q12H PRN (Reason: Pain) 30 Days Qty: 60 RF: 0 fluticasone propion-salmeterol [Advair Diskus] 250-50 mcg/dose Blister With Device 1 inh INHALATION DAILY RF: 0 spironolactone 50 mg tablet 50 mg PO QAM RF: 0 Xifaxan 550 mg Tablet 550 mg PO BID Qty: 60 RF: 0 ondansetron HCl 4 mg tablet 4 mg PO QID PRN (Reason: Nausea And Vomiting) RF: 0 aspirin 81 mg Tablet,Delayed Release (Dr/Ec) 81 mg PO PRN RF: 0 albuterol sulfate [Ventolin HFA] 90 mcg/actuation HFA aerosol inhaler 1 - 2 puff INHALATION Q4H PRN (Reason: Shortness Of Breath) RF: 0 insulin aspart U-100 [Novolog Flexpen U-100 Insulin] 100 unit/mL (3 mL) insulin pen See Rx Instructions .ROUTE .COMPLEX RF: 0 Tresiba FlexTouch U-100 100 unit/mL (3 mL) insulin pen 14 unit SUBCUT BID RF: 0 Farxiga 5 mg tablet See Rx Instructions .ROUTE .COMPLEX RF: 0 Dexilant 60 mg Capsule,Biphase Delayed Releas 60 mg PO DAILY RF: 0 Tylenol Extra Strength 500 mg Tablet 500 - 1,000 mg PO PRN RF: 0 Aleve 220 mg Tablet 220 mg PO PRN RF: 0 ibuprofen 200 mg Tablet 200 mg PO PRN RF: 0 furosemide 40 mg tablet 80 mg PO BID RF: 0 oxycodone 30 mg tablet 15 mg PO TID PRN (Reason: Pain) RF: 0 lactulose 20 gram/30 mL solution 20 g PO TID RF: 0 lorazepam 0.5 mg tablet 0.125 mg PO BEDTIME PRN (Reason: unknown) RF: 0 Discharge Orders: Discharge ED (Routine); Ordered 05/27/20 Ordered By: Aamir Canela Referrals: Andreia De León DO [Primary Care Provider] - Discharge Diet: Advance as tolerated Discharge Activity: Resume usual activity Patient Instructions: Hospice Care, Fulminant Hepatic Failure (ED), Opioid Safety Activity Restrictions/Additional Instructions: Hugo has come in very sick from chronic liver failure and fluid overload and fluid in his lungs. We have offered admission to get the fluid and ammonia down however you say it is consistent with his wishes that he be discharged home with hospice and comfort care only as it is his wish to pass away comfortably at home and not receive any more medical care. The hospice nurse should meet you at home to help take care of him as soon as you guys get home. Call with any questions. Odalis kelley Coding Level of Care Code ED Light Industrial Supervisor for Eduin Fwd Exam Comprehensive
[2020-05-27 13:55] LABS: Urine Color Yellow (Yellow)
[2020-05-27 13:56] LABS: Add Urine Microscopic? YES; Bilirubin Urine Neg (Negative); Blood Urine 3+ (Negative); Glucose Urine UA Norm (Normal); Ketones Urine 1+ (Negative); Leukocyte Esterase Urine Negative (Negative); Nitrate Urine Negative (Negative); Protein Urine 3+ (Negative); Specific Gravity, Urine 1.015 (1.005-1.030); Urine Appearance Cloudy (CLEAR); Urobilinogen Urine Norm (Negative); pH Urine 5 (5-7)
[2020-05-27 13:57] LABS: ABG PH Result 7.44 (7.35-7.45); Arterial Blood Gas Hematocrit 29.3 % (42-52); Base Excess ABG -3.6 mmol/L (-2.0-2.0); Blood Gas Allen Test Pos; Blood Gas Sample Type Arterial; HCO3 ABG 19.8 mmol/L (22-26); PO2 ABG 56.3 mmHg (80.0-100.0)
[2020-05-27 13:58] LABS: Blood Gas Operator Identificat ED; Blood Gas Sample Site Radial, left; Oxygen Device NC
[2020-05-27 14:00] LABS: Add Urine Culture? No; Amorphous Sediment Urine 4+ /hpf; Bacteria Urine TRACE /hpf; RBC Urine 0-4 /hpf (0-2); Squamous Epithelial Cell Urine 0-4 /hpf (0-5)
--- NOTE | 2020-05-27 14:35 | ECG_ITS ---
[facility] Test Date: 2020-05-27 Pat Name: Hugo Oquendo Department: Room: Gender: Male Body Bumper: : 1965 Requested By: Aamir Canela Order Number: [id number] Skylar MD: ISACC DARLING Measurements Intervals [place] Rate: 101 P: 89 [place]: 103 QRS: -33 QRSD: 87 T: 117 QT: 370 QTc: 480 Interpretive Statements SINUS TACHYCARDIA WITH SHORT [place] INTERVAL LEFT AXIS DEVIATION [QRS AXIS < -30] LOW QRS VOLTAGE [QRS DEFLECTION < 0.5/1.0 mV IN LIMB/CHEST LEADS] ABNORMAL QRS-T ANGLE [QRS-T AXIS DIFFERENCE > 60] Compared to ECG 05/27/2020 13:29:07 Short [place] interval now present Left-axis deviation now present Atrial fibrillation no longer present T-wave abnormality no longer present Possible ischemia no longer present Electronically Signed On 05-27-2020 20:43:39 CDT by ISACC DARLING [email or web address]/[id number]
--- NOTE | 2020-05-27 15:04 | PC.PHAR ---
pt unable to verify medications-see pharmacy comments on each rx-pts verified medications-
[2020-05-27 15:10] LABS: Basophils # 0.1 10^3/uL (0.0-0.1); Basophils % 1.4 %; Eosinophils % 0.6 %; Hemoglobin 8.7 g/dL (11.7-16.6); Lymphocytes # 0.4 10^3/uL (0.8-4.8); Lymphocytes % 6.6 %; Mean Corpuscular HGB Conc 32.2 g/dL (30.0-36.0); Mean Corpuscular Hemoglobin 32.6 pg (28.0-34.0); Mean Corpuscular Volume 101.1 fL (80-94); Mean Platelet Volume 9.2 fL (7.4-10.4); Monocytes # 0.6 10^3/uL (0.2-0.9); Monocytes % 9.4 %; Neutrophils # 5.22 10^3/uL (1.8-7.7); Neutrophils % 81.7 %; Nucleated Red Blood Cells % 0 %; Platelet Count 106 10^3/cmm (130-400); Red Blood Count 2.67 10^6/uL (4.1-5.3); Red Cell Distribution Width 16.1 % (12.1-15.1); White Blood Count 6.4 10^3/uL (4.0-10.0)
[2020-05-27 15:14] LABS: Ammonia 185 umol/L (16-60); Lactate (Lactic Acid level) 2.3 mmol/L (0.5-2.2)
[2020-05-27 15:22] LABS: Alanine Aminotransferase 17 U/L (0-41); Alkaline Phosphatase 168 IU/L (40-130); Anion Gap 13.2 (5-19); Aspartate Amino Transferase 34 U/L (0-40); Blood Urea Nitrogen 49 mg/dL (6-20); Calcium 7.7 mg/dL (8.5-10.5); Carbon Dioxide 20 mmol/L (22-29); Chloride 109 mmol/L (98-107); Globulin 3.2 g/dL (1.3-4.6); Glomerular Filtration Rate 63.1 mL/min (90-130); Glucose 140 mg/dL (65-115); Lipase 39 U/L (13-60); NT Pro B Type Natriuretic Pept 14157 pg/mL (0-125); Osmolality Calculated 299 mOsm/kg (285-295); Potassium 5.2 mmol/L (3.5-5.1); Sodium 137 mmol/L (136-145); Total Bilirubin 1.3 mg/dL (0.15-1.2); Total Protein 5.2 g/dL (6.6-8.7)
[2020-05-27] MEDS: FUROsemide 10 mg/mL SDV 10mL 80 MG IVP (15:24)
[2020-05-27 15:29] LABS: Alcohol Level < 10 mg/dL (0-10)
[2020-05-27 15:30] LABS: Troponin(5th) Baseline 282 ng/L (0-15)
[2020-05-27 16:18] LABS: INR 1.52 (0.8-1.2)
[2020-05-27 16:31] LABS: Troponin 5 2HR 272.1 ng/L (0-15); Troponin 5 2HR Delta -9.9 ABS# (0-10)
== END 2020-05-27 18:29 | disposition home or self-care (01) ==
PROVIDERS: Emergency Provider Family Medicine; PCP Family Medicine
DX: K72.10 Chronic hepatic failure without coma (principal); E87.70 Fluid overload, unspecified; J81.1 Chronic pulmonary edema; Z79.82 Long term (current) use of aspirin; Z79.4 Long term (current) use of insulin; E11.40 Type 2 diabetes mellitus with diabetic neuropathy, unspecified; F17.210 Nicotine dependence, cigarettes, uncomplicated; I70.0 Atherosclerosis of aorta
CPT/HCPCS: 36556; 36600; 51702; 70450; 71045; 71250; 74176; 80053; 80307; 81001; 82140; 82803; 83605; 83690; 83880; 84484; 85025; 85610; 87040; 87205; 93005; 96372; 96374; 96375; 99291; J1630; J1940; J2060